=== PATIENT | female | born 1945 | race Caucasian/White ===

== ENCOUNTER 2023-10-31 10:37 | Outpatient (CLI) | payer MEDICARE, SELFPAY ==
--- NOTE | ~2023-10-31 | XR_ITS ---
Clinical Indication: COPD PA and lateral views of the chest: Comparison: None Findings: The lungs are clear, without evidence of focal consolidation or pleural effusion. Probable COPD pattern. Cardiomediastinal silhouette is within normal limits. Bones and soft tissues are unrema rkable. Impression: Probable COPD. Clear lungs. Reviewed, dictated and finalized at location . Impression: Probable COPD. Clear lungs.
[2023-10-31 11:01] LABS: Basophils Absolute Auto 0.07 K/mm3 (0.00-0.10); Basophils Percent Auto 0.7 % (0.0-1.0); Eosinophils Absolute Auto 0.35 K/mm3 (0.02-0.50); Eosinophils Percent Auto 3.5 % (1.0-6.0); Hemoglobin 9.7 g/dL (11.7-13.8); Immature Granulocyte Absolute 0.09 K/mm3 (0.00-0.00); Immature Granulocyte Percent A 0.9 % (0.0-0.0); Lymphocytes Absolute Auto 1.61 K/mm3 (1.10-4.50); Mean Corpuscular HGB Conc 30.3 g/dL (32.0-36.0); Monocytes Absolute Auto 0.82 K/mm3 (0.10-0.90); Monocytes Percent Auto 8.1 % (2.0-11.0); Neutrophils Absolute Auto 7.1 K/mm3 (1.7-7.2); Neutrophils Percent Auto 70.8 % (50.0-70.0); Platelet Count Result 300 K/mm3 (150-420); Red Blood Count 4.05 M/mm3 (4.20-5.40); White Blood Count 10.1 K/mm3 (4.8-10.8)
[2023-10-31 11:23] LABS: Appearance Urine Clear (Clear); Bilirubin Urine Negative (Negative); Blood Urine Negative (Negative); Color Urine Light Yellow (Yellow); Glucose Urine UA Negative (Negative); Ketones Urine Negative (Negative); Leukocyte Esterase Ur Trace (Negative); Nitrate Urine Negative (Negative); Protein Urine Negative (Negative); Urobilinogen Urine 0.2 mg/dL (0.2-1.0)
[2023-10-31 11:37] LABS: Add Urine Microscopic? YES
[2023-10-31 11:38] LABS: Bacteria Urine Trace /hpf; RBC Urine None seen /hpf (0-2); Squamous Epithelial Cell Urine Few /hpf (Few); WBC Urine None seen /hpf (0-3)
[2023-10-31 11:41] LABS: Creatinine Urine < 13.00 mg/dL (40-278); Microalbumin Urine Random < 13.0 mg/L
[2023-10-31 11:50] LABS: Alanine Aminotransferase 16 U/L (14-59); Albumin Level 3.4 g/dL (3.4-5.0); Alkaline Phosphatase 139 U/L (46-116); Anion Gap 9 mmol/L (8-16); Aspartate Amino Transferase 11 U/L (15-37); Bilirubin,Total 0.2 mg/dL (0.00-1.00); Blood Urea Nitrogen 7 mg/dL (7-18); Calcium 8.8 mg/dL (8.5-10.1); Carbon Dioxide 31 mmol/L (21-32); Chloride 100 mmol/L (98-108); Estimated Glomerular Filt Rate > 60; Glucose 86 mg/dL (70-99); Osmolality Calculated 287 mOsm/kg (285-295); Potassium 3.8 mmol/L (3.5-5.1); Sodium 140 mmol/L (136-145); Total Protein 7.5 g/dL (6.4-8.2)
[2023-10-31 14:49] LABS: Ferritin 16 ng/mL (8-252); Iron 19 ug/dL (50-170); Percent Iron Saturation 5 % (12-57)
== END 2023-10-31 10:38 | disposition home or self-care (01) ==
LOC: CHSLAB 10:44
PROVIDERS: PCP Family Medicine; Visit Provider Family Medicine
DX: E03.9 Hypothyroidism, unspecified (principal); J44.9 Chronic obstructive pulmonary disease, unspecified; I10 Essential (primary) hypertension; Z79.899 Other long term (current) drug therapy; R79.9 Abnormal finding of blood chemistry, unspecified
CPT/HCPCS: 36415; 71046; 80053; 80164; 81001; 82043; 82728; 83540; 83550; 84443; 85025

== ENCOUNTER 2023-11-01 08:32 | Inpatient (IN) | payer MEDICARE, SELFPAY ==
[2023-11-01] VITALS (22 sets, daily range): BP systolic 79–138; BP diastolic 37–63; PULSE 68–104; RESP 16–22; TEMP 36.4–38.1; O2SAT 85–97; BMI 27.2
--- NOTE | ~2023-11-01 | XR_ITS ---
EXAMINATION: XR chest 2V DATE: 11/01/2023 09:18 INDICATION: Weakness. TECHNIQUE: Frontal and lateral views of the chest were obtained. COMPARISON: Chest 2 views 10/31/2023 FINDINGS: There is mild atelectasis at the lung bases. No pleural effusion or pneumothorax. The heart size is normal. There is mild chronic anterior wedging of multiple midthoracic vertebral bodies. IMPRESSION: 1. Mild atelectasis at the lung bases. Reviewed, dictated and finalized at location A.
--- NOTE | 2023-11-01 08:41 | ED.GENADULT ---
HPI - General Adult General Chief complaint: Weakness Stated complaint: weakness. dry mouth Time Seen by Provider: 11/01/23 08:41 History of Present Illness HPI narrative: [facility] with general weakness mainly lower extremities, sneezing, coughing runny nose in the last few days. She denies any fever, chills, nausea vomiting, chest pain or shortness of breath history of throat cancer, intermittent aspiration pneumonia, patient probably was aspirated last night. . Related Data Home Medications Medication Instructions Recorded Confirmed amlodipine 10 mg tablet 10 mg PO DAILY 11/01/23 11/01/23 aspirin 81 mg chewable tablet 81 mg PO DAILY 11/01/23 11/01/23 atorvastatin 20 mg tablet 20 mg PO DAILY 11/01/23 11/01/23 budesonide-formoterol HFA 160 2 puff inhalation BID 11/01/23 11/01/23 mcg-4.5 mcg/actuation aerosol inhaler (Breyna) carbamazepine 100 mg chewable 300 mg PO BID 11/01/23 11/01/23 tablet dicyclomine 20 mg tablet 20 mg PO DAILY PRN Abdominal 11/01/23 11/01/23 Discomfort divalproex 125 mg capsule,delayed 125 mg PO BID 11/01/23 11/01/23 release sprinkle ferrous sulfate 325 mg (65 mg 325 mg PO DAILY 11/01/23 11/01/23 iron) tablet,delayed release furosemide 20 mg tablet 20 mg PO DAILY 11/01/23 11/01/23 levothyroxine 100 mcg tablet 100 mcg PO DAILY 11/01/23 11/01/23 montelukast 10 mg tablet 10 mg PO DAILY 11/01/23 11/01/23 oxybutynin chloride 5 mg 5 mg PO DAILY 11/01/23 11/01/23 tablet,extended release 24 hr pantoprazole 40 mg tablet,delayed 40 mg PO DAILY 11/01/23 11/01/23 release potassium chloride 10 mEq 10 meq PO DAILY 11/01/23 11/01/23 tablet,extended release(part/cryst) risperidone 2 mg tablet 2 mg PO DAILY 11/01/23 11/01/23 Allergies Allergy/AdvReac Type Severity Reaction Status Date / Time No Known Allergies Allergy Verified 11/01/23 09:01 Review of Systems Review of Systems: ROS unobtainable: Yes unobtainable due to mental status PMFSH Past Medical History Medical History Aspiration pneumonia Bipolar 1 disorder COPD (chronic obstructive pulmonary disease) HLD (hyperlipidemia) HTN (hypertension) Hypothyroid 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 She only tells me about her son, Artemio Gant [phone]. She has a court appointed guardian, Nai Workman [phone]. Smoking status: Former smoker Tobacco type: cigarettes Second hand tobacco smoke exposure: Yes Alcohol intake: never Substance use: never Substance use type: does not use Do You Feel Safe in your Home?: Yes Lack of Transportation: No Lack of Food: Never True Current Housing: I Have Housing Concerned About Future Housing: No Difficulty Paying Gas/Electric Bills: No Difficulty Paying for Meds: No Currently Unemployed: No Education: High School Diploma/GED Difficulty w/ Childcare or Family Care: No Living arrangements: retirement Additional living arrangements comments: Lives at [facility] Occupation/Education: other Additional occupation/education comments: disability. 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 Gender identity (if verbalized by the patient): Female Spiritual care concerns: No Exam Narrative: General appearance: Well-developed, well-nourished Skin: Normal color Head: Normocephalic, nontraumatic Eyes: Clear conjunctiva ENT: Oropharynx normal, ears normal, nose normal Neck: Supple, nontender Chest and respiratory: Airway patent, no respiratory distress, no accessory muscle use Heart: Regular rate/rhythm Abdomen: Soft, nontender, no organomegaly, quiet bowel sounds Vascular: Normal periphe
--- NOTE | 2023-11-01 08:49 | ECG_ITS ---
Measurements Intervals [place] Rate: 93 P: 38 PA: 175 QRS: -6 QRSD: 83 T: -4 QT: 338 QTc: 421 Interpretive Statements SINUS RHYTHM CONSIDER INFERIOR INFARCT, AGE INDETERMINATE ABNORMAL ECG NO PREVIOUS ECG AVAILABLE FOR COMPARISON Electronically Signed On 11-01-2023 10:19:19 CDT by Dylan Rojas D.O.
[2023-11-01 09:13] LABS: Base Excess ABG 1.6 mmol/L (0-2); HCO3 ABG 25.5 mmol/L (23-29); Oxygen Content ABG 15.2 %vol (16.0-22.0); Oxygen Saturation ABG 88.8 % (95-97); Oxyhemoglobin 87.6 % (94-100); PCO2 ABG 37.6 mmHg (35-45); PO2 ABG 55.7 mmHg (75-85); Total Hemoglobin 12.3 g/dL (12.0-18.0); pH ABG 7.45 (7.35-7.45)
[2023-11-01 09:15] LABS: Device ROOM AIR; Hematocrit 31.4 % (35.0-42.0); Hemoglobin 9.6 g/dL (11.7-13.8); Mean Corpuscular HGB Conc 30.6 g/dL (32.0-36.0); Mean Corpuscular Hemoglobin 23.5 pg (27.0-31.0); Mean Platelet Volume 9.1 fl (9.2-11.8); Modified Allen's Test Pass; Platelet Count Result 310 K/mm3 (150-420); Red Blood Count 4.08 M/mm3 (4.20-5.40); Red Cell Distribution Width 18.3 % (11.6-14.4); Site Drawn RIGHT RADIAL
[2023-11-01 09:22] LABS: White Blood Count 23.4 K/mm3 (4.8-10.8)
[2023-11-01 09:28] LABS: INR 0.9; Prothrombin Time 10.3 Seconds (9.50-12.10)
[2023-11-01 09:34] LABS: Alanine Aminotransferase 17 U/L (14-59); Albumin Level 3.1 g/dL (3.4-5.0); Alkaline Phosphatase 126 U/L (46-116); Anion Gap 11 mmol/L (8-16); Aspartate Amino Transferase 13 U/L (15-37); Bilirubin,Total 0.3 mg/dL (0.00-1.00); Blood Urea Nitrogen 9 mg/dL (7-18); Calcium 8.5 mg/dL (8.5-10.1); Carbon Dioxide 28 mmol/L (21-32); Chloride 97 mmol/L (98-108); Estimated CRCL calculation 50 ml/min; Estimated Glomerular Filt Rate > 60; Glucose 119 mg/dL (70-99); Osmolality Calculated 281 mOsm/kg (285-295); Potassium 3.9 mmol/L (3.5-5.1); Sodium 136 mmol/L (136-145); Total Protein 7.2 g/dL (6.4-8.2)
[2023-11-01 09:35] LABS: Band Neutrophils Percent 0 % (0-6); Lymphocytes Absolute Manual 0.46 K/mm3 (1.1-4.5); Lymphocytes Percent Manual 2 % (18-44); Monocytes Absolute Manual 1.63 K/mm3 (0.1-0.90); Monocytes Percent Manual 7 % (3-9); Neutrophils Absolute Manual 21.29 K/mm3 (1.7-7.2); Neutrophils Percent Manual 91 % (46-73); Platelet Estimate Adequate (Adequate); Total Cells Counted 100
[2023-11-01] MEDS: ACETAMINOPHEN 500 MG TABLET 1000 MG PO (09:50)
[2023-11-01 10:03] LABS: CRP 4.8 mg/dL (0.0-0.9)
--- NOTE | 2023-11-01 10:04 | PC.NURSE ---
per ERP no urine needed, start antibiotics.
[2023-11-01 10:07] LABS: SARS-CoV-2 RNA PCR Negative (Negative)
[2023-11-01 10:08] LABS: Lactic Acid Reflex 2.3 mmol/L (0.4-2.0)
[2023-11-01] MEDS: PIPERACILLN/TAZ 3.375GM/NS50ML 3.375 GM/50 ML BAG IVPB ×3 (10:11→21:03)
--- NOTE | 2023-11-01 10:12 | PC.NURSE ---
lab at bedside obtaining blood cultures. will start antibiotic when they are finished.
[2023-11-01 10:37] LABS: Influenza A QL RT-PCR Negative (Negative); Influenza B QL RT-PCR Negative (Negative); RSV RNA, RT-PCR Negative (Negative)
[2023-11-01] MEDS: SODIUM CHLORIDE 0.9% IV 1,000 ML 999 ML IV CONT ×2 (11:50→13:45)
[2023-11-01] MEDS: VANCOMYCIN 2,000 MG/NS 500 ML 2,000 MG/500 ML BAG 250 MG IVPB (11:54)
[2023-11-01 12:52] LABS: Reflex Lactic Acid Yes or No Add Lactic
[2023-11-01 13:47] LABS: Alanine Aminotransferase 12 U/L (14-59); Albumin Level 2.6 g/dL (3.4-5.0); Alkaline Phosphatase 108 U/L (46-116); Anion Gap 11 mmol/L (8-16); Aspartate Amino Transferase 13 U/L (15-37); Bilirubin,Total 0.4 mg/dL (0.00-1.00); Blood Urea Nitrogen 11 mg/dL (7-18); Calcium 8.1 mg/dL (8.5-10.1); Carbon Dioxide 25 mmol/L (21-32); Chloride 102 mmol/L (98-108); Estimated CRCL calculation 47 ml/min; Estimated Glomerular Filt Rate > 60; Glucose 110 mg/dL (70-99); Osmolality Calculated 286 mOsm/kg (285-295); Potassium 3.7 mmol/L (3.5-5.1); Sodium 138 mmol/L (136-145); Total Protein 6.3 g/dL (6.4-8.2)
[2023-11-01 13:52] LABS: Lactic Acid 1.7 mmol/L (0.4-2.0)
[2023-11-01 13:55] LABS: Magnesium 1.7 mg/dL (1.8-2.4)
--- NOTE | 2023-11-01 15:12 | PC.NURSE ---
1512 mortuary technician at bedside assisting patient with lunch at this time.
--- NOTE | 2023-11-01 15:16 | PC.NURSE ---
8220 ERP spoke with Carol Ann LOO at [facility] will continue to hydrate and recheck for possible admission.
--- NOTE | 2023-11-01 15:28 | PC.NURSE ---
1510 pt up to restroom with oil burner technician pt tolerated well.
[2023-11-01] MEDS: levoFLOXacin 750 MG/D5W 150 ML 750 MG/150 ML BAG 100 MG IVPB (16:00)
--- NOTE | 2023-11-01 16:02 | PC.NURSE ---
1600 pt to be admitted, pt verbalized understanding no further questions.
--- NOTE | 2023-11-01 16:30 | ADMGEN ---
This patient, Maria G Gant, was admitted to 2nd Floor Room 204-1. Patient/family oriented to hospital policies and general routines including ID bracelet, bed and alarms, visiting hours, pain management, procedures, bathroom and other care routines, personal items, smoking policy, room service/diet, and visiting hours. Information on how to activate the Rapid Response Team has been discussed. Patient/Family are encouraged to report perceived risks to care and to ask questions if they do not understand what they are told or what they should do.
--- NOTE | 2023-11-01 16:53 | PC.NURSE ---
total volume of 1300ml now infused to total 2300 ml ordered
--- NOTE | 2023-11-01 17:55 | PM.IMHP ---
H&P: HPI History of Present Illness Date/Time: 11/01/23 17:55 Chief Complaint: weakness Narrative: This is an 78 year old female with a past medical history of HTN, HLD, COPD not on oxygen, bipolar, iron deficient anemia, hypothyroidism, and metastatic lung carcinoma. She presented to the ED from [facility] with complaints of weakness. She is a poor historian with no previous record at this institution therefore the history is limited. When I asked her where she lived she was unable to tell me the name of the facility or it's location. When asked where she currently was she stated she was at a daycare. She does tell me that she has a guardian named Nai Workman whom she does not like. When asked why she came to the hospital she said she was not sure. They made me come . She reports intermittently having a headache but denies fever, chills, runny nose, sore throat, shortness of breath, chest pain, nausea, vomiting, diarrhea, or constipation. Her last bowel movement was three days ago and that is normal for her. She has no dysuria, frequency, or abdominal pain. Her only complaint besides her headache is weakness. She does mention that she has problems with swallowing and states this has been going on for six months. In the ED she was found to have a leukocytosis of 23.4 with a left shift, hgb 9.6, hct 31.4%, Plt 310, ABG with oxyhemoglobin of 87%, lactic 2.3 and Mg 1.7. Her respiratory panel was negative. Her chest x-ray only showed mild atelactasis at the lung base. She was 85% on room air so she was placed on 2 L NC. Her sats improved to 97%. While in the ED she had some hypotension that resolved after fluid boluses. She received 2300 ml of NS and was started on vancomycin, zosyn, and levaquin. Blood cultures and MRSA nares are pending. She was admitted in this setting for further work up of a possible aspiration pneumonia. I contacted her brother Artemio and left a voicemail to notify him that his sister was in the hospital. I also spoke with her guardian and updated her on the patient's status. Nai states that she has been the patient's guardian for the last five years. 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 She only tells me about her son, Artemio Gant [phone]. She has a court appointed guardian, Nai Workman [phone]. Smoking status: Former smoker Tobacco type: cigarettes Second hand tobacco smoke exposure: Yes Alcohol intake: never Substance use: never Substance use type: does not use Do You Feel Safe in your Home?: Yes Lack of Transportation: No Lack of Food: Never True Current Housing: I Have Housing Concerned About Future Housing: No Difficulty Paying Gas/Electric Bills: No Difficulty Paying for Meds: No Currently Unemployed: No Education: High School Diploma/GED Difficulty w/ Childcare or Family Care: No Living arrangements: senior living Additional living arrangements comments: Lives at [facility] Occupation/Education: other Additional occupation/education comments: disability. 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 Gender identity (if verbalized by the patient): Female Spiritual care concerns: No Meds Home Medications and Allergies Home Medications Medication Instructions Recorded Confirmed Type amlodipine 10 mg tablet 10 mg
[2023-11-01 19:04] LABS: Anion Gap 8 mmol/L (8-16); Blood Urea Nitrogen 9 mg/dL (7-18); Calcium 7.7 mg/dL (8.5-10.1); Carbon Dioxide 26 mmol/L (21-32); Chloride 104 mmol/L (98-108); Estimated CRCL calculation 60 ml/min; Estimated Glomerular Filt Rate > 60; Glucose 118 mg/dL (70-99); Osmolality Calculated 285 mOsm/kg (285-295); Potassium 3.5 mmol/L (3.5-5.1); Sodium 138 mmol/L (136-145)
[2023-11-01] MEDS: carBAMazepine 200 MG TABLET 300 MG PO (20:40)
[2023-11-01] MEDS: DIVALPROEX SODIUM SPRINKLE 125 MG CAP.DR PO (20:40)
[2023-11-01] MEDS: BUDESONIDE/FORMOTEROL (*SP) 160-4.5 MCG 6 GM INH 2 PUFF INHALATION (20:40)
[2023-11-01] MEDS: MAGNESIUM OXIDE 400 MG TABLET PO (21:15)
[2023-11-01] MEDS: MAGNESIUM SULF 2 GM/WATER 50ML 2 GM/50 ML BAG IVPB (21:16)
[2023-11-02] VITALS (14 sets, daily range): BP systolic 108–134; BP diastolic 56–68; PULSE 68–88; RESP 14–20; TEMP 36.4–36.9; O2SAT 87–97
--- NOTE | 2023-11-02 | PC.NURSE ---
Pt started on oxygen at 2 liters per nasal cannula as her SAO2 is 84% on room air.
[2023-11-02] MEDS: IPRATROPIUM 0.5 MG/ALBUTEROL SULFATE 2.5 MG AMPUL.NEB 3 ML INHALATION ×4 (00:06→18:23)
--- NOTE | 2023-11-02 00:15 | PC.NURSE ---
Pt given a duoneb treatment which she tolerated well.
--- NOTE | 2023-11-02 02:10 | PC.NURSE ---
Pt asleep and respirations are even and unlabored. No signs of respiratory distress noted.
--- NOTE | 2023-11-02 04:11 | PC.NURSE ---
Pt's vital signs taken and SAO2 was 97% with oxygen on at 1 liter per nasal cannula. Oxygen discontinued at this time.
[2023-11-02] MEDS: PIPERACILLN/TAZ 3.375GM/NS50ML 3.375 GM/50 ML BAG IVPB (05:00)
--- NOTE | 2023-11-02 05:00 | PC.NURSE ---
IV zosyn 3.375 mg infusing as ordered.
[2023-11-02 05:27] LABS: Basophils Absolute Auto 0.05 K/mm3 (0.00-0.10); Basophils Percent Auto 0.3 % (0.0-1.0); Eosinophils Absolute Auto 0.13 K/mm3 (0.02-0.50); Eosinophils Percent Auto 0.9 % (1.0-6.0); Hematocrit 25.6 % (35.0-42.0); Hemoglobin 7.6 g/dL (11.7-13.8); Immature Granulocyte Percent A 0.7 % (0.0-0.0); Lymphocytes Absolute Auto 1.27 K/mm3 (1.10-4.50); Lymphocytes Percent Auto 8.7 % (18.0-42.0); Mean Corpuscular HGB Conc 29.7 g/dL (32-36); Mean Corpuscular Hemoglobin 23.5 pg (27.0-31.0); Mean Platelet Volume 9.4 fl (9.2-11.8); Monocytes Percent Auto 8.2 % (2.0-11.0); Neutrophils Absolute Auto 11.85 K/mm3 (1.70-7.20); Neutrophils Percent Auto 81.2 % (50.0-70.0); Platelet Count Result 251 K/mm3 (150-420); Red Blood Count 3.24 M/mm3 (4.20-5.40); Red Cell Distribution Width 18.2 % (11.6-14.4); White Blood Count 14.6 K/mm3 (4.8-10.8)
[2023-11-02 05:45] LABS: Alanine Aminotransferase 12 U/L (14-59); Albumin Level 2.4 g/dL (3.4-5.0); Alkaline Phosphatase 91 U/L (46-116); Anion Gap 10 mmol/L (8-16); Aspartate Amino Transferase < 10 U/L (15-37); Bilirubin,Total 0.2 mg/dL (0.00-1.00); Blood Urea Nitrogen 7 mg/dL (7-18); Carbon Dioxide 27 mmol/L (21-32); Chloride 102 mmol/L (98-108); Cholesterol 152 mg/dL (0-200); Estimated CRCL calculation 77 ml/min; Estimated Glomerular Filt Rate > 60; Glucose 94 mg/dL (70-99); HDL Direct 75 mg/dL (40-60); LDL Cholesterol Calculated 65 mg/dL (<130); Osmolality Calculated 286 mOsm/kg (285-295); Potassium 3.7 mmol/L (3.5-5.1); Sodium 139 mmol/L (136-145); Total Protein 5.9 g/dL (6.4-8.2); Triglycerides 59 mg/dL (0-150)
[2023-11-02] MEDS: LEVOTHYROXINE SODIUM 100 MCG TABLET PO (06:31)
--- NOTE | 2023-11-02 06:31 | PC.NURSE ---
Pt given Synthroid 100 mcg PO as ordered.
[2023-11-02 07:20] LABS: MRSA (PCR) NOT DETECTED (NOT DETECTE)
[2023-11-02] MEDS: ATORVASTATIN 10 MG TABLET 20 MG PO (09:29)
[2023-11-02] MEDS: PANTOPRAZOLE 40 MG TABLET PO (09:29)
[2023-11-02] MEDS: ENOXAPARIN 40 MG/0.4 ML SYRINGE SUB-Q (09:29)
[2023-11-02] MEDS: oxyBUTYnin CHLORIDE XL 5 MG TAB.ER.24 PO (09:29)
[2023-11-02] MEDS: MONTELUKAST SODIUM 10 MG TABLET PO (09:29)
[2023-11-02] MEDS: carBAMazepine 200 MG TABLET 300 MG PO ×2 (09:30→20:50)
[2023-11-02] MEDS: ASPIRIN 81 MG CHEWABLE TABLET PO (09:30)
[2023-11-02] MEDS: POTASSIUM CHLORIDE 10 MEQ ER TABLET PO (09:31)
[2023-11-02] MEDS: FERROUS SULFATE 325 MG TABLET DR PO (09:31)
[2023-11-02] MEDS: BUDESONIDE/FORMOTEROL (*SP) 160-4.5 MCG 6 GM INH 2 PUFF INHALATION ×2 (09:32→20:51)
[2023-11-02] MEDS: DIVALPROEX SODIUM SPRINKLE 125 MG CAP.DR PO ×2 (09:40→20:50)
[2023-11-02] MEDS: levoFLOXacin 750 MG/D5W 150 ML 750 MG/150 ML BAG 100 MG IVPB (10:41)
--- NOTE | 2023-11-02 11:42 | PM.IMPN ---
Progress Note: A&P Assessment and Plan (1) Sepsis: Code(s): A41.9 - Sepsis, unspecified organism Status: Acute Assessment and Plan: History of aspiration and poor swallow. Suspect aspiration pneumonitis -WBC 23.4 -Chest x-ray shows atelectasis -Hypoxia on ABG and sating 85% on room air. New o2 requirements of 2 L NC to maintain saturation > 90%. -Blood cultures and MRSA pending -Started on Levaquin, Zosyn, and Vanco -Received 30 ml per kg fluid resuscitation for a lactic of 2.3. Repeat lactic 1.7. -IS and oxygen. Wean o2 as tolerated. -Q4 vital signs -Telemetry ordered -curiel placed for accurate intake and output in the setting of sepsis -speech therapy ordered for concerns of ASA pneumonitis 11/01: hypotension resolved after IV fluids yesterday, patient is on room air today, white blood cell count decreased to 14.6. Discussion with Infectious Disease pharmacist we will deescalate IV treatment to Levaquin alone now that MRSA nares is negative. (2) Acute hypoxic respiratory failure: Code(s): J96.01 - Acute respiratory failure with hypoxia Status: Acute Assessment and Plan: ABG ph 7.45, pCO2 37.6, pO2 55.7, HCO3 25.5, oxyhemoglobin 87.6% -sating 85% on arrival -2 L NC placed for maintain saturation greater than 90% -hx of COPD without oxygen use. Denies THERESA. -Q 6 hour duo nebs 11/01: Improving. Patient titrated to room air this morning. (3) HTN (hypertension): Code(s): I10 - Essential (primary) hypertension Status: Acute Assessment and Plan: Home agents of amlodipine and lasix -currently holding given recent low blood pressure and sepsis picture -will review vitals daily and resume when appropriate -Q 4 VS 11/01: Stable blood pressure much improved after treatment with IV fluids (4) Weakness: Code(s): R53.1 - Weakness Status: Acute Assessment and Plan: States she normally walks with a walker independently. -PT/OT consults when appropriate -fall precautions -currently is on bed rest with HOB no greater than 45 degrees given active fem line. 11/01: Will have PT OT see patient tomorrow, DC CVC right femoral today (5) Bipolar 1 disorder: Code(s): F31.9 - Bipolar disorder, unspecified Status: Acute Assessment and Plan: Lives in a prison setting, has a guardian, on maintenance medications -stable currently. So far she has been appropriate, pleasant, and cooperative -Continue carbamazepine, divalproex, and risperidone 11/01: stable, no acute exacerbation (6) HLD (hyperlipidemia): Code(s): E78.5 - Hyperlipidemia, unspecified Status: Acute Assessment and Plan: On daily Atorvastatin 20 mg -lipid panel ordered -home medication continued Plan Remain admitted and continue IV antibiotics for now, consider deescalation and discharge tomorrow as patient is doing much better. Time Spent With Patient Time with patient: 25 - 35 minutes Subjective Date/time seen: 11/02/23 11:42 Interval history: Copied from history and physical: This is an 78 year old female with a past medical history of HTN, HLD, COPD not on oxygen, bipolar, iron deficient anemia, hypothyroidism, and metastatic lung carcinoma. She presented to the ED from [facility] with complaints of weakness. She is a poor historian with no previous record at this institution therefore the history is limited. When I asked her where she lived she was unable to tell me the name of the facility or it's location. When asked where she currently was she stated she was at a daycare. She does tell me that she has a guardian named Nai Workman whom she does not like. When asked why she came to the hospital she said she was not sure. They made me come . She reports intermittently having a headache but denies fever, chills, runny nose, sore throat, shortness of breath, chest pain, nausea, vomiting, diarrhea, or constipation. Her
[2023-11-02] MEDS: risperiDONE 1 MG TABLET 2 MG PO (13:34)
[2023-11-03] VITALS (9 sets, daily range): BP systolic 106–140; BP diastolic 58–78; PULSE 65–88; RESP 16–18; TEMP 36.2–36.8; O2SAT 91–97
[2023-11-03 05:30] LABS: Basophils Absolute Auto 0.06 K/mm3 (0.00-0.10); Basophils Percent Auto 0.6 % (0.0-1.0); Eosinophils Absolute Auto 0.36 K/mm3 (0.02-0.50); Eosinophils Percent Auto 3.9 % (1.0-6.0); Hematocrit 26.7 % (35.0-42.0); Hemoglobin 8.1 g/dL (11.7-13.8); Immature Granulocyte Absolute 0.09 K/mm3 (0.00-0.00); Lymphocytes Absolute Auto 1.29 K/mm3 (1.10-4.50); Lymphocytes Percent Auto 13.9 % (18.0-42.0); Mean Corpuscular HGB Conc 30.3 g/dL (32-36); Mean Corpuscular Hemoglobin 23.6 pg (27.0-31.0); Mean Corpuscular Volume 77.8 fL (78.0-102.0); Mean Platelet Volume 9.2 fl (9.2-11.8); Monocytes Absolute Auto 0.81 K/mm3 (0.10-0.90); Monocytes Percent Auto 8.7 % (2.0-11.0); Neutrophils Absolute Auto 6.67 K/mm3 (1.70-7.20); Neutrophils Percent Auto 71.9 % (50.0-70.0); Platelet Count Result 286 K/mm3 (150-420); Red Blood Count 3.43 M/mm3 (4.20-5.40); Red Cell Distribution Width 18.4 % (11.6-14.4); White Blood Count 9.3 K/mm3 (4.8-10.8)
[2023-11-03] MEDS: LEVOTHYROXINE SODIUM 100 MCG TABLET PO (05:38)
[2023-11-03] MEDS: IPRATROPIUM 0.5 MG/ALBUTEROL SULFATE 2.5 MG AMPUL.NEB 3 ML INHALATION ×3 (05:41→16:39)
[2023-11-03 05:47] LABS: Alanine Aminotransferase 18 U/L (14-59); Albumin Level 2.5 g/dL (3.4-5.0); Alkaline Phosphatase 100 U/L (46-116); Anion Gap 7 mmol/L (8-16); Aspartate Amino Transferase 12 U/L (15-37); Bilirubin,Total 0.1 mg/dL (0.00-1.00); Blood Urea Nitrogen 8 mg/dL (7-18); Calcium 8.6 mg/dL (8.5-10.1); Carbon Dioxide 29 mmol/L (21-32); Chloride 105 mmol/L (98-108); Estimated CRCL calculation 73 ml/min; Estimated Glomerular Filt Rate > 60; Glucose 98 mg/dL (70-99); Magnesium 1.9 mg/dL (1.8-2.4); Osmolality Calculated 290 mOsm/kg (285-295); Sodium 141 mmol/L (136-145); Total Protein 6.4 g/dL (6.4-8.2)
--- NOTE | 2023-11-03 08:35 | PM.IMPN ---
Progress Note: A&P Assessment and Plan (1) Sepsis: Code(s): A41.9 - Sepsis, unspecified organism Status: Acute Assessment and Plan: History of aspiration and poor swallow. Suspect aspiration pneumonitis -WBC 23.4 -Chest x-ray shows atelectasis -Hypoxia on ABG and sating 85% on room air. New o2 requirements of 2 L NC to maintain saturation > 90%. -Blood cultures and MRSA pending -Started on Levaquin, Zosyn, and Vanco -Received 30 ml per kg fluid resuscitation for a lactic of 2.3. Repeat lactic 1.7. -IS and oxygen. Wean o2 as tolerated. -Q4 vital signs -Telemetry ordered -curiel placed for accurate intake and output in the setting of sepsis -speech therapy ordered for concerns of ASA pneumonitis 11/01: hypotension resolved after IV fluids yesterday, patient is on room air today, white blood cell count decreased to 14.6. Discussion with Infectious Disease pharmacist we will deescalate IV treatment to Levaquin alone now that MRSA nares is negative. 11/02: Plan to transition to oral antibiotics tomorrow and discharge (2) Acute hypoxic respiratory failure: Code(s): J96.01 - Acute respiratory failure with hypoxia Status: Acute Assessment and Plan: ABG ph 7.45, pCO2 37.6, pO2 55.7, HCO3 25.5, oxyhemoglobin 87.6% -sating 85% on arrival -2 L NC placed for maintain saturation greater than 90% -hx of COPD without oxygen use. Denies THERESA. -Q 6 hour duo nebs 11/01: Improving. Patient titrated to room air this morning. 11/02: Patient has remained on room air no further need for supplemental oxygen. (3) HTN (hypertension): Code(s): I10 - Essential (primary) hypertension Status: Acute Assessment and Plan: Home agents of amlodipine and lasix -currently holding given recent low blood pressure and sepsis picture -will review vitals daily and resume when appropriate -Q 4 VS 11/01: Stable blood pressure much improved after treatment with IV fluids 11/02: Blood pressure stable no further intervention at this time (4) Weakness: Code(s): R53.1 - Weakness Status: Acute Assessment and Plan: States she normally walks with a walker independently. -PT/OT consults when appropriate -fall precautions -currently is on bed rest with HOB no greater than 45 degrees given active fem line. 11/01: Will have PT OT see patient tomorrow, DC CVC right femoral today 11/02: Patient walking well with therapy anticipate discharge tomorrow (5) Bipolar 1 disorder: Code(s): F31.9 - Bipolar disorder, unspecified Status: Acute Assessment and Plan: Lives in a nursing home setting, has a guardian, on maintenance medications -stable currently. So far she has been appropriate, pleasant, and cooperative -Continue carbamazepine, divalproex, and risperidone 11/01: stable, no acute exacerbation (6) HLD (hyperlipidemia): Code(s): E78.5 - Hyperlipidemia, unspecified Status: Acute Assessment and Plan: On daily Atorvastatin 20 mg -lipid panel ordered -home medication continued (7) Iron deficiency anemia: Code(s): D50.9 - Iron deficiency anemia, unspecified Status: Acute Assessment and Plan: Iron level 19 TIBC 414 iron saturation 5%, hemoglobin 8 point hematocrit 26.7 findings microcytic hypochromic anemia. Ordered IV iron today and tomorrow before discharge. Time Spent With Patient Time with patient: 25 - 35 minutes Subjective Date/time seen: 11/03/23 08:35 Interval history: Copied from history and physical: This is an 78 year old female with a past medical history of HTN, HLD, COPD not on oxygen, bipolar, iron deficient anemia, hypothyroidism, and metastatic lung carcinoma. She presented to the ED from [facility] with complaints of weakness. She is a poor historian with no previous record at this institution therefore the history is limited. When I asked her where she lived she was unable to tell m
[2023-11-03] MEDS: levoFLOXacin 750 MG/D5W 150 ML 750 MG/150 ML BAG 100 MG IVPB (10:10)
[2023-11-03] MEDS: DICYCLOMINE HCL 10 MG CAPSULE 20 MG PO (10:10)
[2023-11-03] MEDS: risperiDONE 1 MG TABLET 2 MG PO (10:11)
[2023-11-03] MEDS: ATORVASTATIN 10 MG TABLET 20 MG PO (10:11)
[2023-11-03] MEDS: carBAMazepine 200 MG TABLET 300 MG PO ×2 (10:11→21:37)
[2023-11-03] MEDS: POTASSIUM CHLORIDE 10 MEQ ER TABLET PO (10:12)
[2023-11-03] MEDS: MONTELUKAST SODIUM 10 MG TABLET PO (10:12)
[2023-11-03] MEDS: FERROUS SULFATE 325 MG TABLET DR PO (10:12)
[2023-11-03] MEDS: PANTOPRAZOLE 40 MG TABLET PO (10:12)
[2023-11-03] MEDS: DIVALPROEX SODIUM SPRINKLE 125 MG CAP.DR PO ×2 (10:13→21:37)
[2023-11-03] MEDS: ASPIRIN 81 MG CHEWABLE TABLET PO (10:13)
[2023-11-03] MEDS: ENOXAPARIN 40 MG/0.4 ML SYRINGE SUB-Q (10:13)
[2023-11-03] MEDS: oxyBUTYnin CHLORIDE XL 5 MG TAB.ER.24 PO (10:13)
[2023-11-03] MEDS: BUDESONIDE/FORMOTEROL (*SP) 160-4.5 MCG 6 GM INH 2 PUFF INHALATION ×2 (10:14→21:36)
--- NOTE | 2023-11-03 11:23 | PC.NURSE ---
Jeffries catheter removed at 0900. RO
[2023-11-03] MEDS: IRON SUCROSE COMPLEX 500 MG in SODIUM CHLORIDE 0.9% IV 250 ML 79 MG IVPB (13:06)
[2023-11-03 13:47] LABS: Alanine Aminotransferase 17 U/L (14-59); Albumin Level 2.7 g/dL (3.4-5.0); Alkaline Phosphatase 106 U/L (46-116); Anion Gap 9 mmol/L (8-16); Aspartate Amino Transferase 14 U/L (15-37); Bilirubin,Total 0.1 mg/dL (0.00-1.00); Blood Urea Nitrogen 7 mg/dL (7-18); Calcium 8.6 mg/dL (8.5-10.1); Carbon Dioxide 29 mmol/L (21-32); Chloride 98 mmol/L (98-108); Estimated CRCL calculation 59 ml/min; Estimated Glomerular Filt Rate > 60; Glucose 132 mg/dL (70-99); Osmolality Calculated 282 mOsm/kg (285-295); Potassium 3.8 mmol/L (3.5-5.1); Sodium 136 mmol/L (136-145); Total Protein 7.2 g/dL (6.4-8.2)
[2023-11-03 13:53] LABS: Magnesium 1.8 mg/dL (1.8-2.4)
[2023-11-04] VITALS (9 sets, daily range): BP systolic 132–142; BP diastolic 65–68; PULSE 72–88; RESP 16; TEMP 36.4–36.8; O2SAT 92–96
[2023-11-04] MEDS: IPRATROPIUM 0.5 MG/ALBUTEROL SULFATE 2.5 MG AMPUL.NEB 3 ML INHALATION ×3 (00:45→13:15)
[2023-11-04 05:33] LABS: Basophils Absolute Auto 0.05 K/mm3 (0.00-0.10); Basophils Percent Auto 0.6 % (0.0-1.0); Eosinophils Absolute Auto 0.43 K/mm3 (0.02-0.50); Eosinophils Percent Auto 5.6 % (1.0-6.0); Hematocrit 26.8 % (35.0-42.0); Hemoglobin 8.1 g/dL (11.7-13.8); Immature Granulocyte Absolute 0.09 K/mm3 (0.00-0.00); Immature Granulocyte Percent A 1.2 % (0.0-0.0); Lymphocytes Percent Auto 18.2 % (18.0-42.0); Mean Corpuscular HGB Conc 30.2 g/dL (32-36); Mean Corpuscular Hemoglobin 23.7 pg (27.0-31.0); Mean Corpuscular Volume 78.4 fL (78.0-102.0); Mean Platelet Volume 9.6 fl (9.2-11.8); Monocytes Absolute Auto 0.71 K/mm3 (0.10-0.90); Monocytes Percent Auto 9.2 % (2.0-11.0); Neutrophils Absolute Auto 5.03 K/mm3 (1.70-7.20); Neutrophils Percent Auto 65.2 % (50.0-70.0); Platelet Count Result 290 K/mm3 (150-420); Red Blood Count 3.42 M/mm3 (4.20-5.40); Red Cell Distribution Width 18.3 % (11.6-14.4); White Blood Count 7.7 K/mm3 (4.8-10.8)
[2023-11-04] MEDS: LEVOTHYROXINE SODIUM 100 MCG TABLET PO (05:42)
[2023-11-04 05:48] LABS: Alanine Aminotransferase 19 U/L (14-59); Albumin Level 2.5 g/dL (3.4-5.0); Alkaline Phosphatase 90 U/L (46-116); Anion Gap 9 mmol/L (8-16); Aspartate Amino Transferase 13 U/L (15-37); Bilirubin,Total 0.1 mg/dL (0.00-1.00); Blood Urea Nitrogen 5 mg/dL (7-18); Calcium 8.5 mg/dL (8.5-10.1); Carbon Dioxide 28 mmol/L (21-32); Chloride 102 mmol/L (98-108); Estimated CRCL calculation 64 ml/min; Estimated Glomerular Filt Rate > 60; Glucose 96 mg/dL (70-99); Magnesium 1.8 mg/dL (1.8-2.4); Osmolality Calculated 285 mOsm/kg (285-295); Potassium 4.3 mmol/L (3.5-5.1); Sodium 139 mmol/L (136-145); Total Protein 6.5 g/dL (6.4-8.2)
--- NOTE | 2023-11-04 08:53 | PM.DS ---
DS: Admitting Diagnosis Discharge Date 11/03/2022 Admitting Diagnosis sepsis, acute hypoxic respiratory failure, hypertension, weakness, bipolar 1 disorder, hyperlipidemia DS: Discharge Diagnosis Discharge Diagnosis (1) Sepsis: Code(s): A41.9 - Sepsis, unspecified organism Status: Acute (2) Acute hypoxic respiratory failure: Code(s): J96.01 - Acute respiratory failure with hypoxia Status: Acute (3) HTN (hypertension): Code(s): I10 - Essential (primary) hypertension Status: Acute (4) Weakness: Code(s): R53.1 - Weakness Status: Acute (5) Bipolar 1 disorder: Code(s): F31.9 - Bipolar disorder, unspecified Status: Acute (6) HLD (hyperlipidemia): Code(s): E78.5 - Hyperlipidemia, unspecified Status: Acute (7) Iron deficiency anemia: Code(s): D50.9 - Iron deficiency anemia, unspecified Status: Acute DS: Summary Hospital Course Reason for hospitalization: Pneumonia with sepsis Hospital Course: this is an 78-year-old female patient who was admitted to the hospital with acute hypoxemic respiratory failure, sepsis, aspiration pneumonia with hypotension. Patient has a history swallowing difficulties frequently aspirates. She presented to hypoxic requiring oxygen white blood cell elevated at 23 hypotensive in the 70s systolic. She received IV Levaquin, Zosyn and vancomycin in the emergency department. Triple-lumen central venous catheter was placed in the right femoral due to peripheral access. Patient improved after IV fluids and IV antibiotics. She was titrated off oxygen following day. Continued IV Levaquin only. Patient found to be anemic iron labs were noted to be significantly low so patient received IV yesterday as well as today. While receiving IV antibiotic today her IV infiltrated and she did not receive full dose. Supplemented with oral dose partial 500 mg to complete her 750 mg dosing today. She will be discharged with 4 more days of oral Levaquin. Patient worked with therapy and is able to ambulate around the entire patient floor. Discontinued amlodipine as she never became hypertensive. Continued other home medications but increased oral iron supplement. Home health will see patient at [facility] for physical therapy and speech therapy. Status at Discharge Cognitive/behavioral status at discharge: awake alert mostly oriented and very pleasant Functional status at discharge: uses cane/walker Overall status at discharge: patient is back to baseline Time Spent with Patient Time attestation: Total time spent providing and/or coordinating discharge services: 35 minutes Time spent: Greater than 30 minutes Exam Narrative: General:well developed, well nourished, appears stated age HEENT: normocephalic, atraumatic. Mucous membranes moist, EOMI, PERRLA, bilateral sclera anicteric, no conjunctival injection. Neck supple without JVD, lymphadenopathy, or bruit. Respiratory: clear to auscultation bilaterally. No rales/rhonchi/wheezes. Cardiovascular: Regular rhythm, Regular rate normal S1-S2 upon auscultation. No murmurs, rubs, or clicks. PMI is nondisplaced, capillary re-fill greater than 3 seconds. Abdomen: Soft, round, no pulsatile masses, non-distended and non-tender. No rebound, no guarding. No CVA tenderness, no hepatosplenomegaly.? Bowel sounds present to all four quadrants. Extremities: No cyanosis, clubbing, or edema present. Pulses are palpable 2/2. Active ROM to all four extremities. Neuro: Alert and orientated x 2-3. PERRLA. Cranial nerves 2-12 intact without focal deficit. Ambulatory with a steady gait with the use a walker. Skin: Warm, dry, and intact, without rash, erythema, or lesion. Generalized bruising. Lines: Peripheral IV left forearm with nearby thrombophlebitis. Psych: Mildly confused,? normal speech, normal affect, no hallucinations, no dysarthria, cooperative DS: Data Data Completed and Pending Co
[2023-11-04] MEDS: IRON SUCROSE COMPLEX 500 MG in SODIUM CHLORIDE 0.9% IV 250 ML 79 MG IVPB (09:33)
[2023-11-04] MEDS: levoFLOXacin 750 MG/D5W 150 ML 750 MG/150 ML BAG 100 MG IVPB (09:33)
[2023-11-04] MEDS: BUDESONIDE/FORMOTEROL (*SP) 160-4.5 MCG 6 GM INH 2 PUFF INHALATION (09:40)
[2023-11-04] MEDS: PANTOPRAZOLE 40 MG TABLET PO (09:40)
[2023-11-04] MEDS: risperiDONE 1 MG TABLET 2 MG PO (09:41)
[2023-11-04] MEDS: MONTELUKAST SODIUM 10 MG TABLET PO (09:41)
[2023-11-04] MEDS: ASPIRIN 81 MG CHEWABLE TABLET PO (09:41)
[2023-11-04] MEDS: carBAMazepine 200 MG TABLET 300 MG PO (09:41)
[2023-11-04] MEDS: ATORVASTATIN 10 MG TABLET 20 MG PO (09:41)
[2023-11-04] MEDS: DIVALPROEX SODIUM SPRINKLE 125 MG CAP.DR PO (09:42)
[2023-11-04] MEDS: oxyBUTYnin CHLORIDE XL 5 MG TAB.ER.24 PO (09:42)
[2023-11-04] MEDS: ENOXAPARIN 40 MG/0.4 ML SYRINGE SUB-Q (09:42)
[2023-11-04] MEDS: FERROUS SULFATE 325 MG TABLET DR PO (09:42)
[2023-11-04] MEDS: POTASSIUM CHLORIDE 10 MEQ ER TABLET PO (09:42)
[2023-11-04] MEDS: levoFLOXacin 500 MG TABLET PO (13:10)
--- NOTE | 2023-11-04 16:05 | PC.NURSE ---
Patient discharging back to [facility]. Jessica from [facility] here to pick patient up. IV sites removed, tip intact. Dressing applied to both sites. All belongings gathered together to be sent home with patient. All discharge instuctions and education reviewed with patient and all questions answered. Patient denies any further questions at discharge. This nurse accompanied patient to front door via wheelchair. Left via private vehicle with Jessica. Provided with hard scripts for new medication, scripts also faxed directly to pharmacy.
--- NOTE | 2023-11-07 09:40 | PC.NURSE ---
[facility]charge [facility] back [facility] see her, out of network to see PMD next week will have them make a referral for home health at that time, no aldair re sadie instructions
--- NOTE | 2023-11-07 14:12 | PCCCNOTE ---
Rec'd call from [facility] stating they do not have a contract with [facility] and will not be able to see Maria G. Care Coordination is currently looking for another Home Health that can provide ST and PT for Maria G.
--- NOTE | 2023-11-08 15:21 | PCCCNOTE ---
[facility] is able to provide PT and ST for Maria G. They will be reaching out to Nai Nance pt's guardian for approval.
== END 2023-11-04 16:05 | disposition home health service (06) | DRG 871 ==
LOC: CHSED 10:25 → CHS2ND 12:58 → CHSED 13:01 → CHS2ND 15:59
PROVIDERS: Nurse Practitioner; Nurse Practitioner Acute Care; Admitting Provider Internal Medicine; Emergency Provider Emergency Medicine; PCP Family Medicine; Visit Provider Internal Medicine
DX: A41.9 Sepsis, unspecified organism (principal); J69.0 Pneumonitis due to inhalation of food and vomit; J96.01 Acute respiratory failure with hypoxia; C78.00 Secondary malignant neoplasm of unspecified lung; I10 Essential (primary) hypertension; Z20.822 Contact with and (suspected) exposure to COVID-19; J44.9 Chronic obstructive pulmonary disease, unspecified; D50.9 Iron deficiency anemia, unspecified; E78.5 Hyperlipidemia, unspecified; E03.9 Hypothyroidism, unspecified; Z85.819 Personal history of malignant neoplasm of unspecified site of lip, oral cavity, and pharynx; F31.9 Bipolar disorder, unspecified; Z79.82 Long term (current) use of aspirin
CPT/HCPCS: 36415; 36556; 36600; 71046; 80048; 80053; 80061; 80164; 81001; 82043; 82728; 82805; 83540; 83550; 83605; 83735; 84443; 84484; 85025; 85610; 86140; 87040; 87637; 87641; 92526; 92610; 93005; 94640; 96365; 97110; 97161; 97165; 97530; 97535; 99285; A9270; J1650; J1756; J1956; J2543; J3370; J3475; J7030; J7050

== ENCOUNTER 2023-11-12 07:04 | Outpatient (CLI) | payer MEDICARE, SELFPAY ==
[2023-11-12 08:21] LABS: Cholesterol 168 mg/dL (0-200); HDL Direct 71 mg/dL (40-60); LDL Cholesterol Calculated 74 mg/dL (<130); Triglycerides 115 mg/dL (0-150)
== END 2023-11-12 07:05 | disposition home or self-care (01) ==
LOC: CHSLAB 07:08
PROVIDERS: Visit Provider Family Medicine
DX: E78.2 Mixed hyperlipidemia (principal)
CPT/HCPCS: 36415; 80061

== ENCOUNTER 2023-12-01 17:53 | Observation (INO) | payer MEDICARE, SELFPAY ==
[2023-12-01] VITALS (11 sets, daily range): BP systolic 102–166; BP diastolic 46–64; PULSE 90–121; RESP 18–24; TEMP 36.6–38.2; O2SAT 84–97; BMI 32.8
--- NOTE | ~2023-12-01 | XR_ITS ---
XR chest 1V portable 12/01/2023 18:37 Indication: Shortness of breath Procedure: AP portable chest Comparison: No prior studies for comparison. Findings: Heart size normal. No focal air space disease, pulmonary edema, pleural effusion or suspect ed pneumothorax. No acute osseous abnormality. Impression: 1: No acute cardiopulmonary disease. Reviewed, dictated and finalized at location A. Impression: 1: No acute cardiopulmonary disease.
--- NOTE | ~2023-12-01 | CT_ITS ---
EXAMINATION: CTA chest PE protocol DATE: 12/01/2023 19:55 CDT INDICATION: Shortness of breath. Elevated d-dimer. TECHNIQUE: Computed tomographic angiography (CTA) of the chest was performed with 100 mL Omnipaque-35 0 intravenous contrast. The dose-length product was 288.24 mGy-cm. Maximum intensity projection 3D-re constructions of the aorta and other arteries were constructed by the technologist on a separate work station. Automated exposure control and iterative reconstruction technique were employed. COMPARISON: None. FINDINGS: Study technically limited due to motion and quantum mottle artifact. No large central pulmo nary embolism. Enlarged pulmonary arteries consistent with pulmonary hypertension. No significant ple ural or pericardial effusion. There is mediastinal lymphadenopathy. Patchy groundglass opacities pred ominantly affecting the upper lobes, suspicious for pneumonia. Moderate thoracic spondylosis. IMPRESSION: 1. No large central pulmonary embolism. 2: Patchy bilateral groundglass opacities, suspicious for pneumonia. 3: No mediastinal lymphadenopathy, likely reactive. 4: Enlarged pulmonary arteries consistent with pulmonary arterial hypertension. Reviewed, dictated and finalized at location A. IMPRESSION: 1. No large central pulmonary embolism. 2: Patchy bilateral groundglass opacities, suspicious for pneumonia. 3: No mediastinal lymphadenopathy, likely reactive. 4: Enlarged pulmonary arteries consistent with pulmonary arterial hypertension .
--- NOTE | ~2023-12-01 | XR_ITS ---
EXAMINATION: XR chest 2V DATE: 12/02/2023 07:52 INDICATION: COPD, pneumonia and right-sided chest pain. TECHNIQUE: frontal and lateral views of the chest were obtained. COMPARISON: Chest radiograph and CT dated 12/01/2023 FINDINGS: Mild interstitial and airspace opacities in the bilateral lower lung zones. Mild blunting at the righ t costophrenic angle which could represent a tiny right pleural effusion. No pneumothorax. The cardio mediastinal silhouette is normal. Severe thoracic spondylosis. Likely cholecystectomy clips in the up per abdomen. IMPRESSION: 1. Persistent mild opacities in bilateral lower lung zones which could represent atelectasis, mild pu lmonary edema, pneumonia or some combination thereof. Reviewed, dictated and finalized at location B. IMPRESSION: 1. Persistent mild opacities in bilateral lower lung zones which could represen t atelectasis, mild pulmonary edema, pneumonia or some combination thereof.
--- NOTE | 2023-12-01 17:56 | ECG_ITS ---
SEE SCANNED COPY FOR CONFIRMED REPORT MTDD
[2023-12-01] MEDS: SODIUM CHLORIDE 0.9% IV 1,000 ML 999 ML IV CONT ×2 (18:20→20:36)
[2023-12-01 18:26] LABS: Basophils Absolute Auto 0.04 K/mm3 (0.00-0.10); Basophils Percent Auto 0.5 % (0.0-1.0); Eosinophils Absolute Auto 0.09 K/mm3 (0.02-0.50); Eosinophils Percent Auto 1.1 % (1.0-6.0); Hematocrit 33.2 % (35.0-42.0); Hemoglobin 10.4 g/dL (11.7-13.8); Immature Granulocyte Absolute 0.08 K/mm3 (0.00-0.00); Lymphocytes Absolute Auto 0.51 K/mm3 (1.10-4.50); Lymphocytes Percent Auto 6.5 % (18.0-42.0); Mean Corpuscular HGB Conc 31.3 g/dL (32-36); Mean Corpuscular Hemoglobin 26.9 pg (27.0-31.0); Mean Platelet Volume 9.4 fl (9.2-11.8); Monocytes Absolute Auto 0.79 K/mm3 (0.10-0.90); Monocytes Percent Auto 10.1 % (2.0-11.0); Neutrophils Absolute Auto 6.32 K/mm3 (1.70-7.20); Neutrophils Percent Auto 80.8 % (50.0-70.0); Platelet Count Result 236 K/mm3 (150-420); Red Blood Count 3.86 M/mm3 (4.20-5.40); Red Cell Distribution Width 25.2 % (11.6-14.4); White Blood Count 7.8 K/mm3 (4.8-10.8)
[2023-12-01] MEDS: methylPREDNISolone SOD SUCC 125 MG VIAL IV PUSH (18:33)
[2023-12-01] MEDS: IPRATROPIUM 0.5 MG/ALBUTEROL SULFATE 2.5 MG AMPUL.NEB 3 ML INHALATION (18:35)
[2023-12-01 18:43] LABS: INR 0.9; Partial Thromboplastin Time 25.1 Sec (23.9-30.70); Prothrombin Time 10.3 Seconds (9.50-12.1)
[2023-12-01 18:47] LABS: D Dimer 0.88 mg/L (0.19-0.50)
[2023-12-01 18:49] LABS: Alanine Aminotransferase 20 U/L (14-59); Albumin Level 3.3 g/dL (3.4-5.0); Alkaline Phosphatase 131 U/L (46-116); Anion Gap 11 mmol/L (4-12); Aspartate Amino Transferase 16 U/L (15-37); Bilirubin,Total 0.1 mg/dL (0.00-1.00); Blood Urea Nitrogen 9 mg/dL (7-18); CRP 3.5 mg/dL (0.0-0.9); Calcium 8.7 mg/dL (8.5-10.1); Carbon Dioxide 28 mmol/L (21-32); Chloride 97 mmol/L (98-108); Estimated CRCL calculation 48 ml/min; Estimated Glomerular Filt Rate > 60; Glucose 136 mg/dL (70-99); Lactic Acid Reflex 2.4 mmol/L (0.4-2.0); Lipase 14 U/L (16-77); Osmolality Calculated 282 mOsm/kg (285-295); Potassium 3.7 mmol/L (3.5-5.1); Sodium 136 mmol/L (136-145); Troponin I 12.6 ng/L (0.00-60.4)
[2023-12-01 19:08] LABS: SARS-CoV-2 RNA PCR Negative (Negative)
[2023-12-01 19:13] LABS: Influenza A QL RT-PCR Positive (Negative); Influenza B QL RT-PCR Negative (Negative); RSV RNA, RT-PCR Negative (Negative)
[2023-12-01] MEDS: MAGNESIUM SULF 2 GM/WATER 50ML 2 GM/50 ML BAG IVPB (19:46)
[2023-12-01 19:57] LABS: Appearance Urine Clear (Clear); Bilirubin Urine Negative (Negative); Blood Urine Negative (Negative); Color Urine Light Yellow (Yellow); Glucose Urine UA Negative (Negative); Ketones Urine Negative (Negative); Leukocyte Esterase Ur Negative LEU/UL (Negative); Nitrate Urine Positive (Negative); Protein Urine Negative (Negative); Urobilinogen Urine 0.2 mg/dL (0.2-1.0); pH Urine 6.5 (5.0-8.0)
[2023-12-01 20:02] LABS: Add Urine Microscopic? YES; Bacteria Urine 3+ /hpf; RBC Urine 0-2 /hpf (0-2); Squamous Epithelial Cell Urine None seen /hpf (Few); WBC Urine 0-3 /hpf (0-3)
--- NOTE | 2023-12-01 20:29 | ED.SOB ---
HPI - SOB/Dyspnea General Chief Complaint: Shortness of Breath/Dyspnea Stated Complaint: fever Time Seen by Provider: 12/01/23 17:55 Source: patient and EMS Mode of arrival: EMS Limitations: physical limitation History of Present Illness HPI Narrative: This is a an 78-year-old female presents from [facility] with shortness of breath and low O2 saturations in the mid 80s brought in by EMS patient had a fever according to staff and EMS and has a history of COPD but not on oxygen at the facility. There is no chest pain no shortness of breath no abdominal pain no flank pain patient denies dysuria. The patient has a nonproductive cough with some no audible wheezing but is short of breath. MD elicited complaint: shortness of breath Pertinent past history: COPD Onset (ago): day(s) Related Data Home Medications Medication Instructions Recorded Confirmed aspirin 81 mg chewable tablet 81 mg PO DAILY 11/01/23 12/01/23 atorvastatin 20 mg tablet 20 mg PO DAILY 11/01/23 12/01/23 budesonide-formoterol HFA 160 2 puff inhalation BID 11/01/23 12/01/23 mcg-4.5 mcg/actuation aerosol inhaler (Breyna) carbamazepine 100 mg chewable 300 mg PO BID 11/01/23 12/01/23 tablet dicyclomine 20 mg tablet 20 mg PO DAILY PRN Abdominal 11/01/23 12/01/23 Discomfort divalproex 125 mg capsule,delayed 125 mg PO BID 11/01/23 12/01/23 release sprinkle furosemide 20 mg tablet 20 mg PO DAILY 11/01/23 12/01/23 levothyroxine 100 mcg tablet 100 mcg PO DAILY 11/01/23 12/01/23 montelukast 10 mg tablet 10 mg PO HS 11/01/23 12/01/23 oxybutynin chloride 5 mg 5 mg PO DAILY 11/01/23 12/01/23 tablet,extended release 24 hr pantoprazole 40 mg tablet,delayed 40 mg PO DAILY 11/01/23 12/01/23 release potassium chloride 10 mEq 10 meq PO BID 11/01/23 12/01/23 tablet,extended release(part/cryst) risperidone 2 mg tablet 2 mg PO DAILY 11/01/23 12/01/23 Allergies Allergy/AdvReac Type Severity Reaction Status Date / Time No Known Allergies Allergy Verified 12/01/23 18:48 Review of Systems Review of Systems: All systems reviewed & are unremarkable except as noted in HPI and below PMFSH Past Medical History Medical History Aspiration pneumonia Bipolar 1 disorder COPD (chronic obstructive pulmonary disease) HLD (hyperlipidemia) HTN (hypertension) Hypothyroid 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 She only tells me about her son, Artemio Gant [phone]. She has a court appointed guardian, Nai Workman [phone]. Smoking status: Former smoker Tobacco type: cigarettes Second hand tobacco smoke exposure: Yes Alcohol intake: never Substance use: never Substance use type: does not use Do You Feel Safe in your Home?: Yes Lack of Transportation: No Lack of Food: Never True Current Housing: I Have Housing Concerned About Future Housing: No Difficulty Paying Gas/Electric Bills: No Difficulty Paying for Meds: No Currently Unemployed: No Education: High School Diploma/GED Difficulty w/ Childcare or Family Care: No Living arrangements: usp Additional living arrangements comments: Lives at [facility] Occupation/Education: other Additional occupation/education comments: disability. 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 Gender identity (if verbalized by the patient): Female Spiritual care concerns: No Exam Const: General: no acute distress Nutritional Appearance: well nourished Orientation/consciousness: patient oriented x3 Limitations: physical limitations HENMT: Head: normal to inspection Neck: Neck: normal visual inspection, no lymphadenopathy and
[2023-12-01] MEDS: OSELTAMIVIR PHOSPHATE 75 MG CAPSULE PO (20:34)
--- NOTE | 2023-12-01 21:00 | PC.NURSE ---
Pt resting, IVF infusing and IV antibx being given, Pt remains A&O x3, call placed to floor for bed assignment, pt will go to RM 209
[2023-12-01] MEDS: AZITHROMYCIN 500 MG/NS 250 ML 500 MG/250 ML BAG 250 MG IVPB (21:02)
[2023-12-01] MEDS: methylPREDNISolone SOD SUCC 40 MG VIAL IV PUSH (21:05)
[2023-12-01] MEDS: SODIUM CHLORIDE 0.9% IV 1,000 ML 100 ML IV CONT (21:08)
[2023-12-01 21:27] LABS: Reflex Lactic Acid Yes or No Add Lactic
[2023-12-01] MEDS: MONTELUKAST SODIUM 10 MG TABLET PO (21:56)
--- NOTE | 2023-12-01 22:15 | ADMGEN ---
This patient, Maria G Gant, was admitted to 2nd Floor Room 209-1. Patient oriented to hospital policies and general routines including ID bracelet, bed and alarms, visiting hours, pain management, procedures, bathroom and other care routines, personal items, smoking policy, room service/diet, and visiting hours. Information on how to activate the Rapid Response Team has been discussed. Patient are encouraged to report perceived risks to care and to ask questions if they do not understand what they are told or what they should do.
[2023-12-02] VITALS (15 sets, daily range): BP systolic 135–154; BP diastolic 55–67; PULSE 75–91; RESP 14–20; TEMP 36.4–37.1; O2SAT 90–99
[2023-12-02] MEDS: IPRATROPIUM 0.5 MG/ALBUTEROL SULFATE 2.5 MG AMPUL.NEB 3 ML INHALATION ×4 (01:26→18:13)
[2023-12-02] MEDS: methylPREDNISolone SOD SUCC 40 MG VIAL IV PUSH ×2 (03:39→08:40)
[2023-12-02 05:57] LABS: Basophils Absolute Auto 0.02 K/mm3 (0.00-0.10); Basophils Percent Auto 0.4 % (0.0-1.0); Hematocrit 31.9 % (35.0-42.0); Hemoglobin 9.7 g/dL (11.7-13.8); Immature Granulocyte Absolute 0.06 K/mm3 (0.00-0.00); Immature Granulocyte Percent A 1.1 % (0.0-0.0); Lymphocytes Absolute Auto 0.47 K/mm3 (1.10-4.50); Lymphocytes Percent Auto 8.7 % (18.0-42.0); Mean Corpuscular HGB Conc 30.4 g/dL (32-36); Mean Corpuscular Hemoglobin 26.8 pg (27.0-31.0); Mean Corpuscular Volume 88.1 fL (78.0-102.0); Mean Platelet Volume 9.2 fl (9.2-11.8); Monocytes Absolute Auto 0.52 K/mm3 (0.10-0.90); Monocytes Percent Auto 9.6 % (2.0-11.0); Neutrophils Absolute Auto 4.32 K/mm3 (1.70-7.20); Neutrophils Percent Auto 80.2 % (50.0-70.0); Platelet Count Result 202 K/mm3 (150-420); Red Blood Count 3.62 M/mm3 (4.20-5.40); Red Cell Distribution Width 25.6 % (11.6-14.4); White Blood Count 5.4 K/mm3 (4.8-10.8)
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
[2023-12-02 06:16] LABS: Lactic Acid 2.7 mmol/L (0.4-2.0)
[2023-12-02 06:21] LABS: Alanine Aminotransferase 23 U/L (14-59); Albumin Level 2.9 g/dL (3.4-5.0); Alkaline Phosphatase 114 U/L (46-116); Anion Gap 9 mmol/L (4-12); Aspartate Amino Transferase 28 U/L (15-37); Bilirubin,Total 0.1 mg/dL (0.00-1.00); Blood Urea Nitrogen 8 mg/dL (7-18); Calcium 8.4 mg/dL (8.5-10.1); Carbon Dioxide 29 mmol/L (21-32); Chloride 105 mmol/L (98-108); Estimated CRCL calculation 56 ml/min; Estimated Glomerular Filt Rate > 60; Glucose 120 mg/dL (70-99); Magnesium 2.2 mg/dL (1.8-2.4); NT Pro B Type Natriuretic Pept 1107 pg/mL (0-450); Osmolality Calculated 295 mOsm/kg (285-295); Potassium 3.8 mmol/L (3.5-5.1); Sodium 143 mmol/L (136-145); Total Protein 6.6 g/dL (6.4-8.2)
[2023-12-02] MEDS: LEVOTHYROXINE SODIUM 100 MCG TABLET PO (06:54)
[2023-12-02] MEDS: SODIUM CHLORIDE 0.9% IV 1,000 ML 100 ML IV CONT (07:10)
[2023-12-02] MEDS: risperiDONE 1 MG TABLET 2 MG PO (10:00)
[2023-12-02] MEDS: PANTOPRAZOLE 40 MG TABLET PO (10:01)
[2023-12-02] MEDS: DIVALPROEX SODIUM SPRINKLE 125 MG CAP.DR PO ×2 (10:01→17:15)
[2023-12-02] MEDS: ATORVASTATIN 10 MG TABLET 20 MG PO (10:02)
[2023-12-02] MEDS: FERROUS SULFATE 325 MG TABLET DR PO ×2 (10:02→17:16)
[2023-12-02] MEDS: ASPIRIN 81 MG CHEWABLE TABLET PO (10:02)
[2023-12-02] MEDS: POTASSIUM CHLORIDE 10 MEQ ER TABLET PO ×2 (10:03→17:16)
[2023-12-02] MEDS: oxyBUTYnin CHLORIDE XL 5 MG TAB.ER.24 PO (10:03)
--- NOTE | 2023-12-02 10:40 | PM.IMHP ---
H&P: HPI History of Present Illness Date/Time: 12/02/23 10:40 Chief Complaint: Shortness of breath , Influenza , Bipolar Narrative: This is an 78 year old female with a past medical history of HTN, HLD, COPD not on oxygen, bipolar, iron deficient anemia, hypothyroidism, and metastatic lung carcinoma. She presented to the ED from [facility] with complaints of weakness. She is a poor historian with no previous record at this institution therefore the history is limited. When asked how she is feeling patient states she is feeling ok and would like to be discharged to [facility], [place]. Patient lung are course and wheezes noted. She is coughing and sound congested with the diagnosis of I nfluenza as she was on oxygen and since has been weaned off. Patient has been started on Tamiflu , steroids and antibioitics. We will continue to monitor patient and discharge in the morning. Patient has remained afebrile and is eating and drinking without difficulties. I will start her on cough medication . 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 She only tells me about her son, Artemio Gant [phone]. She has a court appointed guardian, Nai Workman [phone]. Smoking packs per day: 3 Smoking cigarettes per day: 60.0 Years smoked: 10 Smoking pack-years: 30.00 Smoking status: Former smoker Tobacco type: cigarettes Second hand tobacco smoke exposure: No Smoking end date: 10/21/75 Alcohol intake: never Substance use: never Substance use type: does not use Do You Feel Safe in your Home?: No Lack of Transportation: No Lack of Food: Never True Current Housing: I Have Housing Concerned About Future Housing: No Difficulty Paying Gas/Electric Bills: No Difficulty Paying for Meds: No Currently Unemployed: No Education: High School Diploma/GED Difficulty w/ Childcare or Family Care: No Living arrangements: correction Additional living arrangements comments: Lives at [facility] Occupation/Education: other Additional occupation/education comments: disability. 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 Gender identity (if verbalized by the patient): Female Spiritual care concerns: Yes (Caodaism) Meds Home Medications and Allergies Home Medications Medication Instructions Recorded Confirmed Type aspirin 81 mg chewable tablet 81 mg PO DAILY 11/01/23 12/01/23 History atorvastatin 20 mg tablet 20 mg PO DAILY 11/01/23 12/01/23 History budesonide-formoterol HFA 160 2 puff inhalation BID 11/01/23 12/01/23 History mcg-4.5 mcg/actuation aerosol inhaler (Breyna) carbamazepine 100 mg chewable 300 mg PO BID 11/01/23 12/01/23 History tablet dicyclomine 20 mg tablet 20 mg PO DAILY PRN Abdominal 11/01/23 12/01/23 History Discomfort divalproex 125 mg capsule,delayed 125 mg PO BID 11/01/23 12/01/23 History release sprinkle furosemide 20 mg tablet 20 mg PO DAILY 11/01/23 12/01/23 History levothyroxine 100 mcg tablet 100 mcg PO DAILY 11/01/23 12/01/23 History montelukast 10 mg tablet 10 mg PO HS 11/01/23 12/01/23 History oxybutynin chloride 5 mg 5 mg PO DAILY 11/01/23 12/01/23 History tablet,extended release 24 hr pantoprazole 40 mg tablet,delayed 40 mg PO DAILY 11/01/23 12/01/23 History release
[2023-12-02] MEDS: BUDESONIDE/FORMOTEROL (*SP) 160-4.5 MCG 6 GM INH 2 PUFF INHALATION ×2 (10:51→17:15)
[2023-12-02] MEDS: guaiFENesin/DEXTROMETHORPHAN 5 ML UDC 10 ML PO (13:56)
[2023-12-02] MEDS: predniSONE 20 MG TABLET PO ×2 (13:57→17:16)
[2023-12-02] MEDS: predniSONE 20 MG TABLET (13:58)
--- NOTE | 2023-12-02 15:30 | ADMGEN ---
This patient, Maria G Gant, was admitted to 2nd Floor Room 209-1. Patient/family oriented to hospital policies and general routines including ID bracelet, bed and alarms, visiting hours, pain management, procedures, bathroom and other care routines, personal items, smoking policy, room service/diet, and visiting hours. Pt has cell phone but no denture laboratory technician, glasses and lower partial in Information on how to activate the Rapid Response Team has been discussed. Patient/Family are encouraged to report perceived risks to care and to ask questions if they do not understand what they are told or what they should do.
[2023-12-02] MEDS: MONTELUKAST SODIUM 10 MG TABLET PO (20:28)
[2023-12-03] VITALS: BP 166/77; PULSE 76; RESP 18; TEMP 36.1; O2SAT 96
[2023-12-03] MEDS: IPRATROPIUM 0.5 MG/ALBUTEROL SULFATE 2.5 MG AMPUL.NEB 3 ML INHALATION ×2 (00:35→06:03)
[2023-12-03 01:04] VITALS: PULSE 76; PULSE 77; RESP 18; O2SAT 96
[2023-12-03 04:00] VITALS: BP 161/74; PULSE 76; RESP 16; TEMP 35.9; O2SAT 93
[2023-12-03] MEDS: LEVOTHYROXINE SODIUM 100 MCG TABLET PO (06:02)
[2023-12-03 06:21] VITALS: PULSE 84; RESP 18; O2SAT 94
[2023-12-03 06:26] VITALS: PULSE 88; RESP 20
[2023-12-03 08:00] VITALS: BP 156/63; PULSE 70; RESP 20; TEMP 36.1; O2SAT 93
--- NOTE | 2023-12-03 08:06 | PM.DS ---
DS: Admitting Diagnosis Discharge Date 12/03/2023 Admitting Diagnosis Influenza, Sepsis, acute kidney injury DS: Discharge Diagnosis Discharge Diagnosis (1) Pneumonia: Qualifiers: Laterality: bilateral Lung location: unspecified part of lung Pneumonia type: due to unspecified organism Qualified Code(s): J18.9 - Pneumonia, unspecified organism Code(s): J18.9 - Pneumonia, unspecified organism Status: Acute Assessment and Plan: Azithromycin , Rocephin, Solumedrol, oxygen prn, Breathing treatment, (2) Influenza A: Code(s): J10.1 - Influenza due to other identified influenza virus with other respiratory manifestations Status: Acute Assessment and Plan: Tamiflu plus #1and cough medication (3) Acute hypoxic respiratory failure: Code(s): J96.01 - Acute respiratory failure with hypoxia Status: Acute Assessment and Plan: Osygen prn (4) Weakness: Code(s): R53.1 - Weakness Status: Acute Assessment and Plan: Up with assistance. DS: Summary Hospital Course Reason for hospitalization: Influenza, Sepsis , acute kidney injury Hospital Course: This is 78 year old female that has come to the hospital for IV antibiotic and was found to have metastic cancer was treated with her full course of antibiotics and will discharge assistive living from swing bed with home health. Patient will have extensive outpatient therapy as she is in need of oncology care and plan for possible more radiation and chemotherapy. Patient is able to ambulate with walker and she is eating and drinking without difficulties . Patient has remained a febrile. She will discharge on oral antibioitics and steroids with some cough mediaction as well. Patient denies any pain at this time and vitals and labs are stable at this time. Time Spent with Patient Time attestation: Total time spent providing and/or coordinating discharge services: Exam Narrative: General:well developed, well nourished, appears stated age HEENT: normocephalic, atraumatic. Mucous membranes tacky, EOMI, PERRLA, bilateral sclera anicteric, no conjunctival injection. Respiratory: diminished to auscultation bilaterally wheezes and rhonic noted . Cardiovascular: Regular rhythm,, normal S1-S2 upon auscultation. No murmurs, rubs, or clicks. PMI is nondisplaced, capillary re-fill greater than 3 seconds. Abdomen: Soft, round, no pulsatile masses, non-distended and non-tender. No rebound, no guarding. No CVA tenderness, no hepatosplenomegaly.? Bowel sounds present to all four quadrants. No high pitch or tinkling sounds, resonant to percussion. Extremities: No cyanosis, clubbing, or edema present. Pulses are palpable 2/2.? Active ROM to all four extremities. Neuro: Alert and orientated x 2. PERRLA. Cranial nerves 2-12 intact without focal deficit. Skin: Warm, dry, and intact, without rash, erythema, or lesion. Generalized bruising. Lines: R IV Incisions: NA Psych: confused,? normal speech, normal affect, no hallucinations, no dysarthria, cooperative Discharge Plan Discharge Attending physician on discharge: Mahendra Almanzar Consulting providers: Duglas Mendenhall; Blanco Long; Steve Michael Discharging Clinician: Duglas Mendenhall Anticipated Discharge Date/Time: 12/03/23 07:58 Patient Disposition: NH Snf/Asst Living Activity: may shower and as tolerated Diet: as tolerated and heart healthy Wound Care Instructions: follow printed instructions Discharge Instructions: FAX discharge summary to [facility] upon discharge. FAX:[phone]. Maria G current care with [facility]. Follow up with your primary care provider Patient Instructions: Antibiotic Form, Azithromycin (By mouth), Antitussive/Decongestant (By mouth), Influenza (DC), Fall Prevention for Older Adults (DC), Sepsis (DC), Chronic Cough (DC), Acute Cough (ED), Wheezing (GEN) Stand Alone Forms: General Discharge Informatio
[2023-12-03] MEDS: ASPIRIN 81 MG CHEWABLE TABLET PO (09:10)
[2023-12-03] MEDS: oxyBUTYnin CHLORIDE XL 5 MG TAB.ER.24 PO (09:10)
[2023-12-03] MEDS: PANTOPRAZOLE 40 MG TABLET PO (09:10)
[2023-12-03] MEDS: BUDESONIDE/FORMOTEROL (*SP) 160-4.5 MCG 6 GM INH 2 PUFF INHALATION (09:10)
[2023-12-03] MEDS: POTASSIUM CHLORIDE 10 MEQ ER TABLET PO (09:11)
[2023-12-03] MEDS: DIVALPROEX SODIUM SPRINKLE 125 MG CAP.DR PO (09:11)
[2023-12-03] MEDS: risperiDONE 1 MG TABLET 2 MG PO (09:11)
[2023-12-03] MEDS: FERROUS SULFATE 325 MG TABLET DR PO (09:11)
[2023-12-03] MEDS: predniSONE 20 MG TABLET PO (09:12)
[2023-12-03] MEDS: ATORVASTATIN 10 MG TABLET 20 MG PO (09:12)
--- NOTE | 2023-12-03 09:45 | PC.NURSE ---
Discharge instructions reviewed with patient, assisted patient to dress, patient taken off floor and picked up by privately owned vehicle to return to [facility]
--- NOTE | 2023-12-05 08:10 | PC.NURSE ---
Discharge call back completed, spoke with [facility] and they have no questions regarding dc instructions for patient
== END 2023-12-03 09:45 ==
LOC: CHSED 20:36 → CHS2ND 21:06
PROVIDERS: Admitting Provider Internal Medicine; Emergency Provider Emergency Medicine; PCP Family Medicine; Visit Provider Internal Medicine
DX: J18.9 Pneumonia, unspecified organism (principal); J10.1 Influenza due to other identified influenza virus with other respiratory manifestations; J96.01 Acute respiratory failure with hypoxia; R53.1 Weakness; N39.0 Urinary tract infection, site not specified; J44.0 Chronic obstructive pulmonary disease with (acute) lower respiratory infection; F31.9 Bipolar disorder, unspecified; E78.5 Hyperlipidemia, unspecified; E03.9 Hypothyroidism, unspecified; D50.9 Iron deficiency anemia, unspecified; I10 Essential (primary) hypertension; Z20.822 Contact with and (suspected) exposure to COVID-19; Z85.118 Personal history of other malignant neoplasm of bronchus and lung; Z87.891 Personal history of nicotine dependence; Z79.82 Long term (current) use of aspirin; Z79.51 Long term (current) use of inhaled steroids; Z79.899 Other long term (current) drug therapy
CPT/HCPCS: 36415; 71045; 71046; 71275; 80053; 81001; 83605; 83690; 83735; 83880; 84484; 85025; 85380; 85610; 85730; 86140; 87040; 87086; 87088; 87637; 93005; 94640; 96361; 96365; 96366; 96367; 96375; 96376; 99285; A9270; G0378; J0456; J0696; J2919; J3475; J7030; J7512; Q9967

== ENCOUNTER 2023-12-24 17:50 | Emergency (ER) | payer MEDICARE, SELFPAY ==
[2023-12-24] VITALS (16 sets, daily range): BP systolic 109–124; BP diastolic 47–63; PULSE 72–86; RESP 18–24; TEMP 37.3; O2SAT 90–93
--- NOTE | ~2023-12-24 | XR_ITS ---
EXAMINATION: XR chest 1V portable Exam Date/Time: 12/24/2023 18:04 CDT HISTORY: weakness/fever and cough Comparison: 12/02/2023. RESULT: Lines, tubes, and devices: None. Lungs and pleura: Senescent/emphysematous change, otherwise clear. Cardiomediastinal silhouette: Stable. Other: No acute osseous or upper abdominal finding. IMPRESSION: No acute cardiopulmonary process. Reviewed, dictated and finalized at location K.
--- NOTE | 2023-12-24 17:53 | ED.AMS ---
HPI - Altered Mental Status General Chief Complaint: Weakness Stated Complaint: weakness and fever Time Seen by Provider: 12/24/23 17:53 Source: patient and EMS Mode of arrival: ambulatory Limitations: no limitations History of Present Illness HPI narrative: 78-year-old female with a history of bipolar, dyslipidemia, hypothyroidism hypertension, COPD, metastatic lung cancer, aspiration pneumonia, anemia, CVA brought from [facility] for -- fever. Patient had a fever of 100.6 as noted by EMS -- generalized weakness -- altered mental status. unsure about the type of mental status the patient had. Patient is awake follows verbal commands. No obvious focal neuro deficits noted. -- Patient was noted to be staring blankly into space with altered mental status. Normally the patient is alert and oriented and responds to verbal commands. MD complaint: altered mental status Timing confirmed by: other ( retirement staff) Associated symptoms: denies other symptoms, weakness and foul smelling urine Related Data Home Medications Medication Instructions Recorded Confirmed aspirin 81 mg chewable tablet 81 mg PO DAILY 11/01/23 12/01/23 atorvastatin 20 mg tablet 20 mg PO DAILY 11/01/23 12/01/23 budesonide-formoterol HFA 160 2 puff inhalation BID 11/01/23 12/01/23 mcg-4.5 mcg/actuation aerosol inhaler (Breyna) carbamazepine 100 mg chewable 300 mg PO BID 11/01/23 12/01/23 tablet dicyclomine 20 mg tablet 20 mg PO DAILY PRN Abdominal 11/01/23 12/01/23 Discomfort divalproex 125 mg capsule,delayed 125 mg PO BID 11/01/23 12/01/23 release sprinkle furosemide 20 mg tablet 20 mg PO DAILY 11/01/23 12/01/23 levothyroxine 100 mcg tablet 100 mcg PO DAILY 11/01/23 12/01/23 montelukast 10 mg tablet 10 mg PO HS 11/01/23 12/01/23 oxybutynin chloride 5 mg 5 mg PO DAILY 11/01/23 12/01/23 tablet,extended release 24 hr pantoprazole 40 mg tablet,delayed 40 mg PO DAILY 11/01/23 12/01/23 release potassium chloride 10 mEq 10 meq PO BID 11/01/23 12/01/23 tablet,extended release(part/cryst) risperidone 2 mg tablet 2 mg PO DAILY 11/01/23 12/01/23 Allergies Allergy/AdvReac Type Severity Reaction Status Date / Time No Known Allergies Allergy Verified 12/01/23 18:48 Review of Systems Review of Systems: All systems reviewed & are unremarkable except as noted in HPI and below Constitutional: Constitutional: Reports as per HPI and Reports no additional constitutional complaints Eyes: Eyes: Reports as per HPI and Reports no additional eye complaints ENT: Reports system reviewed and no additional complaints, except as documented and Reports as per HPI Cardiovascular: Cardiovascular: Reports as per HPI and Reports no additional cardiovascular complaints Respiratory: Respiratory: Reports as per HPI and Reports no additional respiratory complaints Gastrointestinal: Gastrointestinal: Reports as per HPI and Reports no additional gastrointestinal complaints Genitourinary: Genitourinary: Reports no additional female genitourinary complaints and Reports as per HPI Musculoskeletal: Musculoskeletal: Reports no additional musculoskeletal complaints and Reports as per HPI Integumentary/Breasts: Skin/Breast: Reports system reviewed and no additional complaints, except as docu and Reports as per HPI Neurologic: Reports system reviewed and no additional complaints, except as documented and Reports as per HPI Psychiatric: Psychiatric: Reports no additional psychiatric complaints and Reports as per HPI Comments: patient is confused. Endocrine: Endocrine: Reports no additional endocrine complaints and Reports as per HPI Hematologic/Lymphatic: Hematologic/Lymphatic: Reports no additional hematologic/lymphatic complaints and Reports as per HPI Allergic/Immunologic: Allergic/Immunologic: Reports no additional allergic/immunologic complaints and Reports as per HPI FORMERLY [facility], [facility] Past Medical History Medical History (Reviewed 12/24/23 @
--- NOTE | 2023-12-24 18:01 | ECG_ITS ---
SEE SCANNED COPY FOR CONFIRMED REPORT MTDD
[2023-12-24] MEDS: SODIUM CHLORIDE 0.9% IV 1,000 ML 150 ML IV CONT (18:49)
[2023-12-24 18:56] LABS: Basophils Absolute Auto 0.04 K/mm3 (0.00-0.10); Basophils Percent Auto 0.4 % (0.0-1.0); Hematocrit 31.5 % (35.0-42.0); Hemoglobin 9.8 g/dL (11.7-13.8); Immature Granulocyte Absolute 0.09 K/mm3 (0.00-0.00); Immature Granulocyte Percent A 0.9 % (0.0-0.0); Lymphocytes Percent Auto 10.8 % (18.0-42.0); Mean Corpuscular HGB Conc 31.1 g/dL (32-36); Mean Corpuscular Hemoglobin 27.8 pg (27.0-31.0); Mean Corpuscular Volume 89.5 fL (78.0-102.0); Mean Platelet Volume 9.6 fl (9.2-11.8); Monocytes Absolute Auto 1.16 K/mm3 (0.10-0.90); Monocytes Percent Auto 11.4 % (2.0-11.0); Neutrophils Absolute Auto 7.69 K/mm3 (1.70-7.20); Neutrophils Percent Auto 75.5 % (50.0-70.0); Platelet Count Result 237 K/mm3 (150-420); Red Blood Count 3.52 M/mm3 (4.20-5.40); Red Cell Distribution Width 22.2 % (11.6-14.4); White Blood Count 10.2 K/mm3 (4.8-10.8)
--- NOTE | 2023-12-24 19:02 | PC.NURSE ---
REPORT TO MARIANO
[2023-12-24 19:05] LABS: Bilirubin Urine Negative (Negative); Blood Urine Trace-intact (Negative); Color Urine Light Yellow (Yellow); Glucose Urine UA Negative (Negative); Ketones Urine Negative (Negative); Leukocyte Esterase Ur 2+ LEU/UL (Negative); Nitrate Urine Positive (Negative); Protein Urine 1+ (Negative); Specific Grav Ur 1.015 (1.010-1.020); Urobilinogen Urine 0.2 mg/dL (0.2-1.0)
[2023-12-24 19:08] LABS: INR 0.9; Partial Thromboplastin Time 26.5 Sec (23.9-30.70); Prothrombin Time 10.4 Seconds (9.50-12.1)
[2023-12-24 19:15] LABS: Add Urine Microscopic? YES; Appearance Urine Cloudy (Clear); Bacteria Urine 3+ /hpf; WBC Clumps Urine Present /hpf; WBC Urine >100 /hpf (0-3)
[2023-12-24 19:16] LABS: Lactic Acid Reflex 1.3 mmol/L (0.4-2.0)
[2023-12-24 19:17] LABS: Alanine Aminotransferase 33 U/L (14-59); Albumin Level 2.5 g/dL (3.4-5.0); Alkaline Phosphatase 98 U/L (46-116); Anion Gap 9 mmol/L (4-12); Aspartate Amino Transferase 25 U/L (15-37); Bilirubin,Total 0.2 mg/dL (0.00-1.00); Blood Urea Nitrogen 9 mg/dL (7-18); Calcium 8.7 mg/dL (8.5-10.1); Carbon Dioxide 31 mmol/L (21-32); Chloride 101 mmol/L (98-108); Estimated CRCL calculation 48 ml/min; Estimated Glomerular Filt Rate > 60; Glucose 126 mg/dL (70-99); Lipase 14 U/L (16-77); NT Pro B Type Natriuretic Pept 658 pg/mL (0-450); Osmolality Calculated 292 mOsm/kg (285-295); Potassium 3.8 mmol/L (3.5-5.1); Sodium 141 mmol/L (136-145); Total Protein 7.3 g/dL (6.4-8.2); Troponin I 6.5 ng/L (0.00-60.4)
[2023-12-24 19:36] LABS: Influenza A QL RT-PCR Positive (Negative); Influenza B QL RT-PCR Negative (Negative); RSV RNA, RT-PCR Negative (Negative); SARS-CoV-2 RNA PCR Negative (Negative)
[2023-12-24] MEDS: levoFLOXacin 500 MG/D5W 100 ML 500 MG/100 ML BAG 100 MG IVPB (21:21)
--- NOTE | 2023-12-24 22:38 | PC.NURSE ---
2109 PT RETURNED BY JASWINDER FROM [facility] PT REECE WELL
--- NOTE | 2023-12-26 10:46 | PC.NURSE ---
PRELIMINARY ANAEROBIC BLOOD CULTURE RESULTS: GRAM NEGATIVE BACILLI ISOLATED. PER DR CANNON, TO AWAIT C&S.
--- NOTE | 2023-12-27 13:05 | PC.NURSE ---
FINAL URINE CULTURE RESULTS: ISOLATE 1: GREATER THAN 100,000 CFU/ML OF ESCHERICHIA COLI PRELIMINARY BLOOD CULTURE IN AEROBIC AND ANAEROBIC BOTTLES RESULTS: ISOLATE 1: ESCHERICHIA COLI PER DR BULLOCK, PT IS TO RETURN TO ER FOR EVAULATION, ADMISSION, AND IV ABX. PATRICK BUENO IS NOTIFIED TO RETURN PT TO ER, THEY WILL BE BRINGING HER TODAY. STAFF REPORTS PT IS UP AND MOVING WITHOUT DIFFICULTY, NO CONFUSION NOTED.
--- NOTE | 2023-12-31 12:22 | PC.NURSE ---
12/31/23 FINAL BLOOD CULTURE NO GROWTH AFTER 5 DAYS
== END 2023-12-24 22:37 ==
PROVIDERS: Emergency Provider Internal Medicine Critical Care Medicine; PCP Family Medicine
DX: N12 Tubulo-interstitial nephritis, not specified as acute or chronic (principal); J10.1 Influenza due to other identified influenza virus with other respiratory manifestations; N28.89 Other specified disorders of kidney and ureter; J01.00 Acute maxillary sinusitis, unspecified; I10 Essential (primary) hypertension; E78.5 Hyperlipidemia, unspecified; E03.9 Hypothyroidism, unspecified; Z85.118 Personal history of other malignant neoplasm of bronchus and lung; Z85.89 Personal history of malignant neoplasm of other organs and systems; F31.9 Bipolar disorder, unspecified; Z87.891 Personal history of nicotine dependence; Z20.822 Contact with and (suspected) exposure to COVID-19
CPT/HCPCS: 36415; 70450; 71045; 71260; 74177; 80053; 81001; 83605; 83690; 83880; 84484; 85025; 85610; 85730; 87040; 87077; 87086; 87088; 87186; 87637; 93005; 96361; 96365; 99284; J1956; J7030

== ENCOUNTER 2023-12-24 19:52 | Outpatient (CLI) | payer OTHER, SELFPAY ==
--- NOTE | ~2023-12-24 | CT_ITS ---
EXAMINATION: CT brain wo con DATE: 12/24/2023 20:38 INDICATION: FEVER, AMS . TECHNIQUE: Computed tomography (CT) of the head was performed without intravenous contrast. The mA wa s adjusted according to patient size. Iterative reconstruction technique was employed. The dose-lengt h product was 605.33 mGy-cm. COMPARISON: None. FINDINGS: No acute intracranial hemorrhage or extra-axial fluid collection. No hydrocephalus, mass, or herniation. No acute ischemic infarct. Unremarkable dural venous sinus attenuation. No acute osseous abnormality. Left maxillary ethmoid and sphenoid mucosal thickening, aerated secretions in the left maxillary sinu s, trace right mastoid fluid, the remaining aerated spaces are clear. Moderate atrophy and chronic white matter change. Atherosclerotic intracranial calcification. Bilater al lens replacements. Mild bilateral basal ganglia calcification. IMPRESSION: No acute intracranial process. Left maxillary findings may represent acute sinusitis in the appropriate clinical context. Reviewed, dictated and finalized at location K. IMPRESSION: No acute intracranial process. Left maxillary findings may represent acute sinusitis in the appropriate clinic al context.
--- NOTE | ~2023-12-24 | CT_ITS ---
EXAMINATION: CT chest abdomen pelvis w con DATE: 12/24/2023 20:38 INDICATION: FEVER, AMS . TECHNIQUE: Computed tomography (CT) of the chest, abdomen, and pelvis was performed with 100 mL Omnip aque-350 intravenous contrast. Automated exposure control and iterative reconstruction technique were employed. The dose-length product was 1139.65 mGy-cm. COMPARISON: [facility]PA 12/01/2023 FINDINGS: CHEST: Thoracic aorta: No significant dilation. No dissection. Moderate arch calcification. Lung parenchyma and airways: Senescent changes, minimal dependent atelectasis. Patent airways. Thoracic inlet, axillae and chest wall: No thyroid or soft tissue mass. No axillary lymphadenopathy. Mediastinum: No mass or lymphadenopathy. Dilated central pulmonary arteries as can be seen with pulmo nary arterial hypertension. Heart and pericardium: Normal heart size. No pericardial effusion. Mitral calcification. Coronary artery calcifications: Moderate. Pleura: No effusion or mass. Thoracic bones: No acute osseous finding in the chest. ABDOMEN/PELVIS: Liver: Normal. Biliary/Gallbladder: Gallbladder is absent. No bile duct dilation. Pancreas: No mass or duct dilation. Spleen: Normal. Adrenals:No mass. Kidneys: Patchy areas of hypoenhancement bilaterally. Mild perinephric stranding. GI tract: Mild distal esophageal and gastric wall edema No small or large bowel dilation. Appendix no t confidently visualized Diverticulosis without diverticulitis. Mesentery/Peritoneum: No ascites, mass, or free air. Retroperitoneum: No mass Atherosclerotic abdominal aortic and/or arterial calcifications. Pelvis: Urinary bladder wall edema and mucosal hyperemia. 1.5 cm rim-enhancing fluid collection proje cting off the urethra. Normal uterus and bilateral ovaries. Soft Tissues: Soft tissues and body wall unremarkable. Abdominopelvic bones: No acute osseous finding in the abdomen/pelvis. IMPRESSION: Mild esophagitis/gastritis. Likely cystitis and bilateral pyelonephritis. 1.5 cm rim-enhancing fluid collection projecting off the urethra, possibly representing an inflamed/i nfected ureterocele. Reviewed, dictated and finalized at location K. IMPRESSION: Mild esophagitis/gastritis. Likely cystitis and bilateral pyelonephritis. 1.5 cm rim-enhancing fluid collection projecting off the urethra, possibly repr esenting an inflamed/infected ureterocele.
== END 2023-12-24 19:53 | disposition home or self-care (01) ==
LOC: ANHIMG 20:04
PROVIDERS: PCP Family Medicine; Visit Provider Family Medicine
DX: R50.9 Fever, unspecified (principal); R41.82 Altered mental status, unspecified; K29.70 Gastritis, unspecified, without bleeding; K20.90 Esophagitis, unspecified without bleeding
CPT/HCPCS: 70450; 71260; 74177; Q9967

== ENCOUNTER 2023-12-27 13:38 | Inpatient (IN) | payer MEDICARE, SELFPAY ==
[2023-12-27 13:38] VITALS: BP 141/64; PULSE 70; RESP 17; TEMP 36.2; O2SAT 95
--- NOTE | 2023-12-27 13:52 | ECG_ITS ---
SEE SCANNED COPY FOR CONFIRMED REPORT MTDD
--- NOTE | 2023-12-27 13:56 | ED.FEMALEGU ---
HPI - Female Genitourinary General Chief complaint: Recheck/Abnormal Lab/Rx Stated complaint: ABNORMAL LABS Time Seen by Provider: 12/27/23 13:50 Source: patient Mode of arrival: ambulatory Limitations: no limitations History of Present Illness HPI Narrative: patient is an 78-year-old female with bilateral pyelonephritis and UTI from last visit. She was discharged with Levaquin p.o.. Her blood culture and urine culture came back today as E coli with resistant bacteria specifically to only IV antibiotics at this time. I have brought her back to the emergency room for evaluation and admission. MD elicited complaint: UTI and other ( Known bilateral pyelonephritis from the past week here at the ER with a visit; she was discharged with Levaquin p.o.) Pertinent past history: pyelonephritis Onset (ago): week(s) (1) Location of symptoms: pelvis and low back Severity: mild Female Urogenital Radiation: Non-Radiating Severity scale (1-10): 1 Quality of pain: cramping Consistency: intermittent Vaginal discharge: none Vaginal bleeding: none Urinary symptoms: Dysuria Exacerbating factors: none Relieving factors: none Associated symptoms: denies other symptoms Treatment prior to arrival: other ( Levaquin p.o. which was resistant on the urine culture) Sexual activity: No Patient : No Related Data Home Medications Medication Instructions Recorded Confirmed aspirin 81 mg chewable tablet 81 mg PO DAILY 11/01/23 12/27/23 atorvastatin 20 mg tablet 20 mg PO DAILY 11/01/23 12/27/23 budesonide-formoterol HFA 160 2 puff inhalation BID 11/01/23 12/27/23 mcg-4.5 mcg/actuation aerosol inhaler (Breyna) carbamazepine 100 mg chewable 300 mg PO BID 11/01/23 12/27/23 tablet dicyclomine 20 mg tablet 20 mg PO DAILY PRN Abdominal 11/01/23 12/27/23 Discomfort divalproex 125 mg capsule,delayed 125 mg PO BID 11/01/23 12/27/23 release sprinkle furosemide 20 mg tablet 20 mg PO DAILY 11/01/23 12/27/23 levothyroxine 100 mcg tablet 100 mcg PO DAILY 11/01/23 12/27/23 montelukast 10 mg tablet 10 mg PO HS 03/12/24 05/07/24 oxybutynin chloride 5 mg 5 mg PO DAILY 11/01/23 12/27/23 tablet,extended release 24 hr pantoprazole 40 mg tablet,delayed 40 mg PO DAILY 11/01/23 12/27/23 release potassium chloride 10 mEq 10 meq PO BID 11/01/23 12/27/23 tablet,extended release(part/cryst) risperidone 2 mg tablet 2 mg PO DAILY 11/01/23 12/27/23 Allergies Allergy/AdvReac Type Severity Reaction Status Date / Time No Known Allergies Allergy Verified 12/27/23 13:46 Review of Systems Review of Systems: All systems reviewed & are unremarkable except as noted in HPI and below Constitutional: Constitutional: Reports no additional constitutional complaints Eyes: Eyes: Reports no additional eye complaints ENT: Reports system reviewed and no additional complaints, except as documented Cardiovascular: Cardiovascular: Reports no additional cardiovascular complaints Respiratory: Respiratory: Reports no additional respiratory complaints Gastrointestinal: Gastrointestinal: Reports no additional gastrointestinal complaints Genitourinary: Genitourinary: Reports no additional female genitourinary complaints Musculoskeletal: Musculoskeletal: Reports no additional musculoskeletal complaints Integumentary/Breasts: Skin/Breast: Reports system reviewed and no additional complaints, except as docu Neurologic: Reports system reviewed and no additional complaints, except as documented Psychiatric: Psychiatric: Reports no additional psychiatric complaints Endocrine: Endocrine: Reports no additional endocrine complaints Hematologic/Lymphatic: Hematologic/Lymphatic: Reports no additional hematologic/lymphatic complaints Allergic/Immunologic: Allergic/Immunologic: Reports no additional allergic/immunologic complaints PMFSH Past Medical History Medical History Aspiration pneumonia Bipolar 1 disorder
[2023-12-27 14:00] VITALS: BP 118/66; PULSE 66; RESP 17; O2SAT 93
[2023-12-27 14:20] LABS: Basophils Absolute Auto 0.03 K/mm3 (0.00-0.10); Basophils Percent Auto 0.6 % (0.0-1.0); Eosinophils Absolute Auto 0.29 K/mm3 (0.02-0.50); Eosinophils Percent Auto 5.4 % (1.0-6.0); Hematocrit 30.6 % (35.0-42.0); Hemoglobin 9.6 g/dL (11.7-13.8); Immature Granulocyte Percent A 1.8 % (0.0-0.0); Lymphocytes Percent Auto 22.1 % (18.0-42.0); Mean Corpuscular HGB Conc 31.4 g/dL (32-36); Mean Corpuscular Hemoglobin 27.7 pg (27.0-31.0); Mean Corpuscular Volume 88.2 fL (78.0-102.0); Mean Platelet Volume 9.4 fl (9.2-11.8); Monocytes Absolute Auto 0.66 K/mm3 (0.10-0.90); Monocytes Percent Auto 12.2 % (2.0-11.0); Neutrophils Absolute Auto 3.14 K/mm3 (1.70-7.20); Neutrophils Percent Auto 57.9 % (50.0-70.0); Platelet Count Result 272 K/mm3 (150-420); Red Blood Count 3.47 M/mm3 (4.20-5.40); Red Cell Distribution Width 20.8 % (11.6-14.4); White Blood Count 5.4 K/mm3 (4.8-10.8)
[2023-12-27] MEDS: MEROPENEM 1 GM/NS 100 ML 1 GM/100 ML BAG IVPB ×2 (14:25→22:06)
[2023-12-27] MEDS: SODIUM CHLORIDE 0.9% IV 1,000 ML 999 ML IV CONT (14:26)
[2023-12-27 14:30] VITALS: BP 119/62; PULSE 66; RESP 17; O2SAT 94
--- NOTE | 2023-12-27 14:34 | PC.NURSE ---
RN called and spoke with Jessica RN, patient to go to [phone]
[2023-12-27 14:38] LABS: Lactic Acid Reflex 1.4 mmol/L (0.4-2.0)
[2023-12-27 14:44] LABS: Alanine Aminotransferase 64 U/L (14-59); Albumin Level 2.3 g/dL (3.4-5.0); Alkaline Phosphatase 96 U/L (46-116); Anion Gap 10 mmol/L (4-12); Aspartate Amino Transferase 71 U/L (15-37); Bilirubin,Total 0.1 mg/dL (0.00-1.00); Blood Urea Nitrogen 7 mg/dL (7-18); Calcium 8.5 mg/dL (8.5-10.1); Carbon Dioxide 30 mmol/L (21-32); Chloride 99 mmol/L (98-108); Estimated Glomerular Filt Rate > 60; Glucose 100 mg/dL (70-99); Osmolality Calculated 286 mOsm/kg (285-295); Potassium 3.6 mmol/L (3.5-5.1); Sodium 139 mmol/L (136-145); Total Protein 7.2 g/dL (6.4-8.2)
[2023-12-27 14:45] LABS: Troponin I 5.4 ng/L (0.00-60.4)
[2023-12-27 14:50] VITALS: BP 133/70; PULSE 62; RESP 17; TEMP 36.4; O2SAT 93
[2023-12-27 15:16] VITALS: BP 118/58; PULSE 64; RESP 16; TEMP 36.6; O2SAT 94
--- NOTE | 2023-12-27 15:37 | PM.IMHP ---
H&P: HPI History of Present Illness Date/Time: 12/27/23 15:37 Chief Complaint: Bacteremia Narrative: This is an 78-year-old female with a past medical history of hypertension, hyperlipidemia, COPD not on oxygen, bipolar disorder, iron deficiency anemia, hypothyroidism, and metastatic lung carcinoma. She is known to the service from a previous hospitalization in October of this year. She is a resident of [facility]. She was recently seen here in the emergency room on 12-23 with complaints of weakness, altered mental status, and fever. She required transfer to [facility] to have a CT of her head which showed no acute process other than possible sinusitis. She was found have a UTI with possible pyelonephritis and inflamed ureterocele on CT of her abdomen and pelvis. She was discharge home with a prescription for Levaquin. The ED physician, Dr. Lozano was called today regarding positive blood and urine cultures with ecoli ESBL. She is being admitted for IV antibiotics. 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 She only tells me about her son, Artemio Gant [phone]. She has a court appointed guardian, Nai Workman [phone]. Smoking packs per day: 3 Smoking cigarettes per day: 60.0 Years smoked: 10 Smoking pack-years: 30.00 Smoking status: Former smoker Tobacco type: cigarettes Second hand tobacco smoke exposure: No Smoking end date: 10/21/75 Alcohol intake: never Substance use: never Substance use type: does not use Do You Feel Safe in your Home?: No Lack of Transportation: No Lack of Food: Never True Current Housing: I Have Housing Concerned About Future Housing: No Difficulty Paying Gas/Electric Bills: No Difficulty Paying for Meds: No Currently Unemployed: No Education: High School Diploma/GED Difficulty w/ Childcare or Family Care: No Living arrangements: [facility] Additional living arrangements comments: Lives at [facility] Occupation/Education: other Additional occupation/education comments: disability. 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 Gender identity (if verbalized by the patient): Female Spiritual care concerns: Yes (Amish) Meds Home Medications and Allergies Home Medications Medication Instructions Recorded Confirmed Type aspirin 81 mg chewable tablet 81 mg PO DAILY 11/01/23 12/27/23 History atorvastatin 20 mg tablet 20 mg PO DAILY 11/01/23 12/27/23 History budesonide-formoterol HFA 160 2 puff inhalation BID 11/01/23 12/27/23 History mcg-4.5 mcg/actuation aerosol inhaler (Breyna) carbamazepine 100 mg chewable 300 mg PO BID 11/01/23 12/27/23 History tablet dicyclomine 20 mg tablet 20 mg PO DAILY PRN Abdominal 11/01/23 12/27/23 History Discomfort divalproex 125 mg capsule,delayed 125 mg PO BID 11/01/23 12/27/23 History release sprinkle furosemide 20 mg tablet 20 mg PO DAILY 11/01/23 12/27/23 History levothyroxine 100 mcg tablet 100 mcg PO DAILY 11/01/23 12/27/23 History montelukast 10 mg tablet 10 mg PO HS 11/01/23 12/27/23 History oxybutynin chloride 5 mg 5 mg PO DAILY 11/01/23 12/27/23 History tablet,extended release 24 hr pantoprazole 40 mg tablet,delayed 40 mg PO DAILY 11/01/23 12/27/23 History release potassium chloride 10 mEq 10 meq PO BID 11/01/23 12/27/23 History tablet,extended
[2023-12-27] MEDS: BUDESONIDE/FORMOTEROL (*SP) 160-4.5 MCG 6 GM INH 2 PUFF INHALATION (17:00)
[2023-12-27] MEDS: DIVALPROEX SODIUM SPRINKLE 125 MG CAP.DR PO (17:02)
[2023-12-27] MEDS: POTASSIUM CHLORIDE 10 MEQ ER TABLET PO (17:02)
[2023-12-27] MEDS: FERROUS SULFATE 325 MG TABLET DR PO (17:02)
--- NOTE | 2023-12-27 18:36 | PC.NURSE ---
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 hr 30-40's and then will jump 50-60's and back downand so forth. Bp 116/67 R & 148/87 L. HR back 60-70 awake
[2023-12-27 20:00] VITALS: PULSE 69
[2023-12-27] MEDS: MONTELUKAST SODIUM 10 MG TABLET PO (20:45)
[2023-12-27] MEDS: IBUPROFEN 400 MG TABLET PO (20:45)
[2023-12-27] MEDS: TOLNAFTATE 1% POWDER 45 GM BTL 1 APPLIC TOPICAL (22:44)
[2023-12-27] MEDS: diphenhydrAMINE HCl CAP 25 MG CAPSULE PO (22:44)
[2023-12-28] VITALS: BP 146/73; PULSE 60; PULSE 61; RESP 16; TEMP 36.7; O2SAT 95
[2023-12-28 04:00] VITALS: PULSE 54
[2023-12-28 05:16] LABS: Hematocrit 30.7 % (35.0-42.0); Hemoglobin 9.6 g/dL (11.7-13.8); Mean Corpuscular HGB Conc 31.3 g/dL (32-36); Mean Corpuscular Volume 89.5 fL (78.0-102.0); Mean Platelet Volume 9.5 fl (9.2-11.8); Platelet Count Result 279 K/mm3 (150-420); Red Blood Count 3.43 M/mm3 (4.20-5.40); White Blood Count 4.5 K/mm3 (4.8-10.8)
[2023-12-28 05:35] LABS: Alanine Aminotransferase 48 U/L (14-59); Albumin Level 2.3 g/dL (3.4-5.0); Alkaline Phosphatase 87 U/L (46-116); Anion Gap 9 mmol/L (4-12); Aspartate Amino Transferase 41 U/L (15-37); Bilirubin,Total 0.1 mg/dL (0.00-1.00); Blood Urea Nitrogen 6 mg/dL (7-18); Calcium 9.1 mg/dL (8.5-10.1); Carbon Dioxide 30 mmol/L (21-32); Chloride 104 mmol/L (98-108); Estimated CRCL calculation 69 ml/min; Estimated Glomerular Filt Rate > 60; Glucose 90 mg/dL (70-99); Magnesium 1.9 mg/dL (1.8-2.4); Osmolality Calculated 293 mOsm/kg (285-295); Sodium 143 mmol/L (136-145); Total Protein 6.8 g/dL (6.4-8.2)
[2023-12-28 05:41] LABS: Band Neutrophils Percent 0 % (0-6); Eosinophils Absolute Manual 0.18 K/mm3 (0.02-0.50); Eosinophils Percent Manual 4 % (1-6); Lymphocytes Absolute Manual 1.35 K/mm3 (1.1-4.5); Lymphocytes Percent Manual 30 % (18-44); Monocytes Absolute Manual 0.49 K/mm3 (0.1-0.90); Monocytes Percent Manual 11 % (3-9); Neutrophils Absolute Manual 2.47 K/mm3 (1.7-7.2); Neutrophils Percent Manual 55 % (46-73); Total Cells Counted 100
[2023-12-28 05:42] LABS: Basophils Percent Manual 0 % (0-1); Platelet Estimate Adequate (Adequate)
[2023-12-28] MEDS: MEROPENEM 1 GM/NS 100 ML 1 GM/100 ML BAG IVPB (06:08)
[2023-12-28] MEDS: LEVOTHYROXINE SODIUM 100 MCG TABLET PO (06:08)
[2023-12-28 07:53] VITALS: BP 147/62; PULSE 57; RESP 16; TEMP 36.2; O2SAT 97
[2023-12-28] MEDS: BUDESONIDE/FORMOTEROL (*SP) 160-4.5 MCG 6 GM INH 2 PUFF INHALATION ×2 (08:50→17:54)
[2023-12-28] MEDS: ENOXAPARIN 40 MG/0.4 ML SYRINGE SUB-Q (08:54)
[2023-12-28] MEDS: PANTOPRAZOLE 40 MG TABLET PO (08:55)
[2023-12-28] MEDS: oxyBUTYnin CHLORIDE XL 5 MG TAB.ER.24 PO (08:55)
[2023-12-28] MEDS: risperiDONE 1 MG TABLET 2 MG PO (08:55)
[2023-12-28] MEDS: ASPIRIN 81 MG CHEWABLE TABLET PO (08:55)
[2023-12-28] MEDS: ATORVASTATIN 10 MG TABLET 20 MG PO (08:55)
[2023-12-28] MEDS: DIVALPROEX SODIUM SPRINKLE 125 MG CAP.DR PO ×2 (08:55→17:54)
[2023-12-28] MEDS: FUROSEMIDE 20 MG TABLET PO (08:55)
[2023-12-28] MEDS: FERROUS SULFATE 325 MG TABLET DR PO ×2 (08:55→17:54)
[2023-12-28] MEDS: POTASSIUM CHLORIDE 10 MEQ ER TABLET PO ×2 (08:55→17:54)
[2023-12-28 12:00] VITALS: PULSE 57
[2023-12-28] MEDS: ERTAPENEM 1 GM/NS 50 ML 1 GM/50 ML BAG IVPB (14:20)
--- NOTE | 2023-12-28 14:26 | PM.IMHP ---
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 She only tells me about her son, Artemio Gant [phone]. She has a court appointed guardian, Nai Workman [phone]. Smoking packs per day: 3 Smoking cigarettes per day: 60.0 Years smoked: 10 Smoking pack-years: 30.00 Smoking status: Former smoker Tobacco type: cigarettes Second hand tobacco smoke exposure: No Smoking end date: 08/22/79 Alcohol intake: never Substance use: never Substance use type: does not use Do You Feel Safe in your Home?: Yes Lack of Transportation: No Lack of Food: Never True Current Housing: I Have Housing Concerned About Future Housing: No Difficulty Paying Gas/Electric Bills: No Difficulty Paying for Meds: No Currently Unemployed: No Education: High School Diploma/GED Difficulty w/ Childcare or Family Care: No Living arrangements: half-way Additional living arrangements comments: Lives at [facility] Care Occupation/Education: other Additional occupation/education comments: disability. 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 Gender identity (if verbalized by the patient): Female Spiritual care concerns: No Meds Home Medications and Allergies Home Medications Medication Instructions Recorded Confirmed Type aspirin 81 mg chewable tablet 81 mg PO DAILY 11/01/23 12/27/23 History atorvastatin 20 mg tablet 20 mg PO DAILY 11/01/23 12/27/23 History budesonide-formoterol HFA 160 2 puff inhalation BID 11/01/23 12/27/23 History mcg-4.5 mcg/actuation aerosol inhaler (Breyna) carbamazepine 100 mg chewable 300 mg PO BID 11/01/23 12/27/23 History tablet dicyclomine 20 mg tablet 20 mg PO DAILY PRN Abdominal 11/01/23 12/27/23 History Discomfort divalproex 125 mg capsule,delayed 125 mg PO BID 11/01/23 12/27/23 History release sprinkle furosemide 20 mg tablet 20 mg PO DAILY 11/01/23 12/27/23 History levothyroxine 100 mcg tablet 100 mcg PO DAILY 11/01/23 12/27/23 History montelukast 10 mg tablet 10 mg PO HS 11/01/23 12/27/23 History oxybutynin chloride 5 mg 5 mg PO DAILY 11/01/23 12/27/23 History tablet,extended release 24 hr pantoprazole 40 mg tablet,delayed 40 mg PO DAILY 11/01/23 12/27/23 History release potassium chloride 10 mEq 10 meq PO BID 11/01/23 12/27/23 History tablet,extended release(part/cryst) risperidone 2 mg tablet 2 mg PO DAILY 11/01/23 12/27/23 History ferrous sulfate 325 mg (65 mg 325 mg PO BIDWMEAL #60 tabs 11/04/23 12/27/23 Rx iron) tablet,delayed release dextromethorphan-guaifenesin 10 1 tab-cap PO Q8H PRN cough #20 caps 12/03/23 12/27/23 Rx mg-200 mg capsule (Robitussin Cough-Chest Congestion DM) prednisone 20 mg tablet 20 mg PO BID 2 days #4 tabs 12/03/23 12/27/23 Rx levofloxacin 500 mg tablet 500 mg PO DAILY 7 days #7 tabs 12/24/23 12/27/23 Rx levofloxacin 500 mg tablet 500 mg PO DAILY 7 days #7 tabs 12/24/23 12/27/23 Rx Allergies Allergy/AdvReac Type Severity Reaction Status Date / Time No Known Allergies Allergy Verified 12/27/23 13:46 Vital Signs Vital Signs - 24 hr 12/27/23 14:50 12/27/23 14:30 12/27/23 14:50 Temperature 97.5 F L 97.5 F L Pulse Rate 62 66 62 Respiratory Rate 17 17 17 Blood Pressure 133/70 119/62 133/70 Pulse Oximetry 93 94 93 Oxygen Delivery Room Air Room Air Room Air 12/27/23 15:16 12/27/23 20:00
--- NOTE | 2023-12-28 14:35 | WPDPN ---
Progress Note: A&P Assessment and Plan (1) Acute pyelonephritis: Code(s): N10 - Acute pyelonephritis Status: Acute Assessment and Plan: IV invanz due to side effects from the meropenem EBSL/ECOLi restant to all po medication montior vitals and labs Drink plenty of fluids wipe front to back (2) Weakness: Code(s): R53.1 - Weakness Status: Acute Assessment and Plan: Pt/OT to see pateint (3) Sepsis: Qualifiers: Sepsis acute organ dysfunction status: with acute organ dysfunction Sepsis type: sepsis due to unspecified organism Severe sepsis acute organ dysfunction type: unspecified Severe sepsis shock status: without septic shock Qualified Code(s): A41.9 - Sepsis, unspecified organism; R65.20 - Severe sepsis without septic shock Code(s): A41.9 - Sepsis, unspecified organism Status: Acute Assessment and Plan: resolved (4) HTN (hypertension): Code(s): I10 - Essential (primary) hypertension Status: Acute Assessment and Plan: monitor vitals continue all home medication (5) HLD (hyperlipidemia): Code(s): E78.5 - Hyperlipidemia, unspecified Status: Acute Assessment and Plan: stable continue home medication (6) Bipolar 1 disorder: Code(s): F31.9 - Bipolar disorder, unspecified Status: Acute Assessment and Plan: stable continue home medication Subjective Date/time seen: 12/28/23 14:35 Interval history: Patient antibioitc was changed to Invanz as she has a lot of side effect to the Meropenem and it was discussed with Amor the infection diseace pharmacist. Patient in the room alert and orientated anxious to discharge home she is eating and drinking without difficulties and she is on thickened liquids . Patient deneis any pain but she does complain of eye discomfort alt sharon I see nothing in her eye and no changes. I will order her some refresh eye drop to see if this helps. Exam Narrative: General: well appearing, appears stated age. HEENT: normocephalic, atraumatic. Mucous membranes moist. EOMI, PERRLA, bilateral sclera anicteric, no conjunctival injection. Neck supple without JVD, lymphadenopathy, or bruit. Respiratory: clear to ascultation bilaterally. No rales/rhonic/wheezes. Cardiovascular: Regular rate and rhythm, normal S1-S2 upon ascultation. No murmurs, rubs, or clicks. PMI is nondisplaced, capillary refill less than 3 second. Abdomen: Soft, round, no pulsatile masses, nondistended and nontender. No rebound, no guarding. Extremities: No cyanosis, clubbing, or edema present. Pulses are palpable 2/2. Active ROM to all four extremities. Neuro: Alert and orientated x 4. PERRLA. Cranial nerves 2-12 intact without focal deficit. Skin: Warm, dry, and intact, without rash, erythema, or lesion. Lines: Incisions: Psych: pleasant, cooperative, normal speech, normal affect, no hallucinations, no dysarthia Objective Data Vital Signs Vital Signs: Vital Signs - 24 hr 12/27/23 14:50 12/27/23 14:50 12/27/23 15:16 Temperature 97.5 F L 97.5 F L 97.9 F Pulse Rate 62 62 64 Respiratory Rate 17 17 16 Blood Pressure 133/70 133/70 118/58 L Pulse Oximetry 93 93 94 Oxygen Delivery Room Air Room Air Room Air 12/27/23 20:00 12/28/23 00:00 12/28/23 00:00 Temperature 98.1 F Pulse Rate 69 61 60 Respiratory Rate 16 Blood Pressure 146/73 H Pulse Oximetry 95 Oxygen Delivery Room Air 12/28/23 04:00 12/28/23 07:53 12/28/23 07:53 Temperature 97.2 F L Pulse Rate 54 L 57 L 57 L Respiratory Rate 16 Blood Pressure 147/62 H Pulse Oximetry 97 Oxygen Delivery Room Air 12/28/23 12:00 Temperature Pulse Rate 57 L Respiratory Rate Blood Pressure Pulse Oximetry Oxygen Delivery Intake/Output Intake/Output: Intake & Output 12/25/23 12/26/23 12/27/23 12/28/23 23:59 23:59 23:59 23:59 Intake Total 1620 1900 Output Total 1400 Balance 1620 500
[2023-12-28 16:00] VITALS: BP 133/61; PULSE 68; RESP 18; TEMP 36.6; O2SAT 96
--- NOTE | 2023-12-28 16:20 | PC.NURSE ---
Lynette Mendenhall, DIGITAL SALES ASSISTANT/Hospitalist, notified that patient's preliminary blood cultures show no growth.
[2023-12-28 20:00] VITALS: PULSE 70; RESP 16; O2SAT 95
[2023-12-28] MEDS: MONTELUKAST SODIUM 10 MG TABLET PO (20:22)
[2023-12-29] VITALS: BP 155/80; PULSE 73; RESP 16; TEMP 36.7; O2SAT 95
[2023-12-29 05:15] LABS: Hematocrit 33.2 % (35.0-42.0); Hemoglobin 10.3 g/dL (11.7-13.8); Mean Corpuscular Hemoglobin 27.7 pg (27.0-31.0); Mean Corpuscular Volume 89.2 fL (78.0-102.0); Mean Platelet Volume 9.4 fl (9.2-11.8); Platelet Count Result 338 K/mm3 (150-420); Red Blood Count 3.72 M/mm3 (4.20-5.40); White Blood Count 5.7 K/mm3 (4.8-10.8)
[2023-12-29 05:32] LABS: Alanine Aminotransferase 45 U/L (14-59); Albumin Level 2.5 g/dL (3.4-5.0); Alkaline Phosphatase 99 U/L (46-116); Anion Gap 9 mmol/L (4-12); Aspartate Amino Transferase 38 U/L (15-37); Bilirubin,Total 0.1 mg/dL (0.00-1.00); Blood Urea Nitrogen 12 mg/dL (7-18); Calcium 9.3 mg/dL (8.5-10.1); Carbon Dioxide 29 mmol/L (21-32); Chloride 104 mmol/L (98-108); Estimated CRCL calculation 65 ml/min; Estimated Glomerular Filt Rate > 60; Glucose 96 mg/dL (70-99); Magnesium 2.2 mg/dL (1.8-2.4); Osmolality Calculated 293 mOsm/kg (285-295); Potassium 4.5 mmol/L (3.5-5.1); Sodium 142 mmol/L (136-145); Total Protein 7.1 g/dL (6.4-8.2)
[2023-12-29 05:38] LABS: Band Neutrophils Percent 0 % (0-6); Basophils Absolute Manual 0.05 K/mm3 (0-0.1); Basophils Percent Manual 1 % (0-1); Eosinophils Absolute Manual 0.28 K/mm3 (0.02-0.50); Eosinophils Percent Manual 5 % (1-6); Lymphocytes Absolute Manual 1.14 K/mm3 (1.1-4.5); Lymphocytes Percent Manual 20 % (18-44); Metamyelocytes Percent 2 %; Monocytes Absolute Manual 0.39 K/mm3 (0.1-0.90); Monocytes Percent Manual 7 % (3-9); Neutrophils Percent Manual 65 % (46-73); Platelet Estimate Adequate (Adequate); Total Cells Counted 100
[2023-12-29] MEDS: LEVOTHYROXINE SODIUM 100 MCG TABLET PO (06:38)
[2023-12-29 08:00] VITALS: BP 145/70; PULSE 75; RESP 16; TEMP 36.6; O2SAT 98
[2023-12-29] MEDS: FERROUS SULFATE 325 MG TABLET DR PO ×2 (08:29→17:17)
[2023-12-29] MEDS: ATORVASTATIN 10 MG TABLET 20 MG PO (08:30)
[2023-12-29] MEDS: PANTOPRAZOLE 40 MG TABLET PO (08:30)
[2023-12-29] MEDS: FUROSEMIDE 20 MG TABLET PO (08:30)
[2023-12-29] MEDS: ENOXAPARIN 40 MG/0.4 ML SYRINGE SUB-Q (08:31)
[2023-12-29] MEDS: risperiDONE 1 MG TABLET 2 MG PO (08:31)
[2023-12-29] MEDS: POTASSIUM CHLORIDE 10 MEQ ER TABLET PO ×2 (08:31→17:17)
[2023-12-29] MEDS: DIVALPROEX SODIUM SPRINKLE 125 MG CAP.DR PO ×2 (08:31→17:16)
[2023-12-29] MEDS: ASPIRIN 81 MG CHEWABLE TABLET PO (08:31)
[2023-12-29] MEDS: oxyBUTYnin CHLORIDE XL 5 MG TAB.ER.24 PO (08:32)
[2023-12-29] MEDS: ARTIFICIAL TEARS OPHTH SOLN 15 ML BOTTLE 1 DROP EACH EYE ×2 (08:33→17:17)
[2023-12-29] MEDS: BUDESONIDE/FORMOTEROL (*SP) 160-4.5 MCG 6 GM INH 2 PUFF INHALATION ×2 (08:56→17:16)
--- NOTE | 2023-12-29 10:33 | PM.IMPN ---
Progress Note: A&P Assessment and Plan (1) Acute pyelonephritis: Code(s): N10 - Acute pyelonephritis Status: Acute Assessment and Plan: 12/29/23: Currently on Ertapenem due to less side effects with her other medications ESBL/ECOLI resistant to all po antibiotics urine culture showing E coli /ESBL on final read for set of blood culture showing E coli in 1/2 vials 2nd set of blood cultures is showing g positive cocci in clusters in both vials, questionable contaminant we will get a new set of blood cultures today and wait for preliminary read before starting Vancomycin. This was discussed with ID pharmacist. (2) UTI (urinary tract infection): Qualifiers: Hematuria presence: without hematuria Urinary tract infection type: site unspecified Qualified Code(s): N39.0 - Urinary tract infection, site not specified Code(s): N39.0 - Urinary tract infection, site not specified Status: Acute Assessment and Plan: see above (3) Weakness: Code(s): R53.1 - Weakness Status: Acute Assessment and Plan: 12/29/23: continue PT and OT (4) HTN (hypertension): Code(s): I10 - Essential (primary) hypertension Status: Acute Assessment and Plan: 12/29/2023: blood pressures ranging 145/70 to 155/80 patient does not take any home medications for blood pressure other than Lasix 20 mg daily we will go ahead and start amlodipine 5 mg daily starting now (5) HLD (hyperlipidemia): Code(s): E78.5 - Hyperlipidemia, unspecified Status: Chronic Assessment and Plan: 12/29/2023: continue aspirin and atorvastatin (6) Bipolar 1 disorder: Code(s): F31.9 - Bipolar disorder, unspecified Status: Chronic Assessment and Plan: 12/29/2023: continue Tegretol, Risperdal, and Divoproex (7) Influenza A: Code(s): J10.1 - Influenza due to other identified influenza virus with other respiratory manifestations Status: Acute Assessment and Plan: 12/29/23 patient positive for influenza A continue isolation precaution (8) Iron deficiency anemia: Code(s): D50.9 - Iron deficiency anemia, unspecified Status: Acute Assessment and Plan: 12/29/2023: continue ferrous sulfate 325 mg b.i.d. hemoglobin 10.3 this morning Time Spent With Patient Time with patient: Greater than 35 minutes Subjective Date/time seen: 12/29/23 10:33 Interval history: this is an 78-year-old female who presented to the hospital on 12/27/2023 with weakness, altered mental status, and fever workup in the hospital included a CT of the head which was negative for any acute process but did show possible sinusitis. Chest x-ray was negative for any acute cardiopulmonary process. CT of the abdomen pelvis shows cystitis and bilateral pyelonephritis, 1.5 cm rim enhancing fluid collection projecting off the urethra possibly representing inflamed/infected ureterocele. Initial labs showed a white blood cell count of 10.2, hemoglobin 9.8, INR was 0.9, proBNP 658, lipase was 14. UA was obtained which showed 1+ urine protein, trace urine blood, positive nitrate, 2+ leukocyte, urine white blood cells present, 3+ bacteria. Respiratory panel was positive for influenza a, negative for influenza B, negative for RSV, negative for COVID. Urine and blood cultures were obtained which shown E coli / ESBL on final read on the urine culture. Blood culture shown E coli in 1 out of the 2 sets on final read. New set of blood cultures are showing Gram-positive cocci in clusters in both vials which could possibly be a contaminant so we will redraw blood cultures today before starting any other antibiotics that she is clinically getting better. On exam today patient denies any fever, chills, nausea, vomiting, diarrhea, abdominal pain, chest pain, shortness a breath. She is wanting to go home however with her ESBL she is unable to go home on oral
[2023-12-29] MEDS: amLODIPine BESYLATE 5 MG TABLET PO (12:32)
[2023-12-29] MEDS: ERTAPENEM 1 GM/NS 50 ML 1 GM/50 ML BAG IVPB (13:59)
[2023-12-29 16:35] VITALS: BP 117/66; PULSE 63; RESP 16; TEMP 36.5; O2SAT 91
[2023-12-29] MEDS: MONTELUKAST SODIUM 10 MG TABLET PO (20:06)
[2023-12-30] VITALS: BP 122/70; PULSE 64; RESP 16; TEMP 36.6; O2SAT 96
[2023-12-30 05:48] LABS: Basophils Absolute Auto 0.04 K/mm3 (0.00-0.10); Basophils Percent Auto 0.5 % (0.0-1.0); Eosinophils Absolute Auto 0.31 K/mm3 (0.02-0.50); Eosinophils Percent Auto 4.1 % (1.0-6.0); Hematocrit 33.1 % (35.0-42.0); Hemoglobin 10.3 g/dL (11.7-13.8); Immature Granulocyte Absolute 0.18 K/mm3 (0.00-0.00); Immature Granulocyte Percent A 2.4 % (0.0-0.0); Lymphocytes Absolute Auto 1.47 K/mm3 (1.10-4.50); Lymphocytes Percent Auto 19.3 % (18.0-42.0); Mean Corpuscular HGB Conc 31.1 g/dL (32-36); Mean Corpuscular Hemoglobin 27.6 pg (27.0-31.0); Mean Corpuscular Volume 88.7 fL (78.0-102.0); Mean Platelet Volume 9.1 fl (9.2-11.8); Monocytes Percent Auto 7.9 % (2.0-11.0); Neutrophils Absolute Auto 5.03 K/mm3 (1.70-7.20); Neutrophils Percent Auto 65.8 % (50.0-70.0); Platelet Count Result 336 K/mm3 (150-420); Red Blood Count 3.73 M/mm3 (4.20-5.40); Red Cell Distribution Width 21.1 % (11.6-14.4); White Blood Count 7.6 K/mm3 (4.8-10.8)
[2023-12-30 06:10] LABS: Alanine Aminotransferase 37 U/L (14-59); Albumin Level 2.6 g/dL (3.4-5.0); Alkaline Phosphatase 107 U/L (46-116); Anion Gap 8 mmol/L (4-12); Aspartate Amino Transferase 41 U/L (15-37); Bilirubin,Total 0.1 mg/dL (0.00-1.00); Blood Urea Nitrogen 10 mg/dL (7-18); Calcium 9.2 mg/dL (8.5-10.1); Carbon Dioxide 32 mmol/L (21-32); Chloride 103 mmol/L (98-108); Estimated CRCL calculation 68 ml/min; Estimated Glomerular Filt Rate > 60; Glucose 85 mg/dL (70-99); Magnesium 2.1 mg/dL (1.8-2.4); Osmolality Calculated 294 mOsm/kg (285-295); Potassium 4.6 mmol/L (3.5-5.1); Sodium 143 mmol/L (136-145); Total Protein 7.1 g/dL (6.4-8.2)
[2023-12-30] MEDS: LEVOTHYROXINE SODIUM 100 MCG TABLET PO (06:12)
--- NOTE | 2023-12-30 07:53 | P.PNIM_ITS ---
Progress Note: A&P Assessment and Plan (1) Acute pyelonephritis: Code(s): N10 - Acute pyelonephritis Status: Acute Assessment and Plan: 12/29/23: * Currently on Ertapenem due to less side effects with her other medications * ESBL/ECOLI resistant to all po antibiotics * urine culture showing E coli /ESBL on final read * for set of blood culture showing E coli in 1/2 vials * 2nd set of blood cultures is showing g positive cocci in clusters in both vials, questionable contaminant * we will get a new set of blood cultures today and wait for preliminary read before starting Vancomycin. This was discussed with ID pharmacist. 12/30/23: * patient will continue on Ertapenem * unsure if the blood cultures were drawn yesterday we are checking with labs. If these were not drawn, they need to be drawn today! (2) UTI (urinary tract infection): Qualifiers: Hematuria presence: without hematuria Urinary tract infection type: site unspecified Qualified Code(s): N39.0 - Urinary tract infection, site not specified Code(s): N39.0 - Urinary tract infection, site not specified Status: Acute Assessment and Plan: see above (3) Weakness: Code(s): R53.1 - Weakness Status: Acute Assessment and Plan: 12/29/23: * continue PT and OT 12/30/23: * continue with current treatment plan (4) HTN (hypertension): Code(s): I10 - Essential (primary) hypertension Status: Acute Assessment and Plan: 12/29/2023: * blood pressures ranging 145/70 to 155/80 * patient does not take any home medications for blood pressure other than Lasix 20 mg daily * we will go ahead and start amlodipine 5 mg daily starting now 12/30/23: * blood pressures ranging 117/66 to 122/70 * continue with current treatment plan (5) HLD (hyperlipidemia): Code(s): E78.5 - Hyperlipidemia, unspecified Status: Chronic Assessment and Plan: 12/29/2023: * continue aspirin and atorvastatin 12/30/23: * no change to current treatment plan (6) Bipolar 1 disorder: Code(s): F31.9 - Bipolar disorder, unspecified Status: Chronic Assessment and Plan: 12/29/2023: * continue Tegretol, Risperdal, and Divoproex 12/30/23: * no change to current treatment plan (7) Influenza A: Code(s): J10.1 - Influenza due to other identified influenza virus with other respiratory manifestations Status: Acute Assessment and Plan: 12/29/23 * patient positive for influenza A * continue isolation precaution 12/30/23: * no change to current treatment plan (8) Iron deficiency anemia: Code(s): D50.9 - Iron deficiency anemia, unspecified Status: Acute Assessment and Plan: 12/29/2023: * continue ferrous sulfate 325 mg b.i.d. * hemoglobin 10.3 this morning 12/30/23: * no change to current treatment plan Time Spent With Patient Time with patient: Greater than 35 minutes Subjective Date/time seen: 12/30/23 07:53 Interval history: 12/29/23: This is an 78-year-old female who presented to the hospital on 12/27/2023 with weakness, altered mental status, and fever workup in the hospital included a CT of the head which was negative for any acute process but did show possible sinusitis. Chest x-ray was negative for any acute cardiopulmonary process. CT of the abdomen pelvis shows cystitis and bilateral pyelonephritis, 1.5 cm rim enhancing fluid collection projecting off the urethra possibly repre
--- NOTE | 2023-12-30 07:53 | PM.IMPN ---
Progress Note: A&P Assessment and Plan (1) Acute pyelonephritis: Code(s): N10 - Acute pyelonephritis Status: Acute Assessment and Plan: 12/29/23: Currently on Ertapenem due to less side effects with her other medications ESBL/ECOLI resistant to all po antibiotics urine culture showing E coli /ESBL on final read for set of blood culture showing E coli in 1/2 vials 2nd set of blood cultures is showing g positive cocci in clusters in both vials, questionable contaminant we will get a new set of blood cultures today and wait for preliminary read before starting Vancomycin. This was discussed with ID pharmacist. 12/30/23: patient will continue on Ertapenem unsure if the blood cultures were drawn yesterday we are checking with labs. If these were not drawn, they need to be drawn today! (2) UTI (urinary tract infection): Qualifiers: Hematuria presence: without hematuria Urinary tract infection type: site unspecified Qualified Code(s): N39.0 - Urinary tract infection, site not specified Code(s): N39.0 - Urinary tract infection, site not specified Status: Acute Assessment and Plan: see above (3) Weakness: Code(s): R53.1 - Weakness Status: Acute Assessment and Plan: 12/29/23: continue PT and OT 12/30/23: continue with current treatment plan (4) HTN (hypertension): Code(s): I10 - Essential (primary) hypertension Status: Acute Assessment and Plan: 12/29/2023: blood pressures ranging 145/70 to 155/80 patient does not take any home medications for blood pressure other than Lasix 20 mg daily we will go ahead and start amlodipine 5 mg daily starting now 12/30/23: blood pressures ranging 117/66 to 122/70 continue with current treatment plan (5) HLD (hyperlipidemia): Code(s): E78.5 - Hyperlipidemia, unspecified Status: Chronic Assessment and Plan: 12/29/2023: continue aspirin and atorvastatin 12/30/23: no change to current treatment plan (6) Bipolar 1 disorder: Code(s): F31.9 - Bipolar disorder, unspecified Status: Chronic Assessment and Plan: 12/29/2023: continue Tegretol, Risperdal, and Divoproex 12/30/23: no change to current treatment plan (7) Influenza A: Code(s): J10.1 - Influenza due to other identified influenza virus with other respiratory manifestations Status: Acute Assessment and Plan: 12/29/23 patient positive for influenza A continue isolation precaution 12/30/23: no change to current treatment plan (8) Iron deficiency anemia: Code(s): D50.9 - Iron deficiency anemia, unspecified Status: Acute Assessment and Plan: 12/29/2023: continue ferrous sulfate 325 mg b.i.d. hemoglobin 10.3 this morning 12/30/23: no change to current treatment plan Time Spent With Patient Time with patient: Greater than 35 minutes Subjective Date/time seen: 12/30/23 07:53 Interval history: 12/29/23: This is an 78-year-old female who presented to the hospital on 12/27/2023 with weakness, altered mental status, and fever workup in the hospital included a CT of the head which was negative for any acute process but did show possible sinusitis. Chest x-ray was negative for any acute cardiopulmonary process. CT of the abdomen pelvis shows cystitis and bilateral pyelonephritis, 1.5 cm rim enhancing fluid collection projecting off the urethra possibly representing inflamed/infected ureterocele. Initial labs showed a white blood cell count of 10.2, hemoglobin 9.8, INR was 0.9, proBNP 658, lipase was 14. UA was obtained which showed 1+ urine protein, trace urine blood, positive nitrate, 2+ leukocyte, urine white blood cells present, 3+ bacteria. Respiratory panel was positive for influenza a, negative for influenza B, negative for RSV, negative for COVID. Urine and blood cultures were obtained which shown E coli / ESBL on david
[2023-12-30 08:00] VITALS: BP 145/73; PULSE 56; RESP 14; TEMP 36.4; O2SAT 94
[2023-12-30] MEDS: FERROUS SULFATE 325 MG TABLET DR PO ×2 (08:30→17:24)
[2023-12-30] MEDS: ENOXAPARIN 40 MG/0.4 ML SYRINGE SUB-Q (09:00)
[2023-12-30] MEDS: risperiDONE 1 MG TABLET 2 MG PO (09:01)
[2023-12-30] MEDS: PANTOPRAZOLE 40 MG TABLET PO (09:01)
[2023-12-30] MEDS: ASPIRIN 81 MG CHEWABLE TABLET PO (09:02)
[2023-12-30] MEDS: ATORVASTATIN 10 MG TABLET 20 MG PO (09:02)
[2023-12-30] MEDS: oxyBUTYnin CHLORIDE XL 5 MG TAB.ER.24 PO (09:02)
[2023-12-30] MEDS: FUROSEMIDE 20 MG TABLET PO (09:02)
[2023-12-30] MEDS: DIVALPROEX SODIUM SPRINKLE 125 MG CAP.DR PO ×2 (09:02→17:24)
[2023-12-30] MEDS: POTASSIUM CHLORIDE 10 MEQ ER TABLET PO ×2 (09:02→17:24)
[2023-12-30] MEDS: amLODIPine BESYLATE 5 MG TABLET PO (09:03)
[2023-12-30] MEDS: ARTIFICIAL TEARS OPHTH SOLN 15 ML BOTTLE 1 DROP EACH EYE (09:03)
[2023-12-30] MEDS: BUDESONIDE/FORMOTEROL (*SP) 160-4.5 MCG 6 GM INH 2 PUFF INHALATION ×2 (09:03→17:24)
[2023-12-30] MEDS: ERTAPENEM 1 GM/NS 50 ML 1 GM/50 ML BAG IVPB (14:00)
[2023-12-30 16:30] VITALS: BP 124/82; PULSE 57; RESP 16; TEMP 35.9; O2SAT 96
[2023-12-30 20:00] VITALS: PULSE 57; RESP 16; O2SAT 96
[2023-12-30] MEDS: diphenhydrAMINE HCl CAP 25 MG CAPSULE PO (21:08)
[2023-12-30] MEDS: MONTELUKAST SODIUM 10 MG TABLET PO (21:08)
[2023-12-30 23:59] VITALS: BP 141/64; PULSE 66; RESP 16; TEMP 36.4; O2SAT 97
[2023-12-31 05:20] LABS: Basophils Absolute Auto 0.07 K/mm3 (0.00-0.10); Basophils Percent Auto 0.8 % (0.0-1.0); Eosinophils Absolute Auto 0.37 K/mm3 (0.02-0.50); Eosinophils Percent Auto 4.4 % (1.0-6.0); Hematocrit 33.9 % (35.0-42.0); Hemoglobin 10.6 g/dL (11.7-13.8); Immature Granulocyte Absolute 0.19 K/mm3 (0.00-0.00); Immature Granulocyte Percent A 2.3 % (0.0-0.0); Lymphocytes Absolute Auto 1.56 K/mm3 (1.10-4.50); Lymphocytes Percent Auto 18.7 % (18.0-42.0); Mean Corpuscular HGB Conc 31.3 g/dL (32-36); Mean Corpuscular Hemoglobin 27.9 pg (27.0-31.0); Mean Corpuscular Volume 89.2 fL (78.0-102.0); Mean Platelet Volume 9.3 fl (9.2-11.8); Monocytes Absolute Auto 0.58 K/mm3 (0.10-0.90); Neutrophils Absolute Auto 5.56 K/mm3 (1.70-7.20); Neutrophils Percent Auto 66.8 % (50.0-70.0); Platelet Count Result 359 K/mm3 (150-420); Red Cell Distribution Width 21.1 % (11.6-14.4); White Blood Count 8.3 K/mm3 (4.8-10.8)
[2023-12-31 05:37] LABS: Alanine Aminotransferase 43 U/L (14-59); Albumin Level 2.7 g/dL (3.4-5.0); Alkaline Phosphatase 114 U/L (46-116); Anion Gap 7 mmol/L (4-12); Aspartate Amino Transferase 29 U/L (15-37); Bilirubin,Total 0.1 mg/dL (0.00-1.00); Blood Urea Nitrogen 9 mg/dL (7-18); Calcium 9.4 mg/dL (8.5-10.1); Carbon Dioxide 31 mmol/L (21-32); Chloride 103 mmol/L (98-108); Estimated CRCL calculation 66 ml/min; Estimated Glomerular Filt Rate > 60; Glucose 91 mg/dL (70-99); Magnesium 2.2 mg/dL (1.8-2.4); Osmolality Calculated 290 mOsm/kg (285-295); Potassium 4.3 mmol/L (3.5-5.1); Sodium 141 mmol/L (136-145); Total Protein 7.2 g/dL (6.4-8.2)
[2023-12-31] MEDS: LEVOTHYROXINE SODIUM 100 MCG TABLET PO (06:05)
[2023-12-31 08:00] VITALS: BP 114/63; PULSE 60; RESP 18; TEMP 36.3; O2SAT 94
[2023-12-31] MEDS: FERROUS SULFATE 325 MG TABLET DR PO ×2 (08:58→17:54)
[2023-12-31] MEDS: oxyBUTYnin CHLORIDE XL 5 MG TAB.ER.24 PO (09:10)
[2023-12-31] MEDS: POTASSIUM CHLORIDE 10 MEQ ER TABLET PO ×2 (09:10→17:54)
[2023-12-31] MEDS: DIVALPROEX SODIUM SPRINKLE 125 MG CAP.DR PO ×2 (09:10→17:54)
[2023-12-31] MEDS: ATORVASTATIN 10 MG TABLET 20 MG PO (09:10)
[2023-12-31] MEDS: amLODIPine BESYLATE 5 MG TABLET PO (09:10)
[2023-12-31] MEDS: PANTOPRAZOLE 40 MG TABLET PO (09:10)
[2023-12-31] MEDS: ASPIRIN 81 MG CHEWABLE TABLET PO (09:10)
[2023-12-31] MEDS: FUROSEMIDE 20 MG TABLET PO (09:10)
[2023-12-31] MEDS: risperiDONE 1 MG TABLET 2 MG PO (09:10)
[2023-12-31] MEDS: ENOXAPARIN 40 MG/0.4 ML SYRINGE SUB-Q (09:11)
[2023-12-31] MEDS: BUDESONIDE/FORMOTEROL (*SP) 160-4.5 MCG 6 GM INH 2 PUFF INHALATION ×2 (09:11→17:54)
--- NOTE | 2023-12-31 11:59 | P.PNIM_ITS ---
Progress Note: A&P Assessment and Plan (1) Acute pyelonephritis: Code(s): N10 - Acute pyelonephritis Status: Acute Assessment and Plan: 12/29/23: * Currently on Ertapenem due to less side effects with her other medications * ESBL/ECOLI resistant to all po antibiotics * urine culture showing E coli /ESBL on final read * for set of blood culture showing E coli in 1/2 vials * 2nd set of blood cultures is showing g positive cocci in clusters in both vials, questionable contaminant * we will get a new set of blood cultures today and wait for preliminary read before starting Vancomycin. This was discussed with ID pharmacist. 12/30/23: * patient will continue on Ertapenem * unsure if the blood cultures were drawn yesterday we are checking with labs. If these were not drawn, they need to be drawn today! 12/31/23: Repeated blood cultures yesterday, no growth to date. Patient remains on IV ertapenem once daily. Called place of residence to see if they could administer IM medication daily was informed they could not. (2) UTI (urinary tract infection): Qualifiers: Hematuria presence: without hematuria Urinary tract infection type: site unspecified Qualified Code(s): N39.0 - Urinary tract infection, site not specified Code(s): N39.0 - Urinary tract infection, site not specified Status: Acute Assessment and Plan: see above (3) Weakness: Code(s): R53.1 - Weakness Status: Acute Assessment and Plan: 12/29/23: * continue PT and OT 12/30/23: * continue with current treatment plan (4) HTN (hypertension): Code(s): I10 - Essential (primary) hypertension Status: Acute Assessment and Plan: 12/29/2023: * blood pressures ranging 145/70 to 155/80 * patient does not take any home medications for blood pressure other than Lasix 20 mg daily * we will go ahead and start amlodipine 5 mg daily starting now 12/30/23: * blood pressures ranging 117/66 to 122/70 * continue with current treatment plan (5) HLD (hyperlipidemia): Code(s): E78.5 - Hyperlipidemia, unspecified Status: Chronic Assessment and Plan: 12/29/2023: * continue aspirin and atorvastatin 12/30/23: * no change to current treatment plan (6) Bipolar 1 disorder: Code(s): F31.9 - Bipolar disorder, unspecified Status: Chronic Assessment and Plan: 12/29/2023: * continue Tegretol, Risperdal, and Divoproex 12/30/23: * no change to current treatment plan (7) Influenza A: Code(s): J10.1 - Influenza due to other identified influenza virus with other respiratory manifestations Status: Acute Assessment and Plan: 12/29/23 * patient positive for influenza A * continue isolation precaution 12/30/23: * no change to current treatment plan 12/31/23: asymptomatic, discontinue isolation precautions as initial positive was over 7 days ago and likely positive before this test finding based on presenting symptoms (8) Iron deficiency anemia: Code(s): D50.9 - Iron deficiency anemia, unspecified Status: Acute Assessment and Plan: 12/29/2023: * continue ferrous sulfate 325 mg b.i.d. * hemoglobin 10.3 this morning 12/30/23: * no change to current treatment plan Time Spent With Patient Time with patient: 25 - 35 minutes Subjective Date/time seen: 12/31/23 11:59 Interval history: 12/29/23: This is an 78-year-old female who presented to the hospital o
--- NOTE | 2023-12-31 11:59 | PM.IMPN ---
Progress Note: A&P Assessment and Plan (1) Acute pyelonephritis: Code(s): N10 - Acute pyelonephritis Status: Acute Assessment and Plan: 12/29/23: Currently on Ertapenem due to less side effects with her other medications ESBL/ECOLI resistant to all po antibiotics urine culture showing E coli /ESBL on final read for set of blood culture showing E coli in 1/2 vials 2nd set of blood cultures is showing g positive cocci in clusters in both vials, questionable contaminant we will get a new set of blood cultures today and wait for preliminary read before starting Vancomycin. This was discussed with ID pharmacist. 12/30/23: patient will continue on Ertapenem unsure if the blood cultures were drawn yesterday we are checking with labs. If these were not drawn, they need to be drawn today! 12/31/23: Repeated blood cultures yesterday, no growth to date. Patient remains on IV ertapenem once daily. Called place of residence to see if they could administer IM medication daily was informed they could not. (2) UTI (urinary tract infection): Qualifiers: Hematuria presence: without hematuria Urinary tract infection type: site unspecified Qualified Code(s): N39.0 - Urinary tract infection, site not specified Code(s): N39.0 - Urinary tract infection, site not specified Status: Acute Assessment and Plan: see above (3) Weakness: Code(s): R53.1 - Weakness Status: Acute Assessment and Plan: 12/29/23: continue PT and OT 12/30/23: continue with current treatment plan (4) HTN (hypertension): Code(s): I10 - Essential (primary) hypertension Status: Acute Assessment and Plan: 12/29/2023: blood pressures ranging 145/70 to 155/80 patient does not take any home medications for blood pressure other than Lasix 20 mg daily we will go ahead and start amlodipine 5 mg daily starting now 12/30/23: blood pressures ranging 117/66 to 122/70 continue with current treatment plan (5) HLD (hyperlipidemia): Code(s): E78.5 - Hyperlipidemia, unspecified Status: Chronic Assessment and Plan: 12/29/2023: continue aspirin and atorvastatin 12/30/23: no change to current treatment plan (6) Bipolar 1 disorder: Code(s): F31.9 - Bipolar disorder, unspecified Status: Chronic Assessment and Plan: 12/29/2023: continue Tegretol, Risperdal, and Divoproex 12/30/23: no change to current treatment plan (7) Influenza A: Code(s): J10.1 - Influenza due to other identified influenza virus with other respiratory manifestations Status: Acute Assessment and Plan: 12/29/23 patient positive for influenza A continue isolation precaution 12/30/23: no change to current treatment plan 12/31/23: asymptomatic, discontinue isolation precautions as initial positive was over 7 days ago and likely positive before this test finding based on presenting symptoms (8) Iron deficiency anemia: Code(s): D50.9 - Iron deficiency anemia, unspecified Status: Acute Assessment and Plan: 12/29/2023: continue ferrous sulfate 325 mg b.i.d. hemoglobin 10.3 this morning 12/30/23: no change to current treatment plan Time Spent With Patient Time with patient: 25 - 35 minutes Subjective Date/time seen: 12/31/23 11:59 Interval history: 12/29/23: This is an 78-year-old female who presented to the hospital on 12/27/2023 with weakness, altered mental status, and fever workup in the hospital included a CT of the head which was negative for any acute process but did show possible sinusitis. Chest x-ray was negative for any acute cardiopulmonary process. CT of the abdomen pelvis shows cystitis and bilateral pyelonephritis, 1.5 cm rim enhancing fluid collection projecting off the urethra possibly representing inflamed/infected ureterocele. Initial labs showed a white blood cell count of 10.2, hem
[2023-12-31] MEDS: ERTAPENEM 1 GM/NS 50 ML 1 GM/50 ML BAG IVPB (14:30)
[2023-12-31 16:00] VITALS: BP 115/68; PULSE 64; RESP 18; TEMP 36.2; O2SAT 93
[2023-12-31 20:00] VITALS: PULSE 64; RESP 18; O2SAT 93
[2023-12-31] MEDS: diphenhydrAMINE HCl CAP 25 MG CAPSULE PO (20:35)
[2023-12-31] MEDS: MONTELUKAST SODIUM 10 MG TABLET PO (20:35)
[2024-01-01] VITALS: BP 115/69; PULSE 64; RESP 16; TEMP 36.9; O2SAT 97
[2024-01-01] MEDS: LEVOTHYROXINE SODIUM 100 MCG TABLET PO (05:42)
[2024-01-01 08:00] VITALS: BP 119/70; PULSE 62; RESP 18; TEMP 36.3; O2SAT 96
[2024-01-01] MEDS: FERROUS SULFATE 325 MG TABLET DR PO ×2 (08:50→17:41)
[2024-01-01] MEDS: BUDESONIDE/FORMOTEROL (*SP) 160-4.5 MCG 6 GM INH 2 PUFF INHALATION ×2 (09:16→17:40)
[2024-01-01] MEDS: ENOXAPARIN 40 MG/0.4 ML SYRINGE SUB-Q (09:16)
[2024-01-01] MEDS: ASPIRIN 81 MG CHEWABLE TABLET PO (09:18)
[2024-01-01] MEDS: ATORVASTATIN 10 MG TABLET 20 MG PO (09:18)
[2024-01-01] MEDS: POTASSIUM CHLORIDE 10 MEQ ER TABLET PO ×2 (09:18→17:41)
[2024-01-01] MEDS: PANTOPRAZOLE 40 MG TABLET PO (09:18)
[2024-01-01] MEDS: FUROSEMIDE 20 MG TABLET PO (09:18)
[2024-01-01] MEDS: risperiDONE 1 MG TABLET 2 MG PO (09:18)
[2024-01-01] MEDS: DIVALPROEX SODIUM SPRINKLE 125 MG CAP.DR PO ×2 (09:18→17:41)
[2024-01-01] MEDS: amLODIPine BESYLATE 5 MG TABLET PO (09:18)
[2024-01-01] MEDS: oxyBUTYnin CHLORIDE XL 5 MG TAB.ER.24 PO (09:18)
--- NOTE | 2024-01-01 13:09 | P.PNIM_ITS ---
Progress Note: A&P Assessment and Plan (1) Acute pyelonephritis: Code(s): N10 - Acute pyelonephritis Status: Acute Assessment and Plan: 12/29/23: * Currently on Ertapenem due to less side effects with her other medications * ESBL/ECOLI resistant to all po antibiotics * urine culture showing E coli /ESBL on final read * for set of blood culture showing E coli in 1/2 vials * 2nd set of blood cultures is showing g positive cocci in clusters in both vials, questionable contaminant * we will get a new set of blood cultures today and wait for preliminary read before starting Vancomycin. This was discussed with ID pharmacist. 12/30/23: * patient will continue on Ertapenem * unsure if the blood cultures were drawn yesterday we are checking with labs. If these were not drawn, they need to be drawn today! 12/31/23: Repeated blood cultures yesterday, no growth to date. Patient remains on IV ertapenem once daily. Called place of residence to see if they could administer IM medication daily was informed they could not. (2) Bacteremia due to Escherichia coli: Code(s): R78.81 - Bacteremia; B96.20 - Unspecified Escherichia coli [E. coli] as the cause of diseases classified elsewhere Status: Acute Assessment and Plan: see 1 above (3) UTI (urinary tract infection): Qualifiers: Hematuria presence: without hematuria Urinary tract infection type: site unspecified Qualified Code(s): N39.0 - Urinary tract infection, site not specified Code(s): N39.0 - Urinary tract infection, site not specified Status: Acute Assessment and Plan: see 1 above (4) Weakness: Code(s): R53.1 - Weakness Status: Acute Assessment and Plan: 12/29/23: * continue PT and OT 12/30/23: * continue with current treatment plan (5) HTN (hypertension): Code(s): I10 - Essential (primary) hypertension Status: Acute Assessment and Plan: 12/29/2023: * blood pressures ranging 145/70 to 155/80 * patient does not take any home medications for blood pressure other than Lasix 20 mg daily * we will go ahead and start amlodipine 5 mg daily starting now 12/30/23: * blood pressures ranging 117/66 to 122/70 * continue with current treatment plan (6) HLD (hyperlipidemia): Code(s): E78.5 - Hyperlipidemia, unspecified Status: Chronic Assessment and Plan: 12/29/2023: * continue aspirin and atorvastatin 12/30/23: * no change to current treatment plan (7) Bipolar 1 disorder: Code(s): F31.9 - Bipolar disorder, unspecified Status: Chronic Assessment and Plan: 12/29/2023: * continue Tegretol, Risperdal, and Divoproex 12/30/23: * no change to current treatment plan (8) Influenza A: Code(s): J10.1 - Influenza due to other identified influenza virus with other respiratory manifestations Status: Acute Assessment and Plan: 12/29/23 * patient positive for influenza A * continue isolation precaution 12/30/23: * no change to current treatment plan 12/31/23: asymptomatic, discontinue isolation precautions as initial positive was over 7 days ago and likely positive before this test finding based on presenting sym ptoms (9) Iron deficiency anemia: Code(s): D50.9 - Iron deficiency anemia, unspecified Status: Acute Assessment and Plan: 12/29/2023: * continue ferrous sulfate 325 mg b.i.d. * hemoglobin 10.3 this morning 12/30/23: * no change to
--- NOTE | 2024-01-01 13:09 | PM.IMPN ---
Progress Note: A&P Assessment and Plan (1) Acute pyelonephritis: Code(s): N10 - Acute pyelonephritis Status: Acute Assessment and Plan: 12/29/23: Currently on Ertapenem due to less side effects with her other medications ESBL/ECOLI resistant to all po antibiotics urine culture showing E coli /ESBL on final read for set of blood culture showing E coli in 1/2 vials 2nd set of blood cultures is showing g positive cocci in clusters in both vials, questionable contaminant we will get a new set of blood cultures today and wait for preliminary read before starting Vancomycin. This was discussed with ID pharmacist. 12/30/23: patient will continue on Ertapenem unsure if the blood cultures were drawn yesterday we are checking with labs. If these were not drawn, they need to be drawn today! 12/31/23: Repeated blood cultures yesterday, no growth to date. Patient remains on IV ertapenem once daily. Called place of residence to see if they could administer IM medication daily was informed they could not. (2) Bacteremia due to Escherichia coli: Code(s): R78.81 - Bacteremia; B96.20 - Unspecified Escherichia coli [E. coli] as the cause of diseases classified elsewhere Status: Acute Assessment and Plan: see 1 above (3) UTI (urinary tract infection): Qualifiers: Hematuria presence: without hematuria Urinary tract infection type: site unspecified Qualified Code(s): N39.0 - Urinary tract infection, site not specified Code(s): N39.0 - Urinary tract infection, site not specified Status: Acute Assessment and Plan: see 1 above (4) Weakness: Code(s): R53.1 - Weakness Status: Acute Assessment and Plan: 12/29/23: continue PT and OT 12/30/23: continue with current treatment plan (5) HTN (hypertension): Code(s): I10 - Essential (primary) hypertension Status: Acute Assessment and Plan: 12/29/2023: blood pressures ranging 145/70 to 155/80 patient does not take any home medications for blood pressure other than Lasix 20 mg daily we will go ahead and start amlodipine 5 mg daily starting now 12/30/23: blood pressures ranging 117/66 to 122/70 continue with current treatment plan (6) HLD (hyperlipidemia): Code(s): E78.5 - Hyperlipidemia, unspecified Status: Chronic Assessment and Plan: 12/29/2023: continue aspirin and atorvastatin 12/30/23: no change to current treatment plan (7) Bipolar 1 disorder: Code(s): F31.9 - Bipolar disorder, unspecified Status: Chronic Assessment and Plan: 12/29/2023: continue Tegretol, Risperdal, and Divoproex 12/30/23: no change to current treatment plan (8) Influenza A: Code(s): J10.1 - Influenza due to other identified influenza virus with other respiratory manifestations Status: Acute Assessment and Plan: 12/29/23 patient positive for influenza A continue isolation precaution 12/30/23: no change to current treatment plan 12/31/23: asymptomatic, discontinue isolation precautions as initial positive was over 7 days ago and likely positive before this test finding based on presenting symptoms (9) Iron deficiency anemia: Code(s): D50.9 - Iron deficiency anemia, unspecified Status: Acute Assessment and Plan: 12/29/2023: continue ferrous sulfate 325 mg b.i.d. hemoglobin 10.3 this morning 12/30/23: no change to current treatment plan Time Spent With Patient Time with patient: 25 - 35 minutes Subjective Date/time seen: 01/01/24 13:09 Interval history: 12/29/23: This is an 78-year-old female who presented to the hospital on 12/27/2023 with weakness, altered mental status, and fever workup in the hospital included a CT of the head which was negative for any acute process but did show possible sinusitis. Chest x-ray was negative for any acute cardiopulmonary process. CT of the
[2024-01-01] MEDS: ERTAPENEM 1 GM/NS 50 ML 1 GM/50 ML BAG IVPB (14:43)
[2024-01-01 16:00] VITALS: BP 129/73; PULSE 68; RESP 16; TEMP 36.6; O2SAT 93
[2024-01-01 20:00] VITALS: PULSE 68; RESP 16; O2SAT 93
[2024-01-01] MEDS: MONTELUKAST SODIUM 10 MG TABLET PO (20:29)
[2024-01-01] MEDS: diphenhydrAMINE HCl CAP 25 MG CAPSULE PO (20:29)
[2024-01-01 23:58] VITALS: BP 131/67; PULSE 66; RESP 16; TEMP 36.4; O2SAT 97
[2024-01-02] VITALS: BP 131/67; PULSE 66; RESP 16; TEMP 36.4; O2SAT 97
[2024-01-02] MEDS: LEVOTHYROXINE SODIUM 100 MCG TABLET PO (06:08)
[2024-01-02 08:00] VITALS: BP 120/65; PULSE 58; RESP 16; TEMP 36.2; O2SAT 96
[2024-01-02] MEDS: FUROSEMIDE 20 MG TABLET PO (09:00)
[2024-01-02] MEDS: risperiDONE 1 MG TABLET 2 MG PO (09:00)
[2024-01-02] MEDS: amLODIPine BESYLATE 5 MG TABLET PO (09:00)
[2024-01-02] MEDS: ASPIRIN 81 MG CHEWABLE TABLET PO (09:00)
[2024-01-02] MEDS: DIVALPROEX SODIUM SPRINKLE 125 MG CAP.DR PO ×2 (09:00→17:57)
[2024-01-02] MEDS: FERROUS SULFATE 325 MG TABLET DR PO ×2 (09:00→17:57)
[2024-01-02] MEDS: ATORVASTATIN 10 MG TABLET 20 MG PO (09:00)
[2024-01-02] MEDS: PANTOPRAZOLE 40 MG TABLET PO (09:00)
[2024-01-02] MEDS: ENOXAPARIN 40 MG/0.4 ML SYRINGE SUB-Q (09:01)
[2024-01-02] MEDS: POTASSIUM CHLORIDE 10 MEQ ER TABLET PO ×2 (09:01→17:57)
[2024-01-02] MEDS: oxyBUTYnin CHLORIDE XL 5 MG TAB.ER.24 PO (09:01)
[2024-01-02] MEDS: BUDESONIDE/FORMOTEROL (*SP) 160-4.5 MCG 6 GM INH 2 PUFF INHALATION ×2 (09:01→17:58)
[2024-01-02] MEDS: ERTAPENEM 1 GM/NS 50 ML 1 GM/50 ML BAG IVPB (14:34)
--- NOTE | 2024-01-02 15:20 | P.PNIM_ITS ---
Progress Note: A&P Assessment and Plan (1) Acute pyelonephritis: Code(s): N10 - Acute pyelonephritis Status: Acute Assessment and Plan: 12/29/23: * Currently on Ertapenem due to less side effects with her other medications * ESBL/ECOLI resistant to all po antibiotics * urine culture showing E coli /ESBL on final read * for set of blood culture showing E coli in 1/2 vials * 2nd set of blood cultures is showing g positive cocci in clusters in both vials, questionable contaminant * we will get a new set of blood cultures today and wait for preliminary read before starting Vancomycin. This was discussed with ID pharmacist. 12/30/23: * patient will continue on Ertapenem * unsure if the blood cultures were drawn yesterday we are checking with labs. If these were not drawn, they need to be drawn today! 12/31/23: Repeated blood cultures yesterday, no growth to date. Patient remains on IV ertapenem once daily. Called place of residence to see if they could administer IM medication daily was informed they could not. 01/02/2024 Patient end date of antibioitics is 01/02 so we will keep her for another day. (2) Bacteremia due to Escherichia coli: Code(s): R78.81 - Bacteremia; B96.20 - Unspecified Escherichia coli [E. coli] as the cause of diseases classified elsewhere Status: Acute Assessment and Plan: see 1 above (3) UTI (urinary tract infection): Qualifiers: Hematuria presence: without hematuria Urinary tract infection type: site unspecified Qualified Code(s): N39.0 - Urinary tract infection, site not specified Code(s): N39.0 - Urinary tract infection, site not specified Status: Acute Assessment and Plan: see 1 above (4) Weakness: Code(s): R53.1 - Weakness Status: Acute Assessment and Plan: 12/29/23: * continue PT and OT 12/30/23: * continue with current treatment plan (5) HTN (hypertension): Code(s): I10 - Essential (primary) hypertension Status: Acute Assessment and Plan: 12/29/2023: * blood pressures ranging 145/70 to 155/80 * patient does not take any home medications for blood pressure other than Lasix 20 mg daily * we will go ahead and start amlodipine 5 mg daily starting now 12/30/23: * blood pressures ranging 117/66 to 122/70 * continue with current treatment plan (6) HLD (hyperlipidemia): Code(s): E78.5 - Hyperlipidemia, unspecified Status: Chronic Assessment and Plan: 12/29/2023: * continue aspirin and atorvastatin 12/30/23: * no change to current treatment plan (7) Bipolar 1 disorder: Code(s): F31.9 - Bipolar disorder, unspecified Status: Chronic Assessment and Plan: 12/29/2023: * continue Tegretol, Risperdal, and Divoproex 12/30/23: * no change to current treatment plan (8) Influenza A: Code(s): J10.1 - Influenza due to other identified influenza virus with other respiratory manifestations Status: Acute Assessment and Plan: 12/29/23 * patient positive for influenza A * continue isolation precaution 12/30/23: * no change to current treatment plan 12/31/23: asymptomatic, discontinue isolation precautions as initial positive was over 7 days ago and likely positive before this test finding based on presenting symptoms (9) Iron deficiency anemia: Code(s): D50.9 - Iron deficiency anemia, unspecified Status: Acute Assessment and Plan: 12/29/2023: * continue
--- NOTE | 2024-01-02 15:20 | PM.IMPN ---
Progress Note: A&P Assessment and Plan (1) Acute pyelonephritis: Code(s): N10 - Acute pyelonephritis Status: Acute Assessment and Plan: 12/29/23: Currently on Ertapenem due to less side effects with her other medications ESBL/ECOLI resistant to all po antibiotics urine culture showing E coli /ESBL on final read for set of blood culture showing E coli in 1/2 vials 2nd set of blood cultures is showing g positive cocci in clusters in both vials, questionable contaminant we will get a new set of blood cultures today and wait for preliminary read before starting Vancomycin. This was discussed with ID pharmacist. 12/30/23: patient will continue on Ertapenem unsure if the blood cultures were drawn yesterday we are checking with labs. If these were not drawn, they need to be drawn today! 12/31/23: Repeated blood cultures yesterday, no growth to date. Patient remains on IV ertapenem once daily. Called place of residence to see if they could administer IM medication daily was informed they could not. 01/02/2024 Patient end date of antibioitics is 01/02 so we will keep her for another day. (2) Bacteremia due to Escherichia coli: Code(s): R78.81 - Bacteremia; B96.20 - Unspecified Escherichia coli [E. coli] as the cause of diseases classified elsewhere Status: Acute Assessment and Plan: see 1 above (3) UTI (urinary tract infection): Qualifiers: Hematuria presence: without hematuria Urinary tract infection type: site unspecified Qualified Code(s): N39.0 - Urinary tract infection, site not specified Code(s): N39.0 - Urinary tract infection, site not specified Status: Acute Assessment and Plan: see 1 above (4) Weakness: Code(s): R53.1 - Weakness Status: Acute Assessment and Plan: 12/29/23: continue PT and OT 12/30/23: continue with current treatment plan (5) HTN (hypertension): Code(s): I10 - Essential (primary) hypertension Status: Acute Assessment and Plan: 12/29/2023: blood pressures ranging 145/70 to 155/80 patient does not take any home medications for blood pressure other than Lasix 20 mg daily we will go ahead and start amlodipine 5 mg daily starting now 12/30/23: blood pressures ranging 117/66 to 122/70 continue with current treatment plan (6) HLD (hyperlipidemia): Code(s): E78.5 - Hyperlipidemia, unspecified Status: Chronic Assessment and Plan: 12/29/2023: continue aspirin and atorvastatin 12/30/23: no change to current treatment plan (7) Bipolar 1 disorder: Code(s): F31.9 - Bipolar disorder, unspecified Status: Chronic Assessment and Plan: 12/29/2023: continue Tegretol, Risperdal, and Divoproex 12/30/23: no change to current treatment plan (8) Influenza A: Code(s): J10.1 - Influenza due to other identified influenza virus with other respiratory manifestations Status: Acute Assessment and Plan: 12/29/23 patient positive for influenza A continue isolation precaution 12/30/23: no change to current treatment plan 12/31/23: asymptomatic, discontinue isolation precautions as initial positive was over 7 days ago and likely positive before this test finding based on presenting symptoms (9) Iron deficiency anemia: Code(s): D50.9 - Iron deficiency anemia, unspecified Status: Acute Assessment and Plan: 12/29/2023: continue ferrous sulfate 325 mg b.i.d. hemoglobin 10.3 this morning 12/30/23: no change to current treatment plan Subjective Date/time seen: 01/02/24 15:20 Interval history: Patient continues to improve and she is looking well. I spoke with patient who is obsessed with how her food is prepared and she has several complaints about this. I did discuss with patient that she will discharge home in the morning or afternoon once she has recieved her IV antibiotics. no or
[2024-01-02 16:00] VITALS: BP 102/78; PULSE 62; RESP 16; TEMP 36.2; O2SAT 99
[2024-01-02 20:00] VITALS: PULSE 62; RESP 16; O2SAT 99
[2024-01-02] MEDS: MONTELUKAST SODIUM 10 MG TABLET PO (20:49)
[2024-01-02] MEDS: diphenhydrAMINE HCl CAP 25 MG CAPSULE PO (20:50)
--- NOTE | 2024-01-02 21:04 | PC.NURSE ---
Patient requesting scissors, states she wants to cut her hair to look better for her return home. Educated patient on safety, states understanding.
[2024-01-03] VITALS: BP 123/69; PULSE 65; RESP 16; TEMP 36.2; O2SAT 97
[2024-01-03] MEDS: LEVOTHYROXINE SODIUM 100 MCG TABLET PO (05:46)
[2024-01-03 07:45] VITALS: BP 131/58; PULSE 57; RESP 16; TEMP 36.3; O2SAT 95
--- NOTE | 2024-01-03 07:50 | PM.DS ---
DS: Admitting Diagnosis Discharge Date 01/03/2024 Admitting Diagnosis acute pyelonephritis, UTI, influenza A DS: Discharge Diagnosis Discharge Diagnosis (1) Acute pyelonephritis: Code(s): N10 - Acute pyelonephritis Status: Acute (2) Bacteremia due to Escherichia coli: Code(s): R78.81 - Bacteremia; B96.20 - Unspecified Escherichia coli [E. coli] as the cause of diseases classified elsewhere Status: Acute (3) UTI (urinary tract infection): Qualifiers: Hematuria presence: without hematuria Urinary tract infection type: site unspecified Qualified Code(s): N39.0 - Urinary tract infection, site not specified Code(s): N39.0 - Urinary tract infection, site not specified Status: Acute (4) Weakness: Code(s): R53.1 - Weakness Status: Acute (5) HTN (hypertension): Code(s): I10 - Essential (primary) hypertension Status: Acute (6) HLD (hyperlipidemia): Code(s): E78.5 - Hyperlipidemia, unspecified Status: Chronic (7) Bipolar 1 disorder: Code(s): F31.9 - Bipolar disorder, unspecified Status: Chronic (8) Influenza A: Code(s): J10.1 - Influenza due to other identified influenza virus with other respiratory manifestations Status: Acute (9) Iron deficiency anemia: Code(s): D50.9 - Iron deficiency anemia, unspecified Status: Acute DS: Summary Hospital Course Hospital Course: This is an 78 year old female patient who resides at [facility] and receives home health services who was called back to the hospital after cultures returned for urine sample that were resistant to oral medications. Patient had previously been seen for UTI/pyelonephritis and sent home with oral levofloxacin which the culture states was resistant. Patient admitted and started on meropenem but was changed to ertapenem due to potential interaction with some of patient's chronic Bipolar medication. Patient also had recent diagnosis with influenza A. She was found to have E. coli bacteremia. Patient ultimately completed 7 day course of IV antibiotics which was deemed sufficient as repeat blood cultures were negative and patient was not critically ill when called back for admission. Status at Discharge Cognitive/behavioral status at discharge: awake, alert, oriented to baseline status, usually quite pleasant Functional status at discharge: uses cane/walker Time Spent with Patient Time attestation: Total time spent providing and/or coordinating discharge services: 40 minutes Time spent: Greater than 30 minutes Exam Narrative: GENERAL: Awake alert no acute distress. HEAD: Normocephalic, atraumatic. ENT:? Mucous membranes moist. CHEST: Clear to auscultation.? No respiratory distress. HEART: Regular rate and rhythm. ? Normal peripheral pulses. ABDOMEN: Soft, nontender, nondistended. EXTREMITIES: Normal range of motion. No peripheral edema. SKIN: Warm dry normal color NEURO: Alert and oriented x3. PSYCH: Normal mood and affect DS: Data Data Completed and Pending Labs on day of discharge: Preliminary micro results at discharge 12/30/23 09:18 Blood Culture - Preliminary Blood 12/30/23 09:18 Blood Culture - Preliminary Blood Discharge Plan Discharge Attending physician on discharge: Mahendra Almanzar Consulting providers: Marybel Soto; Duglas Mendenhall; Cheri Griffiths; Levi Munoz; Dylan Rojas Discharging Clinician: Levi Munoz Anticipated Discharge Date/Time: 01/03/24 12:00 Patient Disposition: Home Health Service Activity: as tolerated Diet: as tolerated Discharge Instructions: Per Care Coordination: Resume [facility]: PT and ST when discharged. Fax discharge summary/orders to [phone] ([facility]) Patient Instructions: Antibiotic Form, Amlodipine (By mouth), Urinary Tract Infection in Women (DC), Fall Prevention for Older Adults (DC), Nixon
[2024-01-03 08:15] VITALS: PULSE 57; RESP 16; O2SAT 95
[2024-01-03] MEDS: risperiDONE 1 MG TABLET 2 MG PO (09:15)
[2024-01-03] MEDS: FUROSEMIDE 20 MG TABLET PO (09:15)
[2024-01-03] MEDS: PANTOPRAZOLE 40 MG TABLET PO (09:15)
[2024-01-03] MEDS: POTASSIUM CHLORIDE 10 MEQ ER TABLET PO (09:15)
[2024-01-03] MEDS: ASPIRIN 81 MG CHEWABLE TABLET PO (09:15)
[2024-01-03] MEDS: DIVALPROEX SODIUM SPRINKLE 125 MG CAP.DR PO (09:15)
[2024-01-03] MEDS: ATORVASTATIN 10 MG TABLET 20 MG PO (09:16)
[2024-01-03] MEDS: amLODIPine BESYLATE 5 MG TABLET PO (09:16)
[2024-01-03] MEDS: oxyBUTYnin CHLORIDE XL 5 MG TAB.ER.24 PO (09:16)
[2024-01-03] MEDS: ENOXAPARIN 40 MG/0.4 ML SYRINGE SUB-Q (09:16)
[2024-01-03] MEDS: ARTIFICIAL TEARS OPHTH SOLN 15 ML BOTTLE 1 DROP EACH EYE (09:16)
[2024-01-03] MEDS: BUDESONIDE/FORMOTEROL (*SP) 160-4.5 MCG 6 GM INH 2 PUFF INHALATION (09:16)
[2024-01-03] MEDS: FERROUS SULFATE 325 MG TABLET DR PO (09:17)
[2024-01-03] MEDS: ERTAPENEM 1 GM/NS 50 ML 1 GM/50 ML BAG IVPB (12:45)
--- NOTE | 2024-01-03 14:20 | PC.NURSE ---
Patient discharging home, returning to [facility] care. IV site removed, tip intact. Dressing applied to site. All belongings gathered together and sent home with patient. All home meds sent home with patient. All dsicharge instructions and education reviewed with patient, patient states understanding. All questions answered. Patient accompanied to front door via wheelchair by this nuse. Left via private vehicle with Jessica from [facility].
--- NOTE | 2024-01-05 08:55 | PC.NURSE ---
Discharge call back attempted to long term care, phone rang for long time, with no answer and no answering machine, will attempt again TuesdayJanuary 05.
--- NOTE | 2024-01-06 10:08 | PC.NURSE ---
Discharge call back complete, no questions regarding dc instructions from [facility] (November), said she is doing good
== END 2024-01-03 14:20 | disposition home health service (06) | DRG 690 ==
LOC: CHSED 14:02 → CHS2ND 14:38
PROVIDERS: Nurse Practitioner Acute Care; Admitting Provider Internal Medicine; Emergency Provider Emergency Medicine; Visit Provider Internal Medicine
DX: N10 Acute pyelonephritis (principal); R78.81 Bacteremia; J10.1 Influenza due to other identified influenza virus with other respiratory manifestations; J44.9 Chronic obstructive pulmonary disease, unspecified; I10 Essential (primary) hypertension; D50.9 Iron deficiency anemia, unspecified; E78.5 Hyperlipidemia, unspecified; E03.9 Hypothyroidism, unspecified; B96.20 Unspecified Escherichia coli [E. coli] as the cause of diseases classified elsewhere; F31.9 Bipolar disorder, unspecified; Z79.82 Long term (current) use of aspirin; Z87.891 Personal history of nicotine dependence
CPT/HCPCS: 36415; 70450; 71045; 71260; 74177; 80053; 81001; 83605; 83690; 83735; 83880; 84484; 85025; 85610; 85730; 87040; 87077; 87086; 87088; 87147; 87181; 87186; 87637; 93005; 96361; 96365; 99284; 99285; A9270; G0378; J1335; J1650; J1956; J2185; J7030

== ENCOUNTER 2024-01-20 16:35 | Emergency (ER) | payer MEDICARE, SELFPAY ==
[2024-01-20] VITALS (45 sets, daily range): BP systolic 99–153; BP diastolic 53–87; PULSE 58–82; RESP 12–23; TEMP 36.4–36.6; O2SAT 87–100
--- NOTE | ~2024-01-20 | XR_ITS ---
EXAMINATION: XR chest 1V portable DATE: 01/20/2024 16:55 INDICATION: Chest pain. TECHNIQUE: A single frontal view of the chest was obtained. COMPARISON: Chest single view 12/24/2023, chest CT 12/24/2023 FINDINGS: There are airspace opacities in right middle lobe. No pleural effusion or pneumothorax. The heart size is normal. IMPRESSION: 1. Airspace opacities in right middle lobe, consistent with atelectasis versus pneumonia. Reviewed, dictated and finalized at location A.
--- NOTE | ~2024-01-20 | CT_ITS ---
EXAMINATION: CTA chest PE protocol DATE: 01/20/2024 18:04 INDICATION: chest pain/hypoxia/elev d-dimer TECHNIQUE: Computed tomography angiography (CTA) of the chest was performed with 100 mL Omnipaque-350 intravenous contrast timed to evaluate the pulmonary arteries. Coronal maximum intensity projection 3D-reconstructions were created by the technologist. The dose-length product (DLP) was 270.11 mGy-cm. Automated exposure control and iterative reconstruction technique were employed. COMPARISON: 12/24/2023. FINDINGS: Lung parenchyma and airways: Motion artifact. Subsegmental consolidation and atelectasis in the right middle lobe. Subsegmental foci of consolidation in the lingula and dependent left lower lobe. Airway debris in scattered bronchi. Pleura: Unremarkable. Thoracic inlet, axillae and chest wall: Unremarkable. Thoracic aorta: No significant dilation. No dissection. Mediastinum: Dilated central pulmonary arteries as can be seen with pulmonary arterial hypertension. Bilateral hilar lymphadenopathy. Heart and pericardium: Mitral calcification. Coronary artery calcifications: Moderate. Upper abdomen: Status post cholecystectomy. Bones: No acute osseous finding. Pulmonary arteries: Study quality: Significant motion artifact obscures the segmental and subsegmenta l bilateral lower lobe pulmonary arterial branches. Otherwise, no pulmonary emboli detected. IMPRESSION: Limited evaluation of the segmental and subsegmental bilateral lower lobe pulmonary arteries. No CT e vidence of acute pulmonary embolus in the remaining adequately visualized pulmonary arteries. Subsegmental areas of right middle lobe, lingular, and left lower lobe consolidation may represent in fection. Bronchial debris may indicate a component of aspiration. Partial atelectasis in the right mi ddle lobe. Hilar lymphadenopathy. Reviewed, dictated and finalized at location K. IMPRESSION: Limited evaluation of the segmental and subsegmental bilateral lower lobe pulmo nary arteries. No CT evidence of acute pulmonary embolus in the remaining adequ ately visualized pulmonary arteries. Subsegmental areas of right middle lobe, lingular, and left lower lobe consolid ation may represent infection. Bronchial debris may indicate a component of asp iration. Partial atelectasis in the right middle lobe. Hilar lymphadenopathy.
--- NOTE | 2024-01-20 16:46 | ECG_ITS ---
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 Measurements Intervals [place] Rate: 80 P: 64 WA: 184 QRS: 13 QRSD: 82 T: 69 QT: 375 QTc: 434 Interpretive Statements SINUS RHYTHM BORDERLINE T WAVE ABNORMALITY- ANT/HIGH LAT LEADS BASELINE ARTIFACT- I, II, III, AVR, AVL, AVF, V3 BORDERLINE ECG No previous ECG available for comparison Electronically Signed On 01-20-2024 17:03:36 CDT by Dylan Rojas D.O.
[2024-01-20 17:02] LABS: Basophils Absolute Auto 0.03 K/mm3 (0.00-0.10); Basophils Percent Auto 0.6 % (0.0-1.0); Eosinophils Absolute Auto 0.24 K/mm3 (0.02-0.50); Hematocrit 31.7 % (35.0-42.0); Hemoglobin 10.2 g/dL (11.7-13.8); Immature Granulocyte Absolute 0.03 K/mm3 (0.00-0.00); Immature Granulocyte Percent A 0.6 % (0.0-0.0); Lymphocytes Absolute Auto 0.59 K/mm3 (1.10-4.50); Lymphocytes Percent Auto 12.3 % (18.0-42.0); Mean Corpuscular HGB Conc 32.2 g/dL (32-36); Mean Corpuscular Hemoglobin 29.1 pg (27.0-31.0); Mean Corpuscular Volume 90.6 fL (78.0-102.0); Mean Platelet Volume 9.5 fl (9.2-11.8); Monocytes Absolute Auto 0.78 K/mm3 (0.10-0.90); Monocytes Percent Auto 16.3 % (2.0-11.0); Neutrophils Absolute Auto 3.11 K/mm3 (1.70-7.20); Neutrophils Percent Auto 65.2 % (50.0-70.0); Platelet Count Result 168 K/mm3 (150-420); Red Cell Distribution Width 18.6 % (11.6-14.4); White Blood Count 4.8 K/mm3 (4.8-10.8)
[2024-01-20 17:27] LABS: Alanine Aminotransferase 18 U/L (14-59); Alkaline Phosphatase 124 U/L (46-116); Anion Gap 7 mmol/L (4-12); Aspartate Amino Transferase 15 U/L (15-37); Bilirubin,Total 0.1 mg/dL (0.00-1.00); Blood Urea Nitrogen 9 mg/dL (7-18); Calcium 8.1 mg/dL (8.5-10.1); Carbon Dioxide 30 mmol/L (21-32); Chloride 101 mmol/L (98-108); Estimated CRCL calculation 55 ml/min; Estimated Glomerular Filt Rate > 60; Glucose 105 mg/dL (70-99); Osmolality Calculated 284 mOsm/kg (285-295); Potassium 3.7 mmol/L (3.5-5.1); Sodium 138 mmol/L (136-145); Total Protein 6.7 g/dL (6.4-8.2)
[2024-01-20 17:28] LABS: D Dimer 0.55 mg/L (0.19-0.50)
[2024-01-20] MEDS: CEFEPIME 2 GM/NS 50 ML 2 GM/50 ML BAG IVPB (17:32)
[2024-01-20 17:33] LABS: Magnesium 1.8 mg/dL (1.8-2.4); NT Pro B Type Natriuretic Pept 329 pg/mL (0-450); Troponin I 6.5 ng/L (0.00-60.4)
[2024-01-20 17:46] LABS: Lactic Acid Reflex 1.5 mmol/L (0.4-2.0)
--- NOTE | 2024-01-20 18:02 | ED.CHESTPAIN ---
HPI - Chest Pain General Chief Complaint: Upper Respiratory Infection Stated Complaint: chest pain, low O2 sats Time Seen by Provider: 01/20/24 16:46 Source: patient and EMS Mode of arrival: ambulatory Limitations: no limitations History of Present Illness HPI narrative: patient is an 78-year-old female from a custodial. She has some chest pain and shortness of breath today. EMS was called and she was given aspirin and nitro EN route. She was noted to have respiratory findings from EMS personnel on her lung exam. They felt she had a pneumonia process. She was hypoxic. She is requiring oxygen in a patient that does not use home oxygen. MD complaint: chest pain Onset (ago): day(s) (1) Timing of current episode: constant Prior episodes: No Onset: during rest Pain location: parasternal Pain radiation: none Severity: moderate Pain scale (0-10): 5 Quality: tightness and sharp Relieving factors: nothing Exacerbating factors: nothing Associated symptoms: cough Treatment prior to arrival: aspirin, nitroglycerin and oxygen Risk Factors Coronary artery disease risk factors: hyperlipidemia Thoracic aortic dissection risk factors: none Related Data On Oral Contraceptives: No Home Medications Medication Instructions Recorded Confirmed aspirin 81 mg chewable tablet 81 mg PO DAILY 11/01/23 12/27/23 atorvastatin 20 mg tablet 20 mg PO DAILY 11/01/23 12/27/23 budesonide-formoterol HFA 160 2 puff inhalation BID 11/01/23 12/27/23 mcg-4.5 mcg/actuation aerosol inhaler (Breyna) carbamazepine 100 mg chewable 300 mg PO BID 11/01/23 12/27/23 tablet dicyclomine 20 mg tablet 20 mg PO DAILY PRN Abdominal 11/01/23 12/27/23 Discomfort divalproex 125 mg capsule,delayed 125 mg PO BID 11/01/23 12/27/23 release sprinkle furosemide 20 mg tablet 20 mg PO DAILY 11/01/23 12/27/23 levothyroxine 100 mcg tablet 100 mcg PO DAILY 11/01/23 12/27/23 montelukast 10 mg tablet 10 mg PO HS 11/01/23 12/27/23 oxybutynin chloride 5 mg 5 mg PO DAILY 11/01/23 12/27/23 tablet,extended release 24 hr pantoprazole 40 mg tablet,delayed 40 mg PO DAILY 11/01/23 12/27/23 release potassium chloride 10 mEq 10 meq PO BID 11/01/23 12/27/23 tablet,extended release(part/cryst) risperidone 2 mg tablet 2 mg PO DAILY 11/01/23 12/27/23 Allergies Allergy/AdvReac Type Severity Reaction Status Date / Time No Known Allergies Allergy Verified 12/27/23 13:46 Review of Systems Review of Systems: All systems reviewed & are unremarkable except as noted in HPI and below Constitutional: Constitutional: Reports no additional constitutional complaints Eyes: Eyes: Reports no additional eye complaints ENT: Reports system reviewed and no additional complaints, except as documented Cardiovascular: Cardiovascular: Reports no additional cardiovascular complaints Respiratory: Respiratory: Reports no additional respiratory complaints Gastrointestinal: Gastrointestinal: Reports no additional gastrointestinal complaints Genitourinary: Genitourinary: Reports no additional female genitourinary complaints Musculoskeletal: Musculoskeletal: Reports no additional musculoskeletal complaints Integumentary/Breasts: Skin/Breast: Reports system reviewed and no additional complaints, except as docu Neurologic: Reports system reviewed and no additional complaints, except as documented Psychiatric: Psychiatric: Reports no additional psychiatric complaints Endocrine: Endocrine: Reports no additional endocrine complaints Hematologic/Lymphatic: Hematologic/Lymphatic: Reports no additional hematologic/lymphatic complaints Allergic/Immunologic: Allergic/Immunologic: Reports no additional allergic/immunologic complaints PMFSH Past Medical History Medical History Aspiration pneumonia Bipolar 1 disorder COPD (chronic obstructive pulmonary disease) HLD (hyperlipidemia) HTN (hypertension) Hypothyroid Metastatic adenocarcinoma
[2024-01-20] MEDS: metroNIDAZOLE 500 MG/ISO 100ML 500 MG/100 ML BAG 100 MG IVPB (19:12)
--- NOTE | 2024-01-20 19:13 | PC.NURSE ---
Report received, pt resting, VSS. IV antibx infusing as per order. POC for transfer to [facility].
--- NOTE | 2024-01-20 19:16 | PC.NURSE ---
report to jacinto hyatt
[2024-01-20 20:43] LABS: Base Excess ABG -0.3 mmol/L (0-2); HCO3 ABG 24.5 mmol/L (23-29); Oxygen Content ABG 15.4 %vol (16.0-22.0); Oxygen Saturation ABG 93.1 % (95-97); Oxyhemoglobin 92.6 % (94-100); PCO2 ABG 40.5 mmHg (35-45); PO2 ABG 71.9 mmHg (75-85); Total Hemoglobin 11.8 g/dL (12.0-18.0)
[2024-01-20 20:44] LABS: Device NASAL CANNULA; Modified Allen's Test Pass; Site Drawn LEFT RADIAL
--- NOTE | 2024-01-20 20:50 | PC.NURSE ---
Call back from [facility] received and # to report. Pt to go to IMU Rm [id number].
--- NOTE | 2024-01-20 21:26 | PCDIET ---
Call back from [facility], they are out on another transfer. POC to hold pt in ER and await [facility] for transfer. Pt sleeping and resting comfortably, VSS.
--- NOTE | 2024-01-20 21:30 | PC.NURSE ---
Call back placed to [facility]. Updated on pt status for transfer and that it will be about 2 hrs before pt can leave. Pt lights dimmed and repositioned for comfort, pt wanting to sleep. Call riggins at side.
--- NOTE | 2024-01-20 23:47 | PC.NURSE ---
Pt sleeping and resting comfortably, VSS, [facility] here for pt trasnfer, report given.
--- NOTE | 2024-01-26 13:54 | PC.NURSE ---
final blood culture reports x2 reviewed. no growth after 5 days. no change in plan of care.
== END 2024-01-20 23:57 | disposition short-term general hospital (02) ==
PROVIDERS: Emergency Provider Emergency Medicine; PCP Family Medicine
DX: J18.9 Pneumonia, unspecified organism (principal); R09.02 Hypoxemia; I10 Essential (primary) hypertension; E78.5 Hyperlipidemia, unspecified; J44.9 Chronic obstructive pulmonary disease, unspecified; E03.9 Hypothyroidism, unspecified; F31.9 Bipolar disorder, unspecified; Z87.891 Personal history of nicotine dependence; Z79.51 Long term (current) use of inhaled steroids; Z79.82 Long term (current) use of aspirin; Z85.118 Personal history of other malignant neoplasm of bronchus and lung
CPT/HCPCS: 36415; 36600; 71045; 71275; 80053; 82805; 83605; 83735; 83880; 84484; 85025; 85380; 87040; 93005; 96365; 96367; 99285; J0692; J1836; Q9967

== ENCOUNTER 2024-01-21 00:32 | Inpatient (IN) | payer MEDICARE, SELFPAY ==
[2024-01-21] VITALS (23 sets, daily range): BP systolic 117–154; BP diastolic 52–64; PULSE 66–100; RESP 12–22; TEMP 36.3–37.1; O2SAT 91–97; BMI 32.8
--- NOTE | 2024-01-21 00:30 | ADMGEN ---
This patient, Maria G Gant, was admitted to IMU Room 207-01. Patient/family oriented to hospital policies and general routines including ID bracelet, bed and alarms, visiting hours, pain management, procedures, bathroom and other care routines, personal items, smoking policy, room service/diet, and visiting hours. Information on how to activate the Rapid Response Team has been discussed. Patient/Family are encouraged to report perceived risks to care and to ask questions if they do not understand what they are told or what they should do.
--- NOTE | 2024-01-21 01:10 | PM.IMHP ---
H&P: HPI History of Present Illness Date/Time: 01/21/24 01:10 Chief Complaint: sob Narrative: This is an 78-year-old female with past medical history significant for bipolar disorder, COPD, dyslipidemia, hypertension. patient comes as a direct admission from outside facility due to acute respiratory failure or, patient found to have infiltrates. patient cannot contribute in a meaningful way to history taking. History has been obtained mainly from emergency room doctor. Patient is been admitted for further evaluation management and treatment. EXAMINATION: XR chest 1V portable DATE: 01/20/2024 16:55 INDICATION: Chest pain. TECHNIQUE: A single frontal view of the chest was obtained. COMPARISON: Chest single view 12/24/2023, chest CT 12/24/2023 FINDINGS: There are airspace opacities in right middle lobe. No pleural effusion or pneumothorax. The heart size is normal. IMPRESSION: 1. Airspace opacities in right middle lobe, consistent with atelectasis versus pneumonia. EXAMINATION: CTA chest PE protocol DATE: 01/20/2024 18:04 INDICATION: chest pain/hypoxia/elev d-dimer TECHNIQUE: Computed tomography angiography (CTA) of the chest was performed with 100 mL Omnipaque-350 intravenous contrast timed to evaluate the pulmonary arteries. Coronal maximum intensity projection 3D-reconstructions were created by the technologist. The dose-length product (DLP) was 270.11 mGy-cm. Automated exposure control and iterative reconstruction technique were employed. COMPARISON: 12/24/2023. ? FINDINGS:? Lung parenchyma and airways: Motion artifact. Subsegmental consolidation and atelectasis in the right middle lobe. Subsegmental foci of consolidation in the lingula and dependent left lower lobe. Airway debris in scattered bronchi. Pleura: Unremarkable. Thoracic inlet, axillae and chest wall: Unremarkable. Thoracic aorta: No significant dilation. No dissection. Mediastinum: Dilated central pulmonary arteries as can be seen with pulmonary arterial hypertension. Bilateral hilar lymphadenopathy. Heart and pericardium: Mitral calcification. Coronary artery calcifications: Moderate. Upper abdomen: Status post cholecystectomy. Bones: No acute osseous finding. Pulmonary arteries: Study quality: Significant motion artifact obscures the segmental and subsegmental bilateral lower lobe pulmonary arterial branches. Otherwise, no pulmonary emboli detected. IMPRESSION: Limited evaluation of the segmental and subsegmental bilateral lower lobe pulmonary arteries. No CT evidence of acute pulmonary embolus in the remaining adequately visualized pulmonary arteries. Subsegmental areas of right middle lobe, lingular, and left lower lobe consolidation may represent infection. Bronchial debris may indicate a component of aspiration. Partial atelectasis in the right middle lobe. Hilar lymphadenopathy. 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 She only tells me about her son, Artemio Gant [phone]. She has a court appointed guardian, Nai Workman [phone]. Smoking packs per day: 3 Smoking cigarettes per day: 60.0 Years smoked: 10 Smoking pack-years: 30.00 Smoking status: Former smoker Tobacco type: cigarettes
[2024-01-21] MEDS: IPRATROPIUM 0.5 MG/ALBUTEROL SULFATE 2.5 MG AMPUL.NEB 3 ML INHALATION ×4 (01:58→20:39)
[2024-01-21] MEDS: cefTRIAXone 2 GM/NS 100 ML 2 GM/100 ML BAG IVPB (01:58)
[2024-01-21] MEDS: AZITHROMYCIN 500 MG/NS 250 ML 500 MG/250 ML BAG 250 MG IVPB (02:32)
[2024-01-21 04:45] LABS: Basophils Percent Auto 0.7 % (0.2-1.2); Eosinophils Absolute Auto 0.4 K/mm3 (0-0.3); Eosinophils Percent Auto 8.8 % (0-4.4); Hematocrit 37.8 % (37.0-47.0); Hemoglobin 11.9 g/dL (12.0-15.0); Immature Granulocyte Absolute 0.03 K/mm3 (0.00-0.031); Immature Granulocyte Percent A 0.7 % (0-0.5); Lymphocytes Absolute Auto 0.71 K/mm3 (0.9-3.2); Lymphocytes Percent Auto 16.9 % (18.3-44.2); Mean Corpuscular HGB Conc 31.5 g/dl (32-36); Mean Corpuscular Hemoglobin 29.5 pg (26-34); Mean Corpuscular Volume 93.8 fl (80-100); Mean Platelet Volume 9.5 fl (7.4-10.4); Monocytes Absolute Auto 0.7 K/mm3 (0.1-0.6); Monocytes Percent Auto 15.5 % (2.6-8.5); Neutrophils Absolute Auto 2.4 K/mm3 (1.3-6.7); Neutrophils Percent Auto 57.4 % (45.5-73.1); Platelet Count Result 171 k/mm3 (150-375); Red Blood Count 4.03 M/mm3 (4.2-5.4); Red Cell Distribution Width 18.7 % (11.5-14.5); White Blood Count 4.2 K/mm3 (4.5-10.0)
[2024-01-21 06:01] LABS: Anion Gap 5 mmol/L (4-12); Blood Urea Nitrogen 6 mg/dL (7-17); Calcium 8.5 mg/dL (8.4-10.2); Carbon Dioxide 28 mmol/L (22-30); Chloride 106 mmol/L (98-107); Estimated CRCL calculation 68 ml/min; Estimated Glomerular Filt Rate > 60; Glucose 89 mg/dL (65-110); Magnesium 1.9 mg/dL (1.6-2.3); Phosphorus 4.2 mg/dL (2.5-4.5); Potassium 3.5 mmol/L (3.4-5.0); Sodium 139 mmol/L (137-145)
[2024-01-21] MEDS: ENOXAPARIN 40 MG/0.4 ML SYRINGE SUB-Q (09:22)
[2024-01-21] MEDS: amLODIPine BESYLATE 5 MG TABLET PO (09:22)
[2024-01-21] MEDS: ASPIRIN 81 MG CHEWABLE TABLET PO (09:22)
[2024-01-21] MEDS: PANTOPRAZOLE 40 MG TABLET PO (09:22)
[2024-01-21] MEDS: oxyBUTYnin CHLORIDE XL 5 MG TAB.ER.24 PO (09:22)
[2024-01-21] MEDS: FERROUS SULFATE 325 MG TABLET DR PO ×2 (09:22→17:26)
[2024-01-21] MEDS: LEVOTHYROXINE SODIUM 100 MCG TABLET PO (09:22)
[2024-01-21] MEDS: DIVALPROEX SODIUM SPRINKLE 125 MG CAP.DR PO ×2 (09:23→17:27)
--- NOTE | 2024-01-21 09:27 | PM.IMPN ---
Progress Note: A&P Assessment and Plan (1) Acute hypoxic respiratory failure: Code(s): J96.01 - Acute respiratory failure with hypoxia Status: Acute Assessment and Plan: Shortness of breath with hypoxia with new oxygen requirement Imaging is suggestive of pneumonia Currently on 2 L NC (2) Pneumonia: Qualifiers: Laterality: bilateral Lung location: unspecified part of lung Pneumonia type: due to unspecified organism Qualified Code(s): J18.9 - Pneumonia, unspecified organism Code(s): J18.9 - Pneumonia, unspecified organism Status: Acute Assessment and Plan: Imaging concerning for pneumonia. Patient with new oxygen requirement, shortness of breath, productive cough Patient started on cefepime given recent hospitalization MRSA nares negative, no need for vancomycin Sputum culture ordered Blood cultures pending Incentive spirometry and pep ordered Added guaifenesin b.i.d. Schedule DuoNebs q.6 (3) Aspiration pneumonia: Code(s): J69.0 - Pneumonitis due to inhalation of food and vomit Status: Acute Assessment and Plan: Could be a component of her pneumonia. Patient has a history of throat cancer and has dysphagia baseline. She was seen by speech therapy back in October of this year and they had recommended bite size with level to thickness We can re-consult speech this admission to see if patient needs adjustments to her thickener (4) COPD (chronic obstructive pulmonary disease): Code(s): J44.9 - Chronic obstructive pulmonary disease, unspecified Status: Acute Assessment and Plan: On budesonide-formoterol inhaler Formulary auto substitute Advair. Continue. Wean oxygen as tolerated. DuoNeb scheduled No active wheeze, no need for steroids at this time (5) Bipolar 1 disorder: Code(s): F31.9 - Bipolar disorder, unspecified Status: Chronic Assessment and Plan: continue home meds (6) HTN (hypertension): Code(s): I10 - Essential (primary) hypertension Status: Acute Assessment and Plan: resume home meds as Plan Feedin g, bite sized, level 2 thickener Analgesia: Tylenol Thromboembolic prophylaxis: Enoxaparin Ulcer prophylaxis: Ppi Bowel regimen: MiraLax p.r.n. Lines: PIV Antibiotics: Cefepime Disposition: Transfer of IMU to med surge floor Subjective Date/time seen: 01/21/24 09:27 Interval history: ?This is an 78-year-old female with past medical history significant for bipolar disorder, COPD, dyslipidemia, hypertension. patient comes as a direct admission from outside facility due to acute respiratory failure or, patient found to have infiltrates.? patient cannot contribute in a meaningful way to history taking.? History has been obtained mainly from emergency room doctor.? Patient is been admitted for further evaluation management and treatment. 01/20: Patient is familiar to me from [facility]. She recently was seen there from 12/26 through 01/02 pyelonephritis with ESBL needing IV antibiotics. She lives at [facility] which is a long-term setting. On exam today she does not appear in acute distress. She is still requiring 2 L nasal cannula. She does have a congestive cough with productive sputum but she is not notice the color because she is swallowing it. She denies fever or chills. Patient has a history of lung cancer and has chronic swallowing difficulties. She is on thickener is at baseline. Patient is in stable condition and can transfer out of IMU to a regular medical surgical floor today. Review of Systems Review of Systems: All systems reviewed & are unremarkable except as noted in HPI and below ROS unobtainable: Yes other ( Dementia) Exam Narrative: General: well appearing, appears stated age. HEENT: normocephalic, atraumatic. Mucous membranes moist. EOMI, PERRLA, bilateral sclera anicteric, no conjunctival injection. Neck supple with
[2024-01-21] MEDS: CEFEPIME 2 GM/NS 50 ML 2 GM/50 ML BAG IVPB ×2 (10:10→20:34)
--- NOTE | 2024-01-21 11:23 | PC.NURSE ---
This patient, Maria G Gant, was transferred to [[id number] ] on 01/21/24 at 1120. Personal belongings sent with patient. Report given to [Torri PATTEN]. Appropriate documentation sent with patient.
[2024-01-21] MEDS: risperiDONE 1 MG TABLET 2 MG PO (11:51)
[2024-01-21 12:49] LABS: MRSA (PCR) NOT DETECTED (NOT DETECTE)
[2024-01-21] MEDS: MONTELUKAST SODIUM 10 MG TABLET PO (20:33)
[2024-01-21] MEDS: guaiFENesin 12 HR 600 MG TABCR 1200 MG PO (20:33)
[2024-01-21] MEDS: ATORVASTATIN 20 MG TABLET PO (20:33)
[2024-01-21] MEDS: FLUTICASONE/SALMETEROL 115-21 MCG INHALER 1 PUFF 2 PUFF INHALATION (20:40)
[2024-01-22] VITALS (12 sets, daily range): BP systolic 106–145; BP diastolic 44–65; PULSE 61–81; RESP 16–20; TEMP 36.7–36.8; O2SAT 92–98
[2024-01-22] MEDS: IPRATROPIUM 0.5 MG/ALBUTEROL SULFATE 2.5 MG AMPUL.NEB 3 ML INHALATION ×4 (02:18→19:44)
[2024-01-22 05:21] LABS: Basophils Percent Auto 0.6 % (0.2-1.2); Eosinophils Absolute Auto 0.3 K/mm3 (0-0.3); Eosinophils Percent Auto 9.4 % (0-4.4); Hematocrit 34.8 % (37.0-47.0); Hemoglobin 10.9 g/dL (12.0-15.0); Immature Granulocyte Absolute 0.01 K/mm3 (0.00-0.031); Immature Granulocyte Percent A 0.3 % (0-0.5); Lymphocytes Absolute Auto 1.03 K/mm3 (0.9-3.2); Lymphocytes Percent Auto 28.4 % (18.3-44.2); Mean Corpuscular HGB Conc 31.3 g/dl (32-36); Mean Corpuscular Hemoglobin 29.6 pg (26-34); Mean Corpuscular Volume 94.6 fl (80-100); Mean Platelet Volume 10.5 fl (7.4-10.4); Monocytes Absolute Auto 0.8 K/mm3 (0.1-0.6); Monocytes Percent Auto 22.3 % (2.6-8.5); Neutrophils Absolute Auto 1.4 K/mm3 (1.3-6.7); Nucleated Red Blood Cells Perc 0.6 % (0.0-0.2); Platelet Count Result 187 k/mm3 (150-375); Red Blood Count 3.68 M/mm3 (4.2-5.4); Red Cell Distribution Width 18.8 % (11.5-14.5); White Blood Count 3.6 K/mm3 (4.5-10.0)
[2024-01-22 05:37] LABS: Alanine Aminotransferase 17 U/L (6-35); Albumin Level 3.6 g/dL (3.5-5.1); Alkaline Phosphatase 96 U/L (38-126); Anion Gap 6 mmol/L (4-12); Aspartate Amino Transferase 28 U/L (14-36); Bilirubin,Total 0.2 mg/dL (0.2-1.3); Blood Urea Nitrogen 9 mg/dL (7-17); Calcium 8.5 mg/dL (8.4-10.2); Carbon Dioxide 27 mmol/L (22-30); Chloride 105 mmol/L (98-107); Estimated CRCL calculation 83 ml/min; Estimated Glomerular Filt Rate > 60; Glucose 89 mg/dL (65-110); Potassium 3.7 mmol/L (3.4-5.0); Sodium 138 mmol/L (137-145)
[2024-01-22] MEDS: FLUTICASONE/SALMETEROL 115-21 MCG INHALER 1 PUFF 2 PUFF INHALATION ×2 (07:20→19:46)
[2024-01-22] MEDS: amLODIPine BESYLATE 5 MG TABLET PO (09:01)
[2024-01-22] MEDS: PANTOPRAZOLE 40 MG TABLET PO (09:02)
[2024-01-22] MEDS: oxyBUTYnin CHLORIDE XL 5 MG TAB.ER.24 PO (09:02)
[2024-01-22] MEDS: DIVALPROEX SODIUM SPRINKLE 125 MG CAP.DR PO ×2 (09:02→17:13)
[2024-01-22] MEDS: ASPIRIN 81 MG CHEWABLE TABLET PO (09:02)
[2024-01-22] MEDS: LEVOTHYROXINE SODIUM 100 MCG TABLET PO (09:02)
[2024-01-22] MEDS: ENOXAPARIN 40 MG/0.4 ML SYRINGE SUB-Q (09:03)
[2024-01-22] MEDS: FERROUS SULFATE 325 MG TABLET DR PO ×2 (09:03→17:14)
[2024-01-22] MEDS: CEFEPIME 2 GM/NS 50 ML 2 GM/50 ML BAG IVPB ×2 (09:05→20:37)
[2024-01-22] MEDS: risperiDONE 1 MG TABLET 2 MG PO (12:21)
--- NOTE | 2024-01-22 14:00 | PM.IMPN ---
Progress Note: A&P Assessment and Plan (1) Acute hypoxic respiratory failure: Code(s): J96.01 - Acute respiratory failure with hypoxia Status: Acute Assessment and Plan: Shortness of breath with hypoxia with new oxygen requirement Imaging is suggestive of pneumonia Currently on 2 L NC 01/21: Still requiring oxygen Continue with scheduled albuterol. She still has some expiratory wheeze (2) Pneumonia: Qualifiers: Laterality: bilateral Lung location: unspecified part of lung Pneumonia type: due to unspecified organism Qualified Code(s): J18.9 - Pneumonia, unspecified organism Code(s): J18.9 - Pneumonia, unspecified organism Status: Inactive Assessment and Plan: Imaging concerning for pneumonia. Patient with new oxygen requirement, shortness of breath, productive cough Patient started on cefepime given recent hospitalization MRSA nares negative, no need for vancomycin Sputum culture ordered Blood cultures pending Incentive spirometry and pep ordered Added guaifenesin b.i.d. Schedule DuoNebs q.6 01/21: No change to plan of care (3) Aspiration pneumonia: Code(s): J69.0 - Pneumonitis due to inhalation of food and vomit Status: Acute Assessment and Plan: Could be a component of her pneumonia. Patient has a history of throat cancer and has dysphagia baseline. She was seen by speech therapy back in October of this year and they had recommended bite size with level to thickness We can re-consult speech this admission to see if patient needs adjustments to her thickener (4) COPD (chronic obstructive pulmonary disease): Code(s): J44.9 - Chronic obstructive pulmonary disease, unspecified Status: Acute Assessment and Plan: On budesonide-formoterol inhaler Formulary auto substitute Advair. Continue. Wean oxygen as tolerated. DuoNeb scheduled No active wheeze, no need for steroids at this time 01/21: Patient is having some expiratory wheeze. Will add Solu-Medrol 40 Q 6 (5) Bipolar 1 disorder: Code(s): F31.9 - Bipolar disorder, unspecified Status: Chronic Assessment and Plan: continue home meds (6) HTN (hypertension): Code(s): I10 - Essential (primary) hypertension Status: Acute Assessment and Plan: resume home meds as Plan Feedin g, bite sized, level 2 thickener Analgesia: Tylenol Thromboembolic prophylaxis: Enoxaparin Ulcer prophylaxis: Ppi Bowel regimen: MiraLax p.r.n. Lines: PIV Antibiotics: Cefepime Disposition: Transfer of IMU to med [facility] floor Subjective Date/time seen: 01/22/24 14:00 Interval history: ?This is an 78-year-old female with past medical history significant for bipolar disorder, COPD, dyslipidemia, hypertension. patient comes as a direct admission from outside facility due to acute respiratory failure or, patient found to have infiltrates.? patient cannot contribute in a meaningful way to history taking.? History has been obtained mainly from emergency room doctor.? Patient is been admitted for further evaluation management and treatment. 01/20: Patient is familiar to me from [facility]. She recently was seen there from 12/26 through 01/02 pyelonephritis with ESBL needing IV antibiotics. She lives at [facility] which is a half-way setting. On exam today she does not appear in acute distress. She is still requiring 2 L nasal cannula. She does have a congestive cough with productive sputum but she is not notice the color because she is swallowing it. She denies fever or chills. Patient has a history of lung cancer and has chronic swallowing difficulties. She is on thickener is at baseline. Patient is in stable condition and can transfer out of IMU to a regular medical surgical floor today. 01/21: No acute events overnight. Patient is seen resting in bed. She states she is feeling much better today. She is still requiring oxyg
[2024-01-22] MEDS: methylPREDNISolone SOD SUCC 40 MG VIAL IV PUSH ×3 (15:06→23:49)
[2024-01-22] MEDS: guaiFENesin 12 HR 600 MG TABCR 1200 MG PO (20:36)
[2024-01-22] MEDS: ARTIFICIAL TEARS OPHTH SOLN 15 ML BOTTLE 1 DROP EACH EYE (20:37)
[2024-01-22] MEDS: ATORVASTATIN 20 MG TABLET PO (20:37)
[2024-01-22] MEDS: MONTELUKAST SODIUM 10 MG TABLET PO (20:37)
[2024-01-23] VITALS (8 sets, daily range): BP systolic 130; BP diastolic 82; PULSE 74–91; RESP 17–20; TEMP 36.5; O2SAT 95
[2024-01-23] MEDS: IPRATROPIUM 0.5 MG/ALBUTEROL SULFATE 2.5 MG AMPUL.NEB 3 ML INHALATION ×3 (03:01→12:57)
[2024-01-23] MEDS: methylPREDNISolone SOD SUCC 40 MG VIAL IV PUSH (05:14)
[2024-01-23 05:31] LABS: Basophils Percent Auto 0.3 % (0.2-1.2); Hematocrit 37.4 % (37.0-47.0); Hemoglobin 11.8 g/dL (12.0-15.0); Immature Granulocyte Absolute 0.02 K/mm3 (0.00-0.031); Immature Granulocyte Percent A 0.6 % (0-0.5); Lymphocytes Absolute Auto 0.41 K/mm3 (0.9-3.2); Lymphocytes Percent Auto 12.9 % (18.3-44.2); Mean Corpuscular HGB Conc 31.6 g/dl (32-36); Mean Corpuscular Hemoglobin 29.3 pg (26-34); Mean Corpuscular Volume 92.8 fl (80-100); Mean Platelet Volume 10.1 fl (7.4-10.4); Monocytes Absolute Auto 0.2 K/mm3 (0.1-0.6); Neutrophils Absolute Auto 2.6 K/mm3 (1.3-6.7); Neutrophils Percent Auto 80.2 % (45.5-73.1); Platelet Count Result 217 k/mm3 (150-375); Red Blood Count 4.03 M/mm3 (4.2-5.4); Red Cell Distribution Width 18.2 % (11.5-14.5); White Blood Count 3.2 K/mm3 (4.5-10.0)
[2024-01-23 05:45] LABS: Alanine Aminotransferase 19 U/L (6-35); Albumin Level 3.9 g/dL (3.5-5.1); Alkaline Phosphatase 108 U/L (38-126); Anion Gap 8 mmol/L (4-12); Aspartate Amino Transferase 26 U/L (14-36); Bilirubin,Total 0.2 mg/dL (0.2-1.3); Blood Urea Nitrogen 8 mg/dL (7-17); Carbon Dioxide 28 mmol/L (22-30); Chloride 103 mmol/L (98-107); Estimated CRCL calculation 83 ml/min; Estimated Glomerular Filt Rate > 60; Glucose 142 mg/dL (65-110); Magnesium 1.9 mg/dL (1.6-2.3); Potassium 3.9 mmol/L (3.4-5.0); Sodium 139 mmol/L (137-145)
[2024-01-23] MEDS: FLUTICASONE/SALMETEROL 115-21 MCG INHALER 1 PUFF 2 PUFF INHALATION (07:03)
[2024-01-23] MEDS: DIVALPROEX SODIUM SPRINKLE 125 MG CAP.DR PO (09:21)
[2024-01-23] MEDS: ASPIRIN 81 MG CHEWABLE TABLET PO (09:21)
[2024-01-23] MEDS: LEVOTHYROXINE SODIUM 100 MCG TABLET PO (09:22)
[2024-01-23] MEDS: oxyBUTYnin CHLORIDE XL 5 MG TAB.ER.24 PO (09:22)
[2024-01-23] MEDS: FERROUS SULFATE 325 MG TABLET DR PO (09:22)
[2024-01-23] MEDS: PANTOPRAZOLE 40 MG TABLET PO (09:23)
[2024-01-23] MEDS: amLODIPine BESYLATE 5 MG TABLET PO (09:23)
[2024-01-23] MEDS: ENOXAPARIN 40 MG/0.4 ML SYRINGE SUB-Q (09:30)
[2024-01-23] MEDS: CEFEPIME 2 GM/NS 50 ML 2 GM/50 ML BAG IVPB (09:30)
--- NOTE | 2024-01-23 11:03 | PM.DS ---
DS: Admitting Diagnosis Discharge Date 01/22 Admitting Diagnosis Shortness of breath DS: Discharge Diagnosis Discharge Diagnosis (1) Acute hypoxic respiratory failure: Code(s): J96.01 - Acute respiratory failure with hypoxia Status: Acute Assessment and Plan: Shortness of breath with hypoxia with new oxygen requirement Imaging is suggestive of pneumonia Currently on 2 L NC 01/21: Still requiring oxygen Continue with scheduled albuterol. She still has some expiratory wheeze (2) Pneumonia: Qualifiers: Laterality: bilateral Lung location: unspecified part of lung Pneumonia type: due to unspecified organism Qualified Code(s): J18.9 - Pneumonia, unspecified organism Code(s): J18.9 - Pneumonia, unspecified organism Status: Inactive Assessment and Plan: Imaging concerning for pneumonia. Patient with new oxygen requirement, shortness of breath, productive cough Patient started on cefepime given recent hospitalization MRSA nares negative, no need for vancomycin Sputum culture ordered Blood cultures pending Incentive spirometry and pep ordered Added guaifenesin b.i.d. Schedule DuoNebs q.6 01/21: No change to plan of care (3) Aspiration pneumonia: Code(s): J69.0 - Pneumonitis due to inhalation of food and vomit Status: Acute Assessment and Plan: Could be a component of her pneumonia. Patient has a history of throat cancer and has dysphagia baseline. She was seen by speech therapy back in October of this year and they had recommended bite size with level to thickness We can re-consult speech this admission to see if patient needs adjustments to her thickener (4) COPD (chronic obstructive pulmonary disease): Code(s): J44.9 - Chronic obstructive pulmonary disease, unspecified Status: Acute Assessment and Plan: On budesonide-formoterol inhaler Formulary auto substitute Advair. Continue. Wean oxygen as tolerated. DuoNeb scheduled No active wheeze, no need for steroids at this time 01/21: Patient is having some expiratory wheeze. Will add Solu-Medrol 40 Q 6 (5) Bipolar 1 disorder: Code(s): F31.9 - Bipolar disorder, unspecified Status: Chronic Assessment and Plan: continue home meds (6) HTN (hypertension): Code(s): I10 - Essential (primary) hypertension Status: Acute Assessment and Plan: resume home meds as Plan Feedin g, bite sized, level 2 thickener Analgesia: Tylenol Thromboembolic prophylaxis: Enoxaparin Ulcer prophylaxis: Ppi Bowel regimen: MiraLax p.r.n. Lines: PIV Antibiotics: Cefepime Disposition: Transfer of IMU to [facility] floor DS: Summary Hospital Course Reason for hospitalization: Community-acquired pneumonia versus aspiration pneumonia Hospital Course: This is an 78-year-old female with past medical history significant for bipolar disorder, COPD, dyslipidemia, hypertension. patient comes as a direct admission from outside facility due to acute respiratory failure or, patient found to have infiltrates.? patient cannot contribute in a meaningful way to history taking.? History has been obtained mainly from emergency room doctor.? Patient is been admitted for further evaluation management and treatment. 01/20: Patient is familiar to me from [facility]. She recently was seen there from 12/26 through 01/02 pyelonephritis with ESBL needing IV antibiotics. She lives at [facility] which is a prison setting. On exam today she does not appear in acute distress. She is still requiring 2 L nasal cannula. She does have a congestive cough with productive sputum but she is not notice the color because she is swallowing it. She denies fever or chills. Patient has a history of lung cancer and has chronic swallowing difficulties. She is on thickener is at baseline. Patient is in stable condition and can transfer out of IMU to a regular medical [facility]
[2024-01-23] MEDS: risperiDONE 1 MG TABLET 2 MG PO (12:31)
--- NOTE | 2024-01-23 14:13 | PCRCNOTE ---
Attempted home o2 eval. Pt. discharged before testing.
== END 2024-01-23 14:05 | disposition home health service (06) | DRG 177 ==
LOC: ANHIMU 06:54 → ANH2MED 11:25
PROVIDERS: Admitting Provider Internal Medicine; PCP Family Medicine; Visit Provider Nurse Practitioner Acute Care
DX: J69.0 Pneumonitis due to inhalation of food and vomit (principal); J96.01 Acute respiratory failure with hypoxia; J44.0 Chronic obstructive pulmonary disease with (acute) lower respiratory infection; C78.00 Secondary malignant neoplasm of unspecified lung; J18.9 Pneumonia, unspecified organism; I10 Essential (primary) hypertension; E78.5 Hyperlipidemia, unspecified; E03.9 Hypothyroidism, unspecified; F31.9 Bipolar disorder, unspecified; Z87.891 Personal history of nicotine dependence; Z79.82 Long term (current) use of aspirin; Z85.819 Personal history of malignant neoplasm of unspecified site of lip, oral cavity, and pharynx
CPT/HCPCS: 36415; 80048; 80053; 83735; 84100; 84145; 85025; 87641; 94640; 94667; 94668; A9270; J0456; J0692; J0696; J1650; J2919

== ENCOUNTER 2024-06-02 18:21 | Inpatient (IN) | payer MEDICARE, SELFPAY ==
[2024-06-02] VITALS (25 sets, daily range): BP systolic 104–146; BP diastolic 43–62; PULSE 80–100; RESP 18–20; TEMP 37.1–37.8; O2SAT 88–99; BMI 34.2
--- NOTE | ~2024-06-02 | XR_ITS ---
EXAMINATION: XR chest 1V portable Exam Date/Time: 06/02/2024 19:05 CDT HISTORY: Fever, hypoxia Comparison: 01/20/2024. RESULT: Lines, tubes, and devices: None. Lungs and pleura: Mild diffuse reticular opacities. Subsegmental right lower lung airspace opacity. Mild bibasilar scar/atelectasis Cardiomediastinal silhouette: Stable. Other: No acute osseous or upper abdominal finding. IMPRESSION: Subsegmental right lower lung atelectasis/consolidation. Mild interstitial edema. Reviewed, dictated and finalized at location K. IMPRESSION: Subsegmental right lower lung atelectasis/consolidation. Mild interstitial denita carvalho
--- NOTE | 2024-06-02 18:25 | ECG_ITS ---
Test Date: 2024-06-02 18:46:21 Measurements Intervals [place] Rate: 89 P: 51 SC: 182 QRS: -7 QRSD: 84 T: 31 QT: 330 QTc: 401 Interpretive Statements SINUS RHYTHM Compared to ECG 01/20/2024 16:43:05 No significant changes Electronically Signed On 06-05-2024 11:54:56 CDT by Rosa Pina M.D.
--- NOTE | 2024-06-02 18:28 | ED.GENADULT ---
HPI - General Adult General Chief complaint: Unspecified Stated complaint: not feeling well Time Seen by Provider: 06/02/24 18:25 Source: patient and EMS Mode of arrival: EMS Limitations: dementia History of Present Illness HPI narrative: This is an 79-year-old female, with history of dementia and metastatic adenocarcinoma of the lung, brought in by EMS from her intermediate for malaise. EMS reports they were called for the patient not feeling well without other specific complaints. Vital signs were initially unremarkable, though the patient became hypoxic to the 80s on room air. She was started on 2 L of oxygen with improvement to the 90s. Blood glucose reported in the 130s. Patient states only that she feels bad. She denies nausea, vomiting, diarrhea, chest pain or shortness of breath. She has no other complaints at this time. Related Data Home Medications Medication Instructions Recorded Confirmed aspirin 81 mg chewable tablet 81 mg PO DAILY 11/01/23 06/02/24 atorvastatin 20 mg tablet 20 mg PO HS 11/01/23 06/02/24 budesonide-formoterol HFA 160 2 puff inhalation BID 11/01/23 06/02/24 mcg-4.5 mcg/actuation aerosol inhaler (Breyna) carbamazepine 100 mg chewable 300 mg PO BID 11/01/23 06/02/24 tablet dicyclomine 20 mg tablet 20 mg PO DAILY PRN Abdominal 11/01/23 06/02/24 Discomfort divalproex 125 mg capsule,delayed 125 mg PO BID 11/01/23 06/02/24 release sprinkle furosemide 20 mg tablet 20 mg PO DAILY 11/01/23 06/02/24 levothyroxine 100 mcg tablet 100 mcg PO DAILY 11/01/23 06/02/24 montelukast 10 mg tablet 10 mg PO HS 11/01/23 06/02/24 oxybutynin chloride 5 mg 5 mg PO DAILY 11/01/23 06/02/24 tablet,extended release 24 hr pantoprazole 40 mg tablet,delayed 40 mg PO DAILY 11/01/23 06/02/24 release potassium chloride 10 mEq 10 meq PO BID 11/01/23 06/02/24 tablet,extended release(part/cryst) risperidone 2 mg tablet 2 mg PO DAILY 11/01/23 06/02/24 ascorbic acid (vitamin C) 500 mg 500 mg PO DAILY 01/21/24 06/02/24 chewable tablet dextromethorphan-guaifenesin 10 1 cap PO Q8H PRN Congestion 01/21/24 06/02/24 mg-200 mg capsule (Coricidin HBP Chest Congestion-Cough) starch (thickening) (Thick-It oral See Rx Instructions .Route .COMPLEX 01/21/24 06/02/24 powder) Allergies Allergy/AdvReac Type Severity Reaction Status Date / Time cinnamon Allergy Rash Verified 06/02/24 18:22 Review of Systems Review of Systems: All systems reviewed & are unremarkable except as noted in HPI and below PMFSH Past Medical History Medical History Aspiration pneumonia Bipolar 1 disorder COPD (chronic obstructive pulmonary disease) HLD (hyperlipidemia) HTN (hypertension) Hypothyroid 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 She only tells me about her son, Artemio Gant [phone]. She has a court appointed guardian, Nai Workman [phone]. Smoking packs per day: 3 Smoking cigarettes per day: 60.0 Years smoked: 10 Smoking pack-years: 30.00 Smoking status: Never smoker Tobacco type: cigarettes Second hand tobacco smoke exposure: No Smoking end date: 08/22/79 Alcohol intake: never Substance use: never Substance use type: does not use Do You Feel Safe in your Home?: Yes Lack of Transportation: No Lack of Food: Never True Current Housing: I Have Housing Concerned About Future Housing: No Difficulty Paying Gas/Electric Bills: No Difficulty Paying for Meds: No Currently Unemployed: No Education: Associate Degree
[2024-06-02] MEDS: IPRATROPIUM 0.5 MG/ALBUTEROL SULFATE 2.5 MG AMPUL.NEB 3 ML INHALATION (18:37)
--- NOTE | 2024-06-02 18:41 | PC.NURSE ---
covid culture swab sent to lab
[2024-06-02] MEDS: ACETAMINOPHEN 500 MG TABLET 1000 MG PO (18:44)
[2024-06-02 19:02] LABS: Basophils Absolute Auto 0.04 K/mm3 (0.00-0.10); Basophils Percent Auto 0.4 % (0.0-1.0); Eosinophils Absolute Auto 0.11 K/mm3 (0.02-0.50); Eosinophils Percent Auto 1.2 % (1.0-6.0); Hematocrit 31.2 % (35.0-42.0); Hemoglobin 10.1 g/dL (11.7-13.8); Immature Granulocyte Absolute 0.05 K/mm3 (0.00-0.00); Immature Granulocyte Percent A 0.5 % (0.0-0.0); Lymphocytes Absolute Auto 0.95 K/mm3 (1.10-4.50); Lymphocytes Percent Auto 10.1 % (18.0-42.0); Mean Corpuscular HGB Conc 32.4 g/dL (32-36); Mean Corpuscular Hemoglobin 28.1 pg (27.0-31.0); Mean Corpuscular Volume 86.9 fL (78.0-102.0); Mean Platelet Volume 9.6 fl (9.2-11.8); Monocytes Absolute Auto 1.13 K/mm3 (0.10-0.90); Neutrophils Absolute Auto 7.15 K/mm3 (1.70-7.20); Neutrophils Percent Auto 75.8 % (50.0-70.0); Platelet Count Result 248 K/mm3 (150-420); Red Blood Count 3.59 M/mm3 (4.20-5.40); Red Cell Distribution Width 14.2 % (11.6-14.4); White Blood Count 9.4 K/mm3 (4.8-10.8)
--- NOTE | 2024-06-02 19:02 | PC.NURSE ---
Per patient's papers from [facility], patient needs thickened liquids and medications crushed and in applesauce.
[2024-06-02 19:16] LABS: Alanine Aminotransferase 23 U/L (14-59); Albumin Level 2.7 g/dL (3.4-5.0); Alkaline Phosphatase 137 U/L (46-116); Anion Gap 9 mmol/L (4-12); Aspartate Amino Transferase 19 U/L (15-37); Bilirubin,Total 0.2 mg/dL (0.00-1.00); Blood Urea Nitrogen 14 mg/dL (7-18); Calcium 8.5 mg/dL (8.5-10.1); Carbon Dioxide 30 mmol/L (21-32); Chloride 100 mmol/L (98-108); Estimated Glomerular Filt Rate > 60; Glucose 142 mg/dL (70-99); Osmolality Calculated 290 mOsm/kg (285-295); Sodium 139 mmol/L (136-145); Total Protein 7.2 g/dL (6.4-8.2)
[2024-06-02 19:19] LABS: Lactic Acid Reflex 1.2 mmol/L (0.4-2.0)
[2024-06-02 19:20] LABS: SARS-CoV-2 RNA PCR Negative (Negative)
[2024-06-02 19:21] LABS: Influenza A QL RT-PCR Negative (Negative); Influenza B QL RT-PCR Negative (Negative); RSV RNA, RT-PCR Negative (Negative)
[2024-06-02] MEDS: DOXYCYCLINE HYCLATE 100 MG TABLET PO (20:34)
--- NOTE | 2024-06-02 20:55 | ADMGEN ---
This patient, Maria G Gant, was admitted to 2nd Floor Room 206-1. Patient oriented to hospital policies and general routines including ID bracelet, bed and alarms, visiting hours, pain management, procedures, bathroom and other care routines, personal items, smoking policy, room service/diet, and visiting hours. Information on how to activate the Rapid Response Team has been discussed. Patient are encouraged to report perceived risks to care and to ask questions if they do not understand what they are told or what they should do.
[2024-06-02] MEDS: DIVALPROEX SODIUM SPRINKLE 125 MG CAP.DR PO (21:19)
[2024-06-02] MEDS: MONTELUKAST SODIUM 10 MG TABLET PO (21:19)
[2024-06-02] MEDS: ATORVASTATIN 10 MG TABLET 20 MG PO (21:19)
[2024-06-02 22:12] LABS: Add Urine Microscopic? YES; Appearance Urine Clear (Clear); Bilirubin Urine Negative (Negative); Blood Urine Negative (Negative); Color Urine Light Yellow (Yellow); Glucose Urine UA Negative (Negative); Ketones Urine Trace (Negative); Leukocyte Esterase Ur Negative LEU/UL (Negative); Nitrate Urine Negative (Negative); Protein Urine Trace (Negative); Specific Grav Ur 1.015 (1.010-1.020); Urobilinogen Urine 0.2 mg/dL (0.2-1.0)
[2024-06-02 22:21] LABS: Squamous Epithelial Cell Urine Moderate /hpf (Few)
[2024-06-03] VITALS (9 sets, daily range): BP systolic 118–128; BP diastolic 56–73; PULSE 58–80; RESP 16–19; TEMP 36.6; O2SAT 93–97
[2024-06-03] MEDS: BUDESONIDE/FORMOTEROL (*SP) 160-4.5 MCG 6 GM INH 2 PUFF INHALATION ×2 (05:47→18:39)
[2024-06-03] MEDS: LEVOTHYROXINE SODIUM 100 MCG TABLET PO (05:48)
[2024-06-03 05:52] LABS: Basophils Absolute Auto 0.04 K/mm3 (0.00-0.10); Basophils Percent Auto 0.5 % (0.0-1.0); Eosinophils Percent Auto 4.1 % (1.0-6.0); Hematocrit 29.9 % (35.0-42.0); Hemoglobin 9.4 g/dL (11.7-13.8); Immature Granulocyte Absolute 0.04 K/mm3 (0.00-0.00); Immature Granulocyte Percent A 0.5 % (0.0-0.0); Lymphocytes Absolute Auto 1.72 K/mm3 (1.10-4.50); Lymphocytes Percent Auto 23.3 % (18.0-42.0); Mean Corpuscular HGB Conc 31.4 g/dL (32-36); Mean Corpuscular Hemoglobin 27.7 pg (27.0-31.0); Mean Corpuscular Volume 88.2 fL (78.0-102.0); Mean Platelet Volume 9.3 fl (9.2-11.8); Monocytes Absolute Auto 0.94 K/mm3 (0.10-0.90); Monocytes Percent Auto 12.7 % (2.0-11.0); Neutrophils Absolute Auto 4.34 K/mm3 (1.70-7.20); Neutrophils Percent Auto 58.9 % (50.0-70.0); Platelet Count Result 225 K/mm3 (150-420); Red Blood Count 3.39 M/mm3 (4.20-5.40); Red Cell Distribution Width 14.4 % (11.6-14.4); White Blood Count 7.4 K/mm3 (4.8-10.8)
[2024-06-03 06:16] LABS: Anion Gap 4 mmol/L (4-12); Blood Urea Nitrogen 12 mg/dL (7-18); Calcium 8.8 mg/dL (8.5-10.1); Carbon Dioxide 34 mmol/L (21-32); Chloride 104 mmol/L (98-108); Estimated CRCL calculation 53 ml/min; Estimated Glomerular Filt Rate > 60; Glucose 98 mg/dL (70-99); Osmolality Calculated 293 mOsm/kg (285-295); Potassium 3.6 mmol/L (3.5-5.1); Sodium 142 mmol/L (136-145)
[2024-06-03] MEDS: DIVALPROEX SODIUM SPRINKLE 125 MG CAP.DR PO ×2 (09:39→21:08)
[2024-06-03] MEDS: risperiDONE 1 MG TABLET 2 MG PO (09:39)
[2024-06-03] MEDS: oxyBUTYnin CHLORIDE XL 5 MG TAB.ER.24 PO (09:40)
[2024-06-03] MEDS: FUROSEMIDE 20 MG TABLET PO (09:40)
[2024-06-03] MEDS: guaiFENesin 12 HR 600 MG TABCR 1200 MG PO ×2 (09:40→21:08)
[2024-06-03] MEDS: POTASSIUM CHLORIDE 10 MEQ ER TABLET PO ×2 (09:40→17:09)
[2024-06-03] MEDS: DOXYCYCLINE HYCLATE 100 MG TABLET PO ×2 (09:40→21:06)
[2024-06-03] MEDS: PANTOPRAZOLE 40 MG TABLET PO (09:40)
[2024-06-03] MEDS: amLODIPine BESYLATE 5 MG TABLET PO (09:41)
[2024-06-03] MEDS: ASPIRIN 81 MG CHEWABLE TABLET PO (09:41)
--- NOTE | 2024-06-03 12:44 | PC.NURSE ---
1222 patient changed to inpatient status.
[2024-06-03] MEDS: IPRATROPIUM 0.5 MG/ALBUTEROL SULFATE 2.5 MG AMPUL.NEB 3 ML INHALATION ×2 (13:31→18:19)
[2024-06-03] MEDS: FERROUS SULFATE 325 MG TABLET DR PO ×2 (13:31→18:38)
--- NOTE | 2024-06-03 13:43 | PM.IMHP ---
H&P: HPI History of Present Illness Date/Time: 06/03/24 13:43 Chief Complaint: Not feeling well Narrative: Patient is 79-year-old female who was transported to the emergency department via EMS after her living facility called due to patient's overall appearance and not feeling well. patient is not the best historian and currently has a guardian he medical decision. Patient arrived facility and denied all complaints upon arrival however during patient's triage she did become hypoxic and dropped to the 80s she was placed on 2 L nasal cannula the emergency department in recovered the oxygen saturation back to the 90s. 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 patient's labs and vitals unremarkable however chest x-ray did show some segmental right lower lobe atelectasis /consolidation. patient was then admitted to the medical unit for further evaluation and treatment of acute respiratory failure with hypoxia secondary to possible pneumonia. Review of Systems Review of Systems: All systems reviewed & are unremarkable except as noted in HPI and below PMFSH Past Medical History Medical History Aspiration pneumonia Bipolar 1 disorder COPD (chronic obstructive pulmonary disease) HLD (hyperlipidemia) HTN (hypertension) Hypothyroid 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 She only tells me about her son, Artemio Gant [phone]. She has a court appointed guardian, Nai Workman [phone]. Smoking packs per day: 3 Smoking cigarettes per day: 60.0 Years smoked: 10 Smoking pack-years: 30.00 Smoking status: Never smoker Tobacco type: cigarettes Second hand tobacco smoke exposure: No Smoking end date: 08/22/79 Alcohol intake: never Substance use: never Substance use type: does not use Do You Feel Safe in your Home?: Yes Lack of Transportation: No Lack of Food: Never True Current Housing: I Have Housing Concerned About Future Housing: No Difficulty Paying Gas/Electric Bills: No Difficulty Paying for Meds: No Currently Unemployed: No Education: Associate Degree Difficulty w/ Childcare or Family Care: No Living arrangements: retirement Additional living arrangements comments: Lives at [facility] Occupation/Education: other Additional occupation/education comments: disability. 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 Gender identity (if verbalized by the patient): Female Spiritual care concerns: No Meds Home Medications and Allergies Home Medications Medication Instructions Recorded Confirmed Type aspirin 81 mg chewable tablet 81 mg PO DAILY 11/01/23 06/02/24 History atorvastatin 20 mg tablet 20 mg PO HS 11/01/23 06/02/24 History budesonide-formoterol HFA 160 2 puff inhalation BID 11/01/23 06/02/24 History mcg-4.5 mcg/actuation aerosol inhaler (Breyna) carbamazepine 100 mg chewable 300 mg PO BID 11/01/23 06/02/24 History tablet dicyclomine 20 mg tablet 20 mg PO DAILY PRN Abdominal 11/01/23 06/02/24 History Discomfort divalproex 125 mg capsule,delayed 125 mg PO BID 11/01/23 06/02/24 History release sprinkle furosemide 20 mg tablet 20 mg PO DAILY 11/01/23 06/02/24 History levothyroxine 100 mcg tablet 100 mcg PO DAILY 11/01/23 06/02/24 History montelukast 10 mg tablet 10 mg PO HS 11/01/23 06/02/24 History oxybutynin chloride 5 mg 5 mg PO DAILY 11/01/23 06/02/24 History tablet,
[2024-06-03] MEDS: ATORVASTATIN 10 MG TABLET 20 MG PO (21:07)
[2024-06-03] MEDS: MONTELUKAST SODIUM 10 MG TABLET PO (21:08)
[2024-06-04] VITALS: BP 138/50; PULSE 76; RESP 16; TEMP 35.9; O2SAT 96
[2024-06-04] MEDS: IPRATROPIUM 0.5 MG/ALBUTEROL SULFATE 2.5 MG AMPUL.NEB 3 ML INHALATION ×2 (00:07→05:11)
[2024-06-04 00:10] VITALS: PULSE 71; RESP 18; O2SAT 95
[2024-06-04 00:16] VITALS: PULSE 70; RESP 18; O2SAT 96
[2024-06-04 05:14] VITALS: PULSE 72; RESP 18; O2SAT 93
[2024-06-04 05:22] VITALS: PULSE 68; RESP 17; O2SAT 97
[2024-06-04 06:29] LABS: Hematocrit 31.7 % (35.0-42.0); Hemoglobin 10.1 g/dL (11.7-13.8); Mean Corpuscular HGB Conc 31.9 g/dL (32-36); Mean Corpuscular Volume 87.8 fL (78.0-102.0); Mean Platelet Volume 9.8 fl (9.2-11.8); Platelet Count Result 244 K/mm3 (150-420); Red Blood Count 3.61 M/mm3 (4.20-5.40); Red Cell Distribution Width 14.3 % (11.6-14.4); White Blood Count 5.9 K/mm3 (4.8-10.8)
[2024-06-04] MEDS: BUDESONIDE/FORMOTEROL (*SP) 160-4.5 MCG 6 GM INH 2 PUFF INHALATION (06:34)
[2024-06-04] MEDS: LEVOTHYROXINE SODIUM 100 MCG TABLET PO (06:34)
[2024-06-04 06:44] LABS: Alanine Aminotransferase 25 U/L (14-59); Albumin Level 2.7 g/dL (3.4-5.0); Alkaline Phosphatase 117 U/L (46-116); Anion Gap 7 mmol/L (4-12); Aspartate Amino Transferase 21 U/L (15-37); Bilirubin,Total 0.2 mg/dL (0.00-1.00); Blood Urea Nitrogen 9 mg/dL (7-18); Calcium 8.9 mg/dL (8.5-10.1); Carbon Dioxide 32 mmol/L (21-32); Chloride 103 mmol/L (98-108); Estimated CRCL calculation 52 ml/min; Estimated Glomerular Filt Rate > 60; Glucose 104 mg/dL (70-99); Osmolality Calculated 292 mOsm/kg (285-295); Potassium 3.8 mmol/L (3.5-5.1); Sodium 142 mmol/L (136-145); Total Protein 7.2 g/dL (6.4-8.2)
[2024-06-04 07:50] VITALS: BP 114/59; PULSE 71; RESP 16; TEMP 35.9; O2SAT 98
[2024-06-04] MEDS: risperiDONE 1 MG TABLET 2 MG PO (09:23)
[2024-06-04] MEDS: POTASSIUM CHLORIDE 10 MEQ ER TABLET PO (09:23)
[2024-06-04] MEDS: ASPIRIN 81 MG CHEWABLE TABLET PO (09:23)
[2024-06-04] MEDS: DOXYCYCLINE HYCLATE 100 MG TABLET PO (09:23)
[2024-06-04] MEDS: guaiFENesin 12 HR 600 MG TABCR 1200 MG PO (09:23)
[2024-06-04] MEDS: amLODIPine BESYLATE 5 MG TABLET PO (09:24)
[2024-06-04] MEDS: FUROSEMIDE 20 MG TABLET PO (09:24)
[2024-06-04] MEDS: DIVALPROEX SODIUM SPRINKLE 125 MG CAP.DR PO (09:24)
[2024-06-04] MEDS: PANTOPRAZOLE 40 MG TABLET PO (09:24)
[2024-06-04] MEDS: oxyBUTYnin CHLORIDE XL 5 MG TAB.ER.24 PO (09:24)
--- NOTE | 2024-06-04 09:50 | PM.DS ---
DS: Admitting Diagnosis Discharge Date 06/04/2024 Admitting Diagnosis Acute respiratory failure with hypoxia secondary to pneumonia DS: Discharge Diagnosis Discharge Diagnosis (1) Acute hypoxic respiratory failure: Code(s): J96.01 - Acute respiratory failure with hypoxia Status: Acute (2) Pneumonia: Qualifiers: Laterality: right Lung location: lower lobe of lung Pneumonia type: due to unspecified organism Qualified Code(s): J18.9 - Pneumonia, unspecified organism Code(s): J18.9 - Pneumonia, unspecified organism Status: Acute (3) HTN (hypertension): Code(s): I10 - Essential (primary) hypertension Status: Acute (4) COPD (chronic obstructive pulmonary disease): Code(s): J44.9 - Chronic obstructive pulmonary disease, unspecified Status: Acute (5) Iron deficiency anemia: Code(s): D50.9 - Iron deficiency anemia, unspecified Status: Acute Plan disposition: discharge to shelter facility DS: Summary Hospital Course Reason for hospitalization: acute respiratory failure with hypoxia secondary to pneumonia Hospital Course: patient was an 79-year-old female who presented to the emergency department from shelter [facility] with complaints of shortness of breaths per nursing staff and low oxygen saturation. Patient's labs and vitals were unremarkable in the emergency department however patient had desaturation into the 80s was placed on 2 L supplemental oxygen with improvement. Chest x-ray did show subsegmental right lower lung atelectasis versus consolidation. Patient does have a known history of adeno carcinoma to the lungs. patient was also negative for influenza / COVID/RSV she was admitted to the medical unit for further treatment of acute respiratory failure with hypoxia secondary to pneumonia. I started patient on Rocephin and doxycycline with an incentive spirometer and guaifenesin patient improved overall and was wean off oxygen with oxygen saturations in the upper 90s on room air. patient was seen by Physical and Occupational therapy no new recommendations patient ambulatory with walker. patient was then discharged back to her shelter facility on oral antibiotics for pneumonia and can follow-up with her primary care physician in 2 weeks. patient denied any chest pain, shortness of breath, nausea, vomiting, diarrhea /constipation or fever or chills at time of discharge. Status at Discharge Functional status at discharge: uses cane/walker Overall status at discharge: patient is back to baseline Time Spent with Patient Time attestation: Total time spent providing and/or coordinating discharge services: Time spent: Greater than 30 minutes Exam Narrative: GENERAL: Alert and oriented x 3. No acute distress. poor historian history of bipolar has appointed guardian for decision-making EYES: PERRLA. HEENT: Moist mucous membranes. LUNGS: diminished to auscultation bilaterally. No accessory muscle use. CARDIOVASCULAR: Regular rate and rhythm. No murmur. No JVD. S1-S2 ABDOMEN: Soft, non tenderness and non-distended. No palpable masses. EXTREMITIES: No edema. Non-tender SKIN: No rashes or lesions. Skin warm, dry. NEUROLOGIC: No focal neurological deficits. CN II-XII grossly intact PSYCHIATRIC: agitated mood and affect. DS: Data Data Completed and Pending Labs on day of discharge: Labs from last 24 hours 06/04/24 06:14 WBC 5.9 RBC 3.61 L Hgb 10.1 L Hct 31.7 L MCV 87.8 MCH 28.0 MCHC 31.9 L RDW 14.3 Plt Count 244 MPV 9.8 Sodium 142 Potassium 3.8 Chloride 103 Carbon Dioxide 32 Anion Gap 7 BUN 9 Creatinine 0.68 Estim Creat Clear Calc 52 Estimated GFR > 60 Glucose 104 H Calculated Osmolality 292 Calcium 8.9 Total Bilirubin 0.2 AST 21 ALT 25 Alkaline Phosphatase 117 H Total Protein 7.2 Albumin 2.7 L Imaging Radiologist's impression:
--- NOTE | 2024-06-04 10:50 | PC.NURSE ---
Patient discharging back to [facility]. IV site removed, tip intact, dressing applied to site. All discharge instructions and education reviewed with patient. Patient states understanding. Denies any questions at discharge. All belongings gathered together and sent home with patient. Patient accompanied to front door via wheelchair by this nurse. Left in private vehicle with [facility] early breastfeeding care specialist.
--- NOTE | 2024-06-05 13:03 | PC.NURSE ---
Spoke with [facility], they have a follow up appointment scheduled for patient, no questions regarding dc instructions
== END 2024-06-04 10:50 | DRG 193 ==
LOC: CHSED 20:01 → CHS2ND 20:49
PROVIDERS: Admitting Provider Internal Medicine; Emergency Provider Preventive Medicine Aerospace Medicine; PCP Family Medicine; Visit Provider Nurse Practitioner Family
DX: J18.9 Pneumonia, unspecified organism (principal); J96.01 Acute respiratory failure with hypoxia; J44.0 Chronic obstructive pulmonary disease with (acute) lower respiratory infection; C78.00 Secondary malignant neoplasm of unspecified lung; C80.1 Malignant (primary) neoplasm, unspecified; D50.9 Iron deficiency anemia, unspecified; I10 Essential (primary) hypertension; E03.9 Hypothyroidism, unspecified; E78.5 Hyperlipidemia, unspecified; F31.9 Bipolar disorder, unspecified; Z79.82 Long term (current) use of aspirin
CPT/HCPCS: 36415; 71045; 80048; 80053; 81001; 83605; 85025; 85027; 87637; 93005; 94640; 96365; 96366; 99285; A9270; G0378; J0696

== ENCOUNTER 2024-06-28 19:19 | Observation (INO) | payer MEDICARE, SELFPAY ==
[2024-06-28] VITALS (23 sets, daily range): BP systolic 128–171; BP diastolic 47–80; PULSE 76–742; RESP 12–31; TEMP 36.6; O2SAT 87–97; BMI 34.2
--- NOTE | ~2024-06-28 | XR_ITS ---
CHEST RADIOGRAPH CLINICAL HISTORY: shortness of breath . COMPARISON: 06/02/2024 and 01/20/2024 TECHNIQUE: Single portable view of the chest. FINDINGS The cardiomediastinal silhouette is unremarkable. Increased interstitial markings are identified bilaterally, findings suggesting mild pulmonary vascul ar congestion. The lungs are otherwise clear. Visualized osseous structures and soft tissues are unremarkable. IMPRESSION: Mild pulmonary vascular congestion, without focal infiltrate or effusion. Reviewed, dictated and finalized at location A. DENT CARE ASSISTANT
--- NOTE | 2024-06-28 19:32 | ECG_ITS ---
Test Date: 2024-06-28 20:05:43 Measurements Intervals [place] Rate: 79 P: 52 WA: 191 QRS: 1 QRSD: 88 T: 39 QT: 319 QTc: 367 Interpretive Statements SINUS RHYTHM BASELINE ARTIFACT- I, II, AVR, AVL, AVF NORMAL ECG Compared to ECG 06/02/2024 18:46:21 NO SIGNIFICANT CHANGE Electronically Signed On 06-29-2024 06:23:36 INSTRUMENT MAN by Dylan Rojas D.O.
--- NOTE | 2024-06-28 19:37 | ED.SOB ---
HPI - SOB/Dyspnea General Chief Complaint: Shortness of Breath/Dyspnea Stated Complaint: Shortness of breath Time Seen by Provider: 06/28/24 19:23 Source: patient and EMS Mode of arrival: EMS Limitations: no limitations and physical limitation History of Present Illness HPI Narrative: this is a an 79-year-old patient presents via EMS after they were called for cough and congestion that started earlier this evening with some during dinner, patient has a history of COPD and history of metastatic adenocarcinoma of the lung. Patient was complaining of cough was nonproductive with some lung congestion with deep inspiration otherwise no chest pain no fever chills O2 saturations at 95% on room air. Has no nausea vomiting no abdominal pain no flank pain no dysuria no hematuria. MD elicited complaint: shortness of breath and cough Pertinent past history: COPD Onset (ago): hour(s) Timing: constant Severity: moderate Exacerbating factors: coughing and deep breaths Related Data Home Medications Medication Instructions Recorded Confirmed aspirin 81 mg chewable tablet 81 mg PO DAILY 11/01/23 06/28/24 atorvastatin 20 mg tablet 20 mg PO HS 11/01/23 06/28/24 budesonide-formoterol HFA 160 2 puff inhalation BID 11/01/23 06/28/24 mcg-4.5 mcg/actuation aerosol inhaler (Breyna) carbamazepine 100 mg chewable 300 mg PO BID 11/01/23 06/28/24 tablet divalproex 125 mg capsule,delayed 125 mg PO BID 11/01/23 06/28/24 release sprinkle furosemide 20 mg tablet 20 mg PO DAILY 11/01/23 06/28/24 levothyroxine 100 mcg tablet 100 mcg PO DAILY 11/01/23 06/28/24 montelukast 10 mg tablet 10 mg PO HS 11/01/23 06/28/24 oxybutynin chloride 5 mg 5 mg PO DAILY 11/01/23 06/28/24 tablet,extended release 24 hr pantoprazole 40 mg tablet,delayed 40 mg PO DAILY 11/01/23 06/28/24 release potassium chloride 10 mEq 10 meq PO BID 11/01/23 06/28/24 tablet,extended release(part/cryst) risperidone 2 mg tablet 2 mg PO DAILY 11/01/23 06/28/24 starch (thickening) (Thick-It oral 1 ea PO DAILY 06/28/24 06/28/24 powder) Allergies Allergy/AdvReac Type Severity Reaction Status Date / Time cinnamon Allergy Rash Verified 06/02/24 18:22 Review of Systems Review of Systems: All systems reviewed & are unremarkable except as noted in HPI and below PMFSH Past Medical History Medical History Aspiration pneumonia Bipolar 1 disorder COPD (chronic obstructive pulmonary disease) HLD (hyperlipidemia) HTN (hypertension) Hypothyroid 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 She only tells me about her son, Artemio Gant [phone]. She has a court appointed guardian, Nai Workman [phone]. Smoking packs per day: 3 Smoking cigarettes per day: 60.0 Years smoked: 10 Smoking pack-years: 30.00 Smoking status: Never smoker Tobacco type: cigarettes Second hand tobacco smoke exposure: No Smoking end date: 08/22/79 Alcohol intake: never Substance use: never Substance use type: does not use Do You Feel Safe in your Home?: Yes Lack of Transportation: No Lack of Food: Never True Current Housing: I Have Housing Concerned About Future Housing: No Difficulty Paying Gas/Electric Bills: No Difficulty Paying for Meds: No Currently Unemployed: No Education: Associate Degree Difficulty w/ Childcare or Family Care: No Living arrangements: halfway Additional living arrangements comments: Lives at [facility] Occupation/Education: other Additional occupation/education comments: disability. 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 Gender identity (if verbalized by the patient): Female Spiritual care concerns: No Exam Const: General: healthy appearing and no acute distress Nutritional Appearance: well nourished Orientation/consciousness: patient oriented x3 Limitations: no limitations HENMT: Head: normal to inspection Eyes: Conjunctivae: conjunctivae normal Pupils: Equal, round and reactive pupils present Neck: Neck: normal visual inspection, no lymphadenopathy and no meningeal signs Chest: Chest palpation & inspection: normal inspection of the chest Resp: Effort & Inspection: normal respiratory effort Auscultation: wheezes and diminished lung sounds Cardio: Rate: regular rate Rhythm: regular rhythm GI: GI Palp: Yes Soft to palpation Auscultation: normal bowel sounds : General: Yes bladder normal to palpation Back/Spine/Pelvis: Back: no CVA tenderness Skin: General skin exam: normal color Rashes: no rashes Neuro: General: patient oriented x3, moves all extremities, no meningeal signs and no focal motor deficits Extrem: General: normal to inspection, no clubbing, cyanosis or edema and no pedal edema Course Course Emergency Course: patient chest x-ray performed reviewed, white cell count 7.3 patient had a lactic acid of 2.1 with a BNP of 103 and urinalysis shows UTI. Patient with some O2 sats of 95% on 2L had DuoNeb for a COPD exacerbation and for UTI a dose of 1g IV ceftriaxone. Will admit to hospitalist service. Vital Signs Vital signs: Vital Signs Temperature 36.6 C 06/28/24 19:26 Pulse Rate 82 06/28/24 19:26 Respiratory Rate 19 06/28/24 19:26 Blood Pressure 171/78 H 06/28/24 19:26 Pulse Oximetry 95 06/28/24 19:26 Oxygen Delivery Room Air 06/28/24 19:26 Temperature 36.6 C 06/28/24 19:26 Pulse Rate 82 06/28/24 19:26 Respiratory Rate 19 06/28/24 19:26 Blood Pressure 171/78 H 06/28/24 19:26 Pulse Oximetry 95 06/28/24 19:26 Oxygen Delivery Room Air 06/28/24 19:26 Critical Care Time Critical Care Time Critical Care Time: No Discharge Plan Discharge Clinical Impression: COPD (chronic obstructive pulmonary disease) Qualifiers: COPD type: unspecified COPD Qualified Code(s): J44.9 - Chronic obstructive pulmonary disease, unspecified UTI (urinary tract infection) Qualifiers: Urinary tract infection type: site unspecified Hematuria presence: without hematuria Qualified Code(s): N39.0 - Urinary tract infection, site not specified Patient Disposition: Acute Care Hospital [facility] Condition: Guarded Prognosis Prescriptions: No Action amlodipine [Norvasc] 5 mg Tablet 5 mg PO QAM Qty: 30 0RF Thick-It Powder 1 ea PO DAILY Rx Instructions: with all drinks atorvastatin 20 mg tablet 20 mg PO HS risperidone 2 mg tablet 2 mg PO DAILY levothyroxine 100 mcg tablet 100 mcg PO DAILY pantoprazole 40 mg tablet,delayed release (DR/EC) 40 mg PO DAILY carbamazepine 100 mg tablet,chewable 300 mg PO BID oxybutynin chloride 5 mg tablet extended release 24hr 5 mg PO DAILY aspirin 81 mg tablet,chewable 81 mg PO DAILY montelukast 10 mg tablet 10 mg PO HS furosemide 20 mg tablet 20 mg PO DAILY divalproex 125 mg capsule, delayed rel sprinkle 125 mg PO BID potassium chloride 10 mEq tablet,ER particles/crystals 10 meq PO BID budesonide-formoterol [Breyna] 160-4.5 mcg/actuation HFA aerosol inhaler 2 puff INHALATION BID Follow-up/Referrals: Sameer Freeman MD [Primary Care Provider] - Time of Disposition: 21:21
[2024-06-28] MEDS: IPRATROPIUM 0.5 MG/ALBUTEROL SULFATE 2.5 MG AMPUL.NEB 3 ML INHALATION ×2 (19:43→23:45)
--- NOTE | 2024-06-28 20:05 | PC.NURSE ---
Pts SPO2 decreased to 87% when lying back and resting, noted slight SOB. Pt placed on NC O2 at 2L per erp order.
[2024-06-28 20:17] LABS: Basophils Absolute Auto 0.06 K/mm3 (0.00-0.10); Basophils Percent Auto 0.8 % (0.0-1.0); Eosinophils Absolute Auto 0.44 K/mm3 (0.02-0.50); Hematocrit 31.3 % (35.0-42.0); Hemoglobin 9.7 g/dL (11.7-13.8); Immature Granulocyte Absolute 0.07 K/mm3 (0.00-0.00); Lymphocytes Absolute Auto 1.99 K/mm3 (1.10-4.50); Lymphocytes Percent Auto 27.1 % (18.0-42.0); Mean Corpuscular Volume 83.9 fL (78.0-102.0); Mean Platelet Volume 9.7 fl (9.2-11.8); Monocytes Absolute Auto 0.69 K/mm3 (0.10-0.90); Monocytes Percent Auto 9.4 % (2.0-11.0); Neutrophils Absolute Auto 4.09 K/mm3 (1.70-7.20); Neutrophils Percent Auto 55.7 % (50.0-70.0); Platelet Count Result 249 K/mm3 (150-420); Red Blood Count 3.73 M/mm3 (4.20-5.40); Red Cell Distribution Width 14.5 % (11.6-14.4); White Blood Count 7.3 K/mm3 (4.8-10.8)
[2024-06-28 20:30] LABS: Add Urine Microscopic? YES; Appearance Urine Clear (Clear); Bilirubin Urine Negative (Negative); Blood Urine Negative (Negative); Color Urine Light Yellow (Yellow); Glucose Urine UA Negative (Negative); Ketones Urine Trace (Negative); Leukocyte Esterase Ur 2+ LEU/UL (Negative); Nitrate Urine Negative (Negative); Protein Urine Negative (Negative); Specific Grav Ur 1.025 (1.010-1.020); Urobilinogen Urine 0.2 mg/dL (0.2-1.0); pH Urine 5.5 (5.0-8.0)
[2024-06-28 20:32] LABS: INR 0.9; Partial Thromboplastin Time 24.6 Sec (23.9-30.70); Prothrombin Time 9.6 Seconds (9.50-12.1)
[2024-06-28 20:42] LABS: Bacteria Urine 1+ /hpf; RBC Urine 0-2 /hpf (0-2); Squamous Epithelial Cell Urine Moderate /hpf (Few); WBC Urine 31-50 /hpf (0-3)
[2024-06-28 20:50] LABS: Lactic Acid Reflex 2.1 mmol/L (0.4-2.0)
[2024-06-28 20:52] LABS: Alanine Aminotransferase 19 U/L (14-59); Albumin Level 3.1 g/dL (3.4-5.0); Alkaline Phosphatase 159 U/L (46-116); Anion Gap 10 mmol/L (4-12); Bilirubin,Total 0.1 mg/dL (0.00-1.00); Blood Urea Nitrogen 11 mg/dL (7-18); Calcium 8.7 mg/dL (8.5-10.1); Carbon Dioxide 30 mmol/L (21-32); Chloride 101 mmol/L (98-108); Estimated CRCL calculation 48 ml/min; Estimated Glomerular Filt Rate > 60; Glucose 100 mg/dL (70-99); NT Pro B Type Natriuretic Pept 103 pg/mL (0-450); Osmolality Calculated 291 mOsm/kg (285-295); Potassium 3.5 mmol/L (3.5-5.1); Sodium 141 mmol/L (136-145); Total Protein 7.3 g/dL (6.4-8.2)
[2024-06-28 21:17] LABS: SARS-CoV-2 RNA PCR Negative (Negative)
[2024-06-28 21:19] LABS: Influenza A QL RT-PCR Negative (Negative); Influenza B QL RT-PCR Negative (Negative); RSV RNA, RT-PCR Negative (Negative)
[2024-06-28 21:22] LABS: Aspartate Amino Transferase 16 U/L (15-37)
--- NOTE | 2024-06-28 21:37 | PC.NURSE ---
Call placed to floor, spoke to Cheri Zambrano and pt will go to Rm [id number].
--- NOTE | 2024-06-28 22:04 | PC.NURSE ---
ED SBAR printed and reviewed. Pt now on 2nd floor status board, room is ready for pt arrival.
--- NOTE | 2024-06-28 22:53 | ADMGEN ---
This patient, Maria G Gant, was admitted to 2nd Floor Room 203-1. Patient oriented to hospital policies and general routines including ID bracelet, bed and alarms, visiting hours, pain management, procedures, bathroom and other care routines, personal items, smoking policy, room service/diet, and visiting hours. Information on how to activate the Rapid Response Team has been discussed. Patient are encouraged to report perceived risks to care and to ask questions if they do not understand what they are told or what they should do.
[2024-06-28] MEDS: methylPREDNISolone SOD SUCC 40 MG VIAL IV PUSH (23:05)
[2024-06-28] MEDS: SODIUM CHLORIDE 0.9% IV 1,000 ML 100 ML IV CONT (23:05)
[2024-06-28 23:14] LABS: Reflex Lactic Acid Yes or No Add Lactic
[2024-06-29] VITALS (9 sets, daily range): BP systolic 144–148; BP diastolic 64–70; PULSE 78–108; RESP 12–20; TEMP 36.4–36.6; O2SAT 93–100
[2024-06-29] MEDS: IPRATROPIUM 0.5 MG/ALBUTEROL SULFATE 2.5 MG AMPUL.NEB 3 ML INHALATION ×2 (05:37→12:44)
[2024-06-29 05:47] LABS: Basophils Absolute Auto 0.05 K/mm3 (0.00-0.10); Basophils Percent Auto 0.6 % (0.0-1.0); Eosinophils Absolute Auto 0.01 K/mm3 (0.02-0.50); Eosinophils Percent Auto 0.1 % (1.0-6.0); Hematocrit 27.9 % (35.0-42.0); Hemoglobin 8.9 g/dL (11.7-13.8); Immature Granulocyte Absolute 0.06 K/mm3 (0.00-0.00); Immature Granulocyte Percent A 0.7 % (0.0-0.0); Lymphocytes Percent Auto 10.3 % (18.0-42.0); Mean Corpuscular HGB Conc 31.9 g/dL (32-36); Mean Corpuscular Hemoglobin 26.8 pg (27.0-31.0); Mean Platelet Volume 9.7 fl (9.2-11.8); Monocytes Absolute Auto 0.24 K/mm3 (0.10-0.90); Monocytes Percent Auto 2.7 % (2.0-11.0); Neutrophils Absolute Auto 7.51 K/mm3 (1.70-7.20); Neutrophils Percent Auto 85.6 % (50.0-70.0); Platelet Count Result 225 K/mm3 (150-420); Red Blood Count 3.32 M/mm3 (4.20-5.40); Red Cell Distribution Width 14.6 % (11.6-14.4); White Blood Count 8.8 K/mm3 (4.8-10.8)
[2024-06-29 06:04] LABS: Alanine Aminotransferase 17 U/L (14-59); Albumin Level 2.7 g/dL (3.4-5.0); Alkaline Phosphatase 136 U/L (46-116); Anion Gap 11 mmol/L (4-12); Aspartate Amino Transferase 13 U/L (15-37); Bilirubin,Total 0.1 mg/dL (0.00-1.00); Blood Urea Nitrogen 10 mg/dL (7-18); Calcium 8.5 mg/dL (8.5-10.1); Carbon Dioxide 26 mmol/L (21-32); Chloride 105 mmol/L (98-108); Estimated CRCL calculation 52 ml/min; Estimated Glomerular Filt Rate > 60; Glucose 128 mg/dL (70-99); Osmolality Calculated 295 mOsm/kg (285-295); Potassium 3.9 mmol/L (3.5-5.1); Sodium 142 mmol/L (136-145); Total Protein 6.6 g/dL (6.4-8.2)
[2024-06-29] MEDS: LEVOTHYROXINE SODIUM 100 MCG TABLET PO (06:06)
[2024-06-29] MEDS: BUDESONIDE/FORMOTEROL (*SP) 160-4.5 MCG 6 GM INH 2 PUFF INHALATION (06:06)
[2024-06-29] MEDS: methylPREDNISolone SOD SUCC 40 MG VIAL IV PUSH ×2 (06:06→13:21)
[2024-06-29 06:07] LABS: Lactic Acid 2.7 mmol/L (0.4-2.0)
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
--- NOTE | 2024-06-29 09:14 | HOMEO2EVAL ---
Evaluation was performed at [facility] Home Oxygen Evaluation RC: Home Oxygen (O2) Evaluation Start: 06/29/24 08:48 Freq: ONCE Status: Active Protocol: RPE Activity Type Activity Date Activity User E-sign Co-sign Detail Recorded Client Recorded Date Recorded By Document 06/29/24 09:00 [place] [id number] 06/29/24 09:13 SJB Document 06/29/24 09:10 SJB [id number] 06/29/24 09:13 SJB 06/29/24 06/29/24 09:00 09:10 Home O2 Evaluation [Oxygen] -Test Phase Resting Exercise -Oxygen Delivery Room Air Room Air [Pulse Oximetry] -Pulse Oximetry (90-100 %) 96 93 [Pulse Rate] -Pulse Rate (60-100 beats/min) 91 108 H [Evaluation] -Activity Tolerance Good -Rating of Perceived Dyspnea (PD) +1 Mild, Noticeable to the Participant but Not to an Observer -Rate of Perceived Exertion (PE) 12 Query Text:Click the Protocol Button to View the RPE Scale [Exercise] -Ambulation Distance (feet) 550 -Ambulation Distance (meters) 167.63 [Comments] -Home Oxygen Evaluation Comments Will begin walk Pt walked pushing approx 550 ft wheelchair on on room air, room air. talking the whole time. Sp02 remained at 93% and above. HR up to 108. Educated on PLB . Tolerated very well. [Charges] -Evaluation Charges O2 Evaluation Charge
[2024-06-29] MEDS: oxyBUTYnin CHLORIDE XL 5 MG TAB.ER.24 PO (09:50)
[2024-06-29] MEDS: FUROSEMIDE 20 MG TABLET PO (09:50)
[2024-06-29] MEDS: guaiFENesin 12 HR 600 MG TABCR 1200 MG PO (09:50)
[2024-06-29] MEDS: PANTOPRAZOLE 40 MG TABLET PO (09:51)
[2024-06-29] MEDS: risperiDONE 1 MG TABLET 2 MG PO (09:51)
[2024-06-29] MEDS: POTASSIUM CHLORIDE 10 MEQ ER TABLET PO (09:51)
[2024-06-29] MEDS: ASPIRIN 81 MG CHEWABLE TABLET PO (09:52)
[2024-06-29] MEDS: amLODIPine BESYLATE 5 MG TABLET PO (09:52)
[2024-06-29] MEDS: FERROUS SULFATE 325 MG TABLET DR PO (09:53)
[2024-06-29] MEDS: DIVALPROEX SODIUM SPRINKLE 125 MG CAP.DR PO (09:53)
[2024-06-29] MEDS: AZITHROMYCIN 250 MG TABLET 500 MG PO (09:53)
--- NOTE | 2024-06-29 09:54 | P.SS_ITS ---
Same Day Admit/Disch: HPI History of Present Illness Chief complaint: UTI COPD EXCERBATION Narrative: Maria G Gant is a 79 year old female who presented to the emergency department with complaints shortness of breath, cough and congestion. Patient does have a past medical history COPD, metastatic adenocarcinoma of the lung, hypertension, bipolar disorder, HLD, and aspiration pneumonia. patient arrives to the emergency department by EMS from assisted facility she had complaints continuous nonproductive cough per patient her oxygen was low. upon arrival to the emergency department patient was 95% room air however did an episode of hypoxia at 87% was placed on 2 L nasal cannula of supplemental oxy gen. patient's hemoglobin was mildly low patient does have a chronic iron- deficiency anemia hemodynamically stable otherwise labs unremarkable however CXR did show some vascular congestion. urinalysis was suspicious for an urinary tract infection patient received azithromycin and Rocephin in the emergency department and was admitted for further evaluation and treatment for COPD exacerbation and UTI. [facility] Past Medical History Medical History (Updated 06/30/24 @ 08:14 by Aidee Rodriguez APRN) Aspiration pneumonia Bipolar 1 disorder COPD (chronic obstructive pulmonary disease) HLD (hyperlipidemia) HTN (hypertension) Hypothyroid 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 She only tells me about her son, Artemio Gant [phone]. She has a court appointed guardian, Nai Workman [phone]. Smoking packs per day: 3 Smoking cigarettes per day: 60.0 Years smoked: 15 Smoking pack-years: 45.00 Smoking status: Former smoker Tobacco type: cigarettes Second hand tobacco smoke exposure: No Smoking end date: 12/13/73 Alcohol intake: never Substance use: never Substance use type: does not use Do You Feel Safe in your Home?: Yes Lack of Transportation: No Lack of Food: Never True Current Housing: I Have Housing Concerned About Future Housing: No Difficulty Paying Gas/Electric Bills: No Difficulty Paying for Meds: No Currently Unemployed: No Education: Decline to Answer Difficulty w/ Childcare or Family Care: No Living arrangements: [facility] Additional living arrangements comments: Lives at [facility] Occupation/Education: other Additional occupation/education comments: disability. 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 Gender identity (if verbalized by the patient): Female Spiritual care concerns: Yes ([place]) Same Day Admit/Disch: Med Pre-admit Medications Home Medications Medication Instructions Recorded Confirmed Type aspirin 81 mg chewable tablet 81 mg PO DAILY 11/01/23 06/28/24 History atorvastatin 20 mg tablet 20 mg PO HS 11/01/23 06/28/24 History budesonide-formoterol HFA 160 2 puff inhalation BID 11/01/23 06/28/24 History mcg-4.5 mcg/actuation aerosol inhaler (Breyna) carbamazepine 100 mg chewable 300 mg PO BID 11/01/23 06/28/24 History tablet divalproex 125 mg capsule,delayed 125 mg PO BID 11/01/23 06/28/24 History release sprinkle levothyroxine 100 mcg tablet 100 mcg PO DAILY 11/01/23 06/28/24 History montelukast 10 mg tablet 10 mg PO HS 11/01/23 06/28/24 History oxybutynin chloride 5 mg 5 mg PO DAILY 11/01/23 06/28/24 History tablet,extended release 24 hr pantoprazole 40 mg tablet,delayed 40 mg PO DAILY 11/01/23 06/28/24 History release potassium chloride 10 mEq 10 meq PO BID 11/01/23 06/28/24 History tablet,extended release(part/cryst) risperidone 2 mg tablet 2 mg PO DAILY 11/01/23 06/28/24 History amlodipine 5 mg tablet (Norvasc) 5 mg PO QAM #30 tabs 01/03/24 06/28/24 Rx starch (thickening) (Thick-It oral 1 ea PO DAILY 06/28/24 06/28/24 History powder) amoxicillin 875 mg-potassium 1 tablet PO Q12H #10 tabs 06/29/24 Rx clavulanate 125 mg tablet azithromycin 250 mg tablet 250 mg PO DAILY 4 days #4 tabs 06/29/24 Rx ferrous sulfate 325 mg (65 mg 325 mg PO DAILY #30 tabs 06/29/24 Rx iron) tablet,delayed release furosemide 20 mg tablet 40 mg PO DAILY #60 tabs 06/29/24 06/28/24 Rx guaifenesin 600 mg tablet, 1,200 mg PO Q12HR #14 tabs 06/29/24 Rx extended release 12 hr (Mucus Relief ER) loratadine 10 mg tablet 10 mg PO QAM #30 tabs 06/29/24 Rx prednisone 20 mg tablet 40 mg PO DAILY #8 tabs 06/29/24 Rx Review of Systems Review of Systems All systems reviewed & are unremarkable except as noted in HPI and below Exam Narrative: * GENERAL: Alert and oriented x 3 pleasant female. No acute distress. * EYES: EOMI. No scleral icterus. PERRLA. * HEENT: Moist mucous membranes. * LUNGS: Diminished to auscultation bilaterally. No accessory muscle use. * CARDIOVASCULAR: Regular rate and rhythm. No murmur. No JVD. S1-S2 * ABDOMEN: Soft, non tenderness and non-distended. No palpable masses. * EXTREMITIES: No edema. Non-tender * SKIN: No rashes or lesions. Skin warm, dry. * NEUROLOGIC: No focal neurological deficits. CN II-XII grossly intact * PSYCHIATRIC: Appropriate mood and affect. Good judgement and insight. No visual or auditory hallucinations. No suicidal or homicidal ideation. patient does have history of bipolar disorder DS: Data Data Completed and Pending Labs on day of discharge: Labs from last 24 hours 06/29/24 06/28/24 06/28/24 05:22 20:28 19:58 WBC 8.8 RBC 3.32 L Hgb 8.9 L Hct 27.9 L MCV 84.0 MCH 26.8 L MCHC 31.9 L RDW 14.6 H Plt Count 225 MPV 9.7 Immature Gran % (Auto) 0.7 H Neut % (Auto) 85.6 H Lymph % (Auto) 10.3 L Dixon % (Auto) 2.7 Eos % (Auto) 0.1 L Baso % (Auto) 0.6 Lymph # (Auto) 0.90 L Dixon # (Auto) 0.24 Eos # (Auto) 0.01 L Baso # (Auto) 0.05 Abs Immat Gran (auto) 0.06 H Absolute Neuts (auto) 7.51 H Absolute Nucleated RBC 0.00 Nucleated RBC % 0.0 PT INR APTT Sodium 142 Potassium 3.9 Chloride 105 Carbon Dioxide 26 Anion Gap 11 BUN 10 Creatinine 0.68 Estim Creat Clear Calc 52 Estimated GFR > 60 Glucose 128 H Calculated Osmolality 295 Lactic Acid 2.7 H Calcium 8.5 Total Bilirubin 0.1 AST 13 L ALT 17 Alkaline Phosphatase 136 H NT-Pro-B Natriuret Pep Total Protein 6.6 Albumin 2.7 L Urine Color Light yellow Urine Appearance Clear Urine pH 5.5 Ur Specific [place] 1.025 H Urine Protein Negative Urine Glucose (UA) Negative Urine Ketones Trace H Ur Blood (Man) Negative Urine Nitrate Negative Urine Bilirubin Negative Urine Urobilinogen 0.2 Leukocyte Esterase Rfl 2+ H Urine RBC 0-2 Urine WBC 31-50 H Ur Squamous Epith Cells Moderate H Urine Bacteria 1+ H Influenza A (RT-PCR) Negative Influenza B (RT-PCR) Negative RSV (RT-PCR) Negative SARS-CoV-2 RNA (RT-PCR) Negative 06/28/24 19:57 WBC 7.3 RBC 3.73 L Hgb 9.7 L Hct 31.3 L MCV 83.9 MCH 26.0 L MCHC 31.0 L RDW 14.5 H Plt Count 249 MPV 9.7 Immature Gran % (Auto) 1.0 H Neut % (Auto) 55.7 Lymph % (Auto) 27.1 Dixon % (Auto) 9.4 Eos % (Auto) 6.0 Baso % (Auto) 0.8 Lymph # (Auto) 1.99 Dixon # (Auto) 0.69 Eos # (Auto) 0.44 Baso # (Auto) 0.06 Abs Immat Gran (auto) 0.07 H Absolute Neuts (auto) 4.09 Absolute Nucleated RBC 0.00 Nucleated RBC % 0.0 PT 9.6 INR 0.9 APTT 24.6 Sodium 141 Potassium 3.5 Chloride 101 Carbon Dioxide 30 Anion Gap 10 BUN 11 Creatinine 0.75 Estim Creat Clear Calc 48 Estimated GFR > 60 Glucose 100 H Calculated Osmolality 291 Lactic Acid 2.1 H Calcium 8.7 Total Bilirubin 0.1 AST 16 ALT 19 Alkaline Phosphatase 159 H NT-Pro-B Natriuret Pep 103 Total Protein 7.3 Albumin 3.1 L Urine Color Urine Appearance Urine pH Ur Specific [place] Urine Protein Urine Glucose (UA) Urine Ketones Ur Blood (Man) Urine Nitrate Urine Bilirubin Urine Urobilinogen Leukocyte Esterase Rfl Urine RBC Urine WBC Ur Squamous Epith Cells Urine Bacteria Influenza A (RT-PCR) Influenza B (RT-PCR) RSV (RT-PCR) SARS-CoV-2 RNA (RT-PCR) Imaging Radiologist's impression: FINDINGS The cardiomediastinal silhouette is unremarkable. Increased interstitial markings are identified bilaterally, findings suggesting mild pulmonary vascular congestion. The lungs are otherwise clear. Visualized osseous structures and soft tissues are unremarkable. IMPRESSION: Mild pulmonary vascular congestion, without focal infiltrate or effusion. DS: Summary Hospital Course Reason for hospitalization: COPD exacerbation/ UTI Hospital Course: Maria G Gant is a 79 year old female who presented to the emergency department with complaints shortness of breath, cough and congestion. Patient does have a past medical history COPD, metastatic adenocarcinoma of the lung, hypertension, bipolar disorder, HLD, and aspiration pneumonia. patient arrives to the emergency department by EMS from assisted facility she had complaints continuous nonproductive cough per patient her oxygen was low. upon arrival to the emergency department patient was 95% room air however did an episode of hypoxia at 87% was placed on 2 L nasal cannula of supplemental oxygen. patient's hemoglobin was mildly low patient does have a chronic iron- deficiency anemia hemodynamically stable otherwise labs unremarkable however CXR did show some vascular congestion. urinalysis was suspicious for an urinary tract infection patient received azithromycin and Rocephin in the emergency department and was admitted for further evaluation and treatment for COPD exacerbation and UTI. patient was kept overnight and received duo nebulizer treatments and initiated oral steroids. Patient with no events after admission was weaned off supplemental oxygen and did a home O2 walk study that showed patient did not need home oxygen. Patient's labs remained unremarkable no leukocytosis. Patient does take 20mg of oral Lasix gave 1 dose of IV 20 mg for the vascular congestion. patient reported she overall felt better the next day cough and improved as well as shortness breath. patient was discharged back to her assisted living on oral antibiotics azithromycin for COPD exacerbation and Augmentin for UTI, mucolytics, and p.o. steroids Status at Discharge Functional status at discharge: uses cane/walker Overall status at discharge: patient is back to baseline Time Spent with Patient Time attestation: Total time spent providing and/or coordinating discharge services: Time spent: Greater than 30 minutes DS: Admitting Diagnosis Discharge Date 06/29/2024 Admitting Diagnosis COPD exacerbation/ UTI/ URI DS: Discharge Diagnosis Discharge Diagnosis (1) Hypoxia: Code(s): R09.02 - Hypoxemia Status: Acute (2) UTI (urinary tract infection): Qualifiers: Hematuria presence: without hematuria Urinary tract infection type: site unspecified Qualified Code(s): N39.0 - Urinary tract infection, site not specified Code(s): N39.0 - Urinary tract infection, site not specified Status: Acute (3) COPD (chronic obstructive pulmonary disease): Qualifiers: COPD type: unspecified COPD Qualified Code(s): J44.9 - Chronic obstructive pulmonary disease, unspecified Code(s): J44.9 - Chronic obstructive pulmonary disease, unspecified Status: Acute (4) Bipolar 1 disorder: Code(s): F31.9 - Bipolar disorder, unspecified Status: Chronic (5) Acute hypoxic respiratory failure: Code(s): J96.01 - Acute respiratory failure with hypoxia Status: Acute (6) Metastatic adenocarcinoma to lung: Code(s): C78.00 - Secondary malignant neoplasm of unspecified lung Status: Acute Plan disposition: patient was discharged back to assisted living facility Discharge Plan Discharge Attending physician on discharge: Mahendra Almanzar Discharging Clinician: Aidee Rodriguez Anticipated Discharge Date/Time: 06/29/24 09:40 Patient Disposition: SNF Activity: unlimited and as tolerated Diet: heart healthy Discharge Instructions: You are being discharged after treatment for a COPD exacerbation and Upper respiratory infection. Please take new antibiotic as prescribed as well as steroid, Claritin, and guaifenesin. I did perform a Home oxygen study and at this time you do not require oxygen at discharge. I encourage the use of the incentive spirometer provided as needed. I have attached information on COPD exacerbation as well as upper respiratory infection. Your urinary was suspicious for a UTI and I have prescribed and antibiotic for that as well take as directed. I encourage practicing proper hygiene to lower the risk of reoccurrences as well as good hydration. How can you care for yourself at home? ? Keep track of any new symptoms or changes in your symptoms. ? Rest until you feel better. ? Be safe with medicines. Take your medicines exactly as prescribed. Call your doctor if you think you are having a problem with your medicine. ? Do not drive after taking a prescription pain medicine. ? Ensure to follow-up with primary care physician as indicated and provide updated medication list provided to you at discharge. When should you call for help? Call 911 anytime you think you may need emergency care. For example, call if: ? You passed out (lost consciousness). Call your doctor now or seek immediate medical care if: ? You have new symptoms like fever, difficulty breathing, Chest pain, vomiting, or rash. ? You have new or different pain. ? You are confused and are having trouble thinking clearly. ? Your symptoms are getting worse. Watch closely for changes in your health, and be sure to contact your doctor if: ? You do not get better as expected. Patient Instructions: Amoxicillin/Clavulanate Potassium (By mouth), Azithromycin (By mouth), Urinary Tract Infection in Women (DC), Fall Prevention for Older Adults (DC), Upper Respiratory Infection (DC), COPD (Chronic Obstructive Pulmonary Disease) (DC) Patient Language: Colombian Stand Alone Forms: General Discharge Information, [facility] Discharge Follow-up/Referrals: Sameer Freeman MD [Primary Care Provider] - 4 Weeks Discharge Medications: New ferrous sulfate 325 mg (65 mg iron) Tablet,Delayed Release (Dr/Ec) 325 mg PO DAILY Qty: 30 0RF guaifenesin [Mucus Relief ER] 600 mg Tablet Extended Release 12hr 1,200 mg PO Q12HR Qty: 14 0RF loratadine 10 mg Tablet 10 mg PO QAM Qty: 30 0RF azithromycin 250 mg tablet 250 mg PO DAILY 4 Days Qty: 4 0RF amoxicillin-pot clavulanate 875-125 mg tablet 1 tablet PO Q12H Qty: 10 0RF prednisone 20 mg tablet 40 mg PO DAILY Qty: 8 0RF Continued amlodipine [Norvasc] 5 mg Tablet 5 mg PO QAM Qty: 30 0RF Thick-It Powder 1 ea PO DAILY Rx Instructions: with all drinks atorvastatin 20 mg tablet 20 mg PO HS risperidone 2 mg tablet 2 mg PO DAILY levothyroxine 100 mcg tablet 100 mcg PO DAILY pantoprazole 40 mg tablet,delayed release (DR/EC) 40 mg PO DAILY carbamazepine 100 mg tablet,chewable 300 mg PO BID oxybutynin chloride 5 mg tablet extended release 24hr 5 mg PO DAILY aspirin 81 mg tablet,chewable 81 mg PO DAILY montelukast 10 mg tablet 10 mg PO HS divalproex 125 mg capsule, delayed rel sprinkle 125 mg PO BID potassium chloride 10 mEq tablet,ER particles/crystals 10 meq PO BID budesonide-formoterol [Breyna] 160-4.5 mcg/actuation HFA aerosol inhaler 2 puff INHALATION BID Changed furosemide 20 mg tablet 40 mg PO DAILY Qty: 60 0RF Date of admission: 06/28/24 21:21 Primary Care Provider: Sameer Freeman Admitting Provider: Mahendra Almanzar Attending physician on admission: Aidee Rodriguez Condition: Stable Quality -Patient's previous records reviewed on admission -ER notes reviewed in detail on admission -discussed all findings and current treatment plan with patient/Family/POA -Consultations reviewed for recommendations -Patient's disposition for safe discharge discussed with family service caseworker Dictation performed by [employer] direct speech recognition software, therefore radar systems engineer variants and typographical errors may occur. Hospitalist MIPS Advance Care Plan I have confirmed that the patient's Advanced Care Plan is present, code status is documented, or surrogate decision maker is listed in patient medical record.: Yes Medication Reconciliation I have utilized all available resources to obtain, update and review the patients current medications (includes all prescriptions, OTC, herbals, cannabis, and nutritional supplements).: Yes The patient is not eligible for med reconciliation; the patient is in a emergent medical situation where delaying treatment would jeopardize the patients health.: No Heart Failure (Exclusion) Patient has history of Heart Transplant or Left Ventricular Assistive Device?: No IF YES, STOP HERE Heart Failure (Qualifier) Patient has current or prior documentation of LVEF less than or equal to 40%, or mod/servere depressed LVSF?: No IF NO, STOP HERE
[2024-06-29] MEDS: LORATADINE 10 MG TABLET PO (09:55)
[2024-06-29] MEDS: FUROSEMIDE INJ 20 MG/2 ML VIAL IV PUSH (10:21)
[2024-06-29] MEDS: FUROSEMIDE INJ 40 MG/4 ML VIAL (11:20)
--- NOTE | 2024-06-29 14:31 | PC.NURSE ---
Pt discharged back to [facility]. Discharge instructions given to adrián pt and Jessica. Education done on all meds, fall precautions reviewed. Pt taked to private car via .
--- NOTE | 2024-07-03 10:11 | PC.NURSE ---
Spoke with luisa, Maria G is doing well, no questions regarding dc instructions
== END 2024-06-29 14:20 ==
LOC: CHSED 21:21 → CHS2ND 22:00
PROVIDERS: Admitting Provider Internal Medicine; Emergency Provider Emergency Medicine; PCP Family Medicine; Visit Provider Nurse Practitioner Family
DX: J44.1 Chronic obstructive pulmonary disease with (acute) exacerbation (principal); J96.01 Acute respiratory failure with hypoxia; N39.0 Urinary tract infection, site not specified; C80.1 Malignant (primary) neoplasm, unspecified; C78.00 Secondary malignant neoplasm of unspecified lung; D50.9 Iron deficiency anemia, unspecified; F31.9 Bipolar disorder, unspecified; E78.5 Hyperlipidemia, unspecified; I10 Essential (primary) hypertension; E03.9 Hypothyroidism, unspecified; Z20.822 Contact with and (suspected) exposure to COVID-19; Z79.82 Long term (current) use of aspirin; Z79.51 Long term (current) use of inhaled steroids; Z79.899 Other long term (current) drug therapy; Z87.891 Personal history of nicotine dependence
CPT/HCPCS: 36415; 71045; 80053; 81001; 83605; 83880; 85025; 85610; 85730; 87040; 87086; 87637; 93005; 94618; 94640; 96365; 96374; 96376; 99285; A9270; G0378; J0696; J1940; J2919; J7030

== ENCOUNTER 2024-07-23 07:40 | Outpatient (CLI) | payer MEDICARE, SELFPAY ==
--- NOTE | ~2024-07-23 | CT_ITS ---
CT Scan of the Chest without Contrast: Clinical Indication: Pneumonia Technique: Contiguous sections were acquired throughout the chest without intravenous contrast. Dose reduction technique was used on this scan by utilizing automated exposure control and iterative recon struction technique. The dose-length product (DLP) was 190.13 mGy-cm. COMPARISON: 01/20/2024 Findings: There is no evidence of any significant mediastinal, hilar or axillary lymphadenopathy. Extensive cor onary artery calcium cages are present. There is no evidence of pleural or pericardial effusion. The lungs are clear, aside from minimal bibasilar scarring/atelectasis. Images through the upper abdomen reveal no abnormalities. Impression: Minimal bibasilar scarring/atelectasis, otherwise clear lungs. Reviewed, dictated and finalized at location . UREMENT DIRECTOR Impression: Minimal bibasilar scarring/atelectasis, otherwise clear lungs.
== END 2024-07-23 07:41 | disposition home or self-care (01) ==
PROVIDERS: PCP Family Medicine; Visit Provider Family Medicine
DX: J18.9 Pneumonia, unspecified organism (principal)
CPT/HCPCS: 71250

== ENCOUNTER 2024-11-12 12:27 | Emergency (ER) | payer MEDICARE, SELFPAY ==
[2024-11-12 12:28] VITALS: BP 114/49; PULSE 93; RESP 18; TEMP 36.7; O2SAT 96
--- NOTE | 2024-11-12 12:58 | ED_ITS ---
HPI - Weakness General Chief complaint: Weakness Stated complaint: leg pain Time Seen by Provider: 11/12/24 12:32 Source: patient Mode of arrival: ambulatory Limitations: no limitations History of Present Illness HPI Narrative: Patient is 79-year-old female with a significant past medical history that presents today for bilateral leg weakness. Patient states that she has not seen a physical therapist and a long-time but when she did see 1 last they told her to do squatting exercises and that this would help with her leg strengthening and ability to walk better. She said that was the only exercise they told her to do. She is able to walk on her own and able to get in and out of the bed and was able to get in out of the wheelchair to the commode. Able to get off the commode back to her wheelchair. patient keeps continually talking about how she does not like the facility that she is at she wants to go to different facility. Is seen she thinks that coming here would help get her to a different facility but that is obviously not the case. Complaint: focal weakness ( Bilateral lower extremities) Onset (ago): month(s) Duration: intermittent Location: RLE ( bilateral) Migration: none Severity: moderate Severity scale (1-10): 4 Relieving factors: none Exacerbating factors: evening Associated symptoms: denies other symptoms Related Data Home Medications ?Medication ?Instructions ?Recorded ?Confirmed ?Last Taken ?Type aspirin 81 mg chewable tablet 81 mg PO DAILY 11/01/23 06/28/24 01/20/24 History atorvastatin 20 mg tablet 20 mg PO HS 11/01/23 06/28/24 01/18/24 20:00 History budesonide-formoterol HFA 160 2 puff inhalation BID 11/01/23 06/28/24 01/20/24 07:00 History mcg-4.5 mcg/actuation aerosol inhaler (Breyna) carbamazepine 100 mg chewable 300 mg PO BID 11/01/23 06/28/24 01/20/24 07:00 History tablet divalproex 125 mg capsule,delayed 125 mg PO BID 11/01/23 06/28/24 01/20/24 07:00 History release sprinkle levothyroxine 100 mcg tablet 100 mcg PO DAILY 11/01/23 06/28/24 01/20/24 History montelukast 10 mg tablet 10 mg PO HS 11/01/23 06/28/24 Unknown History oxybutynin chloride 5 mg 5 mg PO DAILY 11/01/23 06/28/24 01/20/24 History tablet,extended release 24 hr pantoprazole 40 mg tablet,delayed 40 mg PO DAILY 11/01/23 06/28/24 01/20/24 History release potassium chloride 10 mEq 10 meq PO BID 11/01/23 06/28/24 01/20/24 07:00 History tablet,extended release(part/cryst) risperidone 2 mg tablet 2 mg PO DAILY 11/01/23 06/28/24 01/20/24 07:00 History starch (thickening) (Thick-It oral 1 ea PO DAILY 06/28/24 06/28/24 Unknown History powder) Allergies Allergy/AdvReac Type Severity Reaction Status Date / Time alendronate sodium Allergy Mild Unknown Verified 11/12/24 12:42 celecoxib Allergy Mild Unknown Verified 11/12/24 12:42 ciprofloxacin (From Cipro) Allergy Mild Unknown Verified 11/12/24 12:42 cinnamon Allergy Rash Verified 11/12/24 12:42 Review of Systems Review of Systems: All systems reviewed & are unremarkable except as noted in HPI and below Constitutional: Constitutional: Reports as per HPI Eyes: Eyes: Reports no additional eye complaints ENT: Reports system reviewed and no additional complaints, except as documented Cardiovascular: Cardiovascular: Reports no additional cardiovascular complaints Respiratory: Respiratory: Reports no additional respiratory complaints Gastrointestinal: Gastrointestinal: Reports no additional gastrointestinal complaints Genitourinary: Genitourinary: Reports no additional female genitourinary complaints Musculoskeletal: Musculoskeletal: Reports as per HPI Comments: bilateral lower extremity weakness Integumentary/Breasts: Skin/Breast: Reports system reviewed and no additional complaints, except as docu Neurologic: Reports as per HPI Psychiatric: Psychiatric: Reports as per HPI Endocrine: Endocrine: Reports no additional endocrine complaints Hematologic/Lymphatic: Hematologic/Lymphatic: Reports no additional hematologic/lymphatic complaints Allergic/Immunologic: Allergic/Immunologic: Reports no additional allergic/immunologic complaints [facility] Past Medical History Medical History 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 She only tells me about her son, Artemio Gant [phone]. She has a court appointed guardian, Nai Workman [phone]. Smoking packs per day: 3 Smoking cigarettes per day: 60.0 Years smoked: 15 Smoking pack-years: 45.00 Smoking status: Former smoker Tobacco type: cigarettes Second hand tobacco smoke exposure: No Smoking end date: 12/13/73 Alcohol intake: never Substance use: never Substance use type: does not use Do You Feel Safe in your Home?: Yes Lack of Transportation: No Lack of Food: Never True Current Housing: I Have Housing Concerned About Future Housing: No Difficulty Paying Gas/Electric Bills: No Difficulty Paying for Meds: No Currently Unemployed: No Education: Decline to Answer Difficulty w/ Childcare or Family Care: No Living arrangements: [facility] Additional living arrangements comments: Lives at [facility] Occupation/Education: other Additional occupation/education comments: disability. 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 Gender identity (if verbalized by the patient): Female Spiritual care concerns: Yes ([facility]) Exam Const: General: healthy appearing Nutritional Appearance: well nourished Orientation/consciousness: patient oriented x3 Limitations: no limitations HENMT: Head: normal to inspection Ears: external ears normal Face/ Nose/Sinus: Normal external nose present Face and sinus: normal facial exam Mouth: Yes Normal oral and palatal mucosa present Eyes: Conjunctivae: conjunctivae normal Pupils: Equal, round and reactive pupils present EOM: EOMs intact bilaterally Neck: Neck: normal visual inspection Chest: Chest palpation & inspection: normal inspection of the chest Resp: Effort & Inspection: normal respiratory effort Auscultation: clear to auscultation bilaterally Cardio: Rate: regular rate Rhythm: regular rhythm GI: Inspection: distended GI Palp: Yes Soft to palpation Auscultation: normal bowel sounds Back/Spine/Pelvis: Back: no CVA tenderness Skin: General skin exam: normal color Rashes: no rashes Wounds: no wounds Neuro: General: patient oriented x3, moves all extremities, no meningeal signs and CN's II-XI intact bilaterally Cranial nerves: Yes Nystagmus not present Speech: normal speech Extrem: General: normal to inspection, no clubbing, cyanosis or edema and no pedal edema Other: Two for strengthening on bilateral lower extremities no weakness seen on examination, both lower extremities show the same strengthening Psych: Mental Status: mental status grossly normal Affect: Sad affect present Attitude: cooperative Other: Keeps talking about wanting to go to another facility and that she is not like her guardian and that her family does not want her and she wants go to another facility. Course Vital Signs Vital signs: Vital Signs Temperature 98.1 F 11/12/24 12:28 Pulse Rate 93 11/12/24 12:28 Respiratory Rate 18 11/12/24 12:28 Blood Pressure 114/49 L 11/12/24 12:28 Pulse Oximetry 96 11/12/24 12:28 Oxygen Delivery Room Air 11/12/24 12:28 Temperature 98.1 F 11/12/24 12:28 Pulse Rate 93 11/12/24 12:28 Respiratory Rate 18 11/12/24 12:28 Blood Pressure 114/49 L 11/12/24 12:28 Pulse Oximetry 96 11/12/24 12:28 Oxygen Delivery Room Air 11/12/24 12:28 MDM - Weakness MDM Narrative Medical decision making narrative: patient says she was given exercises to do and she has not been she says over 6 months. She says she does does them sometimes but she forgets and she is also supposed to be a swallowing exercises because she has or had throat cancer and specially doing swallowing exercises. I believe this is more psychological than anything and she thinks that she can try to get to her facility by acting like she has leg weakness. She is able to stand and again had bed by herself and was able to walk her around the room with assistance. This is more psychological in nature than pathological. There is no need for any imaging. Will do a UA because of possible altered mental status however that I think she is at her baseline will check her urine anyways. Differential Diagnosis Differential diagnosis: Likely other ( Psychological weakness) Medical Records Attestation: I reviewed the patient's medical records. Lab Data Labs: Lab Results 11/12/24 Range/Units 13:14 Urine Color Light yellow (Yellow) Urine Appearance Clear (Clear) Urine pH 5.5 (5.0-8.0) Ur Specific [place] 1.010 (1.010-1.020) Urine Protein Negative (Negative) Urine Glucose (UA) Negative (Negative) Urine Ketones Negative (Negative) Ur Blood (Man) Negative (Negative) Urine Nitrate Negative (Negative) Urine Bilirubin Negative (Negative) Urine Urobilinogen 0.2 (0.2-1.0) mg/dL Ur Leukocyte Esterase Negative (Negative) Discharge Plan Discharge Clinical Impression: Weakness, Bilateral leg weakness Patient Disposition: Home, Self-Care Condition: Stable Instructions: Weakness (ED) Additional Instructions: Recommend patient do physical therapy. She stated that there is physical therapy at the facility she is at so recommend that doing physical therapy there and doing leg strengthening exercises and stretches and balancing exercises. This the main thing she needs is leg strengthening so she is able to walk better and ensure that she does her exercises correctly and maintains them. Patient Language: Malay Prescriptions: No Action amlodipine [Norvasc] 5 mg Tablet 5 mg PO QAM Qty: 30 0RF Thick-It Powder 1 ea PO DAILY Rx Instructions: with all drinks ferrous sulfate 325 mg (65 mg iron) Tablet,Delayed Release (Dr/Ec) 325 mg PO DAILY Qty: 30 0RF guaifenesin [Mucus Relief ER] 600 mg Tablet Extended Release 12hr 1,200 mg PO Q12HR Qty: 14 0RF loratadine 10 mg Tablet 10 mg PO QAM Qty: 30 0RF azithromycin 250 mg tablet 250 mg PO DAILY 4 Days Qty: 4 0RF amoxicillin-pot clavulanate 875-125 mg tablet 1 tablet PO Q12H Qty: 10 0RF prednisone 20 mg tablet 40 mg PO DAILY Qty: 8 0RF furosemide 20 mg tablet 40 mg PO DAILY Qty: 60 0RF atorvastatin 20 mg tablet 20 mg PO HS risperidone 2 mg tablet 2 mg PO DAILY levothyroxine 100 mcg tablet 100 mcg PO DAILY pantoprazole 40 mg tablet,delayed release (DR/EC) 40 mg PO DAILY carbamazepine 100 mg tablet,chewable 300 mg PO BID oxybutynin chloride 5 mg tablet extended release 24hr 5 mg PO DAILY aspirin 81 mg tablet,chewable 81 mg PO DAILY montelukast 10 mg tablet 10 mg PO HS divalproex 125 mg capsule, delayed rel sprinkle 125 mg PO BID potassium chloride 10 mEq tablet,ER particles/crystals 10 meq PO BID budesonide-formoterol [Breyna] 160-4.5 mcg/actuation HFA aerosol inhaler 2 puff INHALATION BID Follow-up/Referrals: UNKNOWN,DOCTOR [Non-Staff] - Time of Disposition: 13:33
[2024-11-12 13:23] LABS: Add Urine Microscopic? NO; Appearance Urine Clear (Clear); Bilirubin Urine Negative (Negative); Blood Urine Negative (Negative); Color Urine Light Yellow (Yellow); Glucose Urine UA Negative (Negative); Ketones Urine Negative (Negative); Leukocyte Esterase Ur Negative (Negative); Nitrate Urine Negative (Negative); Protein Urine Negative (Negative); Urobilinogen Urine 0.2 mg/dL (0.2-1.0); pH Urine 5.5 (5.0-8.0)
[2024-11-12 13:46] VITALS: BP 114/47; PULSE 88; RESP 20; TEMP 36.6; O2SAT 97
--- OUTSIDE RECORDS SUMMARY | 2024-11-12 14:08 | XMS_ITS | Clinical Summary ---
Author Organization [facility] Address [address] [place] [address] Phone Care Team Providers Care Citrus Fruit Packer Name Role Phone Sameer Freeman MD Primary Care Provider [phone] Lachelle Pulliam APRN, TOW BOAT CAPTAIN Unavailable Allergies Active Allergy Reactions Criticality Noted Date Comments Alendronate Diarrhea,Other (see Comments) Low 10/01/2003 Reaction: DIARRHEA Azithromycin Other (see Comments),Unknown 04/06/2011 Celecoxib Diarrhea,Other (see Comments) Low 04/06/2011 Bruising Reaction: Bleeding, DIARRHEA Cinnamon Other (see Comments) High 09/15/2020 Ciprofloxacin Diarrhea,Other (see Comments),Unknown High 01/07/2004 Reaction: Diarrhea, Headache, BLEEDING Medications ARIPiprazole (ABILIFY) 10 MG Tablet Take by mouth daily. Active albuterol 108 (90 Base) MCG/ACT Aerosol Solution take 1 Puff by inhalation every 6 hours as needed. 9 Active atorvastatin (LIPITOR) 20 MG Tablet Take 20 mg by mouth nightly. Active budesonide-form oterol fumarate (Symbicort) 160-4.5 MCG/ACT Aerosol take 2 Puffs by inhalation 2 times daily. 3 Active carBAMazepine (TEGretol) 100 MG Chewable Tablet Take 300 mg by mouth 2 times daily (with meals). 3 Active carBAMazepine (TEGretol-XR) 400 MG TABLET SR 12 HR 2 Every Day At Bedtime 6 Active Vitamin D3 (Vitamin D-[address]) 1000 UNIT Tablet Take by mouth daily. Active clotrimazole-be tamethasone (LOTRISONE) 1-0.05 % Lotion Apply. 1 Active cyanocobalamin 1000 MCG Tablet Take 1 Tablet by mouth daily. 0 Active dicyclomine (BENTYL) 20 MG Tablet Take 20 mg by mouth as needed. 4 Active divalproex (DEPAKOTE SPRINKLE) 125 MG Capsule Delayed Release Sprinkle Take 125 mg by mouth 2 times daily. 3 Active escitalopram (Lexapro) 20 MG Tablet 1 Every Day 7 Active ferrous sulfate 324 (65 Fe) MG Tablet Delayed Response Take 324 mg by mouth 2 times daily. 4 Active fluticasone-nathanael meterol (Advair Diskus) 250-50 MCG/ACT AEROSOL POWDER, BREATH ACTIVATED take 1 Puff by inhalation 2 times daily. 2 Active furosemide (LASIX) 20 MG Tablet Take 20 mg by mouth daily. 3 Active levothyroxine (SYNTHROID) 100 MCG Tablet Take 100 mcg by mouth every morning. 3 Active lidocaine (LIDODERM) 5 % Patch 1 Patch by Transdermal route. 4 Active losartan (COZAAR) 50 MG Tablet Take 1 Tablet by mouth daily. 3 Active montelukast (SINGULAIR) 10 MG Tablet Take 10 mg by mouth every evening. 3 Active oxybutynin (DITROPAN-XL) 5 MG TABLET SR 24 HR Take 5 mg by mouth daily. 4 Active pantoprazole (PROTONIX) 40 MG Tablet Delayed Response Take 40 mg by mouth daily. 2 Active potassium chloride SA (KLORCON M) 10 MEQ Tablet Controlled Release Take 1 Tablet by mouth 2 times daily. 4 Active risperiDONE (RISPERDAL) 2 MG Tablet Take 2 mg by mouth every morning. 3 Active simvastatin (ZOCOR) 40 MG Tablet Take 0.5 Tablets by mouth daily. 2 Active predniSONE (DELTASONE) 20 MG Tablet Take 20 mg by mouth daily. Active Chlorphen-Pseud oephed-APAP (CORICIDIN D PO) Take by mouth as needed. Active amLODIPine (NORVASC) 5 MG Tablet Take 5 mg by mouth every morning. Active Ascorbic Acid (VITAMIN C PO) Take by mouth daily. Active nystatin 962958 UNIT/GM Powder Apply 2 times daily. Apply to affected area as directed. Active STARCH-MALTO DEXTRIN (Thick-It) Powder Take by mouth. 2 scoops for 4oz of liquid Active Active Problems Problem Noted Date Diagnosed Date Esophageal stenosis 04/17/2024 Back pain 10/13/2023 Alzheimer's dementia 09/05/2023 Iron deficiency anemia, unsp ecified iron deficiency anemia type 08/22/2023 Normocytic normochromic anemia 05/05/2023 Chronic obstructive pulmonary disease 12/02/2021 Gastroesophageal reflux disease without esophagi tis 02/07/2007 Overview (12/15/2023): Last Assessment & Plan: Continue PPI. Diet exercise. Hypothyroidism 08/09/2006 Bipolar I disorder 03/31/2004 Primary hypertension 10/01/2003 Overview (12/15/2023): Last Assessment & Plan: Continue meds currently doing well. Active. Social History Tobacco Use Types Packs/Day Years Used Date Smoking Tobacco: Former Cigarettes Smokeless Tobacco: Never Alcohol Use Standard Drinks/Week Comments Not Currently 0 (1 standard drink = 0.6 oz pur e alcohol) Sexually Active Control Partners Comments Not Currently Comments Unknown Sex and Gender Information Value Date Recorded Sex Assigned at Not on file Legal Sex Female 7:49 PM CDT Gender Identity Not on file Sexual Orientation Not on file Last Filed Vital Signs Vital Sign Reading Time Taken Comments Blood Pressure 180/90 04/17/2024 4:43 PM CDT Pulse 80 04/17/2024 4:43 PM CDT Temperature 37 C (98.6 F) 04/17/2024 4:43 PM CDT Respiratory Rate 14 04/17/2024 4:43 PM CDT Oxygen Saturation 96% 04/17/2024 4:43 PM CDT Inhaled Oxygen Concentration - - Weight 73.9 kg (163 lb) 04/02/2024 9:00 AM CDT Height 152.4 cm (5') 04/02/2024 9:00 AM CDT Body Mass Index 31.83 04/02/2024 9:00 AM CDT Plan of Treatment Health Maintenance Due Date Last Done Comments Hepatitis C Virus (HCV) Screening 1945 TdaP Immunization 1945 Zoster Immunization (1 of 2) 1993 DEXA Bone Density 08/09/2013 08/09/2011 Respiratory Syncytial Virus (RSV) Immunization (Adult) (1 - 1-dose 75+ series) 2018 Pneumococcal Immunization (50+ years) (2 of 2 - PCV) 02/19/2021 02/20/2020, 02/19/2020, 08/26/2010, Additional history exists Influenza Immunization (#1) 04/22/202408/22, 05/22/2023, 06/04/2022, Additional history exists SARS-COV-2 Immunization ( season) 2024 06/08/2023, 10/20/2020, 09/29/2020 Hepatitis B Immunization Aged Out No longer eligible based on patient's age to complete this topic Meningococcal Immunization (ACWY) Aged Out No longer eligible based on patient's age to complete this topic Rotavirus Immunization Aged Out No lo nger eligible based on patient's age to complete this topic Insurance MEDICARE C HUMANA * Guarantor: [facility] Account Type Relation to Patient Date of Phone Billing Address [facility] [address] [facility] [facility] [place] [address] Advance Directives Documents on File Type Date Recorded Patient Kiln Placer Expl anation Guardian of Person 03/06/2024 9:55 AM [facility] Care Teams Citrus Fruit Packer Relationship Specialty Start Date End Date Sameer Freeman MD [address] [place] [address] PCP - General Pediatrics 11/09/23 Lachelle Pulliam APRN, TOW BOAT CAPTAIN [address] [place] [address] Nurse Practitioner Advanced Practice Nurse 12/15/23
--- OUTSIDE RECORDS SUMMARY | 2024-11-12 14:52 | XMS_ITS | Clinical Summary ---
Author Organization [facility] Address [address] [place] [address] Phone Care Team Providers Care Bpo Specialist Name Role Phone Sameer Freeman MD Primary Care Provider Lachelle Pulliam APRN, HOME PLANNING CONSULTANT SALESPERSON Unavailable Allergies Active Allergy Reactions Criticality Noted [...] PO) Take by mouth daily. Active nystatin 733550 UNIT/GM Powder Apply 2 times daily. Apply [...] topic Insurance MEDICARE C HUMANA * Guarantor: [facility] Account Type Relation to Patient Date of Phone Billing Address [facility] [address] [address] [address] [place] [place] [address] Advance Directives Documents on File Type Date Recorded Patient Residential Program Coordinator Expl anation Guardian of Person 03/06/2024 9:55 AM [facility] P[facility] Care Teams Bpo Specialist Relationship Specialty Start Date End Date Sameer Freeman MD [address] [place] [address] PCP - General Pediatrics 11/09/23 Lachelle Pulliam APRN, HOME PLANNING CONSULTANT SALESPERSON [address] [place] [address] Nurse Practitioner Advanced Practice Nurse 12/15/23
== END 2024-11-12 13:50 | disposition home or self-care (01) ==
PROVIDERS: Emergency Provider Family Medicine; PCP Family Medicine
DX: R53.1 Weakness (principal); I10 Essential (primary) hypertension; E78.5 Hyperlipidemia, unspecified; E03.9 Hypothyroidism, unspecified; J44.9 Chronic obstructive pulmonary disease, unspecified; Z85.118 Personal history of other malignant neoplasm of bronchus and lung; Z87.891 Personal history of nicotine dependence
CPT/HCPCS: 81003; 99283

== ENCOUNTER 2024-11-16 14:18 | Emergency (ER) | payer MEDICARE, SELFPAY ==
[2024-11-16] VITALS (28 sets, daily range): BP systolic 131–177; BP diastolic 54–101; PULSE 59–89; RESP 18–20; TEMP 36.5–36.7; O2SAT 92–99
--- NOTE | ~2024-11-16 | XR_ITS ---
XR chest 1V portable 11/16/2024 14:40 Indication: Chest pain for 2 days Procedure: AP portable chest Comparison: Comparison to multiple prior studies sequentially, with oldest reviewed study dated 11/2023. Findings: Cardiomegaly. Atherosclerosis. Mild interstitial edema. No pleural effusion or pneumothorax . Impression: 1: Mild interstitial edema. Reviewed, dictated and finalized at location A. Impression: 1: Mild interstitial edema.
--- OUTSIDE RECORDS SUMMARY | 2024-11-16 14:24 | XMS_ITS | Clinical Summary ---
Author Organization [facility] Address [address] [place] [address] Phone Care Team Providers Care Watchstander Name Role Phone Sameer Freeman MD Primary Care Provider Lachelle Pulliam APRN, TALENT SPECIALIST Unavailable Allergies Active Allergy Reactions Criticality Noted [...] PO) Take by mouth daily. Active nystatin 764173 UNIT/GM Powder Apply 2 times daily. Apply [...] topic Insurance MEDICARE C HUMANA * Guarantor: [facility] Account Type Relation to Patient Date of Phone Billing Address [facility] [address] [place] [address] Advance Directives Documents on File Type Date Recorded Patient Dinkey Driver Expl anation Guardian of Person 03/06/2024 9:55 AM [facility] P[facility] Care Teams Watchstander Relationship Specialty Start Date End Date Sameer Freeman MD [address] [place] [address] PCP - General Pediatrics 11/09/23 Lachelle Pulliam APRN, TALENT SPECIALIST [address] [place] [address] Nurse Practitioner Advanced Practice Nurse 12/15/23
--- NOTE | 2024-11-16 14:28 | ECG_ITS ---
Test Date: 2024-11-16 14:49:48 Measurements Intervals [place] Rate: 78 P: 69 UT: 176 QRS: 28 QRSD: 86 T: 67 QT: 368 QTc: 421 Interpretive Statements SINUS RHYTHM NORMAL ECG Compared to ECG 06/28/2024 20:05:43 No significant changes Electronically Signed On 11-17-2024 09:50:33 CDT by Romeo Carter M.D.
--- NOTE | 2024-11-16 14:30 | ED.CHESTPAIN ---
HPI - Chest Pain General Chief Complaint: Chest Pain Stated Complaint: chest pain Time Seen by Provider: 11/16/24 14:28 Source: patient Mode of arrival: ambulatory Limitations: no limitations History of Present Illness HPI narrative: Patient is an 79-year-old female with some chest pain that started yesterday on and off. She also had some lightheaded dizziness this morning that has resolved. With some blurry vision associated with some discharge near her eyes this morning. MD complaint: chest pain Pertinent past history: other ( Hyperlipidemia, hypothyroid, anemia, psychiatry, GERD) Onset (ago): day(s) ( 2) Timing of current episode: episodic Prior episodes: Yes Onset: awoke with symptoms Pain location: left chest Pain radiation: none Severity: mild Pain scale (0-10): 1 Quality: sharp Relieving factors: nothing Exacerbating factors: nothing Context: other ( patient has chest pain on off for the past 2 days and associated bernard headed / dizziness this morning) Associated symptoms: other ( Dizziness) Treatment prior to arrival: none Risk Factors Coronary artery disease risk factors: hyperlipidemia and hypertension Thoracic aortic dissection risk factors: none Related Data Home Medications ?Medication ?Instructions ?Recorded ?Confirmed ?Last Taken ?Type aspirin 81 mg chewable tablet 81 mg PO DAILY 11/01/23 06/28/24 01/20/24 History atorvastatin 20 mg tablet 20 mg PO HS 11/01/23 06/28/24 01/18/24 20:00 History budesonide-formoterol HFA 160 2 puff inhalation BID 11/01/23 06/28/24 01/20/24 07:00 History mcg-4.5 mcg/actuation aerosol inhaler (Breyna) carbamazepine 100 mg chewable 300 mg PO BID 11/01/23 06/28/24 01/20/24 07:00 History tablet divalproex 125 mg capsule,delayed 125 mg PO BID 11/01/23 06/28/24 01/20/24 07:00 History release sprinkle levothyroxine 100 mcg tablet 100 mcg PO DAILY 11/01/23 06/28/24 01/20/24 History montelukast 10 mg tablet 10 mg PO HS 11/01/23 06/28/24 Unknown History oxybutynin chloride 5 mg 5 mg PO DAILY 11/01/23 06/28/24 01/20/24 History tablet,extended release 24 hr pantoprazole 40 mg tablet,delayed 40 mg PO DAILY 11/01/23 06/28/24 01/20/24 History release potassium chloride 10 mEq 10 meq PO BID 11/01/23 06/28/24 01/20/24 07:00 History tablet,extended release(part/cryst) risperidone 2 mg tablet 2 mg PO DAILY 11/01/23 06/28/24 01/20/24 07:00 History starch (thickening) (Thick-It oral 1 ea PO DAILY 06/28/24 06/28/24 Unknown History powder) ascorbic acid (vitamin C) 250 mg 250 mg PO DAILY 11/16/24 Unknown History tablet (Vitamin C) furosemide 20 mg tablet 20 mg PO DAILY 11/16/24 Unknown History Allergies Allergy/AdvReac Type Severity Reaction Status Date / Time alendronate sodium Allergy Mild Unknown Verified 11/16/24 17:34 celecoxib Allergy Mild Unknown Verified 11/16/24 17:34 ciprofloxacin (From Cipro) Allergy Mild Unknown Verified 11/16/24 17:34 cinnamon Allergy Rash Verified 11/16/24 17:34 Review of Systems Review of Systems: All systems reviewed & are unremarkable except as noted in HPI and below Constitutional: Constitutional: Reports no additional constitutional complaints Eyes: Eyes: Reports no additional eye complaints ENT: Reports system reviewed and no additional complaints, except as documented Cardiovascular: Cardiovascular: Reports no additional cardiovascular complaints Respiratory: Respiratory: Reports no additional respiratory complaints Gastrointestinal: Gastrointestinal: Reports no additional gastrointestinal complaints Genitourinary: Genitourinary: Reports no additional female genitourinary complaints Musculoskeletal: Musculoskeletal: Reports no additional musculoskeletal complaints Integumentary/Breasts: Skin/Breast: Reports system reviewed and no additional complaints, except as docu Neurologic: Reports system reviewed and no additional complaints, except as documented Psychiatric: Psychiatric: Reports no additional psychiatric complaints Endocrine: Endocrine: Reports no additional endocrine complaints Hematologic/Lymphatic: Hematologic/Lymphatic: Reports no additional hematologic/lymphatic complaints Allergic/Immunologic: Allergic/Immunologic: Reports no additional allergic/immunologic complaints [facility] Past Medical History Medical History 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 She only tells me about her son, Artemio Gant [phone]. She has a court appointed guardian, Nai Workman [phone]. Smoking packs per day: 3 Smoking cigarettes per day: 60.0 Years smoked: 15 Smoking pack-years: 45.00 Smoking status: Former smoker Tobacco type: cigarettes Second hand tobacco smoke exposure: No Smoking end date: 12/13/73 Alcohol intake: never Substance use: never Substance use type: does not use Do You Feel Safe in your Home?: Yes Lack of Transportation: No Lack of Food: Never True Current Housing: I Have Housing Concerned About Future Housing: No Difficulty Paying Gas/Electric Bills: No Difficulty Paying for Meds: No Currently Unemployed: No Education: Decline to Answer Difficulty w/ Childcare or Family Care: No Living arrangements: intermediate Additional living arrangements comments: Lives at [facility] Occupation/Education: other Additional occupation/education comments: disability. 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 Gender identity (if verbalized by the patient): Female Spiritual care concerns: Yes (Protestant) Exam Const: General: healthy appearing Nutritional Appearance: well nourished Orientation/consciousness: patient oriented x3 Limitations: no limitations HENMT: Head: normal to inspection Ears: external ears normal Face/Nose/Sinus: Normal external nose present Eyes: Conjunctivae: conjunctivae normal Pupils: Equal, round and reactive pupils present EOM: EOMs intact bilaterally Neck: Neck: normal visual inspection Chest: Chest palpation & inspection: normal inspection of the chest Resp: Effort & Inspection: normal respiratory effort and not labored Auscultation: clear to auscultation bilaterally and no crackles Cardio: Rate: regular rate Rhythm: regular rhythm Heart sounds: no murmurs GI: Inspection: non-distended GI Palp: Yes Soft to palpation and No Tenderness to palpation present (GI) Auscultation: normal bowel sounds : General: Yes bladder normal to palpation Back/Spine/Pelvis: Back: no CVA tenderness Skin: General skin exam: normal color Rashes: no rashes Wounds: no wounds Neuro: General: patient oriented x3 Cranial nerves: Yes Nystagmus not present Speech: normal speech Gait exam (Neuro): Normal gait present Extrem: General: normal to inspection Psych: Mental Status: mental status grossly normal Affect: normal affect Attitude: cooperative Course Vital Signs Vital signs: Vital Signs Temperature 36.7 C 11/16/24 14:19 Pulse Rate 82 11/16/24 14:19 Respiratory Rate 18 11/16/24 14:19 Blood Pressure 131/54 L 11/16/24 14:19 Pulse Oximetry 94 11/16/24 14:19 Oxygen Delivery Room Air 11/16/24 14:19 Temperature 36.7 C 11/16/24 18:52 Pulse Rate 85 11/16/24 19:22 Respiratory Rate 20 11/16/24 19:01 Blood Pressure 165/74 H 11/16/24 19:01 Pulse Oximetry 97 11/16/24 19:16 Oxygen Delivery Room Air 11/16/24 19:01 MDM - Chest Pain MDM Narrative Medical decision making narrative: patient is an 79-year-old female with a chest pain over the past 2 days and some lightheaded this morning. Will do cardiopulmonary workup at this time. Patient does not have any chest pain at this time. Most of her symptoms appear to be related to the anemia. We will transfer for higher level medical care and evaluation. Lab Data Attestation: I reviewed the patient's lab results. 11/16/24 14:53 11/16/24 14:53 Labs: Lab Results 11/16/24 11/16/24 11/16/24 Range/Units 14:53 15:19 17:20 WBC 7.6 (4.8-10.8) K/mm3 RBC 2.52 L (4.20-5.40) M/mm3 Hgb 4.0 L* (11.7-13.8) g/dL Hct 16.4 L* (35.0-42.0) % MCV 65.1 L (78.0-102.0) fL MCH 15.9 L (27.0-31.0) pg MCHC 24.4 L (32-36) g/dL RDW 19.6 H (11.6-14.4) % Plt Count 242 (150-420) K/mm3 MPV 9.7 (9.2-11.8) fl Immature Gran % (Auto) 0.9 H (0.0-0.0) % Neut % (Auto) 68.0 (50.0-70.0) % Lymph % (Auto) 17.4 L (18.0-42.0) % Ceiba % (Auto) 10.3 (2.0-11.0) % Eos % (Auto) 3.1 (1.0-6.0) % Baso % (Auto) 0.3 (0.0-1.0) % Lymph # (Auto) 1.33 (1.10-4.50) K/mm3 Ceiba # (Auto) 0.79 (0.10-0.90) K/mm3 Eos # (Auto) 0.24 (0.02-0.50) K/mm3 Baso # (Auto) 0.02 (0.00-0.10) K/mm3 Abs Immat Gran (auto) 0.07 H (0.00-0.00) K/mm3 Absolute Neuts (auto) 5.19 (1.70-7.20) K/mm3 Absolute Nucleated RBC 0.07 H (0.00-0.00) K/mm3 Nucleated RBC % 0.9 H (0-0.0) % PT 10.2 (9.50-12.1) Seconds INR 0.9 APTT 21.5 L (23.9-30.70) Sec Sodium 142 (136-145) mmol/L Potassium 3.5 (3.5-5.1) mmol/L Chloride 105 (98-108) mmol/L Carbon Dioxide 29 (21-32) mmol/L Anion Gap 8 (4-12) mmol/L BUN 14 (7-18) mg/dL Creatinine 0.70 (0.55-1.02) mg/dL Estim Creat Clear Calc 56 ml/min Estimated GFR > 60 (59 - ) Glucose 110 H (70-99) mg/dL Calculated Osmolality 295 (285-295) mOsm/kg Calcium 8.2 L (8.5-10.1) mg/dL Total Bilirubin 0.2 (0.00-1.00) mg/dL AST 11 L (15-37) U/L ALT 16 (14-59) U/L Alkaline Phosphatase 154 H (46-116) U/L Troponin I 9.5 6.6 (0.00-60.4) ng/L NT-Pro-B Natriuret Pep 793 H (0-450) pg/mL Total Protein 7.2 (6.4-8.2) g/dL Albumin 2.9 L (3.4-5.0) g/dL Lipase 16 (16-77) U/L Stool Occult Blood Negative (Negative) Blood Type O Positive Antibody Screen Negative Crossmatch See Detail Imaging Data Attestation: I personally reviewed and interpreted this imaging study as follows: ECG Data EKG #1: Attestation: I personally reviewed and interpreted this ECG as follows: ECG completion date: 11/16/24 ECG completion time: 14:59 EKG Interpretation: normal rate, sinus rhythm, no ectopy, no ST changes, normal QT and NL axis Discharge Plan Discharge Clinical Impression: Atypical chest pain Anemia Qualifiers: Anemia type: other cause Other causes of anemia: other cause, not classified Qualified Code(s): D64.89 - Other specified anemias Patient Disposition: Acute Care Hospital Condition: Serious Patient Language: Namibian Prescriptions: No Action amlodipine [Norvasc] 5 mg Tablet 5 mg PO QAM Qty: 30 0RF Thick-It Powder 1 ea PO DAILY Rx Instructions: with all drinks atorvastatin 20 mg tablet 20 mg PO HS risperidone 2 mg tablet 2 mg PO DAILY levothyroxine 100 mcg tablet 100 mcg PO DAILY pantoprazole 40 mg tablet,delayed release (DR/EC) 40 mg PO DAILY carbamazepine 100 mg tablet,chewable 300 mg PO BID oxybutynin chloride 5 mg tablet extended release 24hr 5 mg PO DAILY aspirin 81 mg tablet,chewable 81 mg PO DAILY montelukast 10 mg tablet 10 mg PO HS divalproex 125 mg capsule, delayed rel sprinkle 125 mg PO BID potassium chloride 10 mEq tablet,ER particles/crystals 10 meq PO BID budesonide-formoterol [Breyna] 160-4.5 mcg/actuation HFA aerosol inhaler 2 puff INHALATION BID furosemide 20 mg tablet 20 mg PO DAILY ascorbic acid (vitamin C) [Vitamin C] 250 mg tablet 250 mg PO DAILY Follow-up/Referrals: Zainab Aparicio, VIDEO PRODUCTION ASSISTANT [Primary Care Provider] - Time of Disposition: 18:10
--- OUTSIDE RECORDS SUMMARY | 2024-11-16 15:00 | XMS_ITS | Clinical Summary ---
Author Organization [facility] Address [address] [place] [address] Phone Care Team Providers Care Spanish Language Lecturer Name Role Phone Sameer Freeman MD Primary Care Provider [phone] Lachelle Pulilam APRN, PARKING ENFORCEMENT OFFICER Unavailable Allergies Active Allergy Reactions Criticality Noted [...] PO) Take by mouth daily. Active nystatin 213488 UNIT/GM Powder Apply 2 times daily. 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
[2024-11-16 15:01] LABS: Basophils Absolute Auto 0.02 K/mm3 (0.00-0.10); Basophils Percent Auto 0.3 % (0.0-1.0); Eosinophils Absolute Auto 0.24 K/mm3 (0.02-0.50); Eosinophils Percent Auto 3.1 % (1.0-6.0); Immature Granulocyte Absolute 0.07 K/mm3 (0.00-0.00); Immature Granulocyte Percent A 0.9 % (0.0-0.0); Lymphocytes Absolute Auto 1.33 K/mm3 (1.10-4.50); Lymphocytes Percent Auto 17.4 % (18.0-42.0); Mean Corpuscular HGB Conc 24.4 g/dL (32-36); Mean Corpuscular Hemoglobin 15.9 pg (27.0-31.0); Mean Corpuscular Volume 65.1 fL (78.0-102.0); Mean Platelet Volume 9.7 fl (9.2-11.8); Monocytes Absolute Auto 0.79 K/mm3 (0.10-0.90); Monocytes Percent Auto 10.3 % (2.0-11.0); Neutrophils Absolute Auto 5.19 K/mm3 (1.70-7.20); Nucleated Red Blood Cells Absolute Auto 0.07 K/mm3 (0.00-0.00); Nucleated Red Blood Cells Perc 0.9 % (0-0.0); Platelet Count Result 242 K/mm3 (150-420); Red Blood Count 2.52 M/mm3 (4.20-5.40); Red Cell Distribution Width 19.6 % (11.6-14.4); White Blood Count 7.6 K/mm3 (4.8-10.8)
[2024-11-16 15:15] LABS: INR 0.9; Partial Thromboplastin Time 21.5 Sec (23.9-30.70); Prothrombin Time 10.2 Seconds (9.50-12.1)
[2024-11-16 15:16] LABS: Hematocrit 16.4 % (35.0-42.0)
[2024-11-16 15:24] LABS: Alanine Aminotransferase 16 U/L (14-59); Albumin Level 2.9 g/dL (3.4-5.0); Alkaline Phosphatase 154 U/L (46-116); Anion Gap 8 mmol/L (4-12); Aspartate Amino Transferase 11 U/L (15-37); Bilirubin,Total 0.2 mg/dL (0.00-1.00); Blood Urea Nitrogen 14 mg/dL (7-18); Calcium 8.2 mg/dL (8.5-10.1); Carbon Dioxide 29 mmol/L (21-32); Chloride 105 mmol/L (98-108); Estimated CRCL calculation 56 ml/min; Estimated Glomerular Filt Rate > 60; Glucose 110 mg/dL (70-99); Lipase 16 U/L (16-77); NT Pro B Type Natriuretic Pept 793 pg/mL (0-450); Osmolality Calculated 295 mOsm/kg (285-295); Potassium 3.5 mmol/L (3.5-5.1); Sodium 142 mmol/L (136-145); Total Protein 7.2 g/dL (6.4-8.2); Troponin I 9.5 ng/L (0.00-60.4)
[2024-11-16] MEDS: SODIUM CHLORIDE 0.9% IV 250 ML 30 ML IV CONT (16:35)
[2024-11-16 16:51] LABS: Occult Blood Negative (Negative)
[2024-11-16 17:46] LABS: Troponin I 6.6 ng/L (0.00-60.4)
[2024-11-16 19:33] LABS: Hematocrit 21.1 % (35.0-42.0)
[2024-11-16 19:35] LABS: Hemoglobin 5.6 g/dL (11.7-13.8)
--- NOTE | 2024-11-16 19:35 | PC.NURSE ---
1934 lab called critical lab result hemoglobin 5.6
== END 2024-11-16 20:00 | disposition short-term general hospital (02) ==
PROVIDERS: Emergency Provider Emergency Medicine; PCP Nurse Practitioner Family
DX: R07.89 Other chest pain (principal); D64.89 Other specified anemias; I10 Essential (primary) hypertension; E78.5 Hyperlipidemia, unspecified; J44.9 Chronic obstructive pulmonary disease, unspecified; E03.9 Hypothyroidism, unspecified; Z87.891 Personal history of nicotine dependence; Z79.899 Other long term (current) drug therapy
CPT/HCPCS: 36415; 36430; 71045; 80053; 82272; 83690; 83880; 84484; 85014; 85018; 85025; 85610; 85730; 86850; 86900; 86901; 86920; 93005; 96360; 96361; 99285; J7050; P9016

== ENCOUNTER 2024-12-07 09:22 | Inpatient (IN) | payer MEDICARE, SELFPAY ==
[2024-12-07] VITALS (7 sets, daily range): BP systolic 103–131; BP diastolic 47–66; PULSE 65–71; RESP 14–20; TEMP 36.2–37; O2SAT 97–100; BMI 27.6
--- NOTE | ~2024-12-07 | US_ITS ---
EXAMINATION: US venous doppler UE RT DATE: 12/10/2024 19:49 INDICATION: swelling . TECHNIQUE: Grayscale ultrasound images without and with compression and Doppler ultrasound images of the right upper extremity veins were obtained. COMPARISON: None. FINDINGS: The visualized portions of the right internal jugular vein, subclavian vein, axillary vein, brachial veins, basilic vein, cephalic vein, radial vein, and ulnar vein are patent. IMPRESSION: No right upper extremity deep venous thrombosis. Reviewed, dictated and finalized at location K.
--- NOTE | ~2024-12-07 | XR_ITS ---
Portable chest x-ray Comparison: 11/16/2024 Clinical History: Pneumonia Findings: Possible minimal hazy bibasilar pulmonary edema. Possible COPD. Cardiomediastinal silhoue tte is stable. Bones and soft tissues are unremarkable. Impression: Possible minimal hazy bibasilar pulmonary edema. COPD. Reviewed, dictated and finalized at [facility]. Impression: Possible minimal hazy bibasilar pulmonary edema. COPD.
--- NOTE | ~2024-12-07 | XR_ITS ---
XR shoulder RT min 2V Ordering provider: Cheri Griffiths APRN History: . right shoulder pain . Comparison: None. FINDINGS: BONES: No acute fracture or dislocation. JOINT SPACES: The acromioclavicular joint shows osteoarthritic changes. The glenohumeral joint is nor mal. SOFT TISSUES: Normal. IMPRESSION: No acute osseous abnormality right shoulder. Reviewed, dictated and finalized at location A.
--- NOTE | 2024-12-07 09:45 | ED_ITS ---
HPI - General Adult General Chief complaint: Unspecified <Jitendra Zurita PA-C - Last Filed: 12/07/24 18:42> Stated complaint: Feeding tube needs checked <Jitendra Zurita PA-C - Last Filed: 12/07/24 18:42> Time Seen by Provider: 12/07/24 09:30 <JIGAR Bolton Last Filed: 12/07/24 18:42> Source: patient <JIGAR Bolton Last Filed: 12/07/24 18:42> Mode of arrival: EMS <JIGAR Bolton Last Filed: 12/07/24 18:42> Limitations: no limitations <JIGAR Bolton Last Filed: 12/07/24 18:42> History of Present Illness HPI narrative: This is an 79-year-old female with PMH metastatic lung cancer, aspiration pneumonia, bipolar 1, COPD on 2 L O2 chronically, hypothyroidism, s/p G-tube placement who presents to the ED via [facility]. They state that they cannot take care of her with her medical history and gastrostomy tube. Patient states that the tube was placed about a month ago in [place]. Patient states that the tube has been working fine and she has no complaints. <Jitendra Zurita PA-C - Last Filed: 12/07/24 18:42> Related Data Home medications: Home Medications ?Medication ?Instructions ?Recorded ?Confirmed ?Last Taken ?Type aspirin 81 mg chewable tablet 81 mg feeding tube DAILY 11/01/23 12/07/24 01/20/24 History atorvastatin 20 mg tablet 20 mg feeding tube HS 11/01/23 12/07/24 12/06/24 History budesonide-formoterol HFA 160 2 puff inhalation BID 11/01/23 12/07/24 12/07/24 History mcg-4.5 mcg/actuation aerosol inhaler (Breyna) carbamazepine 100 mg chewable 300 mg feeding tube BID 11/01/23 12/07/24 12/07/24 History tablet levothyroxine 100 mcg tablet 100 mcg feeding tube DAILY 11/01/23 12/07/24 01/20/24 History montelukast 10 mg tablet 10 mg feeding tube HS 11/01/23 12/07/24 12/06/24 History risperidone 2 mg tablet 2 mg feeding tube DAILY 11/01/23 12/07/24 01/20/24 07:00 History ascorbic acid (vitamin C) 250 mg 250 mg feeding tube DAILY 11/16/24 12/07/24 12/07/24 History tablet (Vitamin C) furosemide 20 mg tablet 20 mg feeding tube DAILY 11/16/24 12/07/24 Unknown History albuterol sulfate 90 mcg/actuation 2 puff inhalation Q6H PRN 12/07/24 12/07/24 Unknown History aerosol inhaler shortness of breath or wheezing dicyclomine 10 mg capsule 10 mg feeding tube DAILY PRN 12/07/24 12/07/24 Unknown History abdominal pain omeprazole 20 mg capsule,delayed 20 mg feeding tube DAILY 12/07/24 12/07/24 12/07/24 History release potassium chloride 20 mEq oral 20 meq feeding tube EVERY OTHER DAY 12/07/24 12/07/24 12/07/24 History packet solifenacin 5 mg tablet 10 mg PO DAILY 12/07/24 12/07/24 12/07/24 History valproic acid (as sodium salt) 250 See Rx Instructions feeding tube 12/07/24 12/07/24 12/07/24 History mg/5 mL oral solution Q6H <Jitendra Zurita PA-C - Last Filed: 12/07/24 18:42> Allergies/adverse reactions: Allergies Allergy/AdvReac Type Severity Reaction Status Date / Time alendronate sodium Allergy Mild Unknown Verified 12/07/24 15:13 celecoxib Allergy Mild Unknown Verified 12/07/24 15:13 ciprofloxacin (From Cipro) Allergy Mild Unknown Verified 12/07/24 15:13 cinnamon Allergy Rash Verified 12/07/24 15:13 <Jitendra Zurita PA-C - Last Filed: 12/07/24 18:42> Review of Systems 2 Review of Systems: All systems as dictated in HPI <Jitendra Zurita PA-C - Last Filed: 12/07/24 18:42> PMFSH Past Medical History Medical History: Medical History 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 She only tells me about her son, Artemio Gant [phone]. She has a court appointed guardian, Nai Workman [phone]. Smoking packs per day: 3 Smoking cigarettes per day: 60.0 Years smoked: 15 Smoking pack-years: 45.00 Smoking status: Former smoker Second hand tobacco smoke exposure: No Alcohol intake: never Substance use: never Substance use type: does not use Do You Feel Safe in your Home?: No Lack of Transportation: No Lack of Food: Never True Current Housing: I Have Housing Concerned About Future Housing: No Difficulty Paying Gas/Electric Bills: No Difficulty Paying for Meds: No Currently Unemployed: No Education: Decline to Answer Difficulty w/ Childcare or Family Care: No Living arrangements: penitentiary Additional living arrangements comments: Lives at [facility] Occupation/Education: other Additional occupation/education comments: disability. 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 Gender identity (if verbalized by the patient): Female Spiritual care concerns: No <JIGAR Bolton Last Filed: 12/07/24 18:42> Exam 2 Narrative: GENERAL: Well-appearing, well-nourished, and in no acute distress. HEAD: Normocephalic, atraumatic. EYES: PERRLA and EOMI. ENT: Nares clear, no rhinorrhea or epistaxis. Mucous membranes moist. Oropharynx without tonsillar hypertrophy exudate or other lesions. NECK: Supple. No adenopathy or masses. CHEST: No respiratory distress. Clear to auscultation. No wheezes rales or rhonchi HEART: Regular rate and rhythm. No murmur heard. Normal peripheral pulses. ABDOMEN: G-tube in good position. No surrounding skin erythema or tenderness. No drainage. Soft, nontender, nondistended, normal active bowel sounds. MSK: Normal range of motion. No edema. SKIN: Warm, dry, no rash. NEURO: Alert and oriented x4. No focal deficits. PSYCH: Normal mood and affect. <Jitendra Zurita PA-C - Last Filed: 12/07/24 18:42> Course MEDICATION AID/PA Physician Supervision i agree with the care and management <Blanco Whitehead MD - Last Filed: 12/07/24 18:03> Vital Signs Vital signs: Vital Signs Temperature 98.6 F 12/07/24 09:18 Pulse Rate 69 12/07/24 09:18 Respiratory Rate 20 12/07/24 09:18 Blood Pressure 125/63 12/07/24 09:18 Pulse Oximetry 99 12/07/24 09:18 Oxygen Delivery Nasal Cannula 12/07/24 09:18 Oxygen Flow Rate 2 12/07/24 09:18 Temperature 97.3 F L 12/07/24 15:15 Pulse Rate 65 12/07/24 15:15 Respiratory Rate 18 12/07/24 15:15 Blood Pressure 103/59 L 12/07/24 15:15 Pulse Oximetry 99 12/07/24 15:15 Oxygen Delivery Nasal Cannula 12/07/24 15:10 Oxygen Flow Rate 2 12/07/24 15:10 <Jitendra Zurita PA-C - Last Filed: 12/07/24 18:42> Vital Signs Temperature 98.6 F 12/07/24 09:18 Pulse Rate 69 12/07/24 09:18 Respiratory Rate 20 12/07/24 09:18 Blood Pressure 125/63 12/07/24 09:18 Pulse Oximetry 99 12/07/24 09:18 Oxygen Delivery Nasal Cannula 12/07/24 09:18 Oxygen Flow Rate 2 12/07/24 09:18 Temperature 97.3 F L 12/07/24 15:15 Pulse Rate 65 12/07/24 15:15 Respiratory Rate 18 12/07/24 15:15 Blood Pressure 103/59 L 12/07/24 15:15 Pulse Oximetry 99 12/07/24 15:15 Oxygen Delivery Nasal Cannula 12/07/24 15:10 Oxygen Flow Rate 2 12/07/24 15:10 <Blanco Whitehead MD - Last Filed: 12/07/24 18:03> Medical Decision Making MDM Narrative Medical decision making narrative: 79-year-old female presenting to the ED for need of [facility] placement. She will need to be admitted for care coordination. She has a G- tube in extensive medical history that previous long term care is unable to take care of. They sent her here to obtain placement. We were unable to get a hold of her son and she requested that we not contact the listed POA. Spoke with the hospitalist regarding admission and she will admit with care coordination consult. <Jitendra Zurita PA-C - Last Filed: 12/07/24 18:42> Vital Signs Vital Signs: Vital Signs Temperature 98.6 F 12/07/24 09:18 Pulse Rate 69 12/07/24 09:18 Respiratory Rate 20 12/07/24 09:18 Blood Pressure 125/63 12/07/24 09:18 Pulse Oximetry 99 12/07/24 09:18 Oxygen Delivery Nasal Cannula 12/07/24 09:18 Oxygen Flow Rate 2 12/07/24 09:18 Temperature 97.3 F L 12/07/24 15:15 Pulse Rate 65 12/07/24 15:15 Respiratory Rate 18 12/07/24 15:15 Blood Pressure 103/59 L 12/07/24 15:15 Pulse Oximetry 99 12/07/24 15:15 Oxygen Delivery Nasal Cannula 12/07/24 15:10 Oxygen Flow Rate 2 12/07/24 15:10 <Jitendra Zurita PA-C - Last Filed: 12/07/24 18:42> Vital Signs Temperature 98.6 F 12/07/24 09:18 Pulse Rate 69 12/07/24 09:18 Respiratory Rate 20 12/07/24 09:18 Blood Pressure 125/63 12/07/24 09:18 Pulse Oximetry 99 12/07/24 09:18 Oxygen Delivery Nasal Cannula 12/07/24 09:18 Oxygen Flow Rate 2 12/07/24 09:18 Temperature 97.3 F L 12/07/24 15:15 Pulse Rate 65 12/07/24 15:15 Respiratory Rate 18 12/07/24 15:15 Blood Pressure 103/59 L 12/07/24 15:15 Pulse Oximetry 99 12/07/24 15:15 Oxygen Delivery Nasal Cannula 12/07/24 15:10 Oxygen Flow Rate 2 12/07/24 15:10 <Blanco Whitehead MD - Last Filed: 12/07/24 18:03> Lab Data Result diagrams: 12/07/24 11:04 12/07/24 11:04 <Jitendra Zurita PA-C - Last Filed: 12/07/24 18:42> Labs: Lab Results 12/07/24 12/07/24 Range/Units 11:04 11:19 WBC 9.5 (4.5-10.0) K/mm3 RBC 4.34 (4.2-5.4) M/mm3 Hgb 10.2 L (12.0-15.0) g/dL Hct 36.2 L (37.0-47.0) % MCV 83.4 (80-100) fl MCH 23.5 L (26-34) pg MCHC 28.2 L (32-36) g/dl RDW Not Reportable Plt Count 288 (150-375) k/mm3 MPV 10.9 H (7.4-10.4) fl Immature Gran % (Auto) 0.5 (0-0.5) % Neut % (Auto) 73.5 H (45.5-73.1) % Lymph % (Auto) 12.1 L (18.3-44.2) % [place] % (Auto) 10.0 H (2.6-8.5) % Eos % (Auto) 3.1 (0-4.4) % Baso % (Auto) 0.8 (0.2-1.2) % Lymph # (Auto) 1.15 (0.9-3.2) K/mm3 [place] # (Auto) 1.0 H (0.1-0.6) K/mm3 Eos # (Auto) 0.3 (0-0.3) K/mm3 Baso # (Auto) 0.1 (0.0-0.1) K/mm3 Abs Immat Gran (auto) 0.05 H (0.00-0.031) K/mm3 Absolute Neuts (auto) 7.0 H (1.3-6.7) K/mm3 Absolute Nucleated RBC 0.000 (0.0-0.012) K/mm3 Band Neutrophils % Not Reportable Nucleated RBC % 0.0 (0.0-0.2) % Platelet Estimate Adequate (Adequate) % Immature Plt Fraction 7.6 (0.9-11.2) % Hypochromasia 1+ Anisocytosis 1+ Schistocytes None seen Sodium 139 (137-145) mmol/L Potassium 4.9 (3.4-5.0) mmol/L Chloride 100 (98-107) mmol/L Carbon Dioxide 31 H (22-30) mmol/L Anion Gap 8 (4-12) mmol/L BUN 18 H D (7-17) mg/dL Creatinine 0.45 L (0.7-1.0) mg/dL Estim Creat Clear Calc 82 ml/min Estimated GFR > 60 (59 - ) Glucose 104 (65-110) mg/dL Calcium 8.9 (8.4-10.2) mg/dL Total Bilirubin 0.5 (0.2-1.3) mg/dL AST 46 H (14-36) U/L ALT 21 (6-35) U/L Alkaline Phosphatase 95 (38-126) U/L Total Protein 8.0 (6.3-8.2) g/dL Albumin 3.9 (3.5-5.1) g/dL Urine Color Dark yellow (Yellow) Urine Appearance Clear (Clear) Urine pH 6.0 (5.0-9.0) Ur Specific [place] 1.023 (1.001-1.035) Urine Protein Negative (Negative) mg/dL Urine Glucose (UA) Negative (Negative) mg/dL Urine Ketones Trace H (Negative) mg/dL Ur Blood (Man) Negative (Negative) Urine Nitrate Negative (Negative) Urine Bilirubin Negative (Negative) Urine Urobilinogen 1.0 (<2.0) mg/dL Add Ur Microanalysis Reviewed Leukocyte Esterase Rfl 1+ H (Negative) SARITA/UL Urine RBC 0-2 (0-2) /hpf Urine WBC 0-5 (0-3) /hpf Ur Squamous Epith Cells Occasional (Few) /hpf Urine Bacteria None seen /hpf Urine Casts 0-2 <Jitendra Zurita PA-C - Last Filed: 12/07/24 18:42> Lab Results 12/07/24 12/07/24 Range/Units 11:04 11:19 WBC 9.5 (4.5-10.0) K/mm3 RBC 4.34 (4.2-5.4) M/mm3 Hgb 10.2 L (12.0-15.0) g/dL Hct 36.2 L (37.0-47.0) % MCV 83.4 (80-100) fl MCH 23.5 L (26-34) pg MCHC 28.2 L (32-36) g/dl RDW Not Reportable Plt Count 288 (150-375) k/mm3 MPV 10.9 H (7.4-10.4) fl Immature Gran % (Auto) 0.5 (0-0.5) % Neut % (Auto) 73.5 H (45.5-73.1) % Lymph % (Auto) 12.1 L (18.3-44.2) % [place] % (Auto) 10.0 H (2.6-8.5) % Eos % (Auto) 3.1 (0-4.4) % Baso % (Auto) 0.8 (0.2-1.2) % Lymph # (Auto) 1.15 (0.9-3.2) K/mm3 [place] # (Auto) 1.0 H (0.1-0.6) K/mm3 Eos # (Auto) 0.3 (0-0.3) K/mm3 Baso # (Auto) 0.1 (0.0-0.1) K/mm3 Abs Immat Gran (auto) 0.05 H (0.00-0.031) K/mm3 Absolute Neuts (auto) 7.0 H (1.3-6.7) K/mm3 Absolute Nucleated RBC 0.000 (0.0-0.012) K/mm3 Band Neutrophils % Not Reportable Nucleated RBC % 0.0 (0.0-0.2) % Platelet Estimate Adequate (Adequate) % Immature Plt Fraction 7.6 (0.9-11.2) % Hypochromasia 1+ Anisocytosis 1+ Schistocytes None seen Sodium 139 (137-145) mmol/L Potassium 4.9 (3.4-5.0) mmol/L Chloride 100 (98-107) mmol/L Carbon Dioxide 31 H (22-30) mmol/L Anion Gap 8 (4-12) mmol/L BUN 18 H D (7-17) mg/dL Creatinine 0.45 L (0.7-1.0) mg/dL Estim Creat Clear Calc 82 ml/min Estimated GFR > 60 (59 - ) Glucose 104 (65-110) mg/dL Calcium 8.9 (8.4-10.2) mg/dL Total Bilirubin 0.5 (0.2-1.3) mg/dL AST 46 H (14-36) U/L ALT 21 (6-35) U/L Alkaline Phosphatase 95 (38-126) U/L Total Protein 8.0 (6.3-8.2) g/dL Albumin 3.9 (3.5-5.1) g/dL Urine Color Dark yellow (Yellow) Urine Appearance Clear (Clear) Urine pH 6.0 (5.0-9.0) Ur Specific [place] 1.023 (1.001-1.035) Urine Protein Negative (Negative) mg/dL Urine Glucose (UA) Negative (Negative) mg/dL Urine Ketones Trace H (Negative) mg/dL Ur Blood (Man) Negative (Negative) Urine Nitrate Negative (Negative) Urine Bilirubin Negative (Negative) Urine Urobilinogen 1.0 (<2.0) mg/dL Add Ur Microanalysis Reviewed Leukocyte Esterase Rfl 1+ H (Negative) SARITA/UL Urine RBC 0-2 (0-2) /hpf Urine WBC 0-5 (0-3) /hpf Ur Squamous Epith Cells Occasional (Few) /hpf Urine Bacteria None seen /hpf Urine Casts 0-2 <Blanco Whitehead MD - Last Filed: 12/07/24 18:03> Discharge Plan Discharge Clinical Impression: COPD (chronic obstructive pulmonary disease) Qualifiers: COPD type: unspecified COPD Qualified Code(s): J44.9 - Chronic obstructive pulmonary disease, unspecified <Jitendra Zurita PA-C - Last Filed: 12/07/24 18:42> Patient Disposition: Home <Jitendra Zurita PA-C - Last Filed: 12/07/24 18:42> Condition: Stable <Jitendra Zurita PA-C - Last Filed: 12/07/24 18:42>
--- OUTSIDE RECORDS SUMMARY | 2024-12-07 10:05 | XMS_ITS | Clinical Summary ---
Author Organization Unknown Care Team Providers Care Bearing Machine Operator Name Role Phone SHRUTHI BUCHANAN, MARIA LUISA Unavailable Unavailable ESTER RN, JAVI Unavailable Unavailable Payers Payer Name Policy Type Policy Number Effective Date Expira tion Date [employer] MANAGED MEDICARE - PDGM - VBC [id number] Problems Condition Name Condition Details Condition Category Status Onset Date Resolution Date Last Treatment Date Treating Clinician Comments ANEMIA, UNSPECIFIED Active 11-16 00:00: 00 Allergies, Adverse Reactions, Alerts Allergy Name Allergy Type Status Severity Reaction(s) Onset Date Inactive Date Treating Clinician Comments CINNAMON Propensity to adverse reactions Active 12-05 12:57: 49 AZITHROMYCIN Propensity to adverse reactions Active 12-05 12:57: 56 CELECOXIB Propensity to adverse reactions Active 12-05 12:58: 03 CIPROFLOXACI N ORAL Propensity to adverse reactions Active 12-05 12:58: 12 ALENDRONATE Propensity to adverse reactions Active 12-05 12:58: 20 Medications Ordered Medication Name Filled Medication Name Start Date Stop Date Current Medication? Ordering Clinician Indication Dosage Frequency Signature (SIG) Comments Components ferrous sulfate 325 mg (65 mg iron) tablet,miguel yed release 11-03 00:00: 00 11-21 23:59 :00 No [id number] 1 tablet 2 TIMES DAILY 1 tablet 2 TIMES DAILY (route: oral) Med Classific ation: Electroly te Balance-N utritiona l Products levofloxaci n 750 mg tablet 11-03 00:00: 00 11-07 23:59 :00 No [id number] 1 tablet DAILY 1 tablet DAILY (route: oral) Med Classific ation: Anti-Infe ctive Agents amlodipine 10 mg tablet 10-18 00:00: 00 11-14 23:59 :00 No [id number] 1 tablet DAILY 1 tablet DAILY (route: oral) Med Classific ation: Cardiovas cular Therapy Agents aspirin 81 mg chewable tablet 10-18 00:00: 00 11-21 23:59 :00 No [id number] 1 tablet DAILY 1 tablet DAILY (route: oral) Med Classific ation: Hematolog ical Agents atorvastati n 20 mg tablet 10-18 00:00: 00 11-21 23:59 :00 No [id number] 1 tablet DAILY 1 tablet DAILY (route: oral) Med Classific ation: Cardiovas cular Therapy Agents carbamazepi ne 100 mg chewable tablet 10-18 00:00: 00 11-21 23:59 :00 No [id number] 3 tablet 2 TIMES DAILY 3 tablet 2 TIMES DAILY (route: oral) Med Classific ation: Central Nervous System Agents divalproex 125 mg capsule,del ayed release sprinkle 10-18 00:00: 00 11-21 23:59 :00 No [id number] 1 capsule 2 TIMES DAILY 1 capsule 2 TIMES DAILY (route: oral) Med Classific ation: Central Nervous System Agents furosemide 20 mg tablet 10-18 00:00: 00 11-21 23:59 :00 No [id number] 1 tablet DAILY 1 tablet DAILY (route: oral) Med Classific ation: Cardiovas cular Therapy Agents levothyroxi ne 100 mcg tablet 10-18 00:00: 00 11-21 23:59 :00 No [id number] 1 tablet DAILY 1 tablet DAILY (route: oral) Med Classific ation: Endocrine montelukast 10 mg tablet 10-18 00:00: 00 11-21 23:59 :00 No [id number] 1 tablet DAILY 1 tablet DAILY (route: oral) Med Classific ation: Respirato ry Therapy Agents oxybutynin chloride ER 5 mg tablet,exte nded release 24 hr 10-18 00:00: 00 11-21 23:59 :00 No [id number] 1 tablet DAILY 1 tablet DAILY (route: oral) Med Classific ation: Genitouri nary Therapy pantoprazol e 40 mg tablet,miguel yed release 10-18 00:00: 00 11-21 23:59 :00 No [id number] 1 tablet DAILY 1 tablet DAILY (route: oral) Med Classific ation: Gastroint estinal Therapy Agents potassium chloride ER 10 mEq tablet,exte nded release(par t/cryst) 10-18 00:00: 00 01-25 23:59 :00 No [id number] 10 mEq DAILY 10 mEq DAILY (route: oral) Med Classific ation: Electroly te Balance-N utritiona l Products risperidone 2 mg tablet 10-18 00:00: 00 11-21 23:59 :00 No [id number] 1 tablet DAILY 1 tablet DAILY (route: oral) Med Classific ation: Central Nervous System Agents Breyna 160 mcg-4.5 mcg/actuati on HFA aerosol inhaler -24 00:00: 00 11-21 23:59 :00 No [id number] 2 puff 2 TIMES DAILY 2 puff 2 TIMES DAILY (route: inhalation ) Med Classific ation: Respirato ry Therapy Agents dicyclomine 20 mg tablet 3-26 00:00: 00 11-21 23:59 :00 No [id number] 1 tablet DAILY 1 tablet DAILY (route: oral) Med Classific ation: Gastroint estinal Therapy Agents Robitussin Cough-Chest Congestion DM 10 mg-200 mg capsule 12-02 00:00: 00 11-21 23:59 :00 No [id number] 1 capsule EVERY 8 HOURS 1 capsule EVERY 8 HOURS (route: oral) Med Classific ation: Respirato ry Therapy Agents Zithromax 250 mg tablet 12-02 00:00: 00 12-07 23:59 :00 No [id number] 1 tablet DAILY 1 tablet DAILY (route: oral) Med Classific ation: Anti-Infe ctive Agents amlodipine 5 mg tablet 5-14 00:00: 00 11-21 23:59 :00 No [id number] 1 tablet DAILY 1 tablet DAILY (route: oral) Med Classific ation: Cardiovas cular Therapy Agents Vitamin C 500 mg chewable tablet 3-12 00:00: 00 11-21 23:59 :00 No [id number] 1 tablet DAILY 1 tablet DAILY (route: oral) Med Classific ation: Electroly te Balance-N utritiona l Products albuterol sulfate HFA 90 mcg/actuati on aerosol inhaler 01-23 00:00: 00 11-21 23:59 :00 No [id number] 2 puff 4 TIMES DAILY 2 puff 4 TIMES DAILY (route: inhalation ) Med Classific ation: Respirato ry Therapy Agents amoxicillin 875 mg-potassiu m clavulanate 125 mg tablet 01-23 00:00: 00 01-28 23:59 :00 No [id number] 1 tablet EVERY 12 HOURS 1 tablet EVERY 12 HOURS (route: oral) Med Classific ation: Anti-Infe ctive Agents azithromyci n 500 mg tablet 01-23 00:00: 00 01-28 23:59 :00 No [id number] 1 tablet DAILY 1 tablet DAILY (route: oral) Med Classific ation: Anti-Infe ctive Agents guaifenesin ER 600 mg tablet, extended release 12 hr 01-23 00:00: 00 01-28 23:59 :00 No [id number] 2 tablet EVERY 12 HOURS 2 tablet EVERY 12 HOURS (route: oral) Med Classific ation: Respirato ry Therapy Agents potassium chloride ER 10 mEq tablet,exte nded release 01-23 00:00: 00 11-21 23:59 :00 No [id number] 1 tablet 2 TIMES DAILY 1 tablet 2 TIMES DAILY (route: oral) Med Classific ation: Electroly te Balance-N utritiona l Products prednisone 20 mg tablet 01-23 00:00: 00 01-30 23:59 :00 No [id number] 2 tablet DAILY 2 tablet DAILY (route: oral) Med Classific ation: Endocrine thick it powder 01-25 00:00: 00 11-21 23:59 :00 No [id number] 2 scoops DIRECTED 2 scoops DIRECTED (route: BY MOUTH) Med Classific ation: NONE acetaminoph en 325 mg tablet 01-23 00:00: 00 11-21 23:59 :00 No [id number] 2 tablet EVERY 4 HOURS 2 tablet EVERY 4 HOURS (route: oral) Med Classific ation: Analgesic , Anti-infl ammatory or Antipyret ic Breyna 160 mcg-4.5 mcg/actuati on HFA aerosol inhaler 02-05 00:00: 00 03-15 08:18 :26.3 03 No [id number] 2 puff 2 TIMES DAILY 2 puff 2 TIMES DAILY (route: inhalation ) Alternate Route: NONE. Med Classific ation: Respirato ry Therapy Agents Immunizations Ordered Immunization Name Filled Immunization Name Date Status Comments Refusal Reason COVID-19, COVID-19 2024-12-05 00:00:00 INFLUENZA, LAIV (LIVE VIRUS) 2024-04-25 00:00:00 PNEUMOCOCCAL (PPV), PPV 2022-04-28 00:00:00 Vital Signs Vital Name Observation Time Observation Value Commen ts Temperature 2024-12-05 12:55:00.000 98.2 [degF] BMI (%) 2024-12-05 12:34:21.000 31 kg/m2 Height 2024-12-05 12:34:15.000 60 [in_us] Pulse 2024-12-05 12:55:00.000 83 /min O2 Saturation (%) 2024-12-05 12:55:00.000 100 % Respirations 2024-12-05 12:55:00.000 18 /min Weight (lbs) 2024-12-05 12:34:21.000 160 [lb_av] Systolic Blood Pressure 2024-12-05 12:55:00.000 140 mm [Hg] Diastolic Blood Pressure 2024-12-05 12:55:00.000 80 mm [Hg] Plan of Treatment Planned Activity Planned Date Details Comments Future Scheduled Test SKILLED NU RSE TO EVALUATE PATIENT, IDENTIFY PRIMARY AND CO-MORBID CONDITIONS CODED PER CODING GUIDELINES, AND DEVELOP PATIENT SPECIFIC PLAN OF CARE THAT INCLUDES PATIENT GOAL FOR HOME HEALTH. [code = SKILLED NURSE TO EVALUATE PATIENT, IDENTIFY PRIMARY AND CO-MORBID CONDITIONS CODED PER CODING GUIDELINES, AND DEVELOP PATIENT SPECIFIC PLAN OF CARE THAT INCLUDES PATIENT GOAL FOR HOME HEALTH.] Future Scheduled Test SKILLED NU RSE TO REVIEW PATIENT MEDICATIONS (PRESCRIPTION/OTC). INSTRUCT PATIENT/CAREGIVER ON ALL MEDICATIONS INCLUDING PURPOSE, WHEN TO TAKE, IMPORTANCE OF MEDICATION ADHERENCE, MONITORING OF EFFECTIVENESS, ADVERSE DRUG REACTIONS, POSSIBLE SIDE EFFECTS, AND WHEN TO NOTIFY AGENCY OR PHYSICIAN/PROVIDER OF ANY CONCERNS. [code = SKILLED NURSE TO REVIEW PATIENT MEDICATIONS (PRESCRIPTION/OTC). INSTRUCT PATIENT/CAREGIVER ON ALL MEDICATIONS INCLUDING PURPOSE, WHEN TO TAKE, IMPORTANCE OF MEDICATION ADHERENCE, MONITORING OF EFFECTIVENESS, ADVERSE DRUG REACTIONS, POSSIBLE SIDE EFFECTS, AND WHEN TO NOTIFY AGENCY OR PHYSICIAN/PROVIDER OF ANY CONCERNS.] Future Scheduled Test PATIENT ORTEGA S A RISK OF HOSPITALIZATION AND ED USE. SKILLED NURSE TO ESTABLISH SUPPORT MEASURES TO MINIMIZE RISK OF HOSPITALIZATION AND ED USE, AND INSTRUCT PATIENT/CAREGIVER ON METHODS TO REDUCE AVOIDABLE HOSPITALIZATION AND ED USE. [code = PATIENT HAS A RISK OF HOSPITALIZATION AND ED USE. SKILLED NURSE TO ESTABLISH SUPPORT MEASURES TO MINIMIZE RISK OF HOSPITALIZATION AND ED USE, AND INSTRUCT PATIENT/CAREGIVER ON METHODS TO REDUCE AVOIDABLE HOSPITALIZATION AND ED USE.] Future Scheduled Test SKILLED NU RSE TO PROVIDE INSTRUCTION TO PATIENT/CAREGIVER RELATED TO DISCHARGE PLANNING. [code = SKILLED NURSE TO PROVIDE INSTRUCTION TO PATIENT/CAREGIVER RELATED TO DISCHARGE PLANNING.] Future Scheduled Test SKILLED NU RSE TO PERFORM ENVIRONMENTAL SAFETY RISK ASSESSMENT AND FALL RISK ASSESSMENT AND PROVIDE INSTRUCTION TO IMPLEMENT ENVIRONMENTAL SAFETY AND FALL PREVENTION STRATEGIES THROUGHOUT THE CERTIFICATION PERIOD. SKILLED NURSE WILL MAINTAIN SITUATIONAL AWARENESS AND WILL NOTIFY CLINICAL FIRER ELECTRIC LOCOMOTIVE AND PHYSICIAN/PROVIDER WITH ANY CHANGE IN CONDITION. [code = SKILLED NURSE TO PERFORM ENVIRONMENTAL SAFETY RISK ASSESSMENT AND FALL RISK ASSESSMENT AND PROVIDE INSTRUCTION TO IMPLEMENT ENVIRONMENTAL SAFETY AND FALL PREVENTION STRATEGIES THROUGHOUT THE CERTIFICATION PERIOD. SKILLED NURSE WILL MAINTAIN SITUATIONAL AWARENESS AND WILL NOTIFY CLINICAL FIRER ELECTRIC LOCOMOTIVE AND PHYSICIAN/PROVIDER WITH ANY CHANGE IN CONDITION.] Future Scheduled Test SKILLED NU RSE FOR OBSERVATION AND ASSESSMENT OF PATIENTS PAIN LEVEL AND EFFECTIVENESS OF PAIN MANAGEMENT REGIMEN. SKILLED NURSE TO INSTRUCT PATIENT/CAREGIVER REGARDING PHARMACOLOGIC AND NON-PHARMACOLOGIC PAIN CONTROL MEASURES. SKILLED NURSE TO REPORT TO PHYSICIAN IF PAIN IS UNCONTROLLED WITH CURRENT PAIN MANAGEMENT REGIMEN. [code = SKILLED NURSE FOR OBSERVATION AND ASSESSMENT OF PATIENTS PAIN LEVEL AND EFFECTIVENESS OF PAIN MANAGEMENT REGIMEN. SKILLED NURSE TO INSTRUCT PATIENT/CAREGIVER REGARDING PHARMACOLOGIC AND NON-PHARMACOLOGIC PAIN CONTROL MEASURES. SKILLED NURSE TO REPORT TO PHYSICIAN IF PAIN IS UNCONTROLLED WITH CURRENT PAIN MANAGEMENT REGIMEN.] Future Scheduled Test SKILLED NU RSE TO ASSESS PATIENT'S SKIN INTEGRITY AND INSTRUCT PATIENT/CAREGIVER ON MEASURES TO PREVENT PRESSURE ULCERS. [code = SKILLED NURSE TO ASSESS PATIENT'S SKIN INTEGRITY AND INSTRUCT PATIENT/CAREGIVER ON MEASURES TO PREVENT PRESSURE ULCERS.] Future Scheduled Test SN TO INST RUCT PATIENT/CAREGIVER ON COPD MANAGEMENT UTILIZING THE BREATHING WITH CARE SPECIALTY PROGRAM. [code = SN TO INSTRUCT PATIENT/CAREGIVER ON COPD MANAGEMENT UTILIZING THE BREATHING WITH CARE SPECIALTY PROGRAM.] Future Scheduled Test SKILLED NU RSE FOR O/A OF RESPIRATORY SYSTEM TO IDENTIFY CHANGES ASSOCIATED WITH EXACERBATION AND TO PROVIDE SKILLED TEACHING ON MANAGEMENT OF RESPIRATORY SYSTEM, COPD, HX OF PNEUMONIA. [code = SKILLED NURSE FOR O/A OF RESPIRATORY SYSTEM TO IDENTIFY CHANGES ASSOCIATED WITH EXACERBATION AND TO PROVIDE SKILLED TEACHING ON MANAGEMENT OF RESPIRATORY SYSTEM, COPD, HX OF PNEUMONIA.] Future Scheduled Test SKILLED NU RSE TO INSTRUCT PATIENT/CAREGIVER ON COPD TO INCLUDE TEACHING AND SELF-MANAGEMENT RELATED TO COPD DISEASE PROCESS, SIGNS AND SYMPTOMS, AND COMPLICATIONS. [code = SKILLED NURSE TO INSTRUCT PATIENT/CAREGIVER ON COPD TO INCLUDE TEACHING AND SELF-MANAGEMENT RELATED TO COPD DISEASE PROCESS, SIGNS AND SYMPTOMS, AND COMPLICATIONS.] Future Scheduled Test OXYGEN VIA NASAL CANNULA) @ 2 LITERS CONTINUOUS). SKILLED NURSE FOR O/A AND SKILLED TEACHING OF SAFE OXYGEN USE IN THE HOME. [code = OXYGEN VIA NASAL CANNULA) @ 2 LITERS CONTINUOUS). SKILLED NURSE FOR O/A AND SKILLED TEACHING OF SAFE OXYGEN USE IN THE HOME.] Future Scheduled Test SKILLED NU RSE FOR O/A, TEACHING, AND MANAGEMENT OF CARDIAC SYSTEM, HTN, CHF [code = SKILLED NURSE FOR O/A, TEACHING, AND MANAGEMENT OF CARDIAC SYSTEM, HTN, CHF] Future Scheduled Test SKILLED NU RSE TO PROVIDE TEACHING ON SIGNS AND SYMPTOMS AND MANAGEMENT OF HYPERTENSION. [code = SKILLED NURSE TO PROVIDE TEACHING ON SIGNS AND SYMPTOMS AND MANAGEMENT OF HYPERTENSION.] Future Scheduled Test SKILLED NU RSE FOR O/A, TEACHING AND SELF-MANAGEMENT RELATED TO HEART FAILURE. INSTRUCT PATIENT/CAREGIVER ON SIGNS AND SYMPTOMS OF EXACERBATION TO REPORT AND IMPORTANCE OF OBTAINING AND RECORDING DAILY WEIGHT AND/OR MEASUREMENTS. SN OR TRAINED PATIENT/CAREGIVER TO OBTAIN WEIGHT DAILY AND WEIGHT GAIN OF 2 LBS OVERNIGHT OR 5 LBS IN 1 WEEK TO BE REPORTED TO PHYSICIAN/PROVIDER. IF UNABLE TO WEIGH PATIENT, SN OR TRAINED PATIENT/CAREGIVER TO OBTAIN MEASUREMENT OF BILATERAL LOWER LEGS IN CM DAILY AND REPORT AN INCREASE OF 2 CM TO PHYSICIAN/PROVIDER. [code = SKILLED NURSE FOR O/A, TEACHING AND SELF-MANAGEMENT RELATED TO HEART FAILURE. INSTRUCT PATIENT/CAREGIVER ON SIGNS AND SYMPTOMS OF EXACERBATION TO REPORT AND IMPORTANCE OF OBTAINING AND RECORDING DAILY WEIGHT AND/OR MEASUREMENTS. SN OR TRAINED PATIENT/CAREGIVER TO OBTAIN WEIGHT DAILY AND WEIGHT GAIN OF 2 LBS OVERNIGHT OR 5 LBS IN 1 WEEK TO BE REPORTED TO PHYSICIAN/PROVIDER. IF UNABLE TO WEIGH PATIENT, SN OR TRAINED PATIENT/CAREGIVER TO OBTAIN MEASUREMENT OF BILATERAL LOWER LEGS IN CM DAILY AND REPORT AN INCREASE OF 2 CM TO PHYSICIAN/PROVIDER.] Future Scheduled Test SKILLED NU RSE FOR O/A AND SKILLED TEACHING RELATED TO SIGNS AND SYMPTOMS AND MANAGEMENT OF ANEMIA. [code = SKILLED NURSE FOR O/A AND SKILLED TEACHING RELATED TO SIGNS AND SYMPTOMS AND MANAGEMENT OF ANEMIA.] Future Scheduled Test SKILLED NU RSE FOR INSTRUCTION/ REINFORCEMENT OF NEEDS RELATED TO NUTRITION/HYDRATION. [code = SKILLED NURSE FOR INSTRUCTION/ REINFORCEMENT OF NEEDS RELATED TO NUTRITION/HYDRATION.] Future Scheduled Test SKILLED NU RSE FOR TEACHING REGARDING THE ADMINISTRATION OF ENTERAL NUTRITION JEVITY 1.2, 4 TIMES A DAY, BOLUS/GRAVITY, FLUSH WITH 50ML WATER BEFORE AND AFTER FEEDINGS. INCLUDING TEACHING ON ASPIRATION PRECAUTIONS, CHANGE DRAIN SPONGE Q 2 X WEEK AND NEEDED IF SOILED OR WET, AND S/S OF COMPLICATIONS TO REPORT. [code = SKILLED NURSE FOR TEACHING REGARDING THE ADMINISTRATION OF ENTERAL NUTRITION JEVITY 1.2, 4 TIMES A DAY, BOLUS/GRAVITY, FLUSH WITH 50ML WATER BEFORE AND AFTER FEEDINGS. INCLUDING TEACHING ON ASPIRATION PRECAUTIONS, CHANGE DRAIN SPONGE Q 2 X WEEK AND NEEDED IF SOILED OR WET, AND S/S OF COMPLICATIONS TO REPORT.] Future Scheduled Test SKILLED NU RSE FOR O/A AND TEACHING RELATED TO HX OF THROAT CANCER/NEOPLASM) INCLUDING SIGNS AND SYMPTOMS OF DISEASE PROGRESSION, TREATMENT, AND MANAGEMENT OF POTENTIAL SIDE EFFECTS. [code = SKILLED NURSE FOR O/A AND TEACHING RELATED TO HX OF THROAT CANCER/NEOPLASM) INCLUDING SIGNS AND SYMPTOMS OF DISEASE PROGRESSION, TREATMENT, AND MANAGEMENT OF POTENTIAL SIDE EFFECTS.] Future Scheduled Test SKILLED NU RSE FOR O/A AND SKILLED TEACHING RELATED TO SIGNS AND SYMPTOMS OF INFECTION AND INFECTION CONTROL MEASURES. [code = SKILLED NURSE FOR O/A AND SKILLED TEACHING RELATED TO SIGNS AND SYMPTOMS OF INFECTION AND INFECTION CONTROL MEASURES.] Future Scheduled Test [facility] MAY ACCEPT ORDERS FROM THE FOLLOWING PHYSICIANS: DR YANEZ- ROPE TIER [code = HOME HEALTH AGENCY MAY ACCEPT ORDERS FROM THE FOLLOWING PHYSICIANS: DR YANEZ- ROPE TIER] Goal Patient Goal - TO BE ABLE TO GAIN WEIGHT Goal Provider Goal - A PLAN OF CARE WILL BE ESTABLISHED THAT MEETS PATIENT'S CORRECTION NEEDS AND INCLUDES PATIENT GOAL FOR HOME HEALTH. Goal Provider Goal - PATIENT/CAREGIVER WILL VERBALIZE UNDERSTANDING OF EDUCATION PROVIDED ON MEDICATIONS BY THE END OF THE CERTIFICATION PERIOD. Goal Provider Goal - PATIENT WILL HAVE SUPPORT MEASURES ESTABLISHED TO PREVENT HOSPITALIZATION AND ED USE AND PATIENT/CAREGIVER WILL VERBALIZE/DEMONSTRATE METHODS TO REDUCE AVOIDABLE HOSPITALIZATION AND ED USE BY END OF EPISODE. Goal Provider Goal - PATIENT/CAREGIVER WILL VERBALIZE UNDERSTANDING OF DISCHARGE PLANNING INSTRUCTIONS BY DATE OF DISCHARGE. Goal Provider Goal - PATIENT/CAREGIVER WILL VERBALIZE/DEMONSTRATE EFFECTIVE ENVIRONMENTAL SAFETY AND FALL PREVENTION STRATEGIES, WILL REMAIN SAFE IN THE COMMUNITY, AND WILL BE FREE OF DANGER TO SELF AND OTHERS THROUGHOUT THE CERTIFICATION PERIOD. Goal Provider Goal - PATIENT/CAREGIVER WILL DEMONSTRATE UNDERSTANDING OF PHARMACOLOGIC AND NONPHARMACOLOGIC PAIN CONTROL MEASURES AND PATIENT WILL HAVE IMPROVEMENT IN PAIN INTERFERING WITH ACTIVITY EVIDENCED BY PAIN CONTROLLED AT LEVEL OF PATIENT GOAL OF 5 ON 0-10 PAIN SCALE) OR LESS BY END OF CERTIFICATION PERIOD. Goal Provider Goal - PATIENT/CAREGIVER WILL VERBALIZE UNDERSTANDING OF PRESSURE ULCER PREVENTION BY END OF THE EPISODE. Goal Provider Goal - PATIENT/CAREGIVER WILL DEMONSTRATE MANAGEMENT OF COPD A RESULT OF PARTICIPATION IN BREATHING WITH CARE SPECIALTY PROGRAM. Goal Provider Goal - PATIENT/CAREGIVER WILL VERBALIZE/DEMONSTRATE MANAGEMENT OF RESPIRATORY SYSTEM. CHANGES IN RESPIRATORY STATUS WILL BE IDENTIFIED AND REPORTED TO PHYSICIAN FOR PROMPT INTERVENTION THROUGHOUT THE CERTIFICATION PERIOD. Goal Provider Goal - PATIENT/CAREGIVER WILL VERBALIZE/DEMONSTRATE KNOWLEDGE AND MANAGEMENT OF COPD BY END OF EPISODE. Goal Provider Goal - PATIENT/CAREGIVER WILL VERBALIZE/DEMONSTRATE UNDERSTANDING OF SAFE OXYGEN USE IN THE HOME THROUGHOUT THE EPISODE. Goal Provider Goal - PATIENT/CAREGIVER WILL VERBALIZE/DEMONSTRATE MANAGEMENT OF CARDIAC SYSTEM AND EXACERBATIONS WILL BE IDENTIFIED AND PROMPTLY REPORTED THROUGHOUT THE CERTIFICATION PERIOD. Goal Provider Goal - PATIENT/CAREGIVER WILL VERBALIZE SIGNS AND SYMPTOMS OF HYPERTENSION AND WILL BE ABLE TO DEMONSTRATE ABILITY TO MANAGE EXACERBATION BY END OF THE EPISODE. Goal Provider Goal - PATIENT/CAREGIVER WILL VERBALIZE/DEMONSTRATE KNOWLEDGE AND MANAGEMENT OF HEART FAILURE DISEASE PROCESS BY END OF EPISODE. Goal Provider Goal - PATIENT/CARGIVER WILL VERBALIZE UNDERSTANDING OF ANEMIA INCLUDING SIGNS AND SYMPTOMS, MANAGEMENT OF COMPLICATIONS, AND PRESCRIBED TREATMENT REGIMEN BY END OF EPISODE. Goal Provider Goal - PATIENT/CAREGIVER WILL DEMONSTRATE ABILITY TO SELF MANAGE NEEDS RELATED TO NUTRITION/HYDRATION THROUGHOUT THE EPISODE. Goal Provider Goal - PATIENT/CAREGIVER WILL DEMONSTRATE ABILITY TO ADMINSITER ENTERAL NUTRITION, VERBALIZE METHODS TO PREVENT ASPIRATION AND PERFORM SITE CARE. PATIENT/CAREGIVER WILL REPORT COMPLICATIONS TO SKILLED NURSE /PHYSICIAN. Goal Provider Goal - PATIENT/CAREGIVER WILL VERBALIZE/DEMONSTRATE MANAGEMENT OF HX OF THROAT CANCER/NEOPLASM) CANCER/NEOPLASM DISEASE AND THE SIDE EFFECTS OF TREATMENTS DURING THIS EPISODE. Goal Provider Goal - PATIENT/CAREGIVER WILL VERBALIZE/DEMONSTRATE UNDERSTANDING OF S/S OF INFECTION AND INFECTION CONTROL MEASURES. SIGNS AND SYMPTOMS OF INFECTION WILL BE IDENTIFIED AND PHYSICIAN NOTIFIED FOR PROMPT INTERVENTION THROUGHOUT THE CERTIFICATION PERIOD. Goal Provider Goal - ADDITIONAL ORDERS WILL BE RECEIVED FROM ALTERNATE PHYSICIAN IN A TIMELY MANNER THROUGHOUT THE CERTIFICATION PERIOD. Progress Notes Progress Notes <paragraph>[Visit Date: 2024 by SOMMER PEREYRA RN]:</paragraph><paragraph>PATIENT SEEN TODAY FOR SOC. LIVES IN [facility] IN [place]. 79 YEAR OLD FEMALE REFERRED BY [facility] (11/16- 12/04/24) WITH DX: SEVERE ANEMIA, PNEUMONIA, DYSPHAGIA, COPD, BIPOLAR, ESS HTN, HX THROAT CA, DEMENTIA, CHF, HX EPISTAXIS. AMBULATES WITH USE OF WALKER. ARISTEO RAMOS ALONG WITH NOVEMBER IN FACILITY HAD JUST FINISHED DOING TUBE FEEDINGS, ASKED INNUMEROUS TIME IF SHE HAD ANY QUESTIONS OR CONCERNS. HAD RICHARD TELL ME HOW SHE DID TUBE FEEDINGS AND SHE DID WELL. AWARE OF NOTHING BY MOUTH AND THE NEED TO MAKE SURE MEDICATIONS ARE CRUSHED WELL AND DISSOLVED. ALTHOUGH THEY ARE FEELING ALITTLE OVERWHELMED THEY DO NOT TAKE THESE KIND OF PEOPLE IN THIS FACILITY . PATIENT COMPLAINS OF PAIN TO LEFT ABDOMEN WHERE G TUBE IS IN PLACE. HAS PLENTY OF DRAIN SPONGES TO CHANGE DRESSING AND AWARE OF HOW TO DO. UNSURE OF WHO THEY ORDER JEVITY AND PROSOURCE FROM. AFTER LEAVING FACILITY, PHONE CALL BACK TO ZBIGNIEW AT 12:25PM AND SHE STATES THAT RICHARD HAD JUST SPOKE TO SOMEONE ABOUT JEVITY, SUPPLIES AND PROSOURCE AND IT WILL BE DELIVERED TO FACILITY. ZBIGNIEW ALSO STATED THAT PATIENT MAY NEED TO GO TO SNF DUE TO NOT ENOUGH STAFF TO CARE FOR PATIENT. SHE IS GOING TO SEE HOW IT GOES. PATIENT USES OXYGEN CONTINEOUSLY. AWARE OF OXYGEN SAFETY AND PRECAUTIONS. RICHARD UNABLE TO FIND DISCHARGE MEDICATION LIST DURING MY VISIT, BUT ON PHONE CALL ABOVE SHE STATES THAT SHE FOUND IT AND HAS DID MEDICATION CHANGES AND NOTIFIED THERE PHARMACY. PATIENT TO SEE PCP TOMORROW. AND ACTION PLANS FALL, BREATHING WITH CARE LEFT IN FOLDER IN HOME VS OBTAINED AND WNL. LUNG SOUNDS CLEAR, HEART RATE AND RYHTYM NORMAL, BOWEL SOUNDS PRESENT X 4. NO SKIN ISSUES NOTED MEDICATION PROFILE REVIEWED WITH RICHARD AT FACILITY AND SHE DID FIND DISCHARGE MEDICATION LIST AND DID SEND TO HER PHARMACY. OASIS WALK COMPLETED, SLOW GAIT WITH USE OF WALKER AFTER ASSESSMENT, SN TO CONTINUE SEEING PATIENT FOR EDUCATION AND ASSESSMENT. DISCUSSED NEXT SNV AND TO CALL [facility] FIRST WITH ANY QUESTIONS OR CONCERNS. PATIENT AGREEABLE TO PLAN OF CARE PHONE CALL TO DR HAWKINS OFFICE AT 1:25PM AND LEFT VOICEMAIL RE:PLAN OF CARE SN AND LEFT CALL BACK NUMBER IF NEEDED</paragraph> Encounters Start Date/Time End Date/Time Encounter Type Admission Type Attending Clinicians Care Facility Care Department Encounter ID Discharge Date Discharge Status Discharge Condition Discharge Reason Percent Goals Met 2024-12-05 00:00:00 2025-02-02 00:00:00 Outpatient [facility] [id number] 80.0 0
--- OUTSIDE RECORDS SUMMARY | 2024-12-07 10:06 | XMS_ITS | Continuity of Care Document ---
Author Organization [facility] Address [address] [place] [address] [place] [address] Phone Care Team Providers Care Parking Supervisor Name Role Phone Titi Gonsalze MD Unavailable Unavailable Advance Directives Directive Yes / No Effective Date File Name No Information Encounters Encounter Description Practice Location Reason(s) For Visit Diagnoses Date Provider Providers Copied on Encounter [facility], [id number] [place] [address] [address], [place], [place], [id number], [place] tel:[phone] [facility] Professional No Information [address] [facility], [place], [place], [id number], [place]. tel:[phone] Family History Family Member Type Diagnosis Age At Onset No Information Payers Payer name Insurance type Covered alliance party ID Authoriza tion(s) Medicare [facility] [id number] [employer] [place] [id number] Social History Type Description Quantity Date Captured Comments Sex Female Smoking Status No Information Chief Complaint And Reason For Visit No Information Reason For Referral Reason For Referral No Information History Of Present Illness Encounter Date Complaint History Of Prese nt Illness No Information Functional Status Date Functional Assessmen t No Information Instructions Date Instruction Additional Infor mation No Information Assessments Type Assessment Date No Information Patient Care Teams Name Effective Dates (start - stop) Status Members No Information
--- OUTSIDE RECORDS SUMMARY | 2024-12-07 10:06 | XMS_ITS | Clinical Summary ---
Author Organization Unknown Care Team Providers Care Dye Jig Operator Name Role Phone SHRUTHI BUCHANAN, MARIA LUISA Unavailable Unavailable ESTER RN, JAVI Unavailable Unavailable Payers Payer Name Policy Type Policy Number Effective Date Expira tion Date [employer] MANAGED MEDICARE - PDGM - VBC [id number] Problems Condition Name Condition Details Condition Category [...] 11-03 00:00: 00 11-21 23:59 :00 No [id number] 1 tablet 2 TIMES DAILY 1 tablet 2 TIMES DAILY (route: oral) Med Classific ation: Electroly te Balance-N utritiona l Products levofloxaci n 750 mg tablet 11-03 00:00: 00 11-07 23:59 :00 No [id number] 1 tablet DAILY 1 tablet DAILY (route: oral) Med Classific ation: Anti-Infe ctive Agents amlodipine 10 mg tablet 10-18 00:00: 00 11-14 23:59 :00 No [id number] 1 tablet DAILY 1 tablet DAILY (route: oral) Med Classific ation: Cardiovas cular Therapy Agents aspirin 81 mg chewable tablet 10-18 00:00: 00 11-21 23:59 :00 No [id number] 1 tablet DAILY 1 tablet DAILY (route: oral) Med Classific ation: Hematolog ical Agents atorvastati n 20 mg tablet 10-18 00:00: 00 11-21 23:59 :00 No [id number] 1 tablet DAILY 1 tablet DAILY (route: oral) Med Classific ation: Cardiovas cular Therapy Agents carbamazepi ne 100 mg chewable tablet 10-18 00:00: 00 11-21 23:59 :00 No [id number] 3 tablet 2 TIMES DAILY 3 tablet 2 TIMES DAILY (route: oral) Med Classific ation: Central Nervous System Agents divalproex 125 mg capsule,del ayed release sprinkle 10-18 00:00: 00 11-21 23:59 :00 No [id number] 1 capsule 2 TIMES DAILY 1 capsule 2 TIMES DAILY (route: oral) Med Classific ation: Central Nervous System Agents furosemide 20 mg tablet 10-18 00:00: 00 11-21 23:59 :00 No [id number] 1 tablet DAILY 1 tablet DAILY (route: oral) Med Classific ation: Cardiovas cular Therapy Agents levothyroxi ne 100 mcg tablet 10-18 00:00: 00 11-21 23:59 :00 No [id number] 1 tablet DAILY 1 tablet DAILY (route: oral) Med Classific ation: Endocrine montelukast 10 mg tablet 10-18 00:00: 00 11-21 23:59 :00 No [id number] 1 tablet DAILY 1 tablet DAILY (route: oral) Med Classific ation: Respirato ry Therapy Agents oxybutynin chloride ER 5 mg tablet,exte nded release 24 hr 10-18 00:00: 00 11-21 23:59 :00 No [id number] 1 tablet DAILY 1 tablet DAILY (route: oral) Med Classific ation: Genitouri nary Therapy pantoprazol e 40 mg tablet,miguel yed release 10-18 00:00: 00 11-21 23:59 :00 No [id number] 1 tablet DAILY 1 tablet DAILY (route: oral) Med Classific ation: Gastroint estinal Therapy Agents potassium chloride ER 10 mEq tablet,exte nded release(par t/cryst) 10-18 00:00: 00 01-25 23:59 :00 No [id number] 10 mEq DAILY 10 mEq DAILY (route: oral) Med Classific ation: Electroly te Balance-N utritiona l Products risperidone 2 mg tablet 10-18 00:00: 00 11-21 23:59 :00 No [id number] 1 tablet DAILY 1 tablet DAILY (route: oral) Med Classific ation: Central Nervous System Agents Breyna 160 mcg-4.5 mcg/actuati on HFA aerosol inhaler -24 00:00: 00 11-21 23:59 :00 No [id number] 2 puff 2 TIMES DAILY 2 puff 2 TIMES DAILY (route: inhalation ) Med Classific ation: Respirato ry Therapy Agents dicyclomine 20 mg tablet 3-26 00:00: 00 11-21 23:59 :00 No [id number] 1 tablet DAILY 1 tablet DAILY (route: oral) Med Classific ation: Gastroint estinal Therapy Agents Robitussin Cough-Chest Congestion DM 10 mg-200 mg capsule 12-02 00:00: 00 11-21 23:59 :00 No [id number] 1 capsule EVERY 8 HOURS 1 capsule EVERY 8 HOURS (route: oral) Med Classific ation: Respirato ry Therapy Agents Zithromax 250 mg tablet 12-02 00:00: 00 12-07 23:59 :00 No [id number] 1 tablet DAILY 1 tablet DAILY (route: oral) Med Classific ation: Anti-Infe ctive Agents amlodipine 5 mg tablet 5-14 00:00: 00 11-21 23:59 :00 No [id number] 1 tablet DAILY 1 tablet DAILY (route: oral) Med Classific ation: Cardiovas cular Therapy Agents Vitamin C 500 mg chewable tablet 3-12 00:00: 00 11-21 23:59 :00 No [id number] 1 tablet DAILY 1 tablet DAILY (route: oral) Med Classific ation: Electroly te Balance-N utritiona l Products albuterol sulfate HFA 90 mcg/actuati on aerosol inhaler 01-23 00:00: 00 11-21 23:59 :00 No [id number] 2 puff 4 TIMES DAILY 2 puff 4 TIMES DAILY (route: inhalation ) Med Classific ation: Respirato ry Therapy Agents amoxicillin 875 mg-potassiu m clavulanate 125 mg tablet 01-23 00:00: 00 01-28 23:59 :00 No [id number] 1 tablet EVERY 12 HOURS 1 tablet EVERY 12 HOURS (route: oral) Med Classific ation: Anti-Infe ctive Agents azithromyci n 500 mg tablet 01-23 00:00: 00 01-28 23:59 :00 No [id number] 1 tablet DAILY 1 tablet DAILY (route: oral) Med Classific ation: Anti-Infe ctive Agents guaifenesin ER 600 mg tablet, extended release 12 hr 01-23 00:00: 00 01-28 23:59 :00 No [id number] 2 tablet EVERY 12 HOURS 2 tablet EVERY 12 HOURS (route: oral) Med Classific ation: Respirato ry Therapy Agents potassium chloride ER 10 mEq tablet,exte nded release 01-23 00:00: 00 11-21 23:59 :00 No [id number] 1 tablet 2 TIMES DAILY 1 tablet 2 TIMES DAILY (route: oral) Med Classific ation: Electroly te Balance-N utritiona l Products prednisone 20 mg tablet 01-23 00:00: 00 01-30 23:59 :00 No [id number] 2 tablet DAILY 2 tablet DAILY (route: oral) Med Classific ation: Endocrine thick it powder 01-25 00:00: 00 11-21 23:59 :00 No [id number] 2 scoops DIRECTED 2 scoops DIRECTED (route: BY MOUTH) Med Classific ation: NONE acetaminoph en 325 mg tablet 01-23 00:00: 00 11-21 23:59 :00 No [id number] 2 tablet EVERY 4 HOURS 2 tablet EVERY 4 HOURS (route: oral) Med Classific ation: Analgesic , Anti-infl ammatory or Antipyret ic Breyna 160 mcg-4.5 mcg/actuati on HFA aerosol inhaler 02-05 00:00: 00 03-15 08:18 :26.3 03 No [id number] 2 puff 2 TIMES DAILY 2 puff [...] MAINTAIN SITUATIONAL AWARENESS AND WILL NOTIFY CLINICAL RV SERVICER AND PHYSICIAN/PROVIDER WITH ANY CHANGE IN CONDITION. [code = SKILLED NURSE TO PERFORM ENVIRONMENTAL SAFETY RISK ASSESSMENT AND FALL RISK ASSESSMENT AND PROVIDE INSTRUCTION TO IMPLEMENT ENVIRONMENTAL SAFETY AND FALL PREVENTION STRATEGIES THROUGHOUT THE CERTIFICATION PERIOD. SKILLED NURSE WILL MAINTAIN SITUATIONAL AWARENESS AND WILL NOTIFY CLINICAL RV SERVICER AND PHYSICIAN/PROVIDER WITH ANY CHANGE IN CONDITION.] [...] ORDERS FROM THE FOLLOWING PHYSICIANS: DR YANEZ- PUMP MECHANIC [code = HOME HEALTH AGENCY MAY ACCEPT ORDERS FROM THE FOLLOWING PHYSICIANS: DR YANEZ- PUMP MECHANIC] Goal Patient Goal - TO BE ABLE TO GAIN WEIGHT Goal Provider Goal - A PLAN OF CARE WILL BE ESTABLISHED THAT MEETS PATIENT'S SHELTER NEEDS AND INCLUDES PATIENT GOAL FOR HOME [...] SOC. LIVES IN ASSISTED [facility]AC[facility] IN [place]. 79 YEAR OLD FEMALE REFERRED BY [facility] [...] ASSESSMENT. DISCUSSED NEXT SNV AND TO CALL [facility] FIRST WITH ANY QUESTIONS OR CONCERNS. [...] 2024-12-05 00:00:00 2025-02-02 00:00:00 Outpatient JAVI MORA [facility] [id number] [phone]
--- OUTSIDE RECORDS SUMMARY | 2024-12-07 10:06 | XMS_ITS | Clinical Summary ---
Author Organization [facility] Address [address] [place] [address] Phone Care Team Providers Care Parking Enforcement Officer Name Role Phone Sameer Freeman MD Primary Care Provider Lachelle Pulliam APRN, [facility] Unavailable Allergies Active Allergy Reactions Criticality Noted [...] PO) Take by mouth daily. Active nystatin 162419 UNIT/GM Powder Apply 2 times daily. Apply [...] topic Insurance MEDICARE C HUMANA * Guarantor: [facility] Account Type Relation to Patient Date of Phone Billing Address [facility] [address] [place] [address] Advance Directives Documents on File Type Date Recorded Patient Band Sewer Expl anation Guardian of Person 03/06/2024 9:55 AM [facility] Care Teams Parking Enforcement Officer Relationship Specialty Start Date End Date Sameer Freeman MD [address] [place] [address] PCP - General Pediatrics 11/09/23 Lachelle Pulliam APRN, [facility] [address] [place] [address] Nurse Practitioner Advanced Practice Nurse 12/15/23
[2024-12-07 11:20] LABS: Basophils Absolute Auto 0.1 K/mm3 (0.0-0.1); Basophils Percent Auto 0.8 % (0.2-1.2); Eosinophils Absolute Auto 0.3 K/mm3 (0-0.3); Eosinophils Percent Auto 3.1 % (0-4.4); Hematocrit 36.2 % (37.0-47.0); Hemoglobin 10.2 g/dL (12.0-15.0); Immature Granulocyte Absolute 0.05 K/mm3 (0.00-0.031); Immature Granulocyte Percent A 0.5 % (0-0.5); Immature Platelet Fraction Pct 7.6 % (0.9-11.2); Lymphocytes Absolute Auto 1.15 K/mm3 (0.9-3.2); Lymphocytes Percent Auto 12.1 % (18.3-44.2); Mean Corpuscular HGB Conc 28.2 g/dl (32-36); Mean Corpuscular Hemoglobin 23.5 pg (26-34); Mean Corpuscular Volume 83.4 fl (80-100); Mean Platelet Volume 10.9 fl (7.4-10.4); Neutrophils Percent Auto 73.5 % (45.5-73.1); Platelet Count Result 288 k/mm3 (150-375); Red Blood Count 4.34 M/mm3 (4.2-5.4); White Blood Count 9.5 K/mm3 (4.5-10.0)
[2024-12-07 11:35] LABS: Alanine Aminotransferase 21 U/L (6-35); Albumin Level 3.9 g/dL (3.5-5.1); Alkaline Phosphatase 95 U/L (38-126); Anion Gap 8 mmol/L (4-12); Aspartate Amino Transferase 46 U/L (14-36); Bilirubin,Total 0.5 mg/dL (0.2-1.3); Blood Urea Nitrogen 18 mg/dL (7-17); Calcium 8.9 mg/dL (8.4-10.2); Carbon Dioxide 31 mmol/L (22-30); Chloride 100 mmol/L (98-107); Estimated CRCL calculation 82 ml/min; Estimated Glomerular Filt Rate > 60; Glucose 104 mg/dL (65-110); Potassium 4.9 mmol/L (3.4-5.0); Sodium 139 mmol/L (137-145)
[2024-12-07 11:40] LABS: Add Urine Microscopic? YES; Appearance Urine Clear (Clear); Bacteria Urine None Seen /hpf; Bilirubin Urine Negative (Negative); Blood Urine Negative (Negative); Color Urine Dark Yellow (Yellow); Glucose Urine UA Negative (Negative); Ketones Urine Trace mg/dL (Negative); Leukocyte Esterase Ur 1+ LEU/UL (Negative); Need Manual Microscopic Reviewed; Nitrate Urine Negative (Negative); Non Pathogenic Casts 0-2; Protein Urine Negative (Negative); RBC Urine 0-2 /hpf (0-2); Specific Grav Ur 1.023 (1.001-1.035); Squamous Epithelial Cell Urine Occasional /hpf (Few); WBC Urine 0-5 /hpf (0-3)
[2024-12-07 11:50] LABS: Anisocytosis 1+; Hypochromasia 1+; Platelet Estimate Adequate (Adequate); Schistocytes None Seen
--- NOTE | 2024-12-07 12:35 | P.HP_ITS ---
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 Patient was brought to the hospital from a detention with complaints of due to complications. Per the ED doctor there were no complications with the G-tube, it sounds like due to medical complexity of patient in assisted was unable to take care of the patient. Per nursing as sounds like this she was getting clogged with the medication in sprinkle form possibly omeprazole delayed release. Patient states that she does not know why she was hospitalized in [place] possibly due to a gastric bleed. On 11/16/2024 the patient presented to [facility] with severe anemia hemoglobin of 4.0 transferred to tertiary care center for higher level care. Patient is up with a G-tube due to aspiration pneumonia and apparently had a duplicated medical course. No medical records of the patient's hospital stay from last month with some of the patient. Nurse requested them from the assisted however there is no in there that can send them tonight. Patient is unsure what happen and she has a stated appointed POA. Review of Systems Review of Systems: 12 systems were reviewed and are negativ e except for as per HPI. PMFSH Past Medical History Medical History 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 She only t ells me about her son, Artemio Gant [phone]. She has a court appointed guardian, Nai Workman [phone]. Smoking packs per day: 3 Smoking cigarettes per day: 60.0 Years smoked: 15 Smoking pack-years: 45.00 Smoking status: Former smoker Second hand tobacco smoke exposure: No Alcohol intake: never Substance use: never Substance use type: does not use Do You Feel Safe in your Home?: No Lack of Transportation: No Lack of Food: Never True Current Housing: I Have Housing Concerned About Future Housing: No Difficulty Paying Gas/Electric Bills: No Difficulty Paying for Meds: No Currently Unemployed: No Education: Decline to Answer Difficulty w/ Childcare or Family Care: No Living arrangements: assisted Additional living arrangements comments: Lives at [facility] Occupation/Education: other Additional occupation/education comments: disability. 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 Gender identity (if verbalized by the patient): Female Spiritual care concerns: No Meds Home Medications and Allergies Home Medications ?Medication ?Instructions ?Recorded ?Confirmed ?Type aspirin 81 mg chewable tablet 81 mg feeding tube DAILY 11/01/23 12/07/24 History atorvastatin 20 mg tablet 20 mg feeding tube HS 11/01/23 12/07/24 History budesonide-formoterol HFA 160 2 puff inhalation BID 11/01/23 12/07/24 History mcg-4.5 mcg/actuation aerosol inhaler (Breyna) carbamazepine 100 mg chewable 300 mg feeding tube BID 11/01/23 12/07/24 History tablet levothyroxine 100 mcg tablet 100 mcg feeding tube DAILY 11/01/23 12/07/24 History montelukast 10 mg tablet 10 mg feeding tube HS 11/01/23 12/07/24 History risperidone 2 mg tablet 2 mg feeding tube DAILY 11/01/23 12/07/24 History ascorbic acid (vitamin C) 250 mg 250 mg feeding tube DAILY 11/16/24 12/07/24 History tablet (Vitamin C) furosemide 20 mg tablet 20 mg feeding tube DAILY 11/16/24 12/07/24 History albuterol sulfate 90 mcg/actuation 2 puff inhalation Q6H PRN 12/07/24 12/07/24 History aerosol inhaler shortness of breath or wheezing dicyclomine 10 mg capsule 10 mg feeding tube DAILY PRN 12/07/24 12/07/24 History abdominal pain omeprazole 20 mg capsule,delayed 20 mg feeding tube DAILY 12/07/24 12/07/24 History release potassium chloride 20 mEq oral 20 meq feeding tube EVERY OTHER DAY 12/07/24 12/07/24 History packet solifenacin 5 mg tablet 10 mg PO DAILY 12/07/24 12/07/24 History valproic acid (as sodium salt) 250 See Rx Instructions feeding tube 12/07/24 12/07/24 History mg/5 mL oral solution Q6H Allergies Allergy/AdvReac Type Severity Reaction Status Date / Time alendronate sodium Allergy Mild Unknown Verified 12/07/24 15:13 celecoxib Allergy Mild Unknown Verified 12/07/24 15:13 ciprofloxacin (From Cipro) Allergy Mild Unknown Verified 12/07/24 15:13 cinnamon Allergy Rash Verified 12/07/24 15:13 Vital Signs Vital Signs - 24 hr 12/07/24 09:18 12/07/24 10:58 12/07/24 11:19 Temperature 98.6 F Pulse Rate 69 69 Respiratory Rate 20 17 Blood Pressure 125/63 125/66 Pulse Oximetry 99 99 98 Oxygen Delivery Nasal Cannula Nasal Cannula Oxygen Flow Rate 2 2 Exam Narrative: General: well appearing, appears stated age. HEENT: normocephalic, atraumatic. Mucous membranes moist. EOMI, PERRLA, bilateral sclera anicteric, no conjunctival injection. Neck supple without JVD, lymphadenopathy, or bruit. Respiratory: clear to ascultation bilaterally. No rales/rhonic/wheezes. Cardiovascular: Regular rate and rhythm, normal S1-S2 upon ascultation. No murmurs, rubs, or clicks. PMI is nondisplaced, capillary refill less than 3 second. Abdomen: Soft, round, no pulsatile masses, nondistended and nontender. No rebound, no guarding. No CVA tenderness, no hepatosplenomegaly. Bowel sounds present to all four quadrants. No high pitch or tinkling sounds, resonant to percussion. G-tube Extremities: No cyanosis, clubbing, or edema present. Pulses are palpable 2/2. Active ROM to all four extremities. Neuro: Alert and orientated x 4. PERRLA. Cranial nerves 2-12 intact without focal deficit. Skin: Warm, dry, and intact, without rash, erythema, or lesion. Psych: pleasant, cooperative, normal speech, normal affect, no hallucinations, no dysarthia H&P: Results Labs Labs: Short CBC 12/07/24 Range/Units 11:04 WBC 9.5 (4.5-10.0) K/mm3 Hgb 10.2 L (12.0-15.0) g/dL Hct 36.2 L (37.0-47.0) % Plt Count 288 (150-375) k/mm3 BMP 12/07/24 11:04 Sodium 139 Potassium 4.9 Chloride 100 Carbon Dioxide 31 H BUN 18 H D Creatinine 0.45 L Glucose 104 Calcium 8.9 Liver Function 12/07/24 Range/Units 11:04 Total Bilirubin 0.5 (0.2-1.3) mg/dL AST 46 H (14-36) U/L ALT 21 (6-35) U/L Alkaline Phosphatase 95 (38-126) U/L Albumin 3.9 (3.5-5.1) g/dL Urine 12/07/24 Range/Units 11:19 Urine Color Dark yellow (Yellow) Urine Appearance Clear (Clear) Urine pH 6.0 (5.0-9.0) Ur Specific [place] 1.023 (1.001-1.035) Urine Protein Negative (Negative) mg/dL Urine Glucose (UA) Negative (Negative) mg/dL Assessment and Plan Assessment and plan (1) Gastrointestinal tube present: Code(s): Z93.1 - Gastrostomy status Status: Acute Assessment and Plan: Sounds like G-tube was getting clogged was sprinkled medications DC extended release Protonix Only put crush meds or liquids G tube Dietary consulted with tube feeds ordered, sounds like patient is NPO due to aspiration Requested medical records, DEENA does not know medical history Will start Protonix 40 mg b.i.d. patient's thinks that she was a gastric bleed, waiting on medical record (2) Bipolar 1 disorder: Code(s): F31.9 - Bipolar disorder, unspecified Status: Chronic Assessment and Plan: Restarted carbamazipine Patient also has risperidone listed will verify the assisted tomorrow (3) HLD (hyperlipidemia): Code(s): E78.5 - Hyperlipidemia, unspecified Status: Chronic Assessment and Plan: Continue Lipitor (4) Metastatic adenocarcinoma to lung: Code(s): C78.00 - Secondary malignant neoplasm of unspecified lung Status: Acute Assessment and Plan: Waiting for medical records (5) COPD (chronic obstructive pulmonary disease): Qualifiers: COPD type: unspecified COPD Qualified Code(s): J44.9 - Chronic obstructive pulmonary disease, unspecified Code(s): J44.9 - Chronic obstructive pulmonary disease, unspecified Status: Acute Assessment and Plan: Restart home inhalers (6) Seizure: Code(s): R56.9 - Unspecified convulsions Status: Acute Assessment and Plan: Restart home medications Quality VTE Prophylaxis VTE prophylaxis: mechanical ordered and pharmacologic ordered Hospitalist MIPS Advance Care Plan I have confirmed that the patient's Advanced Care Plan is present, code status is documented, or surrogate decision maker is listed in patient medical record.: Yes Medication Reconciliation I have utilized all available resources to obtain, update and review the patients current medications (includes all prescriptions, OTC, herbals, cannabis, and nutritional supplements).: Yes
--- NOTE | 2024-12-07 14:45 | ADMGEN ---
This patient, Maria G Gant, was admitted to Medical Room 344-01. Patient/family oriented to hospital policies and general routines including ID bracelet, bed and alarms, visiting hours, pain management, procedures, bathroom and other care routines, personal items, smoking policy, room service/diet, and visiting hours. Information on how to activate the Rapid Response Team has been discussed. Patient/Family are encouraged to report perceived risks to care and to ask questions if they do not understand what they are told or what they should do.
[2024-12-07] MEDS: ATORVASTATIN 20 MG TABLET FEED TUBE (20:08)
[2024-12-07] MEDS: VALPROIC ACID LIQ 250 MG/5 ML ORAL SOLUTION UDC 62.5 MG FEED TUBE (20:08)
[2024-12-08] MEDS: ENOXAPARIN 40 MG/0.4 ML SYRINGE SUB-Q (01:24)
[2024-12-08] MEDS: VALPROIC ACID LIQ 250 MG/5 ML ORAL SOLUTION UDC 62.5 MG FEED TUBE ×4 (01:24→17:47)
[2024-12-08] MEDS: FLUTICASONE/SALMETEROL 115-21 MCG INHALER 1 PUFF 2 PUFF INHALATION ×3 (02:53→20:45)
[2024-12-08] MEDS: LEVOTHYROXINE SODIUM 100 MCG TABLET FEED TUBE (05:37)
[2024-12-08 05:44] VITALS: BP 146/60; PULSE 81; RESP 18; TEMP 36.6; O2SAT 95
[2024-12-08 06:03] LABS: Basophils Absolute Auto 0.1 K/mm3 (0.0-0.1); Basophils Percent Auto 0.6 % (0.2-1.2); Eosinophils Absolute Auto 0.2 K/mm3 (0-0.3); Eosinophils Percent Auto 2.4 % (0-4.4); Hematocrit 35.2 % (37.0-47.0); Hemoglobin 9.9 g/dL (12.0-15.0); Immature Granulocyte Absolute 0.05 K/mm3 (0.00-0.031); Immature Granulocyte Percent A 0.5 % (0-0.5); Immature Platelet Fraction Pct 7.2 % (0.9-11.2); Lymphocytes Absolute Auto 1.06 K/mm3 (0.9-3.2); Lymphocytes Percent Auto 10.9 % (18.3-44.2); Mean Corpuscular HGB Conc 28.1 g/dl (32-36); Mean Corpuscular Hemoglobin 23.3 pg (26-34); Mean Corpuscular Volume 82.8 fl (80-100); Mean Platelet Volume 10.3 fl (7.4-10.4); Monocytes Percent Auto 10.7 % (2.6-8.5); Neutrophils Absolute Auto 7.3 K/mm3 (1.3-6.7); Neutrophils Percent Auto 74.9 % (45.5-73.1); Platelet Count Result 276 k/mm3 (150-375); Red Blood Count 4.25 M/mm3 (4.2-5.4); White Blood Count 9.7 K/mm3 (4.5-10.0)
[2024-12-08 06:12] LABS: Anion Gap 8 mmol/L (4-12); Blood Urea Nitrogen 14 mg/dL (7-17); Calcium 9.1 mg/dL (8.4-10.2); Carbon Dioxide 29 mmol/L (22-30); Chloride 99 mmol/L (98-107); Estimated CRCL calculation 77 ml/min; Estimated Glomerular Filt Rate > 60; Glucose 141 mg/dL (65-110); Potassium 3.9 mmol/L (3.4-5.0); Sodium 136 mmol/L (137-145)
[2024-12-08 06:54] LABS: Platelet Estimate Adequate (Adequate)
[2024-12-08 06:55] LABS: Anisocytosis 1+; Hypochromasia 1+; Schistocytes None Seen
[2024-12-08] MEDS: SOLIFENACIN 5 MG TABLET 10 MG PO (08:44)
[2024-12-08] MEDS: ASPIRIN 81 MG CHEWABLE TABLET FEED TUBE (08:45)
[2024-12-08] MEDS: FUROSEMIDE 20 MG TABLET FEED TUBE (08:47)
[2024-12-08] MEDS: ACETAMINOPHEN 325 MG TABLET 650 MG PO ×3 (08:47→17:47)
[2024-12-08] MEDS: ASCORBIC ACID 250 MG TABLET FEED TUBE (08:47)
[2024-12-08 08:48] VITALS: O2SAT 97
--- NOTE | 2024-12-08 12:10 | P.PNIM_ITS ---
Progress Note: A&P Assessment and Plan (1) Gastrointestinal tube present: Code(s): Z93.1 - Gastrostomy status Status: Acute Assessment and Plan: Chronic G tube recently placed at hospital in [place] after concerns for aspiration pneumonia * Pus noted from G tube site, culture being sent * G-tube patent * Shoe Dresser consulted * Continue tube feeding * Continue Protonix * Awaiting medical records from facility (2) Bipolar 1 disorder: Code(s): F31.9 - Bipolar disorder, unspecified Status: Chronic Assessment and Plan: * continue carbamazepine and valproic acid (3) HLD (hyperlipidemia): Code(s): E78.5 - Hyperlipidemia, unspecified Status: Chronic Assessment and Plan: * Continue Lipitor and Aspirin (4) Metastatic adenocarcinoma to lung: Code(s): C78.00 - Secondary malignant neoplasm of unspecified lung Status: Acute Assessment and Plan: * Waiting for medical records (5) COPD (chronic obstructive pulmonary disease): Qualifiers: COPD type: unspecified COPD Qualified Code(s): J44.9 - Chronic obstructive pulmonary disease, unspecified Code(s): J44.9 - Chronic obstructive pulmonary disease, unspecified Status: Acute Assessment and Plan: * continue albuterol rescue inhaler * continue Singulair (6) Seizure: Code(s): R56.9 - Unspecified convulsions Status: Acute Assessment and Plan: * continue Valproic acid (7) Hypothyroid: Code(s): E03.9 - Hypothyroidism, unspecified Status: Acute Assessment and Plan: * Continue Synthroid Time Spent With Patient Time with patient: 25 - 35 minutes Subjective Date/time seen: 12/08/24 12:10 Interval history: Interval history: This is 79-year-old female with a significant past medical history of metastatic lung cancer, aspiration pneumonia status post G-tube placement, bipolar 1 disorder, COPD on 2 L O2 chronically, hypothyroidism, who presented to the hospital from her care facility who can not care for her now that she has a G tube. Patient reported that G-tube was placed about a month ago but she was not able to express why. This was placed in [facility]. Workup in the hospital included a chest x-ray which shown possible minimal hazy bibasilar pulmonary edema, COPD. Initial labs showed a normal white blood cell count of 9.5, hemoglobin 10.2, bicarb 31, creatinine 0.4, greater than 60 EGFR, AST 46. UA was obtained which showed trace urine ketones, 1+ leukocyte otherwise normal. Urine culture was obtained and pending. Patient was recently seen and transferred to tertiary care due to anemia and chest pain. She was noted to have a hemoglobin of 4.0, hematocrit 16.4 at that time and was sent to [facility]. Patient ended up getting G tube placed at [facility] due to concerns for aspiration pneumonia. G-tube functioning properly. She is here for fdc placement. Subjective: Patient denies any complaints today. EMR, Labs and imaging reviewed. Review of Systems Review of Systems: All systems reviewed & are unremarkable except as noted in HPI and below Exam Narrative: General: In no acute distress, well nourished Head: atraumatic, no encephalopathy Eyes: PERRLA, sclera clear ENT: moist mucous membranes, nasal passages clear Neck: supple, no JVD, no adenopathy, trachea midline Cardiac: Normal S1 and S2. No murmur, gallops or friction rubs, peripheral pulses intact. Respiratory: Lungs clear to auscultation, no adventitious lung sounds, currently on 2L NC which is her baseline O2 requirement Gastrointestinal: soft, non-distended, non-tender, normoactive bowel sounds. G tube in place : voiding without difficulty. Extremities: moves all extremities well, no edema Skin: Pus noted around G tube site Neuro: Alert and oriented x3, confused at times, cranial nerves intact, no neuro deficits. Psych: normal mood, normal affect, interactive Objective Data Vital Signs Vital Signs: Vital Signs - 24 hr 12/07/24 13:09 12/07/24 15:10 12/07/24 15:15 Temperature 97.3 F L Pulse Rate 66 65 Respiratory Rate 15 18 Blood Pressure 115/64 103/59 L Pulse Oximetry 100 99 99 Oxygen Delivery Nasal Cannula Oxygen Flow Rate 2 12/07/24 22:00 12/08/24 05:44 12/08/24 08:48 Temperature 97.1 F L 97.8 F Pulse Rate 71 81 Respiratory Rate 14 18 Blood Pressure 131/47 L 146/60 H Pulse Oximetry 97 95 97 Oxygen Delivery Nasal Cannula Oxygen Flow Rate 2 Intake/Output Intake/Output: Intake & Output 12/05/24 12/06/24 12/07/24 12/08/24 23:59 23:59 23:59 23:59 Intake Total 0 Output Total 100 Balance -100 Meds/Results Medications: Active Medications Generic Name Dose Route Start Last Admin Trade Name Freq PRN Reason Stop Dose Admin Acetaminophen 650 mg 12/08/24 08:32 12/08/24 08:47 Acetaminophen 325 Mg Tablet PO 650 mg Q4H PRN Administration Headache Albuterol 2 puff 12/07/24 19:10 Albuterol Sulfate (*Sp) Aerosol 1 Puff INHALATION Q6HRT PRN shortness of breath or wheezing Ascorbic Acid 250 mg 12/08/24 09:00 12/08/24 08:47 Ascorbic Acid 250 Mg Tablet FEED TUBE 250 mg DAILY KRISTINA Administration Aspirin 81 mg 12/08/24 09:00 12/08/24 08:45 Aspirin 81 Mg Chewable Tablet FEED TUBE 81 mg DAILY KRISTINA Administration Atorvastatin Calcium 20 mg 12/07/24 21:00 12/07/24 20:08 Atorvastatin 20 Mg Tablet FEED TUBE 20 mg HS KRISTINA Administration Carbamazepine 300 mg 12/07/24 17:00 12/08/24 08:46 Carbamazepine Chew 100 Mg Chew FEED TUBE 300 mg BID KRISTINA Administration Enoxaparin Sodium 40 mg 12/08/24 09:00 Enoxaparin 40 Mg/0.4 Ml Syringe SUB-Q DAILY KRISTINA Furosemide 20 mg 12/08/24 09:00 12/08/24 08:47 Furosemide 20 Mg Tablet FEED TUBE 20 mg DAILY KRISTINA Administration Levothyroxine Sodium 100 mcg 12/08/24 06:30 12/08/24 05:37 Levothyroxine Sodium 100 Mcg Tablet FEED TUBE 100 mcg DAILY@0630 KRISTINA Administration Pantoprazole Sodium 40 mg 12/08/24 09:00 12/08/24 08:47 Pantoprazole Sodium Iv 40 Mg Vial IV PUSH 40 mg Q12HR KRISTINA Administration Potassium Chloride 20 meq 12/09/24 09:00 Potassium Chloride 20 Meq Packet (For Liquid) FEED TUBE Q48H KRISTINA Fluticasone/Salmeterol 2 puff 12/07/24 20:00 12/08/24 08:46 Fluticasone/Salmeterol 115-21 Mcg Inhaler 1 Puff INHALATION 2 puff Q12HRT KRISTINA Administration Solifenacin 10 mg 12/08/24 09:00 12/08/24 08:44 Solifenacin 5 Mg Tablet PO 10 mg DAILY KRISTINA Administration Valproate Sodium 62.5 mg 12/07/24 20:00 12/08/24 05:37 Valproic Acid Liq 250 Mg/5 Ml Oral Solution Udc FEED TUBE 62.5 mg Q6HR KRISTINA Administration Radiology Results: ITS Impressions Chest X-Ray 12/07/24 11:20 Impression: Possible minimal hazy bibasilar pulmonary edema. COPD. Labs Labs: Laboratory Results - last 24 hr 12/08/24 05:52 WBC 9.7 RBC 4.25 Hgb 9.9 L Hct 35.2 L MCV 82.8 MCH 23.3 L MCHC 28.1 L RDW TNP Plt Count 276 MPV 10.3 Immature Gran % (Auto) 0.5 Neut % (Auto) 74.9 H Lymph % (Auto) 10.9 L [place] % (Auto) 10.7 H Eos % (Auto) 2.4 Baso % (Auto) 0.6 Lymph # (Auto) 1.06 [place] # (Auto) 1.0 H Eos # (Auto) 0.2 Baso # (Auto) 0.1 Abs Immat Gran (auto) 0.05 H Absolute Neuts (auto) 7.3 H Absolute Nucleated RBC 0.000 Band Neutrophils % Not Reportable Nucleated RBC % 0.0 Platelet Estimate Adequate % Immature Plt Fraction 7.2 Hypochromasia 1+ Anisocytosis 1+ Schistocytes None seen Sodium 136 L Potassium 3.9 Chloride 99 Carbon Dioxide 29 Anion Gap 8 BUN 14 Creatinine 0.48 L Estim Creat Clear Calc 77 Estimated GFR > 60 Glucose 141 H Calcium 9.1 Quality VTE Prophylaxis VTE prophylaxis: mechanical ordered and pharmacologic ordered
[2024-12-08] MEDS: PANTOPRAZOLE SODIUM IV 40 MG VIAL IV PUSH ×2 (12:56→20:23)
[2024-12-08 14:00] VITALS: BP 108/48; PULSE 87; RESP 18; TEMP 36.7; O2SAT 96
[2024-12-08] MEDS: ATORVASTATIN 20 MG TABLET FEED TUBE (20:23)
[2024-12-08] MEDS: MONTELUKAST SODIUM 10 MG TABLET FEED TUBE (20:23)
[2024-12-08 20:30] VITALS: BP 120/50; PULSE 78; RESP 18; TEMP 37; O2SAT 98
[2024-12-08 20:45] VITALS: O2SAT 97
[2024-12-09] MEDS: VALPROIC ACID LIQ 250 MG/5 ML ORAL SOLUTION UDC 62.5 MG FEED TUBE ×4 (00:16→17:33)
[2024-12-09 05:07] VITALS: BP 118/47; PULSE 78; RESP 14; TEMP 37.2; O2SAT 99
[2024-12-09] MEDS: LEVOTHYROXINE SODIUM 100 MCG TABLET FEED TUBE (05:41)
[2024-12-09 08:00] VITALS: O2SAT 98
[2024-12-09] MEDS: FLUTICASONE/SALMETEROL 115-21 MCG INHALER 1 PUFF 2 PUFF INHALATION ×2 (08:36→20:48)
[2024-12-09] MEDS: SOLIFENACIN 5 MG TABLET 10 MG PO (11:40)
[2024-12-09] MEDS: FUROSEMIDE 20 MG TABLET FEED TUBE (11:40)
[2024-12-09] MEDS: DICYCLOMINE HCL 10 MG CAPSULE FEED TUBE (11:40)
[2024-12-09] MEDS: ENOXAPARIN 40 MG/0.4 ML SYRINGE SUB-Q (11:40)
[2024-12-09] MEDS: ASCORBIC ACID 250 MG TABLET FEED TUBE (11:40)
[2024-12-09] MEDS: ASPIRIN 81 MG CHEWABLE TABLET FEED TUBE (11:41)
[2024-12-09] MEDS: POTASSIUM CHLORIDE 20 MEQ PACKET (FOR LIQUID) FEED TUBE (11:41)
[2024-12-09] MEDS: PANTOPRAZOLE SODIUM IV 40 MG VIAL IV PUSH ×2 (11:43→21:08)
--- NOTE | 2024-12-09 11:54 | P.PNIM_ITS ---
Progress Note: A&P Assessment and Plan (1) Gastrointestinal tube present: Code(s): Z93.1 - Gastrostomy status Status: Acute Assessment and Plan: Chronic G tube recently placed at hospital in [place] after concerns for aspiration pneumonia * Pus noted from G tube site, culture being sent * G-tube patent * Cello Teacher consulted * Continue tube feeding * Continue Protonix * Awaiting medical records from facility 12/09 * No change to current treatment plan * Case coordination following for placement (2) Bipolar 1 disorder: Code(s): F31.9 - Bipolar disorder, unspecified Status: Chronic Assessment and Plan: * continue carbamazepine and valproic acid 12/09 * No change to current treatment plan (3) HLD (hyperlipidemia): Code(s): E78.5 - Hyperlipidemia, unspecified Status: Chronic Assessment and Plan: * Continue Lipitor and Aspirin 12/09 * No change to current treatment plan (4) Metastatic adenocarcinoma to lung: Code(s): C78.00 - Secondary malignant neoplasm of unspecified lung Status: Acute Assessment and Plan: * Waiting for medical records (5) COPD (chronic obstructive pulmonary disease): Qualifiers: COPD type: unspecified COPD Qualified Code(s): J44.9 - Chronic obstructive pulmonary disease, unspecified Code(s): J44.9 - Chronic obstructive pulmonary disease, unspecified Status: Acute Assessment and Plan: * continue albuterol rescue inhaler * continue Singulair 12/09 * No change (6) Seizure: Code(s): R56.9 - Unspecified convulsions Status: Acute Assessment and Plan: * continue Valproic acid 12/09 * No change (7) Hypothyroid: Code(s): E03.9 - Hypothyroidism, unspecified Status: Acute Assessment and Plan: * Continue Synthroid 12/09 * no change Time Spent With Patient Time with patient: 15 - 25 minutes Subjective Date/time seen: 12/09/24 11:54 Interval history: Interval history: This is 79-year-old female with a significant past medical history of metastatic lung cancer, aspiration pneumonia status post G-tube placement, bipolar 1 disorder, COPD on 2 L O2 chronically, hypothyroidism, who presented to the hospital from her care facility who can not care for her now that she has a G tube. Patient reported that G-tube was placed about a month ago but she was not able to express why. This was placed in [facility]. Workup in the hospital included a chest x-ray which shown possible minimal hazy bibasilar pulmonary edema, COPD. Initial labs showed a normal white blood cell count of 9.5, hemoglobin 10.2, bicarb 31, creatinine 0.4, greater than 60 EGFR, AST 46. UA was obtained which showed trace urine ketones, 1+ leukocyte otherwise normal. Urine culture was obtained and pending. Patient was recently seen and transferred to tertiary care due to anemia and chest pain. She was noted to have a hemoglobin of 4.0, hematocrit 16.4 at that time and was sent to [facility]. Patient ended up getting G tube placed at [facility] due to concerns for aspiration pneumonia. G-tube functioning properly. She is here for usp placement. Subjective: Patient denies any complaints today. EMR, Labs and imaging reviewed. Review of Systems Review of Systems: 12 systems were reviewed and are negativ e except for as per HPI. All systems reviewed & are unremarkable except as noted in HPI and below Exam Narrative: General: In no acute distress, well nourished Cardiac: Normal S1 and S2. No murmur, gallops or friction rubs, peripheral pulses intact. Respiratory: Lungs clear to auscultation, no adventitious lung sounds, currently on 2L NC which is her baseline O2 requirement Gastrointestinal: soft, non-distended, non-tender, normoactive bowel sounds. G tube in place : voiding without difficulty. Neuro: Alert and oriented x3 Objective Data Vital Signs Vital Signs: Vital Signs - 24 hr 12/08/24 14:00 12/08/24 20:30 12/08/24 20:45 Temperature 98.1 F 98.6 F Pulse Rate 87 78 Respiratory Rate 18 18 Blood Pressure 108/48 L 120/50 L Pulse Oximetry 96 98 97 Oxygen Delivery Nasal Cannula Oxygen Flow Rate 2 12/09/24 05:07 12/09/24 10:35 12/09/24 10:46 Temperature 99.0 F Pulse Rate 78 Respiratory Rate 14 Blood Pressure 118/47 L Pulse Oximetry 99 Oxygen Delivery Nasal Cannula Nasal Cannula Oxygen Flow Rate 2 2 Intake/Output Intake/Output: Intake & Output 12/06/24 12/07/24 12/08/24 12/09/24 23:59 23:59 23:59 23:59 Intake Total 0 140 324 Output Total 100 950 Balance -100 140 -626 Meds/Results Medications: Active Medications Generic Name Dose Route Start Last Admin Trade Name Freq PRN Reason Stop Dose Admin Acetaminophen 650 mg 12/08/24 08:32 12/08/24 17:47 Acetaminophen 325 Mg Tablet PO 650 mg Q4H PRN Administration Headache Albuterol 2 puff 12/07/24 19:10 Albuterol Sulfate (*Sp) Aerosol 1 Puff INHALATION Q6HRT PRN shortness of breath or wheezing Ascorbic Acid 250 mg 12/08/24 09:00 12/09/24 11:40 Ascorbic Acid 250 Mg Tablet FEED TUBE 250 mg DAILY KRISTINA Administration Aspirin 81 mg 12/08/24 09:00 12/09/24 11:41 Aspirin 81 Mg Chewable Tablet FEED TUBE 81 mg DAILY KRISTINA Administration Atorvastatin Calcium 20 mg 12/07/24 21:00 12/08/24 20:23 Atorvastatin 20 Mg Tablet FEED TUBE 20 mg HS KRISTINA Administration Carbamazepine 300 mg 12/07/24 17:00 12/09/24 11:41 Carbamazepine Chew 100 Mg Chew FEED TUBE 300 mg BID KRISTINA Administration Dicyclomine HCl 10 mg 12/08/24 16:22 12/09/24 11:40 Dicyclomine Hcl 10 Mg Capsule FEED TUBE 10 mg DAILY PRN Administration abdominal pain Enoxaparin Sodium 40 mg 12/09/24 09:00 12/09/24 11:40 Enoxaparin 40 Mg/0.4 Ml Syringe SUB-Q 40 mg DAILY KRISTINA Administration Furosemide 20 mg 12/08/24 09:00 12/09/24 11:40 Furosemide 20 Mg Tablet FEED TUBE 20 mg DAILY KRISTINA Administration Levothyroxine Sodium 100 mcg 12/08/24 06:30 12/09/24 05:41 Levothyroxine Sodium 100 Mcg Tablet FEED TUBE 100 mcg DAILY@0630 KRISTINA Administration Montelukast Sodium 10 mg 12/08/24 21:00 12/08/24 20:23 Montelukast Sodium 10 Mg Tablet FEED TUBE 10 mg HS KRISTINA Administration Pantoprazole Sodium 40 mg 12/08/24 09:00 12/09/24 11:43 Pantoprazole Sodium Iv 40 Mg Vial IV PUSH 40 mg Q12HR KRISTINA Administration Potassium Chloride 20 meq 12/09/24 09:00 12/09/24 11:41 Potassium Chloride 20 Meq Packet (For Liquid) FEED TUBE 20 meq Q48H KRISTINA Administration Fluticasone/Salmeterol 2 puff 12/07/24 20:00 12/09/24 08:36 Fluticasone/Salmeterol 115-21 Mcg Inhaler 1 Puff INHALATION 2 puff Q12HRT KRISTINA Administration Solifenacin 10 mg 12/08/24 09:00 12/09/24 11:40 Solifenacin 5 Mg Tablet PO 10 mg DAILY KRISTINA Administration Valproate Sodium 62.5 mg 12/07/24 20:00 12/09/24 11:43 Valproic Acid Liq 250 Mg/5 Ml Oral Solution Udc FEED TUBE 62.5 mg Q6HR KRISTINA Administration Radiology Results: ITS Impressions Chest X-Ray 12/07/24 11:20 Impression: Possible minimal hazy bibasilar pulmonary edema. COPD. Quality VTE Prophylaxis VTE prophylaxis: mechanical ordered and pharmacologic ordered
[2024-12-09 12:38] LABS: Basophils Absolute Auto 0.1 K/mm3 (0.0-0.1); Basophils Percent Auto 0.5 % (0.2-1.2); Eosinophils Absolute Auto 0.2 K/mm3 (0-0.3); Eosinophils Percent Auto 1.9 % (0-4.4); Hematocrit 33.5 % (37.0-47.0); Hemoglobin 9.6 g/dL (12.0-15.0); Immature Granulocyte Absolute 0.06 K/mm3 (0.00-0.031); Immature Granulocyte Percent A 0.6 % (0-0.5); Lymphocytes Absolute Auto 1.19 K/mm3 (0.9-3.2); Lymphocytes Percent Auto 11.7 % (18.3-44.2); Mean Corpuscular HGB Conc 28.7 g/dl (32-36); Mean Corpuscular Hemoglobin 23.8 pg (26-34); Mean Corpuscular Volume 82.9 fl (80-100); Mean Platelet Volume 10.3 fl (7.4-10.4); Monocytes Absolute Auto 1.1 K/mm3 (0.1-0.6); Monocytes Percent Auto 11.2 % (2.6-8.5); Neutrophils Absolute Auto 7.5 K/mm3 (1.3-6.7); Neutrophils Percent Auto 74.1 % (45.5-73.1); Platelet Count Result 226 k/mm3 (150-375); Red Blood Count 4.04 M/mm3 (4.2-5.4); White Blood Count 10.1 K/mm3 (4.5-10.0)
[2024-12-09 12:53] LABS: Alanine Aminotransferase 18 U/L (6-35); Albumin Level 3.7 g/dL (3.5-5.1); Alkaline Phosphatase 103 U/L (38-126); Anion Gap 9 mmol/L (4-12); Aspartate Amino Transferase 19 U/L (14-36); Bilirubin,Total 0.2 mg/dL (0.2-1.3); Blood Urea Nitrogen 13 mg/dL (7-17); Carbon Dioxide 29 mmol/L (22-30); Chloride 98 mmol/L (98-107); Estimated CRCL calculation 85 ml/min; Estimated Glomerular Filt Rate > 60; Glucose 124 mg/dL (65-110); Sodium 136 mmol/L (137-145)
[2024-12-09 13:04] LABS: Anisocytosis 2+; Hypochromasia 1+; Ovalocytes 1+; Platelet Estimate Adequate (Adequate); Polychromasia 1+; Schistocytes None Seen; Target Cells 1+
[2024-12-09 14:00] VITALS: BP 114/50; PULSE 73; RESP 20; TEMP 36.2; O2SAT 100
[2024-12-09 20:49] VITALS: O2SAT 96
[2024-12-09] MEDS: MONTELUKAST SODIUM 10 MG TABLET FEED TUBE (21:08)
[2024-12-09] MEDS: ATORVASTATIN 20 MG TABLET FEED TUBE (21:08)
[2024-12-09 22:00] VITALS: BP 98/45; PULSE 69; RESP 18; TEMP 36.6; O2SAT 93
[2024-12-10] VITALS (7 sets, daily range): BP systolic 116–126; BP diastolic 46–55; PULSE 66–73; RESP 16–20; TEMP 35.8–36.9; O2SAT 93–97
[2024-12-10] MEDS: VALPROIC ACID LIQ 250 MG/5 ML ORAL SOLUTION UDC 62.5 MG FEED TUBE ×5 (00:16→23:55)
[2024-12-10 05:33] LABS: Basophils Absolute Auto 0.1 K/mm3 (0.0-0.1); Basophils Percent Auto 0.7 % (0.2-1.2); Eosinophils Absolute Auto 0.4 K/mm3 (0-0.3); Eosinophils Percent Auto 3.6 % (0-4.4); Hematocrit 32.8 % (37.0-47.0); Hemoglobin 9.3 g/dL (12.0-15.0); Immature Granulocyte Absolute 0.04 K/mm3 (0.00-0.031); Immature Granulocyte Percent A 0.4 % (0-0.5); Lymphocytes Absolute Auto 1.35 K/mm3 (0.9-3.2); Lymphocytes Percent Auto 13.9 % (18.3-44.2); Mean Corpuscular HGB Conc 28.4 g/dl (32-36); Mean Corpuscular Hemoglobin 23.4 pg (26-34); Mean Corpuscular Volume 82.6 fl (80-100); Mean Platelet Volume 10.4 fl (7.4-10.4); Monocytes Absolute Auto 1.2 K/mm3 (0.1-0.6); Monocytes Percent Auto 12.4 % (2.6-8.5); Neutrophils Absolute Auto 6.7 K/mm3 (1.3-6.7); Platelet Count Result 245 k/mm3 (150-375); Red Blood Count 3.97 M/mm3 (4.2-5.4); White Blood Count 9.7 K/mm3 (4.5-10.0)
[2024-12-10 05:42] LABS: Alanine Aminotransferase 19 U/L (6-35); Albumin Level 3.6 g/dL (3.5-5.1); Alkaline Phosphatase 103 U/L (38-126); Anion Gap 9 mmol/L (4-12); Aspartate Amino Transferase 21 U/L (14-36); Bilirubin,Total 0.1 mg/dL (0.2-1.3); Blood Urea Nitrogen 14 mg/dL (7-17); Calcium 9.1 mg/dL (8.4-10.2); Carbon Dioxide 30 mmol/L (22-30); Chloride 99 mmol/L (98-107); Estimated CRCL calculation 82 ml/min; Estimated Glomerular Filt Rate > 60; Glucose 116 mg/dL (65-110); Potassium 4.1 mmol/L (3.4-5.0); Sodium 138 mmol/L (137-145)
[2024-12-10] MEDS: LEVOTHYROXINE SODIUM 100 MCG TABLET FEED TUBE (05:48)
[2024-12-10 06:46] LABS: Anisocytosis 2+; Hypochromasia 1+; Platelet Estimate Adequate (Adequate); Polychromasia 1+; Schistocytes None Seen; Target Cells 1+
[2024-12-10] MEDS: FLUTICASONE/SALMETEROL 115-21 MCG INHALER 1 PUFF 2 PUFF INHALATION ×2 (08:36→20:56)
[2024-12-10] MEDS: FUROSEMIDE 20 MG TABLET FEED TUBE (10:17)
[2024-12-10] MEDS: SOLIFENACIN 5 MG TABLET 10 MG PO (10:17)
[2024-12-10] MEDS: ENOXAPARIN 40 MG/0.4 ML SYRINGE SUB-Q (10:17)
[2024-12-10] MEDS: PANTOPRAZOLE SODIUM IV 40 MG VIAL IV PUSH ×2 (10:17→21:32)
[2024-12-10] MEDS: ASPIRIN 81 MG CHEWABLE TABLET FEED TUBE (10:18)
[2024-12-10] MEDS: ASCORBIC ACID 250 MG TABLET FEED TUBE (10:18)
[2024-12-10] MEDS: AMOXICILLIN/CLAVULANATE K SUSP 400-57 MG/5 ML 5 ML UD 500 MG FEED TUBE ×2 (12:48→21:34)
--- NOTE | 2024-12-10 14:40 | P.PNIM_ITS ---
Progress Note: A&P Assessment and Plan (1) Gastrointestinal tube present: Code(s): Z93.1 - Gastrostomy status Status: Acute Assessment and Plan: Chronic G tube recently placed at hospital in [place] after concerns for aspiration pneumonia * Pus noted from G tube site, culture being sent * G-tube patent * Director Of Staff Development consulted * Continue tube feeding * Continue Protonix * Awaiting medical records from facility 12/09 * No change to current treatment plan * Case coordination following for placement 12/10 * wound culture came back with proteus mirabilis on final read * Augmentin started per infectious disease pharmacy recommendations * Awaiting placement, case coordination following (2) Bipolar 1 disorder: Code(s): F31.9 - Bipolar disorder, unspecified Status: Chronic Assessment and Plan: * continue carbamazepine and valproic acid 12/09 * No change to current treatment plan (3) HLD (hyperlipidemia): Code(s): E78.5 - Hyperlipidemia, unspecified Status: Chronic Assessment and Plan: * Continue Lipitor and Aspirin 12/09 * No change to current treatment plan (4) Metastatic adenocarcinoma to lung: Code(s): C78.00 - Secondary malignant neoplasm of unspecified lung Status: Acute Assessment and Plan: * Waiting for medical records (5) COPD (chronic obstructive pulmonary disease): Qualifiers: COPD type: unspecified COPD Qualified Code(s): J44.9 - Chronic obstructive pulmonary disease, unspecified Code(s): J44.9 - Chronic obstructive pulmonary disease, unspecified Status: Acute Assessment and Plan: * continue albuterol rescue inhaler * continue Singulair 12/09 * No change (6) Seizure: Code(s): R56.9 - Unspecified convulsions Status: Acute Assessment and Plan: * continue Valproic acid 12/09 * No change (7) Hypothyroid: Code(s): E03.9 - Hypothyroidism, unspecified Status: Acute Assessment and Plan: * Continue Synthroid 12/09 * no change Time Spent With Patient Time with patient: 25 - 35 minutes Subjective Date/time seen: 12/10/24 14:40 Interval history: Interval history: This is 79-year-old female with a significant past medical history of metastatic lung cancer, aspiration pneumonia status post G-tube placement, bipolar 1 disorder, COPD on 2 L O2 chronically, hypothyroidism, who presented to the hospital from her care facility who can not care for her now that she has a G tube. Patient reported that G-tube was placed about a month ago but she was not able to express why. This was placed in [facility]. Workup in the hospital included a chest x-ray which shown possible minimal hazy bibasilar pulmonary edema, COPD. Initial labs showed a normal white blood cell count of 9.5, hemoglobin 10.2, bicarb 31, creatinine 0.4, greater than 60 EGFR, AST 46. UA was obtained which showed trace urine ketones, 1+ leukocyte otherwise normal. Urine culture was obtained and pending. Patient was recently seen and transferred to tertiary care due to anemia and chest pain. She was noted to have a hemoglobin of 4.0, hematocrit 16.4 at that time and was sent to [facility]. Patient ended up getting G tube placed at [facility] due to concerns for aspiration pneumonia. G-tube functioning properly. She is here for group home placement. Subjective: Patient denies any complaints today. EMR, Labs and imaging reviewed. Review of Systems Review of Systems: 12 systems were reviewed and are negativ e except for as per HPI. All systems reviewed & are unremarkable except as noted in HPI and below Exam Narrative: General: In no acute distress, well nourished Cardiac: Normal S1 and S2. No murmur, gallops or friction rubs, peripheral pulses intact. Respiratory: Lungs clear to auscultation, no adventitious lung sounds, currently on 2L NC which is her baseline O2 requirement Gastrointestinal: soft, non-distended, non-tender, normoactive bowel sounds. G tube in place Extremities: right shoulder pain and limited ROM : voiding without difficulty. Neuro: Alert and oriented x3 Objective Data Vital Signs Vital Signs: Vital Signs - 24 hr 12/09/24 20:49 12/09/24 22:00 12/10/24 06:00 Temperature 97.9 F 96.8 F L Pulse Rate 69 69 Respiratory Rate 18 18 Blood Pressure 98/45 L 116/46 L Pulse Oximetry 96 93 94 Oxygen Delivery Nasal Cannula Oxygen Flow Rate 2 Fraction of Inspired Oxygen 12/10/24 08:36 12/10/24 08:36 12/10/24 10:37 Temperature Pulse Rate 73 Respiratory Rate 20 20 Blood Pressure Pulse Oximetry 97 97 Oxygen Delivery Nasal Cannula Nasal Cannula Oxygen Flow Rate 2 2 Fraction of Inspired Oxygen 28 Intake/Output Intake/Output: Intake & Output 12/07/24 12/08/24 12/09/2421/25 23:59 23:59 23:59 23:59 Intake Total 0 140 324 0 Output Total 100 950 600 Balance -100 140 -626 -600 Meds/Results Medications: Active Medications Generic Name Dose Route Start Last Admin Trade Name Freq PRN Reason Stop Dose Admin Acetaminophen 650 mg 12/08/24 08:32 12/08/24 17:47 Acetaminophen 325 Mg Tablet PO 650 mg Q4H PRN Administration Headache Albuterol 2 puff 12/07/24 19:10 Albuterol Sulfate (*Sp) Aerosol 1 Puff INHALATION Q6HRT PRN shortness of breath or wheezing Amoxicillin/Clavulanate Potassium 500 mg 12/10/24 11:50 12/10/24 12:48 Amoxicillin/Clavulanate K Susp 400-57 Mg/5 Ml 5 Ml Ud FEED TUBE 12/17/24 06:01 500 mg Q8HR KRISTINA Administration Ascorbic Acid 250 mg 12/08/24 09:00 12/10/24 10:18 Ascorbic Acid 250 Mg Tablet FEED TUBE 250 mg DAILY KRISTINA Administration Aspirin 81 mg 12/08/24 09:00 12/10/24 10:18 Aspirin 81 Mg Chewable Tablet FEED TUBE 81 mg DAILY KRISTINA Administration Atorvastatin Calcium 20 mg 12/07/24 21:00 12/09/24 21:08 Atorvastatin 20 Mg Tablet FEED TUBE 20 mg HS KRISTINA Administration Carbamazepine 300 mg 12/07/24 17:00 12/10/24 10:17 Carbamazepine Chew 100 Mg Chew FEED TUBE 300 mg BID KRISTINA Administration Dicyclomine HCl 10 mg 12/08/24 16:22 12/09/24 11:40 Dicyclomine Hcl 10 Mg Capsule FEED TUBE 10 mg DAILY PRN Administration abdominal pain Enoxaparin Sodium 40 mg 12/09/24 09:00 12/10/24 10:17 Enoxaparin 40 Mg/0.4 Ml Syringe SUB-Q 40 mg DAILY KRISTINA Administration Furosemide 20 mg 12/08/24 09:00 12/10/24 10:17 Furosemide 20 Mg Tablet FEED TUBE 20 mg DAILY KRISTINA Administration Levothyroxine Sodium 100 mcg 12/08/24 06:30 12/10/24 05:48 Levothyroxine Sodium 100 Mcg Tablet FEED TUBE 100 mcg DAILY@0630 KRISTINA Administration Montelukast Sodium 10 mg 12/08/24 21:00 12/09/24 21:08 Montelukast Sodium 10 Mg Tablet FEED TUBE 10 mg HS KRISTINA Administration Pantoprazole Sodium 40 mg 12/08/24 09:00 12/10/24 10:17 Pantoprazole Sodium Iv 40 Mg Vial IV PUSH 40 mg Q12HR KRISTINA Administration Potassium Chloride 20 meq 12/09/24 09:00 12/09/24 11:41 Potassium Chloride 20 Meq Packet (For Liquid) FEED TUBE 20 meq Q48H KRISTINA Administration Fluticasone/Salmeterol 2 puff 12/07/24 20:00 12/10/24 08:36 Fluticasone/Salmeterol 115-21 Mcg Inhaler 1 Puff INHALATION 2 puff Q12HRT KRISTINA Administration Solifenacin 10 mg 12/08/24 09:00 12/10/24 10:17 Solifenacin 5 Mg Tablet PO 10 mg DAILY KRISTINA Administration Valproate Sodium 62.5 mg 12/07/24 20:00 12/10/24 12:48 Valproic Acid Liq 250 Mg/5 Ml Oral Solution Udc FEED TUBE 62.5 mg Q6HR KRISTINA Administration Radiology Results: ITS Impressions Chest X-Ray 12/07/24 11:20 Impression: Possible minimal hazy bibasilar pulmonary edema. COPD. Labs Labs: Laboratory Results - last 24 hr 12/10/24 05:23 WBC 9.7 RBC 3.97 L Hgb 9.3 L Hct 32.8 L MCV 82.6 MCH 23.4 L MCHC 28.4 L RDW TNP Plt Count 245 MPV 10.4 Immature Gran % (Auto) 0.4 Neut % (Auto) 69.0 Lymph % (Auto) 13.9 L [place] % (Auto) 12.4 H Eos % (Auto) 3.6 Baso % (Auto) 0.7 Lymph # (Auto) 1.35 [facility] # (Auto) 1.2 H Eos # (Auto) 0.4 H Baso # (Auto) 0.1 Abs Immat Gran (auto) 0.04 H Absolute Neuts (auto) 6.7 Absolute Nucleated RBC 0.000 Band Neutrophils % Not Reportable Nucleated RBC % 0.0 Platelet Estimate Adequate Polychromasia 1+ Hypochromasia 1+ Anisocytosis 2+ Target Cells 1+ Schistocytes None seen Sodium 138 Potassium 4.1 Chloride 99 Carbon Dioxide 30 Anion Gap 9 BUN 14 Creatinine 0.45 L Estim Creat Clear Calc 82 Estimated GFR > 60 Glucose 116 H Calcium 9.1 Total Bilirubin 0.1 L AST 21 ALT 19 Alkaline Phosphatase 103 Total Protein 7.0 Albumin 3.6 Quality VTE Prophylaxis VTE prophylaxis: mechanical ordered and pharmacologic ordered
[2024-12-10] MEDS: MONTELUKAST SODIUM 10 MG TABLET FEED TUBE (21:32)
[2024-12-10] MEDS: ATORVASTATIN 20 MG TABLET FEED TUBE (21:32)
[2024-12-11] VITALS (8 sets, daily range): BP systolic 96–146; BP diastolic 60–66; PULSE 64–71; RESP 18–20; TEMP 36.1–36.4; O2SAT 94–98
[2024-12-11] MEDS: LEVOTHYROXINE SODIUM 100 MCG TABLET FEED TUBE (05:08)
[2024-12-11] MEDS: VALPROIC ACID LIQ 250 MG/5 ML ORAL SOLUTION UDC 62.5 MG FEED TUBE ×4 (05:08→23:40)
[2024-12-11] MEDS: AMOXICILLIN/CLAVULANATE K SUSP 400-57 MG/5 ML 5 ML UD 500 MG FEED TUBE (05:08)
[2024-12-11 05:35] LABS: Basophils Absolute Auto 0.1 K/mm3 (0.0-0.1); Basophils Percent Auto 1.1 % (0.2-1.2); Eosinophils Absolute Auto 0.4 K/mm3 (0-0.3); Eosinophils Percent Auto 5.8 % (0-4.4); Hematocrit 31.5 % (37.0-47.0); Hemoglobin 9.3 g/dL (12.0-15.0); Immature Granulocyte Absolute 0.04 K/mm3 (0.00-0.031); Immature Granulocyte Percent A 0.6 % (0-0.5); Lymphocytes Absolute Auto 1.19 K/mm3 (0.9-3.2); Lymphocytes Percent Auto 16.8 % (18.3-44.2); Mean Corpuscular HGB Conc 29.5 g/dl (32-36); Mean Corpuscular Hemoglobin 23.9 pg (26-34); Mean Platelet Volume 10.5 fl (7.4-10.4); Monocytes Absolute Auto 0.8 K/mm3 (0.1-0.6); Monocytes Percent Auto 10.7 % (2.6-8.5); Neutrophils Absolute Auto 4.6 K/mm3 (1.3-6.7); Platelet Count Result 230 k/mm3 (150-375); Red Blood Count 3.89 M/mm3 (4.2-5.4); White Blood Count 7.1 K/mm3 (4.5-10.0)
[2024-12-11 05:45] LABS: Alanine Aminotransferase 22 U/L (6-35); Albumin Level 3.5 g/dL (3.5-5.1); Alkaline Phosphatase 102 U/L (38-126); Anion Gap 9 mmol/L (4-12); Aspartate Amino Transferase 28 U/L (14-36); Bilirubin,Total 0.1 mg/dL (0.2-1.3); Blood Urea Nitrogen 15 mg/dL (7-17); Calcium 9.1 mg/dL (8.4-10.2); Carbon Dioxide 32 mmol/L (22-30); Chloride 98 mmol/L (98-107); Estimated CRCL calculation 87 ml/min; Estimated Glomerular Filt Rate > 60; Glucose 125 mg/dL (65-110); Sodium 139 mmol/L (137-145)
[2024-12-11 07:06] LABS: Anisocytosis 2+; Burr Cells 1+; Hypochromasia 2+; Ovalocytes 1+; Platelet Estimate Adequate (Adequate); Schistocytes None Seen
[2024-12-11] MEDS: FLUTICASONE/SALMETEROL 115-21 MCG INHALER 1 PUFF 2 PUFF INHALATION ×2 (08:23→20:33)
[2024-12-11] MEDS: ENOXAPARIN 40 MG/0.4 ML SYRINGE SUB-Q (09:40)
[2024-12-11] MEDS: ASPIRIN 81 MG CHEWABLE TABLET FEED TUBE (09:41)
[2024-12-11] MEDS: SOLIFENACIN 5 MG TABLET 10 MG PO (09:41)
[2024-12-11] MEDS: ASCORBIC ACID 250 MG TABLET FEED TUBE (09:42)
[2024-12-11] MEDS: PANTOPRAZOLE SODIUM IV 40 MG VIAL IV PUSH ×2 (09:42→20:07)
[2024-12-11] MEDS: FUROSEMIDE 20 MG TABLET FEED TUBE (09:42)
[2024-12-11] MEDS: POTASSIUM CHLORIDE 20 MEQ PACKET (FOR LIQUID) FEED TUBE (09:42)
--- NOTE | 2024-12-11 10:50 | PCNFU ---
Nutrition Follow-Up Complete: Altered GI function as related to Dysphagia as evidenced by G tube feedings. goal: Meet estimated nutritional needs Patient is meeting goal. No new goal. Pt current nutrition is Jevity 1.2 at 60 ml/hr. Last recorded weight is 75 kg, stable Bowel Motility: +BM reported 12/10 Labs Reviewed: Cr 0.42, Glu 125, Hct 31.5, Hgb 9.3 Meds Noted: Lipitor, Lovenox, Vit C, Lasix Skin: WNL Additional Notes: Patient remains on G tube feedings of Jevity 1.2 at 60 ml/hr and tolerating per nursing. Total Nutrition: 1584 kcal/73 gm protein/1065 ml water. Flush 100 ml q 4 hours. Tube feedings meeting 97% kcal needs at 23 kcal/kg and 100% protein needs at 0.8-1.0 gm/kg. Awating for placement. Agree with diet orders. Will monitor weight, labs, skin, diet orders, meds every Tuesday and Tuesday.
--- NOTE | 2024-12-11 12:15 | P.PNIM_ITS ---
Progress Note: A&P Assessment and Plan (1) Gastrointestinal tube present: Code(s): Z93.1 - Gastrostomy status Status: Acute Assessment and Plan: Chronic G tube recently placed at hospital in [place] after concerns for aspiration pneumonia * Pus noted from G tube site, culture being sent * G-tube patent * Business Trainer consulted * Continue tube feeding * Continue Protonix * Awaiting medical records from facility 12/09 * No change to current treatment plan * Case coordination following for placement 12/10 * wound culture came back with proteus mirabilis on final read * Augmentin started per infectious disease pharmacy recommendations * Awaiting placement, case coordination following 12/11 * Wound showing proteus mirabilis and staphylococcus aureus on preliminary read * Augmentin changed to Ertapenem nd Doxycycline added per infectious disease pharmacy recommendations * Midline ordered * Case management updated on IV antibiotics * Awaiting placement (2) Bipolar 1 disorder: Code(s): F31.9 - Bipolar disorder, unspecified Status: Chronic Assessment and Plan: * continue carbamazepine and valproic acid 12/09 * No change to current treatment plan (3) HLD (hyperlipidemia): Code(s): E78.5 - Hyperlipidemia, unspecified Status: Chronic Assessment and Plan: * Continue Lipitor and Aspirin 12/09 * No change to current treatment plan (4) Metastatic adenocarcinoma to lung: Code(s): C78.00 - Secondary malignant neoplasm of unspecified lung Status: Acute Assessment and Plan: * Waiting for medical records (5) COPD (chronic obstructive pulmonary disease): Qualifiers: COPD type: unspecified COPD Qualified Code(s): J44.9 - Chronic obst ructive pulmonary disease, unspecified Code(s): J44.9 - Chronic obstructive pulmonary disease, unspecified Status: Acute Assessment and Plan: * continue albuterol rescue inhaler * continue Singulair 12/09 * No change (6) Seizure: Code(s): R56.9 - Unspecified convulsions Status: Acute Assessment and Plan: * continue Valproic acid 12/09 * No change (7) Hypothyroid: Code(s): E03.9 - Hypothyroidism, unspecified Status: Acute Assessment and Plan: * Continue Synthroid 12/09 * no change (8) Right shoulder pain: Code(s): M25.511 - Pain in right shoulder Status: Acute Assessment and Plan: 12/11 * right shoulder x-ray was negative for acute osseous abnormality. 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 * Voltaren gel ordered for pain * She can also use Tylenol as needed (9) Skin infection at gastrostomy tube site: Code(s): K94.22 - Gastrostomy infection; L08.9 - Local infection of the skin and subcutaneous tissue, unspecified Status: Acute Assessment and Plan: Pus noted around G tube site with foul odor * wound culture showing proteus mirabilis and staphylococcus aureus on preliminary read * Augmentin changed to Ertapenem and Doxycycline x7 days per infectious disease pharmacist recommendations Time Spent With Patient Time with patient: 25 - 35 minutes Subjective Date/time seen: 12/11/24 12:15 Interval history: Interval history: This is 79-year-old female with a significant past medical history of metastatic lung cancer, aspiration pneumonia status post G-tube placement, bipolar 1 disorder, COPD on 2 L O2 chronically, hypothyroidism, who presented to the hospital from her care facility who can not care for her now that she has a G tube. Patient reported that G-tube was placed about a month ago but she was not able to express why. This was placed in [facility]. Workup in the hospital included a chest x-ray which shown possible minimal hazy bibasilar pulmonary edema, COPD. Initial labs showed a normal white blood cell count of 9.5, hemoglobin 10.2, bicarb 31, creatinine 0.4, greater than 60 EGFR, AST 46. UA was obtained which showed trace urine ketones, 1+ leukocyte otherwise normal. Urine culture was obtained and pending. Patient was recently seen and transferred to tertiary care due to anemia and chest pain. She was noted to have a hemoglobin of 4.0, hematocrit 16.4 at that time and was sent to [facility]. Patient ended up getting G tube placed at [facility] due to concerns for aspiration pneumonia. G-tube functioning properly. She is here for mcc placement. Subjective: Patient denies any new complaints today. Labs reviewed Review of Systems Review of Systems: 12 systems were reviewed and are negativ e except for as per HPI. All systems reviewed & are unremarkable except as noted in HPI and below Exam Narrative: General: In no acute distress, well nourished Cardiac: Normal S1 and S2. No murmur, gallops or friction rubs, peripheral pulses intact. Respiratory: Lungs clear to auscultation, no adventitious lung sounds, currently on 2L NC which is her baseline O2 requirement Gastrointestinal: soft, non-distended, non-tender, normoactive bowel sounds. G tube in place Extremities: right shoulder pain and limited ROM : voiding without difficulty. Neuro: Alert and oriented x3 Objective Data Vital Signs Vital Signs: Vital Signs - 24 hr 12/10/24 14:00 12/10/24 20:00 12/10/24 21:01 Temperature 98.4 F Pulse Rate 67 Respiratory Rate 16 Blood Pressure 121/55 L Pulse Oximetry 97 97 96 Oxygen Delivery Nasal Cannula Nasal Cannula Oxygen Flow Rate 2 2 Fraction of Inspired Oxygen 28 12/10/24 21:47 12/11/24 06:00 12/11/24 08:26 Temperature 96.4 F L 97.2 F L Pulse Rate 66 71 Respiratory Rate 18 18 Blood Pressure 126/48 L 146/65 H Pulse Oximetry 93 94 95 Oxygen Delivery Nasal Cannula Oxygen Flow Rate 2 Fraction of Inspired Oxygen 12/11/24 08:26 Temperature Pulse Rate 70 Respiratory Rate 20 Blood Pressure Pulse Oximetry Oxygen Delivery Oxygen Flow Rate Fraction of Inspired Oxygen Intake/Output Intake/Output: Intake & Output 12/08/24 12/09/24 12/10/24 12/11/24 23:59 23:59 23:59 23:59 Intake Total 140 324 0 1440 Output Total 950 700 Balance 140 -626 -700 1440 Meds/Results Medications: Active Medications Generic Name Dose Route Start Last Admin Trade Name Freq PRN Reason Stop Dose Admin Acetaminophen 650 mg 12/08/24 08:32 12/08/24 17:47 Acetaminophen 325 Mg Tablet PO 650 mg Q4H PRN Administration Headache Albuterol 2 puff 12/07/24 19:10 Albuterol Sulfate (*Sp) Aerosol 1 Puff INHALATION Q6HRT PRN shortness of breath or wheezing Ascorbic Acid 250 mg 12/08/24 09:00 12/11/24 09:42 Ascorbic Acid 250 Mg Tablet FEED TUBE 250 mg DAILY KRISTINA Administration Aspirin 81 mg 12/08/24 09:00 12/11/24 09:41 Aspirin 81 Mg Chewable Tablet FEED TUBE 81 mg DAILY KRISTINA Administration Atorvastatin Calcium 20 mg 12/07/24 21:00 12/10/24 21:32 Atorvastatin 20 Mg Tablet FEED TUBE 20 mg HS KRISTINA Administration Carbamazepine 300 mg 12/07/24 17:00 12/11/24 09:41 Carbamazepine Chew 100 Mg Chew FEED TUBE 300 mg BID KRISTINA Administration Dicyclomine HCl 10 mg 12/08/24 16:22 12/09/24 11:40 Dicyclomine Hcl 10 Mg Capsule FEED TUBE 10 mg DAILY PRN Administration abdominal pain Doxycycline Hyclate 100 mg 12/11/24 11:25 Doxycycline Hyclate 100 Mg Tablet FEED TUBE 12/17/24 21:01 Q12HR KRISTINA Enoxaparin Sodium 40 mg 12/09/24 09:00 12/11/24 09:40 Enoxaparin 40 Mg/0.4 Ml Syringe SUB-Q 40 mg DAILY KRISTINA Administration Furosemide 20 mg 12/08/24 09:00 12/11/24 09:42 Furosemide 20 Mg Tablet FEED TUBE 20 mg DAILY KRISTINA Administration Ertapenem 1 gm in 50 mls @ 100 mls/hr 12/11/24 11:25 Invanz 1 Gm/Ns 50 Ml IVPB 12/17/24 09:29 DAILY KRISTINA Levetiracetam 500 mg 12/11/24 11:25 Levetiracetam Oral Tonia 500 Mg/5 Ml Udc FEED TUBE 12/17/24 21:01 Q12HR KRISTINA Levothyroxine Sodium 100 mcg 12/08/24 06:30 12/11/24 05:08 Levothyroxine Sodium 100 Mcg Tablet FEED TUBE 100 mcg DAILY@0630 KRISTINA Administration Lidocaine HCl 5 ml 12/11/24 12:07 Lidocaine 1% Local Inj 2 Ml Ampul INFILTRATE 12/11/24 12:08 ONCE ONE Montelukast Sodium 10 mg 12/08/24 21:00 12/10/24 21:32 Montelukast Sodium 10 Mg Tablet FEED TUBE 10 mg HS KRISTINA Administration Pantoprazole Sodium 40 mg 12/08/24 09:00 12/11/24 09:42 Pantoprazole Sodium Iv 40 Mg Vial IV PUSH 40 mg Q12HR KRISTINA Administration Potassium Chloride 20 meq 12/09/24 09:00 12/11/24 09:42 Potassium Chloride 20 Meq Packet (For Liquid) FEED TUBE 20 meq Q48H KRISTINA Administration Fluticasone/Salmeterol 2 puff 12/07/24 20:00 12/11/24 08:23 Fluticasone/Salmeterol 115-21 Mcg Inhaler 1 Puff INHALATION 2 puff Q12HRT KRISTINA Administration Solifenacin 10 mg 12/08/24 09:00 12/11/24 09:41 Solifenacin 5 Mg Tablet PO 10 mg DAILY KRISTINA Administration Valproate Sodium 62.5 mg 12/07/24 20:00 12/11/24 05:08 Valproic Acid Liq 250 Mg/5 Ml Oral Solution Udc FEED TUBE 62.5 mg Q6HR KRISTINA Administration Radiology Results: ITS Impressions Chest X-Ray 12/07/24 11:20 Impression: Possible minimal hazy bibasilar pulmonary edema. COPD. Shoulder X-Ray 12/10/24 15:25 IMPRESSION: No acute osseous abnormality right shoulder. Venous Doppler Study 12/10/24 20:21 IMPRESSION: No right upper extremity deep venous thrombosis. Labs Labs: Laboratory Results - last 24 hr 12/11/24 05:06 WBC 7.1 RBC 3.89 L Hgb 9.3 L Hct 31.5 L MCV 81.0 MCH 23.9 L MCHC 29.5 L RDW TNP Plt Count 230 MPV 10.5 H Immature Gran % (Auto) 0.6 H Neut % (Auto) 65.0 Lymph % (Auto) 16.8 L [place] % (Auto) 10.7 H Eos % (Auto) 5.8 H Baso % (Auto) 1.1 Lymph # (Auto) 1.19 [place] # (Auto) 0.8 H Eos # (Auto) 0.4 H Baso # (Auto) 0.1 Abs Immat Gran (auto) 0.04 H Absolute Neuts (auto) 4.6 Absolute Nucleated RBC 0.000 Band Neutrophils % Not Reportable Nucleated RBC % 0.0 Platelet Estimate Adequate Hypochromasia 2+ Anisocytosis 2+ Ovalocytes 1+ [place] Cells 1+ Schistocytes None seen Sodium 139 Potassium 4.0 Chloride 98 Carbon Dioxide 32 H Anion Gap 9 BUN 15 Creatinine 0.42 L Estim Creat Clear Calc 87 Estimated GFR > 60 Glucose 125 H Calcium 9.1 Total Bilirubin 0.1 L AST 28 ALT 22 Alkaline Phosphatase 102 Total Protein 7.0 Albumin 3.5 Quality VTE Prophylaxis VTE prophylaxis: mechanical ordered and pharmacologic ordered
[2024-12-11] MEDS: levETIRAcetam ORAL SOL 500 MG/5 ML UDC FEED TUBE ×2 (12:24→20:07)
[2024-12-11] MEDS: ERTAPENEM 1 GM/NS 50 ML 1 GM/50 ML BAG IVPB (12:26)
[2024-12-11] MEDS: DOXYCYCLINE HYCLATE 100 MG TABLET FEED TUBE ×2 (12:27→20:08)
[2024-12-11] MEDS: LIDOCAINE 1% LOCAL INJ 2 ML AMPUL 5 ML INFILTRATE (14:30)
[2024-12-11] MEDS: DICLOFENAC SODIUM 1% 100 GM GEL (*BKC) 1 APPLIC TOPICAL ×2 (18:03→20:08)
[2024-12-11] MEDS: SALINE LOCK FLUSH 10 ML IV PUSH (20:08)
[2024-12-11] MEDS: MONTELUKAST SODIUM 10 MG TABLET FEED TUBE (20:08)
[2024-12-11] MEDS: ATORVASTATIN 20 MG TABLET FEED TUBE (20:08)
[2024-12-12] VITALS (7 sets, daily range): BP systolic 129–151; BP diastolic 67–78; PULSE 60–72; RESP 16–20; TEMP 36.4–36.6; O2SAT 90–98
[2024-12-12] MEDS: LEVOTHYROXINE SODIUM 100 MCG TABLET FEED TUBE (05:01)
[2024-12-12] MEDS: VALPROIC ACID LIQ 250 MG/5 ML ORAL SOLUTION UDC 62.5 MG FEED TUBE ×4 (05:01→23:41)
[2024-12-12] MEDS: SALINE LOCK FLUSH 10 ML IV PUSH ×3 (05:02→20:05)
[2024-12-12 05:57] LABS: Basophils Absolute Auto 0.1 K/mm3 (0.0-0.1); Basophils Percent Auto 1.2 % (0.2-1.2); Eosinophils Absolute Auto 0.4 K/mm3 (0-0.3); Eosinophils Percent Auto 7.7 % (0-4.4); Hematocrit 33.2 % (37.0-47.0); Hemoglobin 9.4 g/dL (12.0-15.0); Immature Granulocyte Absolute 0.03 K/mm3 (0.00-0.031); Immature Granulocyte Percent A 0.5 % (0-0.5); Lymphocytes Absolute Auto 1.34 K/mm3 (0.9-3.2); Lymphocytes Percent Auto 23.3 % (18.3-44.2); Mean Corpuscular HGB Conc 28.3 g/dl (32-36); Mean Corpuscular Hemoglobin 23.6 pg (26-34); Mean Corpuscular Volume 83.4 fl (80-100); Mean Platelet Volume 10.5 fl (7.4-10.4); Monocytes Absolute Auto 0.7 K/mm3 (0.1-0.6); Monocytes Percent Auto 11.5 % (2.6-8.5); Neutrophils Absolute Auto 3.2 K/mm3 (1.3-6.7); Neutrophils Percent Auto 55.8 % (45.5-73.1); Platelet Count Result 241 k/mm3 (150-375); Red Blood Count 3.98 M/mm3 (4.2-5.4); White Blood Count 5.7 K/mm3 (4.5-10.0)
[2024-12-12 06:07] LABS: Alanine Aminotransferase 24 U/L (6-35); Albumin Level 3.6 g/dL (3.5-5.1); Alkaline Phosphatase 103 U/L (38-126); Anion Gap 8 mmol/L (4-12); Aspartate Amino Transferase 27 U/L (14-36); Bilirubin,Total < 0.1 mg/dL (0.2-1.3); Blood Urea Nitrogen 15 mg/dL (7-17); Calcium 9.3 mg/dL (8.4-10.2); Carbon Dioxide 34 mmol/L (22-30); Chloride 98 mmol/L (98-107); Estimated CRCL calculation 89 ml/min; Estimated Glomerular Filt Rate > 60; Glucose 103 mg/dL (65-110); Potassium 3.9 mmol/L (3.4-5.0); Sodium 140 mmol/L (137-145)
[2024-12-12 06:44] LABS: Anisocytosis 2+; Hypochromasia 1+; Ovalocytes 1+; Platelet Estimate Adequate (Adequate); Schistocytes None Seen
[2024-12-12] MEDS: ERTAPENEM 1 GM/NS 50 ML 1 GM/50 ML BAG IVPB (09:31)
[2024-12-12] MEDS: PANTOPRAZOLE SODIUM IV 40 MG VIAL IV PUSH ×2 (09:32→20:05)
[2024-12-12] MEDS: FUROSEMIDE 20 MG TABLET FEED TUBE (09:32)
[2024-12-12] MEDS: SOLIFENACIN 5 MG TABLET 10 MG PO (09:32)
[2024-12-12] MEDS: DOXYCYCLINE HYCLATE 100 MG TABLET FEED TUBE ×2 (09:32→20:06)
[2024-12-12] MEDS: ASPIRIN 81 MG CHEWABLE TABLET FEED TUBE (09:32)
[2024-12-12] MEDS: levETIRAcetam ORAL SOL 500 MG/5 ML UDC FEED TUBE ×2 (09:33→20:06)
[2024-12-12] MEDS: ASCORBIC ACID 250 MG TABLET FEED TUBE (09:33)
[2024-12-12] MEDS: DICLOFENAC SODIUM 1% 100 GM GEL (*BKC) 1 APPLIC TOPICAL ×4 (09:33→20:06)
[2024-12-12] MEDS: ENOXAPARIN 40 MG/0.4 ML SYRINGE SUB-Q (09:34)
--- NOTE | 2024-12-12 16:13 | P.PNIM_ITS ---
Progress Note: A&P Assessment and Plan (1) Gastrointestinal tube present: Code(s): Z93.1 - Gastrostomy status Status: Acute Assessment and Plan: Chronic G tube recently placed at hospital in [place] after concerns for aspiration pneumonia. Patient can no longer care for herself with PEG to is currently awaiting placement * Pus noted from G tube site, culture being sent * G-tube patent * Plating Machine Operator consulted * Continue tube feeding * Continue Protonix (2) Skin infection at gastrostomy tube site: Code(s): K94.22 - Gastrostomy infection; L08.9 - Local infection of the skin and subcutaneous tissue, unspecified Status: Acute Assessment and Plan: Pus noted around G tube site with foul odor * Wound showing proteus mirabilis and staphylococcus aureus on preliminary read * Augmentin changed to Ertapenem nd Doxycycline through 12/17 per infectious disease pharmacy recommendations * Midline in place (3) Bipolar 1 disorder: Code(s): F31.9 - Bipolar disorder, unspecified Status: Chronic Assessment and Plan: * continue carbamazepine and valproic acid (4) HLD (hyperlipidemia): Code(s): E78.5 - Hyperlipidemia, unspecified Status: Chronic Assessment and Plan: * Continue Lipitor and Aspirin (5) Metastatic adenocarcinoma to lung: Code(s): C78.00 - Secondary malignant neoplasm of unspecified lung Status: Acute Assessment and Plan: * Waiting for medical records (6) COPD (chronic obstructive pulmonary disease): Qualifiers: COPD type: unspecified COPD Qualified Code(s): J44.9 - Chronic obstructive pulmonary disease, unspecified Code(s): J44.9 - Chronic obstructive pulmonary disease, unspecified Status: Acute Assessment and Plan: * continue albuterol rescue inhaler * continue Singulair (7) Seizure: Code(s): R56.9 - Unspecified convulsions Status: Acute Assessment and Plan: * continue Valproic acid and keppra (8) Hypothyroid: Code(s): E03.9 - Hypothyroidism, unspecified Status: Acute Assessment and Plan: * Continue Synthroid (9) Right shoulder pain: Code(s): M25.511 - Pain in right shoulder Status: Acute Assessment and Plan: * right shoulder x-ray was negative for acute osseous abnormality. 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 Time Spent With Patient Time with patient: 15 - 25 minutes Subjective Date/time seen: 12/12/24 16:13 Interval history: Interval history: Patient is a 79-year-old female who presented to the hospital from her care facility who can not care for her now that she has a G tube. Tube is functioning properly but there was pus noted around site and she was admitted for due to infection and nursing placement Subjective: Patient in no acute distress and denied any new complaints. Afebrile and normal WBC. Labs reviewed and vitals stable. Review of Systems Review of Systems: 12 systems were reviewed and are negativ e except for as per HPI. All systems reviewed & are unremarkable except as noted in HPI and below Exam Narrative: General: In no acute distress, well nourished Cardiac: Normal S1 and S2. No murmur, gallops or friction rubs, peripheral pulses intact. Respiratory: Lungs clear to auscultation, no adventitious lung sounds, currently on 2L NC which is her baseline O2 requirement Gastrointestinal: soft, non-distended, non-tender, normoactive bowel sounds. G tube in place Extremities: right shoulder pain and limited ROM : voiding without difficulty. Neuro: Alert and oriented x3 Objective Data Vital Signs Vital Signs: Vital Signs - 24 hr 12/11/24 20:00 12/11/24 20:34 12/11/24 20:40 Temperature Pulse Rate 64 Respiratory Rate 20 Blood Pressure Pulse Oximetry 96 96 Oxygen Delivery Nasal Cannula Nasal Cannula Oxygen Flow Rate 2 2 Fraction of Inspired Oxygen 28 12/11/24 20:43 12/12/24 05:13 12/12/24 08:00 Temperature 97.6 F 97.6 F Pulse Rate 64 60 Respiratory Rate 18 16 Blood Pressure 119/60 151/78 H Pulse Oximetry 95 98 96 Oxygen Delivery Nasal Cannula Oxygen Flow Rate 2 Fraction of Inspired Oxygen 12/12/24 08:55 12/12/24 14:00 Temperature 97.9 F Pulse Rate 72 Respiratory Rate 18 Blood Pressure 136/68 Pulse Oximetry 95 98 Oxygen Delivery Nasal Cannula Oxygen Flow Rate 2 Fraction of Inspired Oxygen Intake/Output Intake/Output: Intake & Output 12/09/24 12/10/24 12/11/24 12/12/24 23:59 23:59 23:59 23:59 Intake Total 324 0 1490 1986 Output Total 950 700 Balance -626 -700 1490 1986 Meds/Results Medications: Active Medications Generic Name Dose Route Start Last Admin Trade Name Freq PRN Reason Stop Dose Admin Acetaminophen 650 mg 12/12/24 13:04 Acetaminophen Elixir 325 Mg/10.15 Ml Udc FEED TUBE Q4H PRN Headache Albuterol 2 puff 12/07/24 19:10 Albuterol Sulfate (*Sp) Aerosol 1 Puff INHALATION Q6HRT PRN shortness of breath or wheezing Ascorbic Acid 250 mg 12/08/24 09:00 12/12/24 09:33 Ascorbic Acid 250 Mg Tablet FEED TUBE 250 mg DAILY KRISTINA Administration Aspirin 81 mg 12/08/24 09:00 12/12/24 09:32 Aspirin 81 Mg Chewable Tablet FEED TUBE 81 mg DAILY KRISTINA Administration Atorvastatin Calcium 20 mg 12/07/24 21:00 12/11/24 20:08 Atorvastatin 20 Mg Tablet FEED TUBE 20 mg HS KRISTINA Administration Carbamazepine 300 mg 12/07/24 17:00 12/12/24 09:32 Carbamazepine Chew 100 Mg Chew FEED TUBE 300 mg BID KRISTINA Administration Diclofenac Sodium 1 applic 12/11/24 17:00 12/12/24 12:40 Diclofenac Sodium 1% 100 Gm Gel (*[facility]) TOPICAL 1 applic QID KRISTINA Administration Dicyclomine HCl 10 mg 12/08/24 16:22 12/09/24 11:40 Dicyclomine Hcl 10 Mg Capsule FEED TUBE 10 mg DAILY PRN Administration abdominal pain Doxycycline Hyclate 100 mg 12/11/24 11:25 12/12/24 09:32 Doxycycline Hyclate 100 Mg Tablet FEED TUBE 12/17/24 21:01 100 mg Q12HR KRISTINA Administration Enoxaparin Sodium 40 mg 12/09/24 09:00 12/12/24 09:34 Enoxaparin 40 Mg/0.4 Ml Syringe SUB-Q 40 mg DAILY KRISTINA Administration Furosemide 20 mg 12/08/24 09:00 12/12/24 09:32 Furosemide 20 Mg Tablet FEED TUBE 20 mg DAILY KRISTINA Administration Ertapenem 1 gm in 50 mls @ 100 mls/hr 12/11/24 11:25 12/12/24 09:31 Invanz 1 Gm/Ns 50 Ml IVPB 12/17/24 09:29 100 mls/hr DAILY KRISTINA Administration Levetiracetam 500 mg 12/11/24 11:25 12/12/24 09:33 Levetiracetam Oral Tonia 500 Mg/5 Ml Udc FEED TUBE 12/17/24 21:01 500 mg Q12HR KRISTINA Administration Levothyroxine Sodium 100 mcg 12/08/24 06:30 12/12/24 05:01 Levothyroxine Sodium 100 Mcg Tablet FEED TUBE 100 mcg DAILY@0630 KRISTINA Administration Montelukast Sodium 10 mg 12/08/24 21:00 12/11/24 20:08 Montelukast Sodium 10 Mg Tablet FEED TUBE 10 mg HS KRISTINA Administration Pantoprazole Sodium 40 mg 12/08/24 09:00 12/12/24 09:32 Pantoprazole Sodium Iv 40 Mg Vial IV PUSH 40 mg Q12HR KRISTINA Administration Potassium Chloride 20 meq 12/09/24 09:00 12/11/24 09:42 Potassium Chloride 20 Meq Packet (For Liquid) FEED TUBE 20 meq Q48H KRISTINA Administration Fluticasone/Salmeterol 2 puff 12/07/24 20:00 12/11/24 20:33 Fluticasone/Salmeterol 115-21 Mcg Inhaler 1 Puff INHALATION 2 puff Q12HRT KRISTINA Administration Sodium Chloride 10 ml 12/11/24 22:00 12/12/24 12:40 Saline Lock Flush IV PUSH 10 ml Q8HR KRISTINA Administration Sodium Chloride 10 ml 12/11/24 15:05 Saline Lock Flush IV PUSH PRN PRN Flush Sodium Chloride 20 ml 12/11/24 15:05 Saline Lock Flush IV PUSH PRN PRN after blood draws Solifenacin 10 mg 12/08/24 09:00 12/12/24 09:32 Solifenacin 5 Mg Tablet PO 10 mg DAILY KRISTINA Administration Valproate Sodium 62.5 mg 12/07/24 20:00 12/12/24 12:40 Valproic Acid Liq 250 Mg/5 Ml Oral Solution Udc FEED TUBE 62.5 mg Q6HR KRISTINA Administration Radiology Results: ITS Impressions Chest X-Ray 12/07/24 11:20 Impression: Possible minimal hazy bibasilar pulmonary edema. COPD. Shoulder X-Ray 12/10/24 15:25 IMPRESSION: No acute osseous abnormality right shoulder. Venous Doppler Study 12/10/24 20:21 IMPRESSION: No right upper extremity deep venous thrombosis. Labs Labs: Laboratory Results - last 24 hr 12/12/24 05:19 WBC 5.7 RBC 3.98 L Hgb 9.4 L Hct 33.2 L MCV 83.4 MCH 23.6 L MCHC 28.3 L RDW TNP Plt Count 241 MPV 10.5 H Immature Gran % (Auto) 0.5 Neut % (Auto) 55.8 Lymph % (Auto) 23.3 [place] % (Auto) 11.5 H Eos % (Auto) 7.7 H Baso % (Auto) 1.2 Lymph # (Auto) 1.34 [place] # (Auto) 0.7 H Eos # (Auto) 0.4 H Baso # (Auto) 0.1 Abs Immat Gran (auto) 0.03 Absolute Neuts (auto) 3.2 Absolute Nucleated RBC 0.000 Band Neutrophils % Not Reportable Nucleated RBC % 0.0 Platelet Estimate Adequate Hypochromasia 1+ Anisocytosis 2+ Ovalocytes 1+ Schistocytes None seen Sodium 140 Potassium 3.9 Chloride 98 Carbon Dioxide 34 H Anion Gap 8 BUN 15 Creatinine 0.41 L Estim Creat Clear Calc 89 Estimated GFR > 60 Glucose 103 Calcium 9.3 Total Bilirubin < 0.1 L AST 27 ALT 24 Alkaline Phosphatase 103 Total Protein 7.0 Albumin 3.6 Quality VTE Prophylaxis VTE prophylaxis: mechanical ordered and pharmacologic ordered -Patient's previous records reviewed on admission -ER notes reviewed in detail on admission -discussed all findings and current treatment plan with patient/Family/POA -Consultations reviewed for recommendations -Patient's disposition for safe discharge discussed with community case manager Dictation performed by [employer] direct speech recognition software, therefore dungeon master variants and typographical errors may occur. Hospitalist MIPS Advance Care Plan I have confirmed that the patient's Advanced Care Plan is present, code status is documented, or surrogate decision maker is listed in patient medical record.: Yes Medication Reconciliation I have utilized all available resources to obtain, update and review the patients current medications (includes all prescriptions, OTC, herbals, cannabis, and nutritional supplements).: Yes The patient is not eligible for med reconciliation; the patient is in a emergent medical situation where delaying treatment would jeopardize the patients healt h.: No
[2024-12-12] MEDS: ATORVASTATIN 20 MG TABLET FEED TUBE (20:06)
[2024-12-12] MEDS: MONTELUKAST SODIUM 10 MG TABLET FEED TUBE (20:06)
[2024-12-12] MEDS: FLUTICASONE/SALMETEROL 115-21 MCG INHALER 1 PUFF 2 PUFF INHALATION (21:03)
[2024-12-13 04:58] VITALS: BP 135/75; PULSE 67; RESP 18; TEMP 36.8; O2SAT 97
[2024-12-13] MEDS: VALPROIC ACID LIQ 250 MG/5 ML ORAL SOLUTION UDC 62.5 MG FEED TUBE ×2 (05:01→12:14)
[2024-12-13] MEDS: LEVOTHYROXINE SODIUM 100 MCG TABLET FEED TUBE (05:02)
[2024-12-13] MEDS: SALINE LOCK FLUSH 10 ML IV PUSH ×2 (05:02→12:15)
[2024-12-13 05:33] LABS: Basophils Absolute Auto 0.1 K/mm3 (0.0-0.1); Eosinophils Absolute Auto 0.4 K/mm3 (0-0.3); Eosinophils Percent Auto 6.2 % (0-4.4); Hematocrit 32.1 % (37.0-47.0); Hemoglobin 9.3 g/dL (12.0-15.0); Immature Granulocyte Absolute 0.02 K/mm3 (0.00-0.031); Immature Granulocyte Percent A 0.3 % (0-0.5); Lymphocytes Absolute Auto 1.38 K/mm3 (0.9-3.2); Lymphocytes Percent Auto 23.2 % (18.3-44.2); Mean Corpuscular Hemoglobin 23.6 pg (26-34); Mean Corpuscular Volume 81.5 fl (80-100); Mean Platelet Volume 9.5 fl (7.4-10.4); Monocytes Absolute Auto 0.7 K/mm3 (0.1-0.6); Monocytes Percent Auto 11.2 % (2.6-8.5); Neutrophils Absolute Auto 3.5 K/mm3 (1.3-6.7); Neutrophils Percent Auto 58.1 % (45.5-73.1); Platelet Count Result 233 k/mm3 (150-375); Red Blood Count 3.94 M/mm3 (4.2-5.4)
[2024-12-13 05:43] LABS: Alanine Aminotransferase 22 U/L (6-35); Albumin Level 3.5 g/dL (3.5-5.1); Alkaline Phosphatase 104 U/L (38-126); Anion Gap 3 mmol/L (4-12); Aspartate Amino Transferase 25 U/L (14-36); Bilirubin,Total 0.1 mg/dL (0.2-1.3); Blood Urea Nitrogen 16 mg/dL (7-17); Carbon Dioxide 36 mmol/L (22-30); Chloride 100 mmol/L (98-107); Estimated CRCL calculation 79 ml/min; Estimated Glomerular Filt Rate > 60; Glucose 105 mg/dL (65-110); Potassium 3.9 mmol/L (3.4-5.0); Sodium 139 mmol/L (137-145)
[2024-12-13 05:53] LABS: Anisocytosis 1+; Hypochromasia 1+; Macrocytosis 1+ (NORMAL); Platelet Estimate Adequate (Adequate); Schistocytes None Seen
[2024-12-13] MEDS: ASPIRIN 81 MG CHEWABLE TABLET FEED TUBE (08:10)
[2024-12-13] MEDS: ENOXAPARIN 40 MG/0.4 ML SYRINGE SUB-Q (08:10)
[2024-12-13] MEDS: ERTAPENEM 1 GM/NS 50 ML 1 GM/50 ML BAG IVPB (08:10)
[2024-12-13] MEDS: levETIRAcetam ORAL SOL 500 MG/5 ML UDC FEED TUBE (08:10)
[2024-12-13] MEDS: SOLIFENACIN 5 MG TABLET 10 MG PO (08:11)
[2024-12-13] MEDS: POTASSIUM CHLORIDE 20 MEQ PACKET (FOR LIQUID) FEED TUBE (08:11)
[2024-12-13] MEDS: ASCORBIC ACID 250 MG TABLET FEED TUBE (08:11)
[2024-12-13] MEDS: DOXYCYCLINE HYCLATE 100 MG TABLET FEED TUBE (08:11)
[2024-12-13] MEDS: FUROSEMIDE 20 MG TABLET FEED TUBE (08:11)
[2024-12-13] MEDS: PANTOPRAZOLE SODIUM IV 40 MG VIAL IV PUSH (08:11)
[2024-12-13] MEDS: DICLOFENAC SODIUM 1% 100 GM GEL (*BKC) 1 APPLIC TOPICAL (08:12)
[2024-12-13 08:38] VITALS: O2SAT 96
[2024-12-13] MEDS: FLUTICASONE/SALMETEROL 115-21 MCG INHALER 1 PUFF 2 PUFF INHALATION (08:38)
--- NOTE | 2024-12-13 12:55 | P.DS_ITS ---
DS: Admitting Diagnosis Discharge Date 12/13/2024 Admitting Diagnosis Infection of peg tube DS: Discharge Diagnosis Discharge Diagnosis (1) Gastrointestinal tube present: Code(s): Z93.1 - Gastrostomy status Status: Acute (2) Skin infection at gastrostomy tube site: Code(s): K94.22 - Gastrostomy infection; L08.9 - Local infection of the skin and subcutaneous tissue, unspecified Status: Acute Assessment and Plan: * Augmentin changed to Ertapenem nd Doxycycline through 12/17 per infectious disease pharmacy recommendations * Midline in place can be removed with medication complete (3) Bipolar 1 disorder: Code(s): F31.9 - Bipolar disorder, unspecified Status: Chronic Assessment and Plan: * continue carbamazepine and valproic acid (4) HLD (hyperlipidemia): Code(s): E78.5 - Hyperlipidemia, unspecified Status: Chronic Assessment and Plan: * Continue Lipitor and Aspirin (5) COPD (chronic obstructive pulmonary disease): Qualifiers: COPD type: unspecified COPD Qualified Code(s): J44.9 - Chronic obstructive pulmonary disease, unspecified Code(s): J44.9 - Chronic obstructive pulmonary disease, unspecified Status: Acute Assessment and Plan: * continue albuterol rescue inhaler * continue Singulair (6) Seizure: Code(s): R56.9 - Unspecified convulsions Status: Acute Assessment and Plan: * continue Valproic acid and keppra (7) Hypothyroid: Code(s): E03.9 - Hypothyroidism, unspecified Status: Acute Assessment and Plan: * Continue Synthroid (8) Right shoulder pain: Code(s): M25.511 - Pain in right shoulder Status: Acute Assessment and Plan: * right shoulder x-ray was negative for acute osseous abnormality. 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 Patient reported that G-tube was placed about a month ago but she was not able to express why. This was placed in [facility]. Workup in the hospital included a chest x-ray which shown possible minimal hazy bibasilar pulmonary edema, COPD. Initial labs showed a normal white blood cell count of 9.5, hemoglobin 10.2, bicarb 31, creatinine 0.4, greater than 60 EGFR, AST 46. UA was obtained which showed trace urine ketones, 1+ leukocyte otherwise normal. Urine culture was obtained and pending. Patient was recently seen and transferred to tertiary care due to anemia and chest pain. She was noted to have a hemoglobin of 4.0, hematocrit 16.4 at that time and was sent to [facility]. Patient ended up getting G tube placed at [facility] due to concerns for aspiration pneumonia. G-tube functioning properly. it was noted that she had pus at placement site and a culture was performed that grew proteus mirabilis and staphylococcus aureus she was then transitioned to IV ertapenem for 7 days as well doxycycline x7 days culture and sensitivity. Patient during hospitalization remained afebrile and wbc's to reported on complaints patient alert and oriented 2-3 with intermittent confusion at times which is her baseline at time of discharge shows in no acute distress on repair and PEG tube site erythema or further administration complications she was tolerating continuous tube feedings without difficulty. Patient was then discharged to a half-way facility with midline placed to complete antibiotic therapy via EMS. Status at Discharge Functional status at discharge: uses cane/walker Overall status at discharge: patient is back to baseline Time Spent with Patient Time attestation: Total time spent providing and/or coordinating discharge services: Time spent: Greater than 30 minutes Exam Narrative: General: In no acute distress, well nourished Cardiac: Normal S1 and S2. No murmur, gallops or friction rubs, peripheral pulses intact. Respiratory: Lungs clear to auscultation, no adventitious lung sounds, currently on 2L NC which is her baseline O2 requirement Gastrointestinal: soft, non-distended, non-tender, normoactive bowel sounds. G tube in place Extremities: right shoulder pain and limited ROM : voiding without difficulty. Neuro: Alert and oriented x3 DS: Data Data Completed and Pending Labs on day of discharge: Labs from last 24 hours 12/13/24 05:14 WBC 6.0 RBC 3.94 L Hgb 9.3 L Hct 32.1 L MCV 81.5 MCH 23.6 L MCHC 29.0 L RDW TNP Plt Count 233 MPV 9.5 Immature Gran % (Auto) 0.3 Neut % (Auto) 58.1 Lymph % (Auto) 23.2 [place] % (Auto) 11.2 H Eos % (Auto) 6.2 H Baso % (Auto) 1.0 Lymph # (Auto) 1.38 [place] # (Auto) 0.7 H Eos # (Auto) 0.4 H Baso # (Auto) 0.1 Abs Immat Gran (auto) 0.02 Absolute Neuts (auto) 3.5 Absolute Nucleated RBC 0.000 Band Neutrophils % Not Reportable Nucleated RBC % 0.0 Platelet Estimate Adequate Hypochromasia 1+ Anisocytosis 1+ Macrocytosis 1+ Schistocytes None seen Sodium 139 Potassium 3.9 Chloride 100 Carbon Dioxide 36 H Anion Gap 3 L BUN 16 Creatinine 0.47 L Estim Creat Clear Calc 79 Estimated GFR > 60 Glucose 105 Calcium 9.0 Total Bilirubin 0.1 L AST 25 ALT 22 Alkaline Phosphatase 104 Total Protein 7.0 Albumin 3.5 Preliminary micro results at discharge 12/08/24 16:21 Anaerobic Culture - Preliminary Other Discharge Plan Discharge Attending physician on discharge: Cathryn Bocanegra Consulting providers: Aidee Rodriguez Discharging Clinician: Aidee Rodriguez Anticipated Discharge Date/Time: 12/13/24 12:45 Patient Disposition: SNF Activity: may shower and as tolerated Diet: tube feeding Discharge Instructions: Tube Feedings: * Jevity 1.2 Continuous at 60ML and hour with Q4hr flushes 100ML free water flushes Peg tube skin infection: * Ertapenem IV 1g daily through midline through 12/17/2024 may remove midline when completed * PO Doxycycline orally through 12/17/2024 * Dressing changes daily or when soiled How can you care for yourself at home? ? Keep track of any new symptoms or changes in your symptoms. ? Rest until you feel better. ? Be safe with medicines. Take your medicines exactly as prescribed. Call your doctor if you think you are having a problem with your medicine. ? Do not drive after taking a prescription pain medicine. ? Ensure to follow-up with primary care physician as indicated and provide updated medication list provided to you at discharge. When should you call for help? Call 911 anytime you think you may need emergency care. For example, call if: ? You passed out (lost consciousness). Call your doctor now or seek immediate medical care if: ? You have new symptoms like fever, difficulty breathing, Chest pain, vomiting, or rash. ? You have new or different pain. ? You are confused and are having trouble thinking clearly. ? Your symptoms are getting worse. Watch closely for changes in your health, and be sure to contact your doctor if: ? You do not get better as expected. Patient Instructions: How to Use and Care for Your PEG Tube (DC) Patient Language: Kiswahili Stand Alone Forms: General Discharge Information, Care Home Discharge Follow-up/Referrals: UNKNOWN,DOCTOR [Primary Care Provider] - Call for Appointment Discharge Medications: New doxycycline hyclate 100 mg Tablet 100 mg feeding tube Q12HR Qty: 9 0RF levetiracetam 100 mg/mL Solution 500 mg feeding tube Q12HR Qty: 60 0RF ertapenem 1 gram recon soln 1 g IV Q24H Qty: 4 0RF diclofenac sodium [Voltaren Arthritis Pain] 1 % gel 2 g topical QID Qty: 100 0RF Rx Instructions: apply to shoulder Continued atorvastatin 20 mg tablet 20 mg feeding tube HS risperidone 2 mg tablet 2 mg feeding tube DAILY levothyroxine 100 mcg tablet 100 mcg feeding tube DAILY carbamazepine 100 mg tablet,chewable 300 mg feeding tube BID aspirin 81 mg tablet,chewable 81 mg feeding tube DAILY montelukast 10 mg tablet 10 mg feeding tube HS budesonide-formoterol [Breyna] 160-4.5 mcg/actuation HFA aerosol inhaler 2 puff INHALATION BID furosemide 20 mg tablet 20 mg feeding tube DAILY ascorbic acid (vitamin C) [Vitamin C] 250 mg tablet 250 mg feeding tube DAILY albuterol sulfate 90 mcg/actuation HFA aerosol inhaler 2 puff INHALATION Q6H PRN (Reason: shortness of breath or wheezing) dicyclomine 10 mg capsule 10 mg feeding tube DAILY PRN (Reason: abdominal pain) valproic acid (as sodium salt) 250 mg/5 mL solution See Rx Instructions feeding tube Q6H Rx Instructions: 1.25 mL via feeding tube every 6 hours; omeprazole 20 mg capsule,delayed release(DR/EC) 20 mg feeding tube DAILY solifenacin 5 mg tablet 10 mg PO DAILY Rx Instructions: g-tube potassium chloride 20 mEq packet 20 meq feeding tube EVERY OTHER DAY Date of admission: 12/11/24 16:17 Primary Care Provider: UNKNOWN,DOCTOR Admitting Provider: Geoffrey Yu Attending physician on admission: Cheri Griffiths Condition: Stable Quality VTE Prophylaxis VTE prophylaxis: mechanical ordered and pharmacologic ordered -Patient's previous records reviewed on admission -ER notes reviewed in detail on admission -discussed all findings and current treatment plan with patient/Family/POA -Consultations reviewed for recommendations -Patient's disposition for safe discharge discussed with comp field case manager Dictation performed by [employer] direct speech recognition software, therefore case management specialist variants and typographical errors may occur. Hospitalist MIPS Heart Failure (Exclusion) Patient has history of Heart Transplant or Left Ventricular Assistive Device?: No IF YES, STOP HERE Heart Failure (Qualifier) Patient has current or prior documentation of LVEF less than or equal to 40%, or mod/servere depressed LVSF?: No IF NO, STOP HERE
[2024-12-13 14:00] VITALS: BP 130/68; PULSE 74; RESP 19; TEMP 36.8; O2SAT 95
[2024-12-13 14:04] LABS: SARS-CoV-2 RNA PCR Negative (Negative)
== END 2024-12-13 16:05 | DRG 394 ==
LOC: ANHED 12:33 → ANH3MED 13:07
PROVIDERS: Nurse Practitioner Acute Care; Nurse Practitioner Gerontology; Admitting Provider Family Medicine; Emergency Provider Physician Assistant; Visit Provider Nurse Practitioner Family
DX: K94.22 Gastrostomy infection (principal); C34.90 Malignant neoplasm of unspecified part of unspecified bronchus or lung; C79.9 Secondary malignant neoplasm of unspecified site; L08.9 Local infection of the skin and subcutaneous tissue, unspecified; B96.4 Proteus (mirabilis) (morganii) as the cause of diseases classified elsewhere; B95.61 Methicillin susceptible Staphylococcus aureus infection as the cause of diseases classified elsewhere; E78.5 Hyperlipidemia, unspecified; E03.9 Hypothyroidism, unspecified; M19.011 Primary osteoarthritis, right shoulder; M25.511 Pain in right shoulder; R56.9 Unspecified convulsions; F31.9 Bipolar disorder, unspecified; Z20.822 Contact with and (suspected) exposure to COVID-19; Z99.81 Dependence on supplemental oxygen; Z79.82 Long term (current) use of aspirin; Z87.891 Personal history of nicotine dependence
CPT/HCPCS: 36415; 36569; 71045; 73030; 80048; 80053; 81001; 85025; 85055; 87070; 87075; 87086; 87181; 87186; 87205; 87635; 93971; 94640; 97166; 97530; 97535; 99285; A9270; C1751; G0378; J1335; J1650; J2003; J2470